=== PATIENT | male | born 1960 | race Caucasian/White ===

== ENCOUNTER 2016-02-13 12:38 | Inpatient (IN) | payer MEDICARE ==
[~2016-02-13] VITALS: Ht 170.2 cm; Wt 66.0 kg
[2016-02-13 12:41] VITALS: BP 121/62; PULSE 86; RESP 15; TEMP 98.4; O2SAT 95
[2016-02-13 12:53] VITALS: BP 133/85; PULSE 97; RESP 15; TEMP 97.9; O2SAT 97
[2016-02-13] MEDS ORDERED: SODIUM CHLOR 0.9% 1000 ML INJ 1,000 ML IV SCH (13:00)
[2016-02-13] MEDS ORDERED: HYDR-3366 PO (13:05)
[2016-02-13] MEDS ORDERED: DICL75TA PO (13:05)
[2016-02-13] MEDS ORDERED: OMEP20TA PO (13:05)
[2016-02-13] MEDS ORDERED: GABA600T PO (13:05)
[2016-02-13] MEDS ORDERED: CLON1 PO (13:05)
[2016-02-13] MEDS ORDERED: MORP1TAB26 PO (13:05)
[2016-02-13] MEDS ORDERED: LISI10TA3 PO (13:05)
--- NOTE | 2016-02-13 13:07 | PD ---
HPI Chief Complaint: Back/ Neck Pain or Injury Time Seen by Provider: 13:07 Travel History International Travel<30 days: No Contact w/Intl Traveler<30days: No Traveled to known affect area: No History of Present Illness HPI 56-year-old male with history of hypertension, COPD, chronic back pain, IV drug use presents to the emergency department for evaluation of lower back pain. The patient states that he has had worsening lower back pain over the past 3 months. States that he sees pain management for his chronic back pain, he is taking morphine and Lortab. States that he had an outpatient MRI performed that showed he has some sort of fluid around his spine and he was told by his pain management doctor yesterday to come to the emergency room. He has the MRI disc and report with him which shows the MRI he is referring to was performed . The patient states he was recently admitted at [facility] for a hand infection and had PICC line with antibiotics, states his PICC line was removed yesterday. Patient is unsure if he received any treatment for his lumbar spine infection. The patient is overall a poor historian. He is complaining of lower back pain. He denies any fever, chills, nausea, vomiting, numbness or tingling, saddle anesthesia, bowel or bladder incontinence. He admits he did fall asleep onto his heating pad last night and had it on his lower back for over 6 hours. No other complaints. [facility] Past Medical History Anxiety: Yes Depression: Yes COPD: Yes Hepatitis: Yes (C) Hypertension: Yes Influenza Vaccination: Yes Past Surgical History Appendectomy: Yes Thoracic Surgery: Yes Social History Alcohol Use: No Tobacco Use: Yes Substance Use: No (hx iv drug dilaudid use, last in april) Allergies-Medications (Allergen,Severity, Reaction): Coded Allergies: No Known Allergies (Unverified , 02/13/16) Reported Meds & Prescriptions Reported Meds & Active Scripts Active Reported Omeprazole 20 Mg Tab 20 Mg PO BID Lisinopril 10 Mg Tab 10 Mg PO DAILY Diclofenac Sodium DR (Diclofenac Sodium) 75 Mg Tabdr 75 Mg PO BID Gabapentin 600 Mg Tab 600 Mg PO BID [place] (Hydrocodone-Acetaminophen) 10-325 Mg Tab 1 Tab PO BID PRN Morphine ER (Morphine Sulfate) 60 Mg Tab 60 Mg PO BID PRN Klonopin (Clonazepam) 1 Mg Tab 1 Mg PO TID Review of Systems Except as stated in HPI: all other systems reviewed are Neg Physical Exam Narrative GENERAL: Well-nourished and well-developed male patient in no acute distress. SKIN: Warm and dry. HEAD: Normocephalic and atraumatic. EYES: No injection, drainage, or hyphema noted. PERRLA. EOMI. ENT: No nasal drainage noted. Oropharynx is clear. NECK: Supple and the trachea is midline. CARDIOVASCULAR: Regular rate and rhythm. RESPIRATORY: Breath sounds are equal bilaterally with no accessory muscle use, wheezing, rhonchi, or crackles. GASTROINTESTINAL: Abdomen is soft, non-tender, and nondistended. MUSCULOSKELETAL: No obvious deformities, swelling, cyanosis, or ecchymosis is present throughout the upper and lower extremities. Patient has full range of motion without any signs of neurovascular compromise. Strength 5/5 upper and lower extremities and equal bilaterally. BACK: There is a rash across the lower back in the shape of a heating pad, likely secondary to the patient leaving his heating pad on all night. The patient has midline lumbar spine tenderness to palpation. No tenderness to palpation of thoracic spine. NEUROLOGICAL: Awake, alert, and oriented. Normal speech and gait. Cranial nerves are grossly intact. Data Data Last Documented VS Vital Signs Date Time Temp Pulse Resp B/P Pulse Ox O2 Delivery O2 Flow Rate FiO2 02/13/16 16:00 75 15 106/69 95 Room Air 02/13/16 12:53 97.9 Orders Complete Blood Count With Diff (02/13/16 13:00) Comprehensive Metabolic Panel (02/13/16 13:00) Prothrombin Time / Inr (Pt) (02/13/16 13:00) Act Partial Throm Time (Ptt) (02/13/16 13:00) Lactic Acid Sepsis Protocol (02/13/16 13:00) Blood Culture (02/13/16 13:00) Blood Glucose (02/13/16 13:00) Ecg Monitoring (02/13/16 13:00) Iv Access Insert/Monitor (02/13/16 13:00) Oximetry (02/13/16 13:00) Westergren Sedimentation Rate (02/13/16 13:00) C-Reactive Protein (Crp) (02/13/16 13:00) Mri L Spine W&W/O Contrast (02/13/16 ) Sodium Chlor 0.9% 1000 Ml Inj (Ns 1000 M (02/13/16 13:00) Gadodiamide Pf Inj (Omniscan Pf Inj) (02/13/16 14:50) Vancomycin Inj (Vancomycin Inj) (02/13/16 15:45) Piperacil-Tazo 4.5 Gm Premix (Zosyn 4.5 (02/13/16 15:45) Consult Neurosurgery (02/13/16 ) Drug Screen,Ur W/Confirmation (02/13/16 16:16) Comprehensive Metabolic Panel (02/14/16 06:00) Hepatitis Profile (02/13/16 16:16) Invasive Rad Dept Consult (02/13/16 ) Consult Infectious Disease (02/13/16 ) Dexamethasone Inj (Decadron Inj) (02/13/16 17:00) Clonazepam (Klonopin) (02/13/16 18:00) Gabapentin (Neurontin) (02/13/16 21:00) Lisinopril (Prinivil) (02/14/16 09:00) Pantoprazole (Protonix) (02/13/16 21:00) Admit Order (Ed Use Only) (02/13/16 16:21) Oxycodone Sr (Oxycontin Cr) (02/13/16 21:00) Labs Laboratory Tests Test 02/13/16 13:14 White Blood Count 10.4 TH/MM3 Red Blood Count 4.47 MIL/MM3 Hemoglobin 11.0 GM/DL Hematocrit 32.0 % Mean Corpuscular Volume 71.6 FL Mean Corpuscular Hemoglobin 24.6 PG Mean Corpuscular Hemoglobin 34.4 % Concent Red Cell Distribution Width 20.9 % Platelet Count 410 TH/MM3 Mean Platelet Volume 7.0 FL Neutrophils (%) (Auto) 78.2 % Lymphocytes (%) (Auto) 14.5 % Monocytes (%) (Auto) 5.9 % Eosinophils (%) (Auto) 0.9 % Basophils (%) (Auto) 0.5 % Neutrophils # (Auto) 8.1 TH/MM3 Lymphocytes # (Auto) 1.5 TH/MM3 Monocytes # (Auto) 0.6 TH/MM3 Eosinophils # (Auto) 0.1 TH/MM3 Basophils # (Auto) 0.1 TH/MM3 CBC Comment AUTO DIFF Differential Comment AUTO DIFF CONFIRMED Acanthocytes OCC Erythrocyte Sedimentation Rate 62 mm/hr Prothrombin Time 10.7 SEC Prothromb Time International 1.0 RATIO Ratio Activated Partial 32.9 SEC Thromboplast Time Sodium Level 130 MEQ/L Potassium Level 4.2 MEQ/L Chloride Level 95 MEQ/L Carbon Dioxide Level 25.1 MEQ/L Anion Gap 10 MEQ/L Blood Urea Nitrogen 36 MG/DL Creatinine 0.96 MG/DL Estimat Glomerular Filtration 81 ML/MIN Rate Random Glucose 105 MG/DL Lactic Acid Level 1.4 mmol/L Calcium Level 9.0 MG/DL Total Bilirubin 0.4 MG/DL Aspartate Amino Transf 40 U/L (AST/SGOT) Alanine Aminotransferase 44 U/L (ALT/SGPT) Alkaline Phosphatase 158 U/L C-Reactive Protein 5.17 MG/DL Total Protein 8.3 GM/DL Albumin 3.2 GM/DL [facility] Medical Decision Making Medical Screen Exam Complete: Yes Emergency Medical Condition: Yes Differential Diagnosis Acute on chronic low back pain versus lumbar spine abscess versus discitis versus radiculopathy Narrative Course 56-year-old male presents to the emergency department for evaluation of lower back pain for several months. Patient is afebrile, vital signs are stable. He was sent here by his pain management physician for an abnormal lumbar spine MRI that was performed 12/21/15. The report reads the patient has osteomyelitis discitis with thin layer of epidural abscess along posterior aspect of L3 and L4 , Multiloculated intramuscular fluid collections likely represent seromas versus abscesses. Associated severe thecal sac compression and bilateral neural foraminal narrowing. IV access is obtained, labs have been drawn and sent. CBC shows mild anemia with hemoglobin 11.0, hematocrit 30.0. ESR is elevated at 62. CMP shows slightly low sodium of 1:30 and not elevation in LFTs. CRP is elevated at 0.17. Lactic acid is within normal limits at 1.4. Coags are unremarkable. MRI of the lumbar spine with and without IV contrast shows L3-L4 discitis with osteomyelitis and endplate distraction of L3 and L4. There are epidural abscess extending from L2 to L4 measuring 7 mm in maximal thickness, there is also a left posterior paraspinous abscess that measures 1.8 x 3 cm in greatest transaxial dimension and 5.5 cm in length. There are abscesses in the left posterior lateral paraspinous rim at level of L1 and L2 as well as in both so as muscles left larger than right. Patient has multiple lumbar spine abscesses with discitis and osteomyelitis. He is given 1 g of vancomycin and 4.5 mg of Zosyn. Patient will be admitted to the resident service with neurosurgeon consultation. I discussed the case with my attending physician Dr. Tay who is aware of the patients history, physical examination findings, and treatment plan. Physician Communication Physician Communication I spoke with Dr. Walters, neurosurgeon on-call, who is made aware of the patient and his MRI findings and agrees to consult on the patient. I spoke with Dr. Ricardo medical technician who agrees to admit the patient to their service. Diagnosis Primary Impression: Lumbar discitis Additional Impressions: Osteomyelitis of lumbar spine Spinal epidural abscess Admitting Information Admitting Physician Requests: Admit Myrna King Feb 13, 2016 13:07
[2016-02-13 13:32] LABS: AUTOMATED NEUTROPHIL # 8.1 TH/MM3 (1.8-7.7); BASOPHIL # 0.1 TH/MM3 (0-0.2); BASOPHIL % 0.5 % (0.0-2.0); EOSINOPHIL # 0.1 TH/MM3 (0-0.4); EOSINOPHIL % 0.9 % (0.0-4.0); LYMPH % 14.5 % (9.0-44.0); LYMPHOCYTE # 1.5 TH/MM3 (1.0-4.8); MEAN CELL VOLUME 71.6 FL (80.0-100.0); MEAN CORPUSCULAR HEMOGLOBIN 24.6 PG (27.0-34.0); MEAN CORPUSCULAR HGB CONC 34.4 % (32.0-36.0); MONO % 5.9 % (0.0-8.0); NEUT % 78.2 % (16.0-70.0); PLATELET COUNT 410 TH/MM3 (150-450); RED BLOOD COUNT 4.47 MIL/MM3 (4.50-5.90); RED CELL DISTRIBUTION WIDTH 20.9 % (11.6-17.2); WHITE BLOOD COUNT 10.4 TH/MM3 (4.0-11.0)
[2016-02-13 13:33] LABS: HEMO FLAGS AUTO DIFF
[2016-02-13 13:35] LABS: APTT (PATIENT) 32.9 SEC (24.3-30.1); PROTHROMBIN TIME - PATIENT 10.7 SEC (9.8-11.6)
[2016-02-13 13:42] LABS: ALT (GPT) 44 U/L (12-78); ANION GAP 10 MEQ/L (5-15); AST (GOT) 40 U/L (15-37); BICARBONATE 25.1 MEQ/L (21.0-32.0); BLOOD UREA NITROGEN 36 MG/DL (7-18); CHLORIDE 95 MEQ/L (98-107); GLOMERULAR FILTRATION RATE 81 ML/MIN (>89); POTASSIUM 4.2 MEQ/L (3.5-5.1); SODIUM (NA) 130 MEQ/L (136-145)
[2016-02-13 13:44] LABS: ALKALINE PHOSPHATASE 158 U/L (45-117); TOTAL BILIRUBIN ADULT 0.4 MG/DL (0.2-1.0)
--- NOTE | 2016-02-13 13:45 | PD ---
Physical Exam Date Seen by Provider: Feb 13, 2016 Narrative I, Dr. Tay, have reviewed the advance practice practitioner's documentation and am in agreement, met with the patient face to face, made the diagnosis, and the medical decision making was done by me. *My assessment and Findings: This is a chronically ill-appearing man who does not appear to be in any acute distress. Data Data Last Documented VS Vital Signs Date Time Temp Pulse Resp B/P Pulse Ox O2 Delivery O2 Flow Rate FiO2 02/13/16 16:00 75 15 106/69 95 Room Air 02/13/16 12:53 97.9 Orders Complete Blood Count With Diff (02/13/16 13:00) Comprehensive Metabolic Panel (02/13/16 13:00) Prothrombin Time / Inr (Pt) (02/13/16 13:00) Act Partial Throm Time (Ptt) (02/13/16 13:00) Lactic Acid Sepsis Protocol (02/13/16 13:00) Blood Culture (02/13/16 13:00) Blood Glucose (02/13/16 13:00) Ecg Monitoring (02/13/16 13:00) Iv Access Insert/Monitor (02/13/16 13:00) Oximetry (02/13/16 13:00) Westergren Sedimentation Rate (02/13/16 13:00) C-Reactive Protein (Crp) (02/13/16 13:00) Mri L Spine W&W/O Contrast (02/13/16 ) Sodium Chlor 0.9% 1000 Ml Inj (Ns 1000 M (02/13/16 13:00) Gadodiamide Pf Inj (Omniscan Pf Inj) (02/13/16 14:50) Vancomycin Inj (Vancomycin Inj) (02/13/16 15:45) Piperacil-Tazo 4.5 Gm Premix (Zosyn 4.5 (02/13/16 15:45) Consult Neurosurgery (02/13/16 ) Drug Screen,Ur W/Confirmation (02/13/16 16:16) Comprehensive Metabolic Panel (02/14/16 06:00) Hepatitis Profile (02/13/16 16:16) Invasive Rad Dept Consult (02/13/16 ) Consult Infectious Disease (02/13/16 ) Dexamethasone Inj (Decadron Inj) (02/13/16 17:00) Clonazepam (Klonopin) (02/13/16 18:00) Gabapentin (Neurontin) (02/13/16 21:00) Lisinopril (Prinivil) (02/14/16 09:00) Pantoprazole (Protonix) (02/13/16 21:00) Admit Order (Ed Use Only) (02/13/16 16:21) Oxycodone Sr (Oxycontin Cr) (02/13/16 21:00) Labs Laboratory Tests Test 02/13/16 13:14 White Blood Count 10.4 TH/MM3 Red Blood Count 4.47 MIL/MM3 Hemoglobin 11.0 GM/DL Hematocrit 32.0 % Mean Corpuscular Volume 71.6 FL Mean Corpuscular Hemoglobin 24.6 PG Mean Corpuscular Hemoglobin 34.4 % Concent Red Cell Distribution Width 20.9 % Platelet Count 410 TH/MM3 Mean Platelet Volume 7.0 FL Neutrophils (%) (Auto) 78.2 % Lymphocytes (%) (Auto) 14.5 % Monocytes (%) (Auto) 5.9 % Eosinophils (%) (Auto) 0.9 % Basophils (%) (Auto) 0.5 % Neutrophils # (Auto) 8.1 TH/MM3 Lymphocytes # (Auto) 1.5 TH/MM3 Monocytes # (Auto) 0.6 TH/MM3 Eosinophils # (Auto) 0.1 TH/MM3 Basophils # (Auto) 0.1 TH/MM3 CBC Comment AUTO DIFF Differential Comment AUTO DIFF CONFIRMED Acanthocytes OCC Erythrocyte Sedimentation Rate 62 mm/hr Prothrombin Time 10.7 SEC Prothromb Time International 1.0 RATIO Ratio Activated Partial 32.9 SEC Thromboplast Time Sodium Level 130 MEQ/L Potassium Level 4.2 MEQ/L Chloride Level 95 MEQ/L Carbon Dioxide Level 25.1 MEQ/L Anion Gap 10 MEQ/L Blood Urea Nitrogen 36 MG/DL Creatinine 0.96 MG/DL Estimat Glomerular Filtration 81 ML/MIN Rate Random Glucose 105 MG/DL Lactic Acid Level 1.4 mmol/L Calcium Level 9.0 MG/DL Total Bilirubin 0.4 MG/DL Aspartate Amino Transf 40 U/L (AST/SGOT) Alanine Aminotransferase 44 U/L (ALT/SGPT) Alkaline Phosphatase 158 U/L C-Reactive Protein 5.17 MG/DL Total Protein 8.3 GM/DL Albumin 3.2 GM/DL MDM Supervised Visit with HEATHER: Yes Oeters,Mary Fidel MD Feb 13, 2016 13:45
[2016-02-13 14:03] LABS: ACANTHOCYTES OCC (NORMAL); SCAN/DIFF AUTO DIFF CONFIRMED
[2016-02-13] MEDS ORDERED: GADODIAMIDE PF 287 MG/ML 10 ML VIAL (for RAD MRI) IV ONE (14:50)
--- NOTE | 2016-02-13 15:22 | RADRPT ---
EXAM DATE/TIME: 02/13/2016 14:25 [place] COMPARISON: No previous studies available for comparison. INDICATIONS : Osteomyelitis. CONTRAST: 10 cc Omniscan (gadodiamide) IV MEDICAL HISTORY : Hypertension. SURGICAL HISTORY : Epidural steroid injections ENCOUNTER: Initial ACUITY: 1 day PAIN SCORE: 5/10 LOCATION: Low back TECHNIQUE: Multiplanar multisequence MRI of the lumbar spine was performed with and without contrast. FINDINGS: There is discitis at L3/L4. In the intervertebral disc spaces is a 12 mm thick, 2.7 cm diameter disc- shaped fluid collection. There is abnormal T2 and T1 signal throughout the L3 and L4 vertebral bodies compatible with osteomyelitis. There is destruction of the anterior endplate of L3 and superior endp late of L4. There is epidural abscess that extends from L2-L4, measures about 7 mm in maximal thickne ss and is most conspicuous anteriorly and posteriorly towards the left. There is associated moderate severity spinal stenosis. The epidural abscess appears to communicate with a left posterior paraspino us abscess that measures 1.8 x 3.0 cm in greatest transaxial dimension and 5.5 cm in length. Above it is an additional left posterolateral paraspinous rim enhancing fluid collection at the level of L1 a nd L2, measures 1.2 by 1.1 x 4.2 cm. There are abscesses in both psoas muscles, left larger than righ t. Moderate to severe disc space narrowing with a small, broad posterior disc osteophyte complex seen at L4/L5. There is marrow edema in the posterior third of the L5 vertebral body and more focal correspo nding T1 signal abnormality, most likely reactive but focal osteomyelitis of L5 not excludable. CONCLUSION: L3/L4 discitis with osteomyelitis and endplate destruction of L3 and L4. There are epidural, L3/L4 in tervertebral, psoas and left posterolateral paraspinous abscesses. Please see above. Bharat Cabrera MD on February 13, 2016 at 15:11 Board Certified Radiologist. This report was verified electronically.
[2016-02-13] MEDS ORDERED: VANCOMYCIN INJ 1,000 MG in SODIUM CHLOR 0.9% 250 ML INJ 250 ML IV ONE (15:45)
[2016-02-13] MEDS ORDERED: PIPERACIL-TAZO 4.5 GM PREMIX 100 ML IV ONE (15:45)
[2016-02-13 16:00] VITALS: BP 106/69; PULSE 75; RESP 15; O2SAT 95
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
[2016-02-13] MEDS ORDERED: Vancomycin Consult Pharmacy 1 EA OTHER SCH (17:00)
[2016-02-13] MEDS ORDERED: VANCOMYCIN INJ 1,200 MG in SODIUM CHLOR 0.9% 250 ML INJ 250 ML IV SCH (17:00)
[2016-02-13] MEDS: DEXAMETHASONE SOD PHOS 4 MG/ML VIAL IV PUSH SCH ×2 (17:01→22:00)
[2016-02-13 17:03] VITALS: BP 90/56; PULSE 66; RESP 15; O2SAT 96
[2016-02-13] MEDS ORDERED: ONDANSETRON HCL 4 MG/2 ML VIAL IVP PRN (17:15)
[2016-02-13] MEDS ORDERED: ACETAMINOPHEN 325 MG TAB PO PRN (17:15)
[2016-02-13] MEDS ORDERED: LORazepam 1 MG TAB PO PRN (17:15)
[2016-02-13] MEDS ORDERED: LORazepam 2 MG/ML VIAL IV PUSH PRN ×4 (17:15)
[2016-02-13] MEDS ORDERED: SODIUM CHLORIDE 0.9% FLUSH 5 ML FLUSH FLUSH PRN (17:15)
[2016-02-13] MEDS ORDERED: FLUMAZENIL 1 MG/10 ML VIAL IV PUSH PRN (17:15)
[2016-02-13] MEDS ORDERED: LORazepam 2 MG TAB PO PRN (17:15)
[2016-02-13] MEDS ORDERED: NALOXONE HCL 0.4 MG/ML AMP IV PRN (17:15)
--- NOTE | 2016-02-13 17:25 | RADRPT ---
EXAM DATE/TIME: 02/13/2016 17:05 [facility] COMPARISON: No previous studies available for comparison. INDICATIONS : Shortness of breath. MEDICAL HISTORY : Hypertension. SURGICAL HISTORY : None. ENCOUNTER: Initial ACUITY: 1 day PAIN SCORE: Non-responsive. LOCATION: Bilateral chest FINDINGS: A single view of the chest demonstrates the lungs to be symmetrically aerated without evidence of mas s, infiltrate or effusion. The cardiomediastinal contours are unremarkable. Osseous structures are intact. CONCLUSION: No evidence of acute cardiopulmonary disease. Bharat Cabrera MD on February 13, 2016 at 17:23 Board Certified Radiologist. This report was verified electronically.
[2016-02-13] MEDS ORDERED: hydrALAZINE HCL 10 MG TAB PO PRN (17:30)
[2016-02-13 17:48] VITALS: BP 107/64; PULSE 71; RESP 16; O2SAT 95
[2016-02-13] MEDS: SODIUM CHLOR 0.9% 1000 ML INJ 1,000 ML IV SCH (18:00)
[2016-02-13] MEDS: cefTRIAXone INJ 2,000 MG in SODIUM CHLORIDE 0.9% INJ 100 ML IV SCH (18:00)
[2016-02-13] MEDS ORDERED: clonazePAM 1 MG TAB PO SCH (18:00)
[2016-02-13] MEDS ORDERED: LIDOCAINE 1%/EPINEPHrine 1:100,000 SOLN 20 ML VIAL ONE (18:22)
[2016-02-13 18:25] LABS: BACTERIA, URINE RARE /hpf; BLOOD, URINE NEG (NEG); COMMENT (UR) CULT NOT INDICATED; CULTURE IF INDICATED CULT NOT INDICATED; GLUCOSE,URINE NEG (NEG); KETONE, URINE NEG (NEG); MUCUS URINE FEW /lpf (OCC); NITRITE,URINE NEG (NEG); URINE COLOR YELLOW (YELLW/STRAW)
[2016-02-13] MEDS ORDERED: MIDAZOLAM HCL 2 MG/2 ML VIAL ONE (18:35)
--- NOTE | 2016-02-13 19:26 | PD.RAD ---
Post CT Procedure Prog Note Pre Procedure Diagnosis: (1) Spinal epidural abscess (2) Osteomyelitis of lumbar spine Post Procedure Diagnosis: (1) Spinal epidural abscess (2) Osteomyelitis of lumbar spine Procedure Date: Feb 13, 2016 Supervising Radiologist: Tomas High JR Proceduralist/Assist: Dianna Chavez RT(R)(CT) Anesthesia: Conscious Sedation Plan of Activity Patient to Unit: PACU Patient Condition: Good See PACS Report for procedural detail/treatment Drainage Procedure Procedure 1 Imaging Guidance: CT Side: Bilateral Procedure Type: Abscess Drainage, Aspiration Procedure: Placement Danish: 8 Drainage: Suction Fluid Description: Purulent Findings: Three paraspinal abscesses seen. The largest on the right large enough to accept a drain. An 8F drain was placed and 35 ml of pus obtained with sample to micro sent. The other two were too small for a drain. Each was aspirated to decompress the fluid. The left yielded 5 ml and the right 8ml of pus. Jr. Lennox,Tomas Machado MD Feb 13, 2016 19:26
--- NOTE | 2016-02-13 20:08 | RADRPT ---
EXAM DATE/TIME: 02/13/2016 18:48 [facility] COMPARISON: No previous studies available for comparison. INDICATIONS : Lumbar paraspinal abscess. SEDATION TIME: 30 minutes MEDICATION(S): 1.) 1.5 mg midazolam (Versed) IV 2.) 75 mcg fentanyl (Sublimaze) IV DEVICE(S): 1.) 8 Fr Skater 2.) 18 gauge Rodríguez blunt needle 3.) Carter FLUID: Total volume of 48 cc of pus fluid was removed. Fluid was sent for laboratory ordered studies. MEDICAL HISTORY : Chronic obstructive pulmonary disease. Hypertension. Hepatitis C. SURGICAL HISTORY : Appendectomy. ENCOUNTER: Initial ACUITY: 1 day PAIN SCORE: 0/10 LOCATION: Low back PROCEDURE: 1.) Conscious sedation with continuous EKG and oximetry monitoring. 2.) EKG and oximetry remained stable throughout the procedure. PROCEDURE : 1. CT guided drainage of the 3 paraspinal abscesses 2. Conscious sedation with continuous EKG and oximetry monitoring. The risks, benefits and alternatives to the procedure were explained and verbal and written consent w as obtained. The site was prepped in sterile fashion. Full sterile technique was used, including ca p, mask, sterile gloves and gown and a large sterile sheet. Hand hygiene and 2% chlorhexidine and/or betadine/alcohol prep was utilized per protocol for cutaneous antisepsis. The skin and subcutaneous tissues were infiltrated with local anesthetic solution. Using CT guidance the largest left paraspinal abscess was localized. Drainage was performed using th e prescribed catheter. 35 mL of purulent material was aspirated. A sample was sent for microbiologica l evaluation. The smaller left paraspinal abscess and subsequently the right paraspinal abscess were aspirated as they were too small to accept a drainage catheter. These yielded 5 mL and 8 mL of purule nt material respectively. The patient tolerated the procedure well and there were no complications. Conscious sedation was per formed with the prescribed dosages and duration as above. The patient tolerated the procedure well an d there were no complications. EKG and oximetry remained stable throughout the procedure. The patient was sent to post anesthesia recovery in stable condition. CONCLUSION: Uncomplicated CT guided abscess drainage of the largest left paraspinal abscess. The smaller left par aspinal abscess and right paraspinal abscess were too small to accept a drainage catheter and were th erefore aspirated to decompress the material. Tomas High Jr., MD on February 13, 2016 at 20:04 Board Certified Radiologist. This report was verified electronically.
[2016-02-13] MEDS: SODIUM CHLORIDE 0.9% FLUSH 5 ML FLUSH FLUSH SCH (21:00)
[2016-02-13] MEDS: GABAPENTIN 300 MG CAP PO SCH (21:00)
[2016-02-13] MEDS ORDERED: oxyCODONE HCL 20 MG CONTROLLED RELEASE TAB PO SCH (21:00)
[2016-02-13] MEDS: PANTOPRAZOLE SOD 20 MG DELAYED RELEASE TAB PO SCH (21:00)
[2016-02-14] VITALS (10 sets, daily range): BP systolic 119–177; BP diastolic 64–93; PULSE 69–102; RESP 8–22; TEMP 95.4–96.8; O2SAT 95–100
[2016-02-14] MEDS ORDERED: RESP: ALBUTEROL 2.5 MG/IPRATROPIUM 0.5 MG NEB (PRN) NEB (03:15)
[2016-02-14 03:36] LABS: AMPHETAMINE, URINE NEG (NEG); BARBITURATES, URINE NEG (NEG); COCAINE, URINE NEG (NEG)
[2016-02-14] MEDS: SODIUM CHLOR 0.9% 1000 ML INJ 1,000 ML IV SCH ×2 (04:46→16:25)
[2016-02-14] MEDS: VANCOMYCIN INJ 750 MG in SODIUM CHLOR 0.9% 250 ML INJ 250 ML IV SCH ×2 (04:46→16:26)
[2016-02-14] MEDS: DEXAMETHASONE SOD PHOS 4 MG/ML VIAL IV PUSH SCH ×3 (06:24→20:46)
[2016-02-14] MEDS: cefTRIAXone INJ 2,000 MG in SODIUM CHLORIDE 0.9% INJ 100 ML IV SCH ×2 (06:24→17:37)
[2016-02-14 08:00] LABS: AUTOMATED NEUTROPHIL # 6.5 TH/MM3 (1.8-7.7); BASOPHIL % 0.3 % (0.0-2.0); EOSINOPHIL % 0.1 % (0.0-4.0); HEMATOCRIT 28.7 % (39.0-51.0); LYMPH % 9.5 % (9.0-44.0); LYMPHOCYTE # 0.7 TH/MM3 (1.0-4.8); MEAN CELL VOLUME 71.4 FL (80.0-100.0); MEAN CORPUSCULAR HGB CONC 33.7 % (32.0-36.0); MONO % 6.3 % (0.0-8.0); NEUT % 83.8 % (16.0-70.0); PLATELET COUNT 374 TH/MM3 (150-450); RED BLOOD COUNT 4.02 MIL/MM3 (4.50-5.90); RED CELL DISTRIBUTION WIDTH 20.8 % (11.6-17.2); WHITE BLOOD COUNT 7.7 TH/MM3 (4.0-11.0)
[2016-02-14 08:06] LABS: HEMO FLAGS AUTO DIFF
[2016-02-14 08:50] LABS: ALT (GPT) 27 U/L (12-78); ANION GAP 7 MEQ/L (5-15); AST (GOT) 24 U/L (15-37); BICARBONATE 25.9 MEQ/L (21.0-32.0); BLOOD UREA NITROGEN 27 MG/DL (7-18); CHLORIDE 105 MEQ/L (98-107); GLOMERULAR FILTRATION RATE 127 ML/MIN (>89); POTASSIUM 4.5 MEQ/L (3.5-5.1); SODIUM (NA) 138 MEQ/L (136-145)
[2016-02-14 08:52] LABS: ALKALINE PHOSPHATASE 117 U/L (45-117); TOTAL BILIRUBIN ADULT 0.1 MG/DL (0.2-1.0)
[2016-02-14] MEDS: SODIUM CHLORIDE 0.9% FLUSH 5 ML FLUSH FLUSH SCH ×2 (09:00→20:45)
[2016-02-14] MEDS: PANTOPRAZOLE SOD 20 MG DELAYED RELEASE TAB PO SCH ×2 (09:29→20:45)
[2016-02-14] MEDS: GABAPENTIN 300 MG CAP PO SCH ×2 (09:29→20:45)
[2016-02-14] MEDS: LISINOPRIL 10 MG TAB PO SCH (09:29)
[2016-02-14] MEDS: oxyCODONE HCL 20 MG CONTROLLED RELEASE TAB PO PRN ×2 (09:30→20:45)
--- NOTE | 2016-02-14 12:28 | PD.CONS ---
HPI Service Neurosurgery Consult Requested By ED Reason for Consult discitis Primary Care Physician Non-Staff History of Present Illness 56 yr old presented in October to his PCP in [place] with infection and was treated with 3 weeks of oral antibiotics.He had previous left laminectomy at L3/4 in 2006. He worsened clinically and required 2 weeks of IV antibiotics in a fci. He worsened after cessation of treatment and presented to our ED. He complains of thigh pain and back spasms. He has a hx of hepatitis C since the age of 18, tobacco abuse and quit ETOH in the past few years. He admits to cannabis use and is getting opioids from pain management in [place]. Review of Systems ROS Limitations: Clinical Condition, Intoxication Constitutional: COMPLAINS OF: Fatigue Musculoskeletal: COMPLAINS OF: Back pain Neurologic: COMPLAINS OF: Localized weakness, Paresthesias Psychiatric: COMPLAINS OF: Depression Past Family Social History Allergies: Coded Allergies: *MDRO Multi-Drug Resistant Organism (Unverified Allergy, Unknown, 02/14/16) MRSA wound in buttocks (2002) Past Medical History PTSD, on disability Past Surgical History Right knee surgery in the [place] Reported Medications Reported Meds & Active Scripts Active Reported Omeprazole 20 Mg Tab 20 Mg PO BID Lisinopril 10 Mg Tab 10 Mg PO DAILY Diclofenac Sodium DR (Diclofenac Sodium) 75 Mg Tabdr 75 Mg PO BID Gabapentin 600 Mg Tab 600 Mg PO BID [place] (Hydrocodone-Acetaminophen) 10-325 Mg Tab 1 Tab PO BID PRN Morphine ER (Morphine Sulfate) 60 Mg Tab 60 Mg PO BID PRN Klonopin (Clonazepam) 1 Mg Tab 1 Mg PO TID Family History Parents are alive, brother with prostate CA Social History Lives with his son and is on disability. Physical Exam Vital Signs Vital Signs Date Time Temp Pulse Resp B/P Pulse Ox O2 Delivery O2 Flow Rate FiO2 02/14/16 09:00 98 21 02/14/16 08:00 96.4 72 18 98 02/14/16 05:13 95.8 79 19 119/76 99 02/14/16 04:28 95 Nasal Cannula 3.00 02/13/16 21:00 98.5 78 14 107/68 95 Nasal Cannula 3 97 02/13/16 20:15 76 13 107/60 95 Nasal Cannula 3 98 02/13/16 20:00 77 14 121/66 97 Nasal Cannula 3 98 02/13/16 17:48 71 16 107/64 95 Room Air 02/13/16 17:03 66 15 90/56 96 Room Air 02/13/16 16:00 75 15 106/69 95 Room Air 02/13/16 12:53 97.9 97 15 133/85 97 02/13/16 12:41 98.4 86 15 121/62 95 Physical Exam Awake and drowsy, follows commands and has fluent speech as well as orientation in place and time. Motor limited by pain but has at least 4/5 strength in the hip flexors, No sensory loss, reflexes are present in the patella and ankles, no Babinski or clonus Laboratory Laboratory Tests Test 02/13/16 02/13/16 02/13/16 02/14/16 13:14 16:16 17:50 07:18 White Blood Count 10.4 7.7 Red Blood Count 4.47 4.02 Hemoglobin 11.0 9.7 Hematocrit 32.0 28.7 Mean Corpuscular Volume 71.6 71.4 Mean Corpuscular Hemoglobin 24.6 24.0 Mean Corpuscular Hemoglobin 34.4 33.7 Concent Red Cell Distribution Width 20.9 20.8 Platelet Count 410 374 Mean Platelet Volume 7.0 7.2 Neutrophils (%) (Auto) 78.2 83.8 Lymphocytes (%) (Auto) 14.5 9.5 Monocytes (%) (Auto) 5.9 6.3 Eosinophils (%) (Auto) 0.9 0.1 Basophils (%) (Auto) 0.5 0.3 Neutrophils # (Auto) 8.1 6.5 Lymphocytes # (Auto) 1.5 0.7 Monocytes # (Auto) 0.6 0.5 Eosinophils # (Auto) 0.1 0.0 Basophils # (Auto) 0.1 0.0 CBC Comment AUTO DIFF AUTO DIFF Differential Comment AUTO DIFF CONFIRMED Acanthocytes OCC Erythrocyte Sedimentation Rate 62 Prothrombin Time 10.7 Prothromb Time International 1.0 Ratio Activated Partial 32.9 Thromboplast Time Sodium Level 130 138 Potassium Level 4.2 4.5 Chloride Level 95 105 Carbon Dioxide Level 25.1 25.9 Anion Gap 10 7 Blood Urea Nitrogen 36 27 Creatinine 0.96 0.65 Estimat Glomerular Filtration 81 127 Rate Random Glucose 105 125 Lactic Acid Level 1.4 Calcium Level 9.0 8.5 Total Bilirubin 0.4 0.1 Aspartate Amino Transf 40 24 (AST/SGOT) Alanine Aminotransferase 44 27 (ALT/SGPT) Alkaline Phosphatase 158 117 C-Reactive Protein 5.17 Total Protein 8.3 6.8 Albumin 3.2 2.3 Urine Opiates Screen POS Urine Barbiturates Screen NEG Urine Amphetamines Screen NEG Urine Benzodiazepines Screen NEG Urine Cocaine Screen NEG Urine Cannabinoids Screen POS Urine Color YELLOW Urine Turbidity CLEAR Urine pH 5.0 Urine Specific [place] 1.010 Urine Protein NEG Urine Glucose (UA) NEG Urine Ketones NEG Urine Occult Blood NEG Urine Nitrite NEG Urine Bilirubin NEG Urine Urobilinogen LESS THAN 2.0 Urine Leukocyte Esterase NEG Urine RBC 1 Urine WBC 1 Urine Bacteria RARE Urine Mucus FEW Microscopic Urinalysis Comment CULT NOT INDICATED Date/Time Procedure Status Source Growth 02/13/16 19:20 Gram Stain - Final Resulted Abscess Back 02/13/16 19:20 Wound Culture Resulted Abscess Back Pending 02/13/16 19:20 Fungal Smear Received Abscess Back Pending 02/13/16 19:20 Fungal Culture Received Abscess Back Pending 02/13/16 19:20 Acid Fast Stain Received Abscess Back Pending 02/13/16 19:20 Mycobacterial Culture Received Abscess Back Pending 02/13/16 13:14 Aerobic Blood Culture - Preliminary Resulted Blood Peripheral NO GROWTH IN 1 DAY 02/13/16 13:14 Anaerobic Blood Culture - Preliminary Resulted Blood Peripheral NO GROWTH IN 1 DAY Result Diagram: 02/14/16 0718 02/14/16 0718 Imaging Last Impressions Chest X-Ray 02/13/16 1705 Signed Impressions: Service Date/Time: Saturday, February 13, 2016 17:05 - CONCLUSION: No evidence of acute cardiopulmonary disease. Bharat Cabrera MD Lumbar Spine MRI 02/13/16 0000 Signed Impressions: Service Date/Time: Saturday, February 13, 2016 14:25 - CONCLUSION: L3/L4 discitis with osteomyelitis and endplate destruction of L3 and L4. There are epidural, L3/L4 intervertebral, psoas and left posterolateral paraspinous abscesses. Please see above. Bharat Cabrera MD Abscess Drainage CT 02/13/16 0000 Signed Impressions: Service Date/Time: Saturday, February 13, 2016 18:48 - CONCLUSION: Uncomplicated CT guided abscess drainage of the largest left paraspinal abscess. The smaller left paraspinal abscess and right paraspinal abscess were too small to accept a drainage catheter and were therefore aspirated to decompress the material. Tomas High Jr., MD Course Microbiology Date/Time Procedure Status Source Growth 02/13/16 13:05 Aerobic Blood Culture - Preliminary Resulted Blood Peripheral NO GROWTH IN 1 DAY 02/13/16 13:05 Anaerobic Blood Culture - Preliminary Resulted Blood Peripheral NO GROWTH IN 1 DAY 02/13/16 13:14 Aerobic Blood Culture - Preliminary Resulted Blood Peripheral NO GROWTH IN 1 DAY 02/13/16 13:14 Anaerobic Blood Culture - Preliminary Resulted Blood Peripheral NO GROWTH IN 1 DAY 02/13/16 19:20 Gram Stain - Final Resulted Abscess Back 02/13/16 19:20 Wound Culture Resulted Abscess Back Pending 02/13/16 19:20 Acid Fast Stain Received Abscess Back Pending 02/13/16 19:20 Mycobacterial Culture Received Abscess Back Pending 02/13/16 19:20 Fungal Smear Received Abscess Back Pending 02/13/16 19:20 Fungal Culture Received Abscess Back Pending Assessment and Plan Diagnosis: (1) Lumbar discitis Plan: L3/4 discitis and osteomyelitis, stable neurologically and voiding well but has axial pain. Cultures are pending from the paraspinal aspiration of abcess. Multi-organism abcess is possible as he has received 2 previous antibiotic treatment in the recent past. (2) Spinal epidural abscess Plan: ID consulted, will follow clinically. Barney Walters Feb 14, 2016 12:28
--- NOTE | 2016-02-14 13:40 | HHI.FPPN ---
Subjective Subjective Patient seen and examined with the resident team this morning. Case reviewed and discussed. Please refer to resident H&P for further details regarding history of present illness, ROS, past medical and surgical history, family and social history. In summary, patient is a 56-year-old male with a history of IV drug use and recent admission for osteomyelitis of the right arm. He presents with progressive worsening of back pain and difficulty with ambulation over a three-month period. Patient reports that he was informed by his pain management physician upon reviewing imaging of his spine that he should go to the emergency room for care. MRI in the emergency room demonstrated multiple paraspinal and intravertebral abscesses at L3-L4. He is seen in his hospital bed status post CT-guided drainage of lumbar abscesses. [facility] Objective Objective Last Impressions Chest X-Ray 02/13/16 1705 Signed Impressions: Service Date/Time: Saturday, February 13, 2016 17:05 - CONCLUSION: No evidence of acute cardiopulmonary disease. Bharat Cabrera MD Lumbar Spine MRI 02/13/16 0000 Signed Impressions: Service Date/Time: Saturday, February 13, 2016 14:25 - CONCLUSION: L3/L4 discitis with osteomyelitis and endplate destruction of L3 and L4. There are epidural, L3/L4 intervertebral, psoas and left posterolateral paraspinous abscesses. Please see above. Bharat Cabrera MD Abscess Drainage CT 02/13/16 0000 Signed Impressions: Service Date/Time: Saturday, February 13, 2016 18:48 - CONCLUSION: Uncomplicated CT guided abscess drainage of the largest left paraspinal abscess. The smaller left paraspinal abscess and right paraspinal abscess were too small to accept a drainage catheter and were therefore aspirated to decompress the material. Tomas High Jr., MD Laboratory Tests - Abnormals Test 02/13/16 02/13/16 02/14/16 16:16 17:50 07:18 Urine Opiates Screen POS Urine Cannabinoids Screen POS Urine Bacteria RARE /hpf Urine Mucus FEW /lpf Red Blood Count 4.02 MIL/MM3 Hemoglobin 9.7 GM/DL Hematocrit 28.7 % Mean Corpuscular Volume 71.4 FL Mean Corpuscular Hemoglobin 24.0 PG Red Cell Distribution Width 20.8 % Neutrophils (%) (Auto) 83.8 % Lymphocytes # (Auto) 0.7 TH/MM3 Blood Urea Nitrogen 27 MG/DL Random Glucose 125 MG/DL Total Bilirubin 0.1 MG/DL Albumin 2.3 GM/DL Vital Signs 02/13/16 02/13/16 02/13/16 02/13/16 16:00 17:03 17:48 20:00 Pulse 75 66 71 77 Resp 15 15 16 14 B/P 106/69 90/56 107/64 121/66 Pulse Ox 95 96 95 97 O2 Delivery Room Air Room Air Room Air Nasal Cannula O2 Flow Rate 3 FiO2 98 02/13/16 02/13/16 02/14/16 02/14/16 20:15 21:00 04:28 05:13 Temp 98.5 95.8 Pulse 76 78 79 Resp 13 14 19 B/P 107/60 107/68 119/76 Pulse Ox 95 95 95 99 O2 Delivery Nasal Cannula Nasal Cannula Nasal Cannula O2 Flow Rate 3 3 3.00 FiO2 98 97 02/14/16 02/14/16 08:00 09:00 Temp 96.4 Pulse 72 Resp 18 B/P Pulse Ox 98 98 FiO2 21 INTAKE & OUTPUT 02/14/16 07:00 Intake Total 2600 ml Output Total 400 ml Balance 2200 ml Physical exam GENERAL: WDWN male, sitting up in bed. NAD. SKIN: Warm and dry. No rashes or lesions HEAD: Normocephalic. Atraumatic EYES: No scleral icterus. No injection or drainage. ENT: OP clear. MMM NECK: Supple, trachea midline. No JVD or lymphadenopathy. CARDIOVASCULAR: Regular rate and rhythm without audible murmurs, gallops, or rubs. RESPIRATORY: Breath sounds equal and clear to auscultation bilaterally. No accessory muscle use. GASTROINTESTINAL: Abdomen soft, non-tender, nondistended. Normal active bowel sounds. MUSCULOSKELETAL: No cyanosis, or edema. No calf tenderness. Right wrist with bony prominence. BACK: Percutaneous drain with minimal drainage. There is tenderness to palpation at the L3-L4 region. No CVA tenderness. Neuro: Awake and alert. Normal speech. Cranial nerves grossly intact. Motor and sensation intact and equal bilaterally. Strength 4-5 out of 5 bilateral lower extremities. Assessment Assessment 56-year-old male admitted with: Multiple paraspinal and intravertebral abscesses L3-L4 History of IV drug use History of osteomyelitis PTSD Polysubstance abuse Anemia PLAN PLAN Abscess culture pending Infectious disease consultation for antibiotic recommendations, appreciate expertise Blood cultures pending Neurosurgery consultation Will obtain records from prior hospitalizations for culture results PT consult OT consult MRI right wrist to evaluate for osteomyelitis DVT prophylaxis Patient seen and examined. Case reviewed and discussed. Agree with plan of care is discussed with me and documented in the resident note. Mary Sanchez MD Feb 14, 2016 13:40
[2016-02-14] MEDS: hydrALAZINE HCL 10 MG TAB PO PRN (13:51)
[2016-02-14 14:23] LABS: SCAN/DIFF AUTO DIFF CONFIRMED
--- NOTE | 2016-02-14 16:47 | PD.ID.CON ---
History of Present Illness Service ID Consult Requested By Dr Bansal Reason for Consult multiple abscesses; IVDA Primary Care Physician Non-Staff Diagnoses: History of Present Illness Mr. Sher is a 56-year-old male with past medical history of COPD, hypertension, and IV drug use who presents to [place] ED with complaint of lower back pain. Pt has a h/o chronic low back pain resulted from trauma He reports a h/o rmote L spine surgery related to that trauma. Denies any h/o hardware Pt had a recent hospitalization at [facility] : He was admitted to [facility] for right wrist swelling. During this hospitalization, patient was diagnosed with osteomyelitis and bacteremia due to MSSAand he was prescribed IV Ancef to be continued until 02/12/2016 Pt stated that he was receiving "some sort of abx for blood ifection" via PICC line in a snf Pt also reports weaness in BL and difficulty walking MRI of L spine showed L3/L4 discitis with osteomyelitis and endplate destruction of L3 and L4. and epidural, L3/L4 intervertebral, psoas and left posterolateral paraspinous abscesses. Pt underwent yday CT guided abscess drainage of the largest left paraspinal abscess, the smaller left paraspinal abscess and right paraspinal abscess were too small for aspiration Review of Systems ROS Limitations: Poor Historian Other as per history of present illness the rest of 12 point review is negative Past Family Social History Allergies: Coded Allergies: *MDRO Multi-Drug Resistant Organism (Unverified Allergy, Unknown, 02/14/16) MRSA wound in buttocks (2002) Past Medical History chronic back pain Anxiety Depression Hepatitis C HTN Tobacco abuse Illicit drug abuse COPD CAD Recent bacteremia/osteomyelitis Past Surgical History Appendectomy L knee sx L spine diskectopmy related to trauma Active Ordered Medications Medications where reviewed in EMR Antibiotics Include: vancomycin CFTX Family History Non-Contributory. Social History Active tobacco smoking 1 ppd Active marijuana smoking Patient denies IV drugs since 04/2015 no ETOH Physical Exam Vital Signs Vital Signs Date Time Temp Pulse Resp B/P Pulse Ox O2 Delivery O2 Flow Rate FiO2 02/14/16 15:53 16 02/14/16 15:38 70 8 142/79 100 02/14/16 12:00 96.0 102 22 177/93 99 02/14/16 09:00 98 21 02/14/16 08:00 96.4 72 18 98 02/14/16 05:13 95.8 79 19 119/76 99 02/14/16 04:28 95 Nasal Cannula 3.00 02/13/16 21:00 98.5 78 14 107/68 95 Nasal Cannula 3 97 02/13/16 20:15 76 13 107/60 95 Nasal Cannula 3 98 02/13/16 20:00 77 14 121/66 97 Nasal Cannula 3 98 02/13/16 17:48 71 16 107/64 95 Room Air 02/13/16 17:03 66 15 90/56 96 Room Air Physical Exam CONSTITUTIONAL/GENERAL: This is an adequately nourished patient, in no apparent distress. TUBES/LINES/DRAINS: SKIN: No jaundice, rashes, or lesions. Skin temperature appropriate. Not diaphoretic. HEAD: Atraumatic. Normocephalic. EYES: Pupils equal and round and reactive. Extraocular motions intact. No scleral icterus. No injection or drainage. Fundi not examined. ENT: Hearing grossly normal. Nose without bleeding or purulent drainage. Oral mucosae without visible erythema, exudates, masses, or lesions. NECK: Trachea midline. Supple, nontender. CARDIOVASCULAR: Regular rate and rhythm without murmurs, gallops, or rubs. No JVD. Peripheral pulses symmetric. RESPIRATORY/CHEST: Symmetric, unlabored respirations. Clear to auscultation. Breath sounds equal bilaterally. No wheezes, rales, or rhonchi. GASTROINTESTINAL: Abdomen soft, non-tender, nondistended. No hepato-splenomegaly , or palpable masses. No guarding. Bowel sounds present. GENITOURINARY: Without palpable bladder distension. MUSCULOSKELETAL: Extremities without clubbing, cyanosis, or edema. No joint tenderness or effusion noted. No calf tenderness. No mottling or clubbing. BACK: accordeon drain in place with minimal amount of serosangious dc LYMPHATICS: No palpable cervical or supraclavicular adenopathy. NEUROLOGICAL: Lethargic but arousable Motor in BLE decreased to 3/5. Follows commands. Speech normal . Moves all extremities. PSYCHIATRIC: No obvious anxiety/depression. no apparent hallucinations or other psychotic thought process. Laboratory Laboratory Tests Test 02/13/16 02/14/16 17:50 07:18 Urine Color YELLOW Urine Turbidity CLEAR Urine pH 5.0 Urine Specific [place] 1.010 Urine Protein NEG Urine Glucose (UA) NEG Urine Ketones NEG Urine Occult Blood NEG Urine Nitrite NEG Urine Bilirubin NEG Urine Urobilinogen LESS THAN 2.0 Urine Leukocyte Esterase NEG Urine RBC 1 Urine WBC 1 Urine Bacteria RARE Urine Mucus FEW Microscopic Urinalysis Comment CULT NOT INDICATED White Blood Count 7.7 Red Blood Count 4.02 Hemoglobin 9.7 Hematocrit 28.7 Mean Corpuscular Volume 71.4 Mean Corpuscular Hemoglobin 24.0 Mean Corpuscular Hemoglobin 33.7 Concent Red Cell Distribution Width 20.8 Platelet Count 374 Mean Platelet Volume 7.2 Neutrophils (%) (Auto) 83.8 Lymphocytes (%) (Auto) 9.5 Monocytes (%) (Auto) 6.3 Eosinophils (%) (Auto) 0.1 Basophils (%) (Auto) 0.3 Neutrophils # (Auto) 6.5 Lymphocytes # (Auto) 0.7 Monocytes # (Auto) 0.5 Eosinophils # (Auto) 0.0 Basophils # (Auto) 0.0 CBC Comment AUTO DIFF Differential Comment AUTO DIFF CONFIRMED Sodium Level 138 Potassium Level 4.5 Chloride Level 105 Carbon Dioxide Level 25.9 Anion Gap 7 Blood Urea Nitrogen 27 Creatinine 0.65 Estimat Glomerular Filtration 127 Rate Random Glucose 125 Calcium Level 8.5 Total Bilirubin 0.1 Aspartate Amino Transf 24 (AST/SGOT) Alanine Aminotransferase 27 (ALT/SGPT) Alkaline Phosphatase 117 Total Protein 6.8 Albumin 2.3 Date/Time Procedure Status Source Growth 02/13/16 19:20 Gram Stain - Final Resulted Abscess Back 02/13/16 19:20 Wound Culture - Preliminary Resulted Abscess Back NO GROWTH IN 24 HOURS. 02/13/16 19:20 Fungal Smear Received Abscess Back Pending 02/13/16 19:20 Fungal Culture Received Abscess Back Pending 02/13/16 19:20 Acid Fast Stain Received Abscess Back Pending 02/13/16 19:20 Mycobacterial Culture Received Abscess Back Pending 02/13/16 13:14 Aerobic Blood Culture - Preliminary Resulted Blood Peripheral NO GROWTH IN 1 DAY 02/13/16 13:14 Anaerobic Blood Culture - Preliminary Resulted Blood Peripheral NO GROWTH IN 1 DAY Result Diagram: 02/14/16 0718 02/14/16 0718 Imaging Last Impressions Chest X-Ray 02/13/16 1705 Signed Impressions: Service Date/Time: Saturday, February 13, 2016 17:05 - CONCLUSION: No evidence of acute cardiopulmonary disease. Bharat Cabrera MD Lumbar Spine MRI 02/13/16 0000 Signed Impressions: Service Date/Time: Saturday, February 13, 2016 14:25 - CONCLUSION: L3/L4 discitis with osteomyelitis and endplate destruction of L3 and L4. There are epidural, L3/L4 intervertebral, psoas and left posterolateral paraspinous abscesses. Please see above. Bharat Cabrera MD Abscess Drainage CT 02/13/16 0000 Signed Impressions: Service Date/Time: Saturday, February 13, 2016 18:48 - CONCLUSION: Uncomplicated CT guided abscess drainage of the largest left paraspinal abscess. The smaller left paraspinal abscess and right paraspinal abscess were too small to accept a drainage catheter and were therefore aspirated to decompress the material. Tomas High Jr., MD Assessment and Plan Assessment and Plan L3-4 diskitis , osteo, recurrent/unresolving previously MSSA bacteremia and h/ o recent tx with cefazoline sp CT guided drainage, clx P, negative @ 24 hrs - cont vanco for now - change CFTX to cefazoline if clx negative or MSSA - ow will adjust abx per clx Mary Michele MD Feb 14, 2016 16:47
[2016-02-14] MEDS: clonazePAM 1 MG TAB PO PRN (23:32)
[2016-02-15] MEDS ORDERED: IBUPROFEN 600 MG TAB PO PRN
[2016-02-15 00:25] VITALS: BP 122/76; PULSE 105; RESP 18; TEMP 96.4; O2SAT 100
[2016-02-15] MEDS ORDERED: PHARMACY ORDERED LAB XX ONE (04:45)
[2016-02-15] MEDS: VANCOMYCIN INJ 750 MG in SODIUM CHLOR 0.9% 250 ML INJ 250 ML IV SCH (05:21)
[2016-02-15 05:23] VITALS: BP 146/92; PULSE 75; RESP 19; TEMP 95.7; O2SAT 100
[2016-02-15 05:26] LABS: VANCOMYCIN TROUGH 5.9 MCG/ML (5.0-10.0)
[2016-02-15] MEDS: cefTRIAXone INJ 2,000 MG in SODIUM CHLORIDE 0.9% INJ 100 ML IV SCH ×2 (06:42→17:09)
[2016-02-15] MEDS: DEXAMETHASONE SOD PHOS 4 MG/ML VIAL IV PUSH SCH ×2 (06:42→17:09)
[2016-02-15 08:29] LABS: AUTOMATED NEUTROPHIL # 8.9 TH/MM3 (1.8-7.7); BASOPHIL % 0.1 % (0.0-2.0); HEMATOCRIT 30.5 % (39.0-51.0); LYMPH % 7.9 % (9.0-44.0); LYMPHOCYTE # 0.8 TH/MM3 (1.0-4.8); MEAN CELL VOLUME 72.6 FL (80.0-100.0); MEAN CORPUSCULAR HEMOGLOBIN 23.8 PG (27.0-34.0); MEAN CORPUSCULAR HGB CONC 32.8 % (32.0-36.0); MONO % 3.4 % (0.0-8.0); NEUT % 88.6 % (16.0-70.0); PLATELET COUNT 373 TH/MM3 (150-450); RED CELL DISTRIBUTION WIDTH 20.5 % (11.6-17.2)
[2016-02-15 08:34] LABS: HEMO FLAGS AUTO DIFF
[2016-02-15 08:53] LABS: ALKALINE PHOSPHATASE 109 U/L (45-117); ALT (GPT) 18 U/L (12-78); ANION GAP 8 MEQ/L (5-15); AST (GOT) 11 U/L (15-37); BICARBONATE 25.4 MEQ/L (21.0-32.0); BLOOD UREA NITROGEN 19 MG/DL (7-18); CHLORIDE 102 MEQ/L (98-107); GLOMERULAR FILTRATION RATE 164 ML/MIN (>89); POTASSIUM 3.9 MEQ/L (3.5-5.1); SODIUM (NA) 135 MEQ/L (136-145); TOTAL BILIRUBIN ADULT 0.1 MG/DL (0.2-1.0)
[2016-02-15] MEDS: PANTOPRAZOLE SOD 20 MG DELAYED RELEASE TAB PO SCH ×2 (08:57→21:48)
[2016-02-15] MEDS: SODIUM CHLORIDE 0.9% FLUSH 5 ML FLUSH FLUSH SCH ×2 (08:57→21:49)
[2016-02-15] MEDS: LISINOPRIL 10 MG TAB PO SCH (08:57)
[2016-02-15] MEDS: oxyCODONE HCL 20 MG CONTROLLED RELEASE TAB PO PRN (08:57)
[2016-02-15] MEDS: GABAPENTIN 300 MG CAP PO SCH ×2 (08:57→21:48)
[2016-02-15 09:15] LABS: KERATOCYTES OCC (NORMAL); PLATELET ESTIMATE SMEAR NORMAL (NORMAL); PLATELET MORPHOLOGY NORMAL (NORMAL); SCAN/DIFF AUTO DIFF CONFIRMED
[2016-02-15 09:24] VITALS: BP 151/88; PULSE 75; RESP 20; TEMP 98.2; O2SAT 100
[2016-02-15] MEDS: clonazePAM 1 MG TAB PO PRN ×2 (09:42→21:48)
[2016-02-15] MEDS: SODIUM CHLOR 0.9% 1000 ML INJ 1,000 ML IV SCH ×2 (10:00)
[2016-02-15] MEDS ORDERED: oxyCODONE/ACETAMINOPHEN 5 MG/325 MG TAB PO PRN (12:00)
[2016-02-15] MEDS ORDERED: CYCLOBENZAPRINE HCL 10 MG TAB PO PRN ×2 (12:00→20:00)
--- NOTE | 2016-02-15 12:19 | HHI.NSPN ---
History Chief Complaint: none Interval History 56 yr old admitted with discitis and paraspinal abcess at L3/4. He is very grateful for the pain relief. He is starting to stand with assistance. ID is following. Review of Systems General: Negative for: fever, chills, insomnia Respiratory: Negative for: shortness of breath, cough, sputum Cardiovascular: Negative for: chest pain, palpitations, orthopnea Gastrointestinal: Negative for: nausea, vomitting, diarrhea, constipation Exam Results Vital Signs Date Time Temp Pulse Resp B/P Pulse Ox O2 Delivery O2 Flow Rate FiO2 02/15/16 09:24 98.2 75 20 151/88 100 02/14/16 09:00 21 02/14/16 04:28 Nasal Cannula 3.00 Intake and Output 02/14/16 02/14/16 02/14/16 07:59 15:59 23:59 Intake Total 1610 ml Output Total 400 ml 950 ml Balance -400 ml 660 ml Physical Examination Alert and oriented x 3 Motor 5/5 in the hip flexors and quads bilaterally No sensory level Lab, Micro, Other Results Microbiology Date/Time Procedure Status Source Growth 02/13/16 13:05 Aerobic Blood Culture - Preliminary Resulted Blood Peripheral NO GROWTH IN 2 DAYS 02/13/16 13:05 Anaerobic Blood Culture - Preliminary Resulted Blood Peripheral NO GROWTH IN 2 DAYS 02/13/16 13:14 Aerobic Blood Culture - Preliminary Resulted Blood Peripheral NO GROWTH IN 2 DAYS 02/13/16 13:14 Anaerobic Blood Culture - Preliminary Resulted Blood Peripheral NO GROWTH IN 2 DAYS 02/13/16 19:20 Gram Stain - Final Resulted Abscess Back 02/13/16 19:20 Wound Culture - Preliminary Resulted Gram Positive Cocci 02/13/16 19:20 Acid Fast Stain Received Abscess Back Pending 02/13/16 19:20 Mycobacterial Culture Received Abscess Back Pending 02/13/16 19:20 Fungal Smear Received Abscess Back Pending 02/13/16 19:20 Fungal Culture Received Abscess Back Pending Medical Decision Making Impression and Plan 56 yr old with spinal abcess, lumbar pain and leg spasms. His pain is better controlled and he is starting to stand. Decadron was decreased to 4 IV BID and flexeril was added. Total Minutes: 10 Barney Walters Feb 15, 2016 12:19
[2016-02-15 12:59] VITALS: BP 149/86; PULSE 88; RESP 20; TEMP 97.6; O2SAT 99
[2016-02-15] MEDS ORDERED: GADODIAMIDE PF 287 MG/ML 5 ML VIAL (for RAD MRI) IV ONE (13:15)
--- NOTE | 2016-02-15 13:58 | RADRPT ---
EXAM DATE/TIME: 02/15/2016 12:18 [facility] COMPARISON: No previous studies available for comparison. INDICATIONS : Osteomyelitis. Neck pain. Abscess. CONTRAST: 12 cc Omniscan (gadodiamide) IV MEDICAL HISTORY : Chronic obstructive pulmonary disease. Hepatitis C. Hypertension. Lumbar paraspinal abscess. SURGICAL HISTORY : Appendectomy. Knee. ENCOUNTER: Subsequent ACUITY: 3 day PAIN SCORE: 8/10 LOCATION: neck TECHNIQUE: Multiplanar, multisequence MRI examination of the cervical spine was performed. FINDINGS: There is no evidence for abscess or abnormal enhancement to suggest osteomyelitis. No masses are seen . Multilevel osteophyte formation and mild to moderate disc space narrowing greatest at C5-6. There i s mild discogenic edema at C4-5 and C5-6 endplates. Otherwise the bone marrow signal intensity is nor mal. . C2-C3: The thecal sac has a normal configuration. There is no evidence of disc herniation or spinal canal stenosis. The neural foramina are patent bilaterally. C3-C4: Mild right foraminal narrowing secondary to facet and uncovertebral hypertrophy. C4-C5: Diffuse disc osteophyte complex is noted with mild canal narrowing. Uncovertebral hypertrophy and mod erate bilateral foraminal stenosis. C5-C6: Mild effacement of the ventral thecal sac secondary to posterior disc osteophyte complex and uncovert ebral hypertrophy with moderate right, mild left foraminal narrowing. C6-C7: The thecal sac has a normal configuration. There is no evidence of disc herniation or spinal canal s tenosis. The neural foramina are patent bilaterally. C7-T1: The thecal sac has a normal configuration. There is no evidence of disc herniation or spinal canal s tenosis. The neural foramina are patent bilaterally. CONCLUSION: Degenerative changes are noted as above. Hugo Cohn MD on February 15, 2016 at 13:54 Board Certified Radiologist. This report was verified electronically.
--- NOTE | 2016-02-15 14:06 | RADRPT ---
EXAM DATE/TIME: 02/15/2016 12:18 [facility] COMPARISON: MRI LUMBAR SPINE W & W/O CONTRAST, February 13, 2016, 14:25. INDICATIONS : Osteomyelitis. Back pain. Abscess. CONTRAST: 12 cc Omniscan (gadodiamide) IV MEDICAL HISTORY : Chronic obstructive pulmonary disease. Hepatitis C. Hypertension. Lumbar paraspinal abscess. SURGICAL HISTORY : Appendectomy. Knee. ENCOUNTER: Subsequent ACUITY: 3 day PAIN SCORE: 8/10 LOCATION: Thoracic spine. TECHNIQUE: Multiplanar multisequence MRI of the thoracic spine was performed. FINDINGS: There is normal alignment of the thoracic spine. Scattered Schmorl nodes are present. There is a any ngioma at the T11 level. There is mild expansion of the cord and increased intramedullary T2 signal w ithin the posterior to the T9 vertebral body level. The abnormal signal extends over 3.6 cm. There is no abnormal enhancement associated with this finding. There is a tiny left central disc protrusion a t T10-11 with no canal or foraminal narrowing. Tiny central disc protrusion at T9-10 with no canal or foraminal narrowing. CONCLUSION: Degenerative changes are seen without canal or foraminal stenosis. There is a nonenhancing area of mi ld cord expansion and increased signal within the cord posterior to the T9 level extending 3.6 cm. Th e differential diagnosis could include inflammatory/demyelinating process or neoplasm, felt less like ly though not entirely excluded. Hugo Cohn MD on February 15, 2016 at 14:01 Board Certified Radiologist. This report was verified electronically.
[2016-02-15] MEDS: oxyCODONE/ACETAMINOPHEN 10 MG/325 MG TAB PO PRN ×3 (14:27→21:49)
[2016-02-15] MEDS: CYCLOBENZAPRINE HCL 10 MG TAB PO PRN ×2 (14:27→23:18)
--- NOTE | 2016-02-15 15:40 | RADRPT ---
EXAM DATE/TIME: 02/15/2016 12:18 [facility] COMPARISON: No previous studies available for comparison. INDICATIONS : Osteomyelitis. Pain. CONTRAST: 12 cc Omniscan (gadodiamide) IV MEDICAL HISTORY : Chronic obstructive pulmonary disease. Hepatitis C. Hypertension. Lumbar paraspinal abscess. SURGICAL HISTORY : Appendectomy. Knee. ENCOUNTER: Subsequent ACUITY: 3 day PAIN SCORE: 8/10 LOCATION: Right forearm. TECHNIQUE: Multiplanar multisequence MRI examination of the forearm was performed with and without contrast. FINDINGS: Proximal and mid portions of the forearm appear normal. At the wrist, there is carpal and distal radi oulnar joint effusion and synovitis and marrow edema with patchy T1 signal suspected through most if not all of the carpal bones. There is edema and T1 signal in the metaphyses and epiphyses of the dist al radius and forearm as well. All these findings are at the edge of the [id number]. I don't see a drainable abscess. CONCLUSION: Inflammatory changes at the edge of field of view involving the carpus and distal radius and ulna. Os teomyelitis of the carpus and distal radius and ulna is suspected. A dedicated MRI of the wrist is re commended. Carpal and distal radial ulnar joint effusions are seen, potentially infected, but no absc ess demonstrated. Bharat Cabrera MD on February 15, 2016 at 15:33 Board Certified Radiologist. This report was verified electronically.
--- NOTE | 2016-02-15 16:06 | HHI.FPPN ---
Subjective Remarks Mr. Sher was afebrile with stable vital signs overnight; patient reports increased pain today. Patient reports normal urination; no change in lower extremity sensation or strength. Patient does not report rest or complaints. Patient reports having normal bowel movement. Objective Vitals Vital Signs Date Time Temp Pulse Resp B/P Pulse Ox O2 Delivery O2 Flow Rate FiO2 02/15/16 12:59 97.6 88 20 149/86 99 02/15/16 09:24 98.2 75 20 151/88 100 02/15/16 05:23 95.7 75 19 146/92 100 02/15/16 00:25 96.4 105 18 122/76 100 02/14/16 20:44 96.8 78 19 138/85 100 02/14/16 15:53 16 I/O 02/14/16 02/14/16 02/14/16 02/15/16 02/15/16 02/15/16 07:00 15:00 23:00 07:00 15:00 23:00 Intake Total 1610 ml 1475 ml 600 ml Output Total 400 ml 950 ml 1400 ml 350 ml Balance -400 ml 660 ml 75 ml 250 ml Intake Oral 1050 ml 660 ml 600 ml IV Total 560 ml 815 ml Output Urine Total 400 ml 950 ml 1400 ml 350 ml Drainage Total 0 ml # Voids 1 # Bowel Movements 1 1 1 Result Diagram: 02/15/16 0734 02/15/16 0734 Imaging Last Impressions Chest X-Ray 02/13/16 1705 Signed Impressions: Service Date/Time: Saturday, February 13, 2016 17:05 - CONCLUSION: No evidence of acute cardiopulmonary disease. Bharat Cabrera MD Lumbar Spine MRI 02/13/16 0000 Signed Impressions: Service Date/Time: Saturday, February 13, 2016 14:25 - CONCLUSION: L3/L4 discitis with osteomyelitis and endplate destruction of L3 and L4. There are epidural, L3/L4 intervertebral, psoas and left posterolateral paraspinous abscesses. Please see above. Bharat Cabrera MD Abscess Drainage CT 02/13/16 0000 Signed Impressions: Service Date/Time: Saturday, February 13, 2016 18:48 - CONCLUSION: Uncomplicated CT guided abscess drainage of the largest left paraspinal abscess. The smaller left paraspinal abscess and right paraspinal abscess were too small to accept a drainage catheter and were therefore aspirated to decompress the material. Tomas High Jr., MD Objective Remarks GENERAL: Patient sleeping, in no acute distress NEURO: Alert, oriented. Cranial nerves grossly normal. Normal peripheral sensation. Patient could flex lower extremities at hips consistently as with prior exams; no change in motor function. Ambulation not assessed. SKIN: Warm and dry, no rashes appreciated EYES: No scleral icterus, injection, or drainage. EOM grossly intact CARDIOVASCULAR: Regular rate and rhythm; no murmur appreciated. Normal peripheral perfusion in lower extremities. RESPIRATORY: Decreased breath sounds. Normal respiratory rate. Lungs clear to auscultation bilaterally. No wheezing or congestion GASTROINTESTINAL: Abdomen soft, nondistended, nontender. Bowel sounds normal. MUSCULOSKELETAL: No lower extremity swelling. No appreciated calf asymmetry. A/P Assessment and Plan Mr. Sher is a 56 yo male with: Problem List: (1) Epidural abscess Status: Acute Plan: Neurosurgery consulted -IR abscess drainage/biopsy -Decadron 4 mg IV changed to every 12 hours -Broad-spectrum antibiotic therapy -Empiric vancomycin twice a day dosed by pharmacy -Ceftriaxone 2 g every 12 hours Infectious disease consulted Ordered imaging of cervical and thoracic spine; discussed with radiology- this will be deferred until 02/14 due to recent patient radiation and lack of appropriate staffing Blood cultures pending Hepatitis panel pending We'll plan to obtain HIV after consent signed UDS pending Pain control: -home Oxycontin 20mg BID -Flexeril 10mg q8hrs per Neurosurgery -PRN Percocet 5/325mg / 10/325mg for pain scale 1-5/6-10 Impression: Approximately 3 months of lower back pain; associated neurologic impairment unclear due to patient sedation Lumbar MRI demonstrative of "L3/L4 discitis with osteomyelitis and endplate destruction of L3 and L4. There are epidural, L3/L4 intervertebral, psoas and left posterolateral paraspinous abscesses. Please see above." Thoracic MRI: Degenerative changes without stenosis. Nonenhancing mild cord expansion and increased signal posterior to T9 extending 3.6 cm. DDX includes inflammatory/demyelinating process or neoplasm Cervical MRI: Degenerative changes ESR 62, CRP 5.17 CBC without leukocytosis; urinalysis WNL, metabolic panel unremarkable (2) COPD (chronic obstructive pulmonary disease) Status: Chronic Plan: We'll give when necessary DuoNeb's Impression: Patient with reported history of COPD. Patient currently smokes cigarettes. No wheezing for visible SOB on exam (3) Wrist joint infection Status: Chronic Plan: We'll order wrist MRI per radiology recommendation -Will consult orthopedic surgery -Continued antibiotic management per infectious disease Impression: Per patient's prior records at [facility], patient was treated for MSSA osteomyelitis with Ancef with planned stoppage date of 02/11. It is unclear whether patient took full treatment regimen Right wrist MRI: Inflammatory changes at the edge of field of view including carpus and distal radius and ulna. Osteomyelitis of the carpus and is a radius and ulnar is suspected. Dedicated MRI of wrist recommended. Carpal and distal radial ulnar joint effusions are seen, potentially infected, but no abscess demonstrated (4) HTN (hypertension) Status: Chronic Plan: Increase lisinopril to 20 mg daily -Continue hydralazine 10 mg every 8 hours when necessary Impression: History of hypertension; on lisinopril 10 mg daily per EMR. Patient and her minimally hypertensive during hospitalization (5) Illicit drug use Status: Chronic Plan: Impression: Patient reports history of IV drug use in 04/2015 and recent marijuana use. UDS positive for opiates and cannabinoids. (6) Hepatitis C Status: Acute Plan: We'll order Quant and genotype Impression:Hepatitis C reactive (7) DVT Prophylaxis Status: Acute Plan: -Bilateral SCD's -Initiate enoxaparin 40 mg daily (8) Fluids, Electrolytes, and Nutrition Status: Acute Plan: Fluids: None at this time Electrolytes: Monitor replete as needed Nutrition: Heart healthy diet Ian Ricardo MD R2 Feb 15, 2016 16:06
[2016-02-15 17:08] VITALS: BP 137/82; PULSE 83; RESP 20; TEMP 97.4; O2SAT 98
[2016-02-15] MEDS: VANCOMYCIN 1,000 MG/NS 250 ML IV SCH ×2 (17:10)
[2016-02-15] MEDS: ENOXAPARIN SODIUM 40 MG/0.4 ML SYRINGE SQ SCH (17:11)
--- NOTE | 2016-02-15 18:41 | HHI.IDPN ---
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 Vital Signs Date Time Temp Pulse Resp B/P Pulse Ox O2 Delivery O2 Flow Rate FiO2 02/15/16 17:08 97.4 83 20 137/82 98 02/15/16 12:59 97.6 88 20 149/86 99 02/15/16 09:24 98.2 75 20 151/88 100 02/15/16 05:23 95.7 75 19 146/92 100 02/15/16 00:25 96.4 105 18 122/76 100 02/14/16 20:44 96.8 78 19 138/85 100 02/14/16 02/14/16 02/15/16 14:59 22:59 06:59 Intake Total 1610 ml 1475 ml Output Total 400 ml 950 ml 1400 ml Balance -400 ml 660 ml 75 ml Intake Oral 1050 ml 660 ml IV Total 560 ml 815 ml Output Urine Total 400 ml 950 ml 1400 ml Drainage Total 0 ml # Voids 1 # Bowel Movements 1 1 . Laboratory Tests Test 02/14/16 02/15/16 07:18 07:34 White Blood Count 7.7 TH/MM3 10.0 TH/MM3 Red Blood Count 4.02 MIL/MM3 4.20 MIL/MM3 Hemoglobin 9.7 GM/DL 10.0 GM/DL Hematocrit 28.7 % 30.5 % Mean Corpuscular Volume 71.4 FL 72.6 FL Mean Corpuscular Hemoglobin 24.0 PG 23.8 PG Mean Corpuscular Hemoglobin 33.7 % 32.8 % Concent Red Cell Distribution Width 20.8 % 20.5 % Platelet Count 374 TH/MM3 373 TH/MM3 Mean Platelet Volume 7.2 FL 7.3 FL Neutrophils (%) (Auto) 83.8 % 88.6 % Lymphocytes (%) (Auto) 9.5 % 7.9 % Monocytes (%) (Auto) 6.3 % 3.4 % Eosinophils (%) (Auto) 0.1 % 0.0 % Basophils (%) (Auto) 0.3 % 0.1 % Neutrophils # (Auto) 6.5 TH/MM3 8.9 TH/MM3 Lymphocytes # (Auto) 0.7 TH/MM3 0.8 TH/MM3 Monocytes # (Auto) 0.5 TH/MM3 0.3 TH/MM3 Eosinophils # (Auto) 0.0 TH/MM3 0.0 TH/MM3 Basophils # (Auto) 0.0 TH/MM3 0.0 TH/MM3 CBC Comment AUTO DIFF AUTO DIFF Differential Comment AUTO DIFF AUTO DIFF CONFIRMED CONFIRMED Platelet Estimate NORMAL Platelet Morphology Comment NORMAL Keratocytes OCC Laboratory Tests Test 02/14/16 02/15/16 02/15/16 07:18 04:50 07:34 Sodium Level 138 MEQ/L 135 MEQ/L Potassium Level 4.5 MEQ/L 3.9 MEQ/L Chloride Level 105 MEQ/L 102 MEQ/L Carbon Dioxide Level 25.9 MEQ/L 25.4 MEQ/L Anion Gap 7 MEQ/L 8 MEQ/L Blood Urea Nitrogen 27 MG/DL 19 MG/DL Creatinine 0.65 MG/DL 0.67 MG/DL 0.52 MG/DL Estimat Glomerular Filtration 127 ML/MIN 122 ML/MIN 164 ML/MIN Rate Random Glucose 125 MG/DL 113 MG/DL Calcium Level 8.5 MG/DL 8.4 MG/DL Total Bilirubin 0.1 MG/DL 0.1 MG/DL Aspartate Amino Transf 24 U/L 11 U/L (AST/SGOT) Alanine Aminotransferase 27 U/L 18 U/L (ALT/SGPT) Alkaline Phosphatase 117 U/L 109 U/L Total Protein 6.8 GM/DL 6.7 GM/DL Albumin 2.3 GM/DL 2.2 GM/DL Microbiology Date/Time Procedure Status Source Growth 02/13/16 13:05 Aerobic Blood Culture - Preliminary Resulted Blood Peripheral NO GROWTH IN 2 DAYS 02/13/16 13:05 Anaerobic Blood Culture - Preliminary Resulted Blood Peripheral NO GROWTH IN 2 DAYS 02/13/16 13:14 Aerobic Blood Culture - Preliminary Resulted Blood Peripheral NO GROWTH IN 2 DAYS 02/13/16 13:14 Anaerobic Blood Culture - Preliminary Resulted Blood Peripheral NO GROWTH IN 2 DAYS 02/13/16 19:20 Gram Stain - Final Resulted Abscess Back 02/13/16 19:20 Wound Culture - Preliminary Resulted Gram Positive Cocci 02/13/16 19:20 Acid Fast Stain Received Abscess Back Pending 02/13/16 19:20 Mycobacterial Culture Received Abscess Back Pending 02/13/16 19:20 Fungal Smear - Final Resulted Abscess Back NO FUNGAL ELEMENTS SEEN. 02/13/16 19:20 Fungal Culture Resulted Abscess Back Pending Imaging Last Impressions Chest X-Ray 02/13/16 1705 Signed Impressions: Service Date/Time: Saturday, February 13, 2016 17:05 - CONCLUSION: No evidence of acute cardiopulmonary disease. Bharat Cabrera MD Lumbar Spine MRI 02/13/16 0000 Signed Impressions: Service Date/Time: Saturday, February 13, 2016 14:25 - CONCLUSION: L3/L4 discitis with osteomyelitis and endplate destruction of L3 and L4. There are epidural, L3/L4 intervertebral, psoas and left posterolateral paraspinous abscesses. Please see above. Bharat Cabrera MD Abscess Drainage CT 02/13/16 0000 Signed Impressions: Service Date/Time: Saturday, February 13, 2016 18:48 - CONCLUSION: Uncomplicated CT guided abscess drainage of the largest left paraspinal abscess. The smaller left paraspinal abscess and right paraspinal abscess were too small to accept a drainage catheter and were therefore aspirated to decompress the material. Tomas High Jr., MD Physical Exam CONSTITUTIONAL/GENERAL: This is an adequately nourished patient, in no apparent distress. SKIN: No jaundice, rashes, or lesions. EYES: No scleral icterus. ENT: Oral mucosae without visible erythema, exudates, masses, or lesions. CARDIOVASCULAR: Regular rate and rhythm without murmurs, gallops, or rubs. No JVD. Peripheral pulses symmetric. RESPIRATORY/CHEST: Symmetric, unlabored respirations. Clear to auscultation. GASTROINTESTINAL: Abdomen soft, non-tender, nondistended. No hepato-splenomegaly , or palpable masses. GENITOURINARY: Without palpable bladder distension. MUSCULOSKELETAL: Extremities without clubbing, cyanosis, or edema. No joint tenderness or effusion noted. No calf tenderness. No mottling or clubbing. BACK: accordeon drain in place with minimal amount of serosangious dc; tender to palpation lower back Not tender over T spine R forearm w/o visible edema or erythma, but has tenderness to palpation over ulnar head unable to move r ring ans small fingers LYMPHATICS: No palpable cervical or supraclavicular adenopathy. NEUROLOGICAL: fully awake and alert; normal speech Assessment & Plan Remarks L3-4 diskitis , osteo, recurrent/unresolving previously MSSA bacteremia and h/ o recent tx with cefazoline - growing GPC sp CT guided drainage, clx P, negative @ 24 hrs R distal radius/ulnar osteomyelitis suspected T spine inflammatory or demyelinating process - neurosurgery ff - cont vanco for now - keep levels up to 15-20 - change CFTX to cefazoline - consult hand surgeon Mary Michele MD Feb 15, 2016 18:41
[2016-02-15 20:03] VITALS: BP 146/90; PULSE 92; RESP 20; TEMP 97.6; O2SAT 99
[2016-02-15] MEDS: ceFAZolin 2 GM PREMIX 50 ML IV SCH (21:49)
--- NOTE | 2016-02-15 22:54 | RADRPT ---
EXAM DATE/TIME: 02/15/2016 22:35 [facility] COMPARISON: No previous studies available for comparison. INDICATIONS : Right wrist pain, denies injury MEDICAL HISTORY : None. SURGICAL HISTORY : None. ENCOUNTER: Initial ACUITY: 3 months PAIN SCORE: 3/10 LOCATION: Right Wrist FINDINGS: There is severe osteopenia of the carpal bones and distal radius and ulna. Focal area of ary cortic al destruction seen of the ulnar styloid with adjacent soft tissue swelling. CONCLUSION: Focal cortical destruction of the distal ulna. Severe osteopenia elsewhere of the wrist without other definite bone destruction seen. Bharat Cabrera MD on February 15, 2016 at 22:51 Board Certified Radiologist. This report was verified electronically.
[2016-02-15] MEDS: oxyCODONE HCL 20 MG CONTROLLED RELEASE TAB PO SCH (23:18)
[2016-02-16 00:04] VITALS: BP 137/86; PULSE 86; RESP 20; TEMP 98.2; O2SAT 98
[2016-02-16 04:08] VITALS: BP 171/90; PULSE 60; RESP 18; TEMP 97.8; O2SAT 100
[2016-02-16] MEDS: ceFAZolin 2 GM PREMIX 50 ML IV SCH ×3 (04:56→21:48)
[2016-02-16] MEDS: oxyCODONE/ACETAMINOPHEN 10 MG/325 MG TAB PO PRN ×3 (05:02→16:49)
[2016-02-16] MEDS: DEXAMETHASONE SOD PHOS 4 MG/ML VIAL IV PUSH SCH ×2 (05:39→16:48)
[2016-02-16] MEDS: VANCOMYCIN 1,000 MG/NS 250 ML IV SCH ×4 (05:39→16:48)
[2016-02-16] MEDS: hydrALAZINE HCL 10 MG TAB PO PRN (05:39)
[2016-02-16 07:00] LABS: AUTOMATED NEUTROPHIL # 7.2 TH/MM3 (1.8-7.7); BASOPHIL % 0.2 % (0.0-2.0); HEMATOCRIT 31.4 % (39.0-51.0); LYMPH % 12.9 % (9.0-44.0); LYMPHOCYTE # 1.1 TH/MM3 (1.0-4.8); MEAN CELL VOLUME 72.3 FL (80.0-100.0); MEAN CORPUSCULAR HEMOGLOBIN 23.5 PG (27.0-34.0); MEAN CORPUSCULAR HGB CONC 32.6 % (32.0-36.0); MONO % 3.5 % (0.0-8.0); NEUT % 83.4 % (16.0-70.0); PLATELET COUNT 375 TH/MM3 (150-450); RED BLOOD COUNT 4.35 MIL/MM3 (4.50-5.90); RED CELL DISTRIBUTION WIDTH 20.2 % (11.6-17.2); WHITE BLOOD COUNT 8.7 TH/MM3 (4.0-11.0)
[2016-02-16 07:16] LABS: HEMO FLAGS AUTO DIFF
[2016-02-16 07:27] LABS: ALT (GPT) 24 U/L (12-78); ANION GAP 8 MEQ/L (5-15); AST (GOT) 12 U/L (15-37); BLOOD UREA NITROGEN 19 MG/DL (7-18); CHLORIDE 102 MEQ/L (98-107); GLOMERULAR FILTRATION RATE 106 ML/MIN (>89); POTASSIUM 3.9 MEQ/L (3.5-5.1); SODIUM (NA) 137 MEQ/L (136-145)
[2016-02-16 07:30] LABS: ALKALINE PHOSPHATASE 98 U/L (45-117); TOTAL BILIRUBIN ADULT 0.1 MG/DL (0.2-1.0)
[2016-02-16] MEDS: PANTOPRAZOLE SOD 20 MG DELAYED RELEASE TAB PO SCH ×2 (08:21→21:48)
[2016-02-16] MEDS: clonazePAM 1 MG TAB PO PRN ×2 (08:21→21:55)
[2016-02-16] MEDS: LISINOPRIL 10 MG TAB PO SCH (08:21)
[2016-02-16] MEDS: CYCLOBENZAPRINE HCL 10 MG TAB PO PRN ×2 (08:21→16:49)
[2016-02-16] MEDS: GABAPENTIN 300 MG CAP PO SCH ×2 (08:22→21:48)
[2016-02-16] MEDS: SODIUM CHLORIDE 0.9% FLUSH 5 ML FLUSH FLUSH SCH ×2 (08:22→21:48)
[2016-02-16 08:33] VITALS: BP 179/93; PULSE 66; RESP 20; TEMP 97.7; O2SAT 100
--- NOTE | 2016-02-16 09:05 | EC ---
Study Study Date:02/15/2016 STUDY CONCLUSIONS SUMMARY - Left ventricle: The cavity size was normal. Wall thickness was increased in a pattern of mild LVH. Systolic function was normal. The estimated ejection fraction was in the range of 55% to 60%. Wall motion was normal; there were no regional wall motion abnormalities. - Aortic valve: Valve area: 2.39cm^2(VTI). Valve area: 2.27cm^2 (Vmax). - Mitral valve: Mild regurgitation. - Left atrium: The atrium was mildly dilated. If LV function is below 40, please consider prescribing an ACEI or ARB or document rationale for non-use. PROCEDURE DATA STUDY STATUS: Elective. Procedure: Transthoracic echocardiography. Image quality was fair. Scanning was performed from the parasternal, apical, and subcostal acoustic windows. Study completion: The patient tolerated the procedure well. Transthoracic echocardiography. M-mode, complete 2D, complete spectral Doppler, and color Doppler. Height: Height: 67in. Weight: Weight: 131.7lb. Body mass index: BMI: 20.7kg/m^2. Body surface area: BSA: 1.69m^2. Patient status: Inpatient. CARDIAC ANATOMY LEFT VENTRICLE: The cavity size was normal. Wall thickness was increased in a pattern of mild LVH. Systolic function was normal. The estimated ejection fraction was in the range of 55% to 60%. Wall motion was normal; there were no regional wall motion abnormalities. AORTIC VALVE: Trileaflet; normal thickness leaflets. Doppler: Transvalvular velocity was within the normal range. There was no stenosis. No regurgitation. Valve area: 2.39cm^2(VTI). Indexed valve area: 1.41cm^2/m^2 (VTI). Valve area: 2.27cm^2 (Vmax). Indexed valve area: 1.34cm^2/m^2 (Vmax). Mean gradient: 3mm Hg (S). AORTA: Aortic root: The aortic root was normal in size. MITRAL VALVE: Moderately thickened leaflets, . Doppler: Transvalvular velocity was within the normal range. There was no evidence for stenosis. Mild regurgitation. LEFT ATRIUM: The atrium was mildly dilated. RIGHT VENTRICLE: The cavity size was normal. Wall thickness was normal. PULMONIC VALVE: Doppler: Transvalvular velocity was within the normal range. There was no evidence for stenosis. No regurgitation. TRICUSPID VALVE: Structurally normal valve. Doppler: Transvalvular velocity was within the normal range. No regurgitation. PULMONARY ARTERY: The main pulmonary artery was normal-sized. Systolic pressure was within the normal range. RIGHT ATRIUM: The atrium was normal in size. PERICARDIUM: There was no pericardial effusion. SYSTEMIC VEINS: Inferior vena cava: The vessel was normal in size. Patient weight: 131.7lb _Ejection fraction:_ 65-75% _Fractional shortening:_ 32% up to 5Kg 5-11.5Kg 11.6-22.9Kg 23-45Kg 45-57Kg Aortic Root 7-13 <17 13-22 17-27 17-27 LA diam 6-13 <23 24-38 33-47 37-40 RVID 10-17 7-15 7-15 7-18 8-17 LVIDd 12-22 <32 24-38 33-47 37-40 LVPW 2-4 3-6 5-7 6-8 7-8 IVS 2-4 3-6 5-7 6-8 7-8 BASIC MEASUREMENTS ADULT NORMAL Left ventricle LV internal dimension, ED, chordal *37.9 mm 43-52 level, PLAX LV internal dimension, ES, chordal 24 mm 23-38 level, PLAX Fractional shortening, chordal level, 37 % >29 PLAX LV posterior wall thickness, ED 12.1 mm IVS/LVPW ratio, ED 1 <1.3 Ventricular septum Septal thickness, ED 12.1 mm Aortic valve Leaflet separation 22 mm 15-26 Aorta Root diameter, ED 37 mm Left atrium Anterior-posterior dimension 37 mm Anterior-posterior dimension index 2.19 cm/m^2 <2.2 Right ventricle RV internal dimension, ED, PLAX 28.6 mm 19-38 BASIC MEASUREMENTS ADULT NORMAL Aortic valve Leaflet separation 22 mm 15-26 DOPPLER MEASUREMENTS ADULT NORMAL Aortic valve Peak velocity, S 119 cm/s Mean velocity, S 80.4 cm/s VTI, S 25.6 cm Mean gradient, S 3 mm Hg Valve area, VTI 2.39 cm^2 Valve area index, VTI 1.41 cm^2/m^2 Valve area, Vmax 2.27 cm^2 Valve area index, Vmax 1.34 cm^2/m^2 Mitral valve Peak E-wave velocity 69.6 cm/s Peak A-wave velocity 86.4 cm/s Peak E/A ratio 0.8 Pulmonic valve Peak velocity, S 65.2 cm/s LEGEND: Mean values are shown as u=mean value. Asterisk (*) vela values outside specified normal range. Prepared and signed by Ernesto Thomas [id number]
[2016-02-16 09:09] LABS: SCAN/DIFF AUTO DIFF CONFIRMED
[2016-02-16] MEDS: oxyCODONE HCL 20 MG CONTROLLED RELEASE TAB PO SCH ×2 (10:30→21:49)
[2016-02-16 13:26] VITALS: BP 157/92; PULSE 64; RESP 20; TEMP 97.7; O2SAT 99
[2016-02-16] MEDS: ENOXAPARIN SODIUM 40 MG/0.4 ML SYRINGE SQ SCH (16:49)
[2016-02-16] MEDS ORDERED: GADODIAMIDE PF 287 MG/ML 5 ML VIAL (for RAD MRI) IV ONE (16:50)
--- NOTE | 2016-02-16 17:14 | RADRPT ---
EXAM DATE/TIME: 02/16/2016 15:28 [facility] COMPARISON: No previous studies available for comparison. INDICATIONS : Pain and swelling on posterior surface of wrist and proximal hand. CONTRAST: 12 cc Omniscan (gadodiamide) IV MEDICAL HISTORY : Chronic obstructive pulmonary disease. Hepatitis C. Hypertension. SURGICAL HISTORY : Appendectomy. knee ENCOUNTER: Subsequent ACUITY: 4-6 days PAIN SCORE: 3/10 LOCATION: Right wrist TECHNIQUE: Multiplanar multisequence MRI examination of the wrist was performed with and without contrast. FINDINGS: The distal ulna is subluxed posteriorly. There is a rim-enhancing fluid collection along the dorsal a spect of the distal ulna and which appears to emanate from the severity of joint and may represent an infected or inflamed bursitis. There is extensive marrow edema involving the distal ulna but also in volving the distal radius and the carpal bones and extending into some of the proximal metacarpals. T here is severe narrowing at the radiocarpal joint and carpal crowding characteristic of a chronic art hropathy. There is some excess fluid around the extensor tendons. Flexor tendons appear intact. Postcontrast images reveal some mild diffuse marrow enhancement in the distal radius and the carpal b ones and extending slightly into the second and third metacarpals. There is fairly intense enhancemen t of the distal ulna with some erosion of the ulna styloid. CONCLUSION: 1. Posterior subluxation of the distal ulna at the distal radioulnar joint associated with an inflamm atory arthropathy and an inflamed or infected bursa. There is also marrow enhancement and some erosio n of the distal ulna. It is unclear if this is related to an inflammatory arthropathy and adjacent bu rsitis or a focal area of osteomyelitis. There is a less severe inflammatory arthropathy at the inter carpal joints and radiocarpal joints with edema and mild marrow enhancement throughout the wrist. No drainable fluid collections identified in the remainder of the wrist. There is carpal crowding and ma rked joint space narrowing at the radio carpal joint. Titus Rees MD on February 16, 2016 at 16:54 Board Certified Radiologist. This report was verified electronically.
--- NOTE | 2016-02-16 17:30 | HHI.FPPN ---
Subjective Remarks No acute events overnight. AFVSS. Having some persistent arm pain of right wrist where his nodule is. Improved somewhat since coming back from MRI. No CP/ SOB. (Zeke Fong MD R1) Objective Vitals Vital Signs Date Time Temp Pulse Resp B/P Pulse Ox O2 Delivery O2 Flow Rate FiO2 02/16/16 13:26 97.7 64 20 157/92 99 02/16/16 08:33 97.7 66 20 179/93 100 02/16/16 04:08 97.8 60 18 171/90 100 02/16/16 00:04 98.2 86 20 137/86 98 02/15/16 20:03 97.6 92 20 146/90 99 I/O 02/15/16 02/15/16 02/15/16 02/16/16 02/16/16 02/16/16 07:00 15:00 23:00 07:00 15:00 23:00 Intake Total 1475 ml 1080 ml 500 ml Output Total 1400 ml 350 ml 0 ml Balance 75 ml 730 ml 0 ml 500 ml Intake Oral 660 ml 1080 ml 500 ml IV Total 815 ml Output Urine Total 1400 ml 350 ml Drainage Total 0 ml 0 ml 0 ml # Bowel Movements 1 (Zeke Fong MD R1) Result Diagram: 02/16/16 0630 02/16/16 0630 Imaging Last Impressions Wrist X-Ray 02/15/16 0000 Signed Impressions: Service Date/Time: Monday, February 15, 2016 22:35 - CONCLUSION: Focal cortical destruction of the distal ulna. Severe osteopenia elsewhere of the wrist without other definite bone destruction seen. Bharat Cabrera MD Upper Extremity MRI 02/15/16 0000 Signed Impressions: Service Date/Time: Monday, February 15, 2016 12:18 - CONCLUSION: Inflammatory changes at the edge of field of view involving the carpus and distal radius and ulna. Osteomyelitis of the carpus and distal radius and ulna is suspected. A dedicated MRI of the wrist is recommended. Carpal and distal radial ulnar joint effusions are seen, potentially infected, but no abscess demonstrated. Bharat Cabrera MD Thoracic Spine MRI 02/15/16 0000 Signed Impressions: Service Date/Time: Monday, February 15, 2016 12:18 - CONCLUSION: Degenerative changes are seen without canal or foraminal stenosis. There is a nonenhancing area of mild cord expansion and increased signal within the cord posterior to the T9 level extending 3.6 cm. The differential diagnosis could include inflammatory/demyelinating process or neoplasm, felt less likely though not entirely excluded. Hugo Cohn MD Cervical Spine MRI 02/15/16 0000 Signed Impressions: Service Date/Time: Monday, February 15, 2016 12:18 - CONCLUSION: Degenerative changes are noted as above. Hugo Cohn MD Chest X-Ray 02/13/16 1705 Signed Impressions: Service Date/Time: Saturday, February 13, 2016 17:05 - CONCLUSION: No evidence of acute cardiopulmonary disease. Bharat Cabrera MD Lumbar Spine MRI 02/13/16 0000 Signed Impressions: Service Date/Time: Saturday, February 13, 2016 14:25 - CONCLUSION: L3/L4 discitis with osteomyelitis and endplate destruction of L3 and L4. There are epidural, L3/L4 intervertebral, psoas and left posterolateral paraspinous abscesses. Please see above. Bharat Cabrera MD Abscess Drainage CT 02/13/16 0000 Signed Impressions: Service Date/Time: Saturday, February 13, 2016 18:48 - CONCLUSION: Uncomplicated CT guided abscess drainage of the largest left paraspinal abscess. The smaller left paraspinal abscess and right paraspinal abscess were too small to accept a drainage catheter and were therefore aspirated to decompress the material. Tomas High Jr., MD Objective Remarks GENERAL: Patient sitting up in bed comfortably eating dinner. NEURO: Alert, oriented. Cranial nerves grossly normal. Normal peripheral sensation. SKIN: Warm and dry, no rashes appreciatedI. CARDIOVASCULAR: NRRR, normal S1/S2, no MRG. Normal peripheral perfusion in lower extremities. RESPIRATORY: CTAB, no crackles or wheezes. GASTROINTESTINAL: Abdomen soft, nondistended, nontender. MUSCULOSKELETAL: No lower extremity swelling. No appreciated calf asymmetry. JUAN F drain in place on back, draining serosanguinous fluid, clear. Dressing around drain clean & dry. Medications and IVs Current Medications Medications (Trade) Dose Ordered Sig/Maurisio Route Start Time Stop Time Status Last Admin (Neurontin) 600 mg BID PO 02/13/16 21:00 02/16/16 08:22 (Prinivil) 10 mg DAILY PO 02/14/16 09:00 02/16/16 08:21 Pantoprazole Sodium 20 mg 20 mg BID PO 02/13/16 21:00 02/16/16 08:21 (Vancomycin Consult Pharmacy) 0 ml @ 0 mls/hr UNSCH OTHER 02/13/16 17:00 (NS Flush) 2 ml UNSCH PRN FLUSH 02/13/16 17:15 (NS Flush) 2 ml BID FLUSH 02/13/16 21:00 02/16/16 08:22 (Tylenol) 650 mg Q4H PRN PO 02/13/16 17:15 02/15/16 11:41 (Zofran Inj) 4 mg Q6H PRN IVP 02/13/16 17:15 (Narcan Inj) 0.4 mg UNSCH PRN IV 02/13/16 17:15 02/14/16 15:45 (Ativan) 1 mg Q4H PRN PO 02/13/16 17:15 (Ativan Inj) 1 mg Q4H PRN IV PUSH 02/13/16 17:15 (Ativan) 2 mg Q2H PRN PO 02/13/16 17:15 (Ativan Inj) 2 mg Q2H PRN IV PUSH 02/13/16 17:15 (Ativan Inj) 2 mg Q1H PRN IV PUSH 02/13/16 17:15 (Ativan Inj) 2 mg Q15M PRN IV PUSH 02/13/16 17:15 (Apresoline) 10 mg Q8H PRN PO 02/13/16 17:37 02/16/16 05:39 (KlonoPIN) 1 mg TID PRN PO 02/14/16 00:30 02/16/16 08:21 Ibuprofen 600 mg 600 mg Q6H PRN PO 02/15/16 00:00 02/15/16 01:00 (Vancomycin Inj/ NS 250 ml Inj) 250 ml @ 250 mls/hr Q12H IV 02/15/16 17:00 02/16/16 16:48 Miscellaneous Information SPECIFIC LAB TO BE MASSIMO... ONCE ONCE XX 02/17/16 04:45 02/17/16 04:46 (Decadron Inj) 4 mg Q12H IV PUSH 02/15/16 18:00 02/16/16 16:48 (Percocet 5-325 Mg) 1 tab Q4H PRN PO 02/15/16 12:00 (Percocet 10-325 Mg) 1 tab Q4H PRN PO 02/15/16 12:00 02/16/16 16:49 (Flexeril) 10 mg Q8H PRN PO 02/15/16 14:30 02/16/16 16:49 Enoxaparin Sodium 40 mg 40 mg Q24H SQ 02/15/16 18:00 02/16/16 16:49 (Ancef 2 Gm Premix) 50 ml @ 150 mls/hr Q8H IV 02/15/16 20:00 02/16/16 11:50 (OxyCONTIN CR) 20 mg Q12H PO 02/15/16 22:00 02/16/16 10:30 (Zeke Fong MD R1) A/P Assessment and Plan Mr. Sher is a 56 yo male with: (Zeke Fong MD R1) Attending Attestation Patient seen and examined. Case reviewed and discussed Agree with plan of care as discussed with me and documented in the resident note. (Mary Sanchez MD) Problem List: (1) Epidural abscess Status: Acute Plan: Approximately 3 months of lower back pain; associated neurologic impairment unclear due to patient sedation Lumbar MRI demonstrative of "L3/L4 discitis with osteomyelitis and endplate destruction of L3 and L4. There are epidural, L3/L4 intervertebral, psoas and left posterolateral paraspinous abscesses. Please see above." Thoracic MRI: Degenerative changes without stenosis. Nonenhancing mild cord expansion and increased signal posterior to T9 extending 3.6 cm. DDX includes inflammatory/demyelinating process or neoplasm Cervical MRI: Degenerative changes ESR 62, CRP 5.17 CBC without leukocytosis; urinalysis WNL, metabolic panel unremarkable Abscess Cx growing S aureus Neurosurgery consulted, appreciate recommendations -IR abscess drainage/biopsy -Decadron 4 mg IV changed to every 12 hours -Broad-spectrum antibiotic therapy -Empiric vancomycin twice a day dosed by pharmacy -Ceftriaxone 2 g every 12 hours Infectious disease consulted, appreciate recommendations Blood cultures pending Hepatitis panel pending We'll plan to obtain HIV after consent signed UDS pending Pain control: -home Oxycontin 20mg BID -Flexeril 10mg q8hrs per Neurosurgery -PRN Percocet 5/325mg / 10/325mg for pain scale 1-5/6-10 (2) COPD (chronic obstructive pulmonary disease) Status: Chronic Plan: We'll give when necessary DuoNeb's Impression: Patient with reported history of COPD. Patient currently smokes cigarettes. No wheezing for visible SOB on exam (3) Wrist joint infection Status: Chronic Plan: Per patient's prior records at [facility], patient was treated for MSSA osteomyelitis with Ancef with planned stoppage date of 02/11. It is unclear whether patient took full treatment regimen Right wrist MRI: Inflammatory changes at the edge of field of view including carpus and distal radius and ulna. Osteomyelitis of the carpus and is a radius and ulnar is suspected. Dedicated MRI of wrist recommended. Carpal and distal radial ulnar joint effusions are seen, potentially infected, but no abscess demonstrated --Hand surgery consulted, appreciate their recommendations --Wrist MRI ordered and pending --Surgery deferred until after epidural abscess resolved -Continued antibiotic management per infectious disease (4) HTN (hypertension) Status: Chronic Plan: History of hypertension; on lisinopril 10 mg daily per EMR. Minimally hypertensive during hospitalization Increase lisinopril to 20 mg daily --Continue hydralazine 10 mg every 8 hours when necessary (5) Illicit drug use Status: Chronic Plan: Patient reports history of IV drug use in 04/2015 and recent marijuana use UDS positive for opiates and cannabinoids (6) Hepatitis C Status: Acute Plan: F/u HCV quant and genotype (7) DVT Prophylaxis Status: Acute Plan: -Bilateral SCD's -Initiate enoxaparin 40 mg daily (8) Fluids, Electrolytes, and Nutrition Status: Acute Plan: Fluids: None at this time Electrolytes: Monitor replete as needed Nutrition: Heart healthy diet (Zeke Fong MD R1) Zeke Fong MD R1 Feb 16, 2016 17:30 Mary Sanchez MD Feb 17, 2016 08:59
--- NOTE | 2016-02-16 19:29 | PD.ORT.PN ---
Subjective Subjective Remarks Pain reports chronic pain right wrist since possible injury in October. Please see dictated consult note for full details. Objective Vitals Vital Signs Date Time Temp Pulse Resp B/P Pulse Ox O2 Delivery O2 Flow Rate FiO2 02/16/16 13:26 97.7 64 20 157/92 99 02/16/16 08:33 97.7 66 20 179/93 100 02/16/16 04:08 97.8 60 18 171/90 100 02/16/16 00:04 98.2 86 20 137/86 98 02/15/16 20:03 97.6 92 20 146/90 99 I/O 02/15/16 02/15/16 02/15/16 02/16/16 02/16/16 02/16/16 07:00 15:00 23:00 07:00 15:00 23:00 Intake Total 1475 ml 1080 ml 500 ml Output Total 1400 ml 350 ml 0 ml Balance 75 ml 730 ml 0 ml 500 ml Intake Oral 660 ml 1080 ml 500 ml IV Total 815 ml Output Urine Total 1400 ml 350 ml Drainage Total 0 ml 0 ml 0 ml # Bowel Movements 1 Result Diagram: 02/16/16 0630 02/16/16 0630 Imaging Last 24 hours Impressions Wrist MRI 02/16/16 0000 Signed Impressions: Service Date/Time: Tuesday, February 16, 2016 15:28 - CONCLUSION: 1. Posterior subluxation of the distal ulna at the distal radioulnar joint associated with an inflammatory arthropathy and an inflamed or infected bursa. There is also marrow enhancement and some erosion of the distal ulna. It is unclear if this is related to an inflammatory arthropathy and adjacent bursitis or a focal area of osteomyelitis. There is a less severe inflammatory arthropathy at the intercarpal joints and radiocarpal joints with edema and mild marrow enhancement throughout the wrist. No drainable fluid collections identified in the remainder of the wrist. There is carpal crowding and marked joint space narrowing at the radio carpal joint. Titus Rees MD Objective Remarks No erythema or abscess. 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
[2016-02-16 20:00] VITALS: BP 128/83; PULSE 78; RESP 18; TEMP 96.1; O2SAT 99
--- NOTE | 2016-02-16 20:08 | MB ---
cc: ROSA STEEL MD DATE OF CONSULTATION 02/15/15 REASON FOR CONSULTATION Right wrist pain. HISTORY OF PRESENT ILLNESS Brayden Sher is a 56-year-old right-hand dominant male who states he does have a history of IV drug use approximately one month ago but states that he has had right wrist pain since October. 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 Subsequently, he had back pain and was referred to the emergency room for this, was evaluated and found to have osteomyelitis and an epidural abscess of the back. He is currently on IV antibiotics with a drain in place. I was asked to consult his wrist. At this time, he has no erythema over the wrist. He states there have been no significant changes in the wrist since October. He denies any paresthesias. He is right hand dominant. He is currently on disability. PAST MEDICAL HISTORY 1. Anxiety, depression, 2. Hepatitis C, 3. Hypertension, 4. Tobacco use 5. Drug use 6. COPD, 7. Coronary artery disease. PAST SURGICAL HISTORY 1. Appendectomy 2. Thoracic spine surgery MEDICATIONS 1. Omeprazole 2. Lisinopril 3. Diclofenac 4. Gabapentin 5. [place] 6. Morphine, 7. Klonopin ALLERGIES NO KNOWN DRUG ALLERGIES. SOCIAL HISTORY Reports tobacco, marijuana and IV drug use. PHYSICAL EXAMINATION The patient is alert and oriented in no acute distress. Exam of the right wrist shows no erythema or fluctuance. The patient does have inability to extend the ring and small fingers. There is an area over the hand and wrist consistent with rupture of the extensor tendons. There is dorsal subluxation of the distal ulna. Sensation is intact in the median, ulnar and radial distribution, 2+ radial pulse. No pain with passive range of motion of the wrist. He does have tenderness over the [facility] DATA White count 8.3, ESR 62, CRP 5.17. Back cultures growing out gram-positive cocci. IMAGING STUDIES X-rays taken of the wrist shows significant arthritis of the right wrist with dorsal subluxation and erosion of the distal ulna. MRI of the wrist pending. ASSESSMENT/PLAN A 56-year-old right-hand dominant male with likely inflammatory arthritis of the right wrist with subsequent rupture of the extensor tendon. At this time, I recommend continued treatment for the epidural abscess and follow up in the office once the infection is cleared for possible tendon transfer reconstruction. MD COLBY Craft/ /7:36 PM /7:59 PM PILAR
[2016-02-16 22:31] LABS: RHEUMATOID FACTOR TRIGGER LESS THAN 10.0 IU/ML (0.0-14.9)
[2016-02-17] VITALS: BP 133/86; PULSE 69; RESP 20; TEMP 96.4; O2SAT 97
[2016-02-17] MEDS: CYCLOBENZAPRINE HCL 10 MG TAB PO PRN ×3 (01:37→22:21)
[2016-02-17] MEDS: oxyCODONE/ACETAMINOPHEN 10 MG/325 MG TAB PO PRN ×4 (01:37→17:34)
[2016-02-17 04:00] VITALS: BP 134/62; PULSE 65; RESP 18; TEMP 97.1; O2SAT 96
[2016-02-17] MEDS ORDERED: PHARMACY ORDERED LAB XX ONE (04:45)
[2016-02-17] MEDS: ceFAZolin 2 GM PREMIX 50 ML IV SCH ×3 (05:08→22:19)
[2016-02-17] MEDS: DEXAMETHASONE SOD PHOS 4 MG/ML VIAL IV PUSH SCH ×2 (05:09→17:34)
[2016-02-17] MEDS: VANCOMYCIN 1,000 MG/NS 250 ML IV SCH ×2 (05:12)
[2016-02-17 08:18] VITALS: BP 184/84; PULSE 50; RESP 18; TEMP 96.6; O2SAT 99
[2016-02-17] MEDS: LISINOPRIL 10 MG TAB PO SCH (08:23)
[2016-02-17] MEDS: clonazePAM 1 MG TAB PO PRN ×2 (08:23→17:34)
[2016-02-17] MEDS: SODIUM CHLORIDE 0.9% FLUSH 5 ML FLUSH FLUSH SCH ×2 (08:23→22:19)
[2016-02-17] MEDS: GABAPENTIN 300 MG CAP PO SCH ×2 (08:23→22:21)
[2016-02-17] MEDS: PANTOPRAZOLE SOD 20 MG DELAYED RELEASE TAB PO SCH ×2 (08:23→22:21)
[2016-02-17 09:22] LABS: HEMATOCRIT 32.1 % (39.0-51.0)
[2016-02-17 09:28] LABS: REVIEW FLAG FINAL
[2016-02-17] MEDS: oxyCODONE HCL 20 MG CONTROLLED RELEASE TAB PO SCH ×2 (10:00→22:21)
[2016-02-17 12:00] VITALS: BP 138/70; PULSE 57; RESP 18; TEMP 97; O2SAT 98
--- NOTE | 2016-02-17 13:09 | HHI.NSPN ---
History Chief Complaint: none Interval History 56 yr old admitted with discitis and paraspinal abcess at L3/4. He is very grateful for the pain relief. He is starting to stand with assistance. ID is following. 02/17/16 He is alert and participating in therapy. He is walking with the walker. He has no spasticity from the T9 lesion and no sensory level. The left hip flexion is the most difficult task for him. His drain output has been minimal. Review of Systems General: Negative for: fever, chills, insomnia Respiratory: Negative for: shortness of breath, cough, sputum Cardiovascular: Negative for: chest pain, palpitations, orthopnea Gastrointestinal: Negative for: nausea, vomitting, diarrhea, constipation Genitourinary: Negative for: urinary burning, urinary frequency, urinary urgency Exam Results Vital Signs Date Time Temp Pulse Resp B/P Pulse Ox O2 Delivery O2 Flow Rate FiO2 02/17/16 12:00 97.0 57 18 138/70 98 02/14/16 09:00 21 02/14/16 04:28 Nasal Cannula 3.00 Intake and Output 02/16/16 02/16/16 02/16/16 07:59 15:59 23:59 Intake Total 500 ml 360 ml Output Total 0 ml 600 ml Balance 0 ml 500 ml -240 ml Physical Examination Alert and oriented x 3 Motor 5/5 in the hip flexors and quads bilaterally, severe pain in the right wrist, left thigh with hip flexion No sensory level in the thoracic or lumbar dermatomes Reflexes are present, no clonus or babinski Lab, Micro, Other Results Last Impressions Wrist MRI 02/16/16 0000 Signed Impressions: Service Date/Time: Tuesday, February 16, 2016 15:28 - CONCLUSION: 1. Posterior subluxation of the distal ulna at the distal radioulnar joint associated with an inflammatory arthropathy and an inflamed or infected bursa. There is also marrow enhancement and some erosion of the distal ulna. It is unclear if this is related to an inflammatory arthropathy and adjacent bursitis or a focal area of osteomyelitis. There is a less severe inflammatory arthropathy at the intercarpal joints and radiocarpal joints with edema and mild marrow enhancement throughout the wrist. No drainable fluid collections identified in the remainder of the wrist. There is carpal crowding and marked joint space narrowing at the radio carpal joint. Titus Rees MD Wrist X-Ray 02/15/16 0000 Signed Impressions: Service Date/Time: Monday, February 15, 2016 22:35 - CONCLUSION: Focal cortical destruction of the distal ulna. Severe osteopenia elsewhere of the wrist without other definite bone destruction seen. Bharat Cabrera MD Upper Extremity MRI 02/15/16 0000 Signed Impressions: Service Date/Time: Monday, February 15, 2016 12:18 - CONCLUSION: Inflammatory changes at the edge of field of view involving the carpus and distal radius and ulna. Osteomyelitis of the carpus and distal radius and ulna is suspected. A dedicated MRI of the wrist is recommended. Carpal and distal radial ulnar joint effusions are seen, potentially infected, but no abscess demonstrated. Bharat Cabrera MD Thoracic Spine MRI 02/15/16 0000 Signed Impressions: Service Date/Time: Monday, February 15, 2016 12:18 - CONCLUSION: Degenerative changes are seen without canal or foraminal stenosis. There is a nonenhancing area of mild cord expansion and increased signal within the cord posterior to the T9 level extending 3.6 cm. The differential diagnosis could include inflammatory/demyelinating process or neoplasm, felt less likely though not entirely excluded. Hugo Cohn MD Cervical Spine MRI 02/15/16 0000 Signed Impressions: Service Date/Time: Monday, February 15, 2016 12:18 - CONCLUSION: Degenerative changes are noted as above. Hugo Cohn MD Chest X-Ray 02/13/16 8485 Signed Impressions: Service Date/Time: Saturday, February 13, 2016 17:05 - CONCLUSION: No evidence of acute cardiopulmonary disease. Bharat Cabrera MD Lumbar Spine MRI 02/13/16 0000 Signed Impressions: Service Date/Time: Saturday, February 13, 2016 14:25 - CONCLUSION: L3/L4 discitis with osteomyelitis and endplate destruction of L3 and L4. There are epidural, L3/L4 intervertebral, psoas and left posterolateral paraspinous abscesses. Please see above. Bharat Cabrera MD Abscess Drainage CT 02/13/16 0000 Signed Impressions: Service Date/Time: Saturday, February 13, 2016 18:48 - CONCLUSION: Uncomplicated CT guided abscess drainage of the largest left paraspinal abscess. The smaller left paraspinal abscess and right paraspinal abscess were too small to accept a drainage catheter and were therefore aspirated to decompress the material. Tomas High Jr., MD Laboratory Tests Test 02/17/16 02/17/16 05:00 08:28 Vancomycin Level Trough 8.6 MCG/ML Hemoglobin 11.1 GM/DL Hematocrit 32.1 % Blood Urea Nitrogen 23 MG/DL Creatinine 0.61 MG/DL Estimat Glomerular Filtration 136 ML/MIN Rate Medical Decision Making Impression and Plan 56 yr old with spinal abcess, lumbar pain and leg spasms. His pain is better controlled and he is starting to stand. Decadron was decreased to 4 IV BID and flexeril was added. 02/17/16 T9 inflammatory lesion and L3/4 discitis will be followed radiologically with an MRI in early March. He is participating in rehab. His pain and anxiety seem to be managed. Ducolax suppository was added today to his bowel program Total Minutes: 10 Barney Walters Feb 17, 2016 13:09
[2016-02-17] MEDS: VANCOMYCIN INJ 1,500 MG in SODIUM CHLORID 0.9% 500 ML INJ 500 ML IV SCH (14:00)
[2016-02-17 16:00] VITALS: BP 132/73; PULSE 62; RESP 18; TEMP 96.7; O2SAT 98
[2016-02-17] MEDS: ENOXAPARIN SODIUM 40 MG/0.4 ML SYRINGE SQ SCH (17:34)
--- NOTE | 2016-02-17 18:29 | HHI.FPPN ---
Subjective Remarks Mr. Sher was afebrile with stable vital signs overnight. Patient reports continued pain in lower extremities; patient states that he plans to ambulate with walker later today. Patient denies any also sensation in lower extremities. Patient reports normal urination. Patient has not had bowel movement in 2 days, but states that he has the desire to stool. No reported shortness of breath. Patient expresses regret regarding prior drug use and states that he feels safe to administer IV medications to himself at home. ( Ian Ricardo MD R2) Objective Vitals Vital Signs Date Time Temp Pulse Resp B/P Pulse Ox O2 Delivery O2 Flow Rate FiO2 02/17/16 16:00 96.7 62 18 132/73 98 02/17/16 12:00 97.0 57 18 138/70 98 02/17/16 08:18 96.6 50 18 184/84 99 02/17/16 04:00 97.1 65 18 134/62 96 02/17/16 02:37 18 02/17/16 00:00 96.4 69 20 133/86 97 02/16/16 22:49 18 02/16/16 20:00 96.1 78 18 128/83 99 I/O 02/16/16 02/16/16 02/16/16 02/17/16 02/17/16 02/17/16 07:00 15:00 23:00 07:00 15:00 23:00 Intake Total 860 ml 810 ml Output Total 0 ml 600 ml 300 ml 800 ml Balance 0 ml 260 ml -300 ml 10 ml Intake Oral 860 ml 810 ml Output Urine Total 600 ml 300 ml 800 ml Drainage Total 0 ml 0 ml # Bowel Movements 1 (Ian Ricardo MD R2) Result Diagram: 02/17/1682702/17/16827 Imaging Last Impressions Wrist MRI 02/16/16 0000 Signed Impressions: Service Date/Time: Tuesday, February 16, 2016 15:28 - CONCLUSION: 1. Posterior subluxation of the distal ulna at the distal radioulnar joint associated with an inflammatory arthropathy and an inflamed or infected bursa. There is also marrow enhancement and some erosion of the distal ulna. It is unclear if this is related to an inflammatory arthropathy and adjacent bursitis or a focal area of osteomyelitis. There is a less severe inflammatory arthropathy at the intercarpal joints and radiocarpal joints with edema and mild marrow enhancement throughout the wrist. No drainable fluid collections identified in the remainder of the wrist. There is carpal crowding and marked joint space narrowing at the radio carpal joint. Titus Rees MD Wrist X-Ray 02/15/16 0000 Signed Impressions: Service Date/Time: Monday, February 15, 2016 22:35 - CONCLUSION: Focal cortical destruction of the distal ulna. Severe osteopenia elsewhere of the wrist without other definite bone destruction seen. Bharat Cabrera MD Upper Extremity MRI 02/15/16 0000 Signed Impressions: Service Date/Time: Monday, February 15, 2016 12:18 - CONCLUSION: Inflammatory changes at the edge of field of view involving the carpus and distal radius and ulna. Osteomyelitis of the carpus and distal radius and ulna is suspected. A dedicated MRI of the wrist is recommended. Carpal and distal radial ulnar joint effusions are seen, potentially infected, but no abscess demonstrated. Bharat Cabrera MD Thoracic Spine MRI 02/15/16 0000 Signed Impressions: Service Date/Time: Monday, February 15, 2016 12:18 - CONCLUSION: Degenerative changes are seen without canal or foraminal stenosis. There is a nonenhancing area of mild cord expansion and increased signal within the cord posterior to the T9 level extending 3.6 cm. The differential diagnosis could include inflammatory/demyelinating process or neoplasm, felt less likely though not entirely excluded. Hugo Cohn MD Cervical Spine MRI 02/15/16 0000 Signed Impressions: Service Date/Time: Monday, February 15, 2016 12:18 - CONCLUSION: Degenerative changes are noted as above. Hugo Cohn MD Chest X-Ray 02/13/16 [id number] Signed Impressions: Service Date/Time: Saturday, February 13, 2016 17:05 - CONCLUSION: No evidence of acute cardiopulmonary disease. Bharat Cabrera MD Lumbar Spine MRI 02/13/16 0000 Signed Impressions: Service Date/Time: Saturday, February 13, 2016 14:25 - CONCLUSION: L3/L4 discitis with osteomyelitis and endplate destruction of L3 and L4. There are epidural, L3/L4 intervertebral, psoas and left posterolateral paraspinous abscesses. Please see above. Bharat Cabrera MD Abscess Drainage CT 02/13/16 0000 Signed Impressions: Service Date/Time: Saturday, February 13, 2016 18:48 - CONCLUSION: Uncomplicated CT guided abscess drainage of the largest left paraspinal abscess. The smaller left paraspinal abscess and right paraspinal abscess were too small to accept a drainage catheter and were therefore aspirated to decompress the material. Tomas High Jr., MD Objective Remarks GENERAL: Patient sitting in bed NEURO: Alert, oriented. Cranial nerves grossly normal. Normal peripheral sensation. SKIN: Warm and dry, no rashes appreciated. CARDIOVASCULAR: NRRR, normal S1/S2, no MRG. Normal peripheral perfusion in lower extremities. RESPIRATORY: CTAB, no crackles or wheezes. GASTROINTESTINAL: Abdomen soft, nondistended, nontender. MUSCULOSKELETAL: No lower extremity swelling. No appreciated calf asymmetry. JUAN F drain in place on back not inspected on this exam. (Ian Ricardo MD R2) A/P Assessment and Plan Mr. Sher is a 56 yo male with: (Ian Ricardo MD R2) Attending Attestation Patient seen and examined. Case reviewed and discussed Agree with plan of care as discussed with me and documented in the resident note. (Mary Sanchez MD) Problem List: (1) Epidural abscess Status: Acute Plan: Approximately 3 months of lower back pain; associated neurologic impairment unclear due to patient sedation Lumbar MRI demonstrative of "L3/L4 discitis with osteomyelitis and endplate destruction of L3 and L4. There are epidural, L3/L4 intervertebral, psoas and left posterolateral paraspinous abscesses. Please see above." Thoracic MRI: Degenerative changes without stenosis. Nonenhancing mild cord expansion and increased signal posterior to T9 extending 3.6 cm. DDX includes inflammatory/demyelinating process or neoplasm Cervical MRI: Degenerative changes ESR 62, CRP 5.17 CBC without leukocytosis; urinalysis WNL, metabolic panel unremarkable UDS+ for cannabinoids, opiates Cultures: -Abscess Cx: S aureus Blood cultures negative x4 days Neurosurgery and ID consulted, appreciate recommendations -IR abscess drainage/biopsy -Decadron decreased to 2 mg IV q12 hours -Broad-spectrum antibiotic therapy -Empiric vancomycin twice a day dosed by pharmacy -Cefazolin 2 gm every 8 hours -Plan to repeat MRI in early March Pain control: -home Oxycontin 20mg BID -Flexeril 10mg q8hrs per Neurosurgery -PRN Percocet 5/325mg / 10/325mg for pain scale 1-5/6-10 -Ducolax suppository added to bowel regimen (2) Wrist joint infection Status: Chronic Plan: Per patient's prior records at [facility], patient was treated for MSSA osteomyelitis with Ancef with planned stoppage date of 02/11. It is unclear whether patient took full treatment regimen Right wrist MRI: Inflammatory changes at the edge of field of view including carpus and distal radius and ulna. Osteomyelitis of the carpus and is a radius and ulnar is suspected. Dedicated MRI of wrist: "1. Posterior subluxation of the distal ulna at the distal radioulnar joint associated with an inflammatory arthropathy and an inflamed or infected bursa. There is also marrow enhancement and some erosion of the distal ulna. It is unclear if this is related to an inflammatory arthropathy and adjacent bursitis or a focal area of osteomyelitis. There is a less severe inflammatory arthropathy at the intercarpal joints and radiocarpal joints with edema and mild marrow enhancement throughout the wrist. No drainable fluid collections identified in the remainder of the wrist. There is carpal crowding and marked joint space narrowing at the radio carpal joint Carpal and distal radial ulnar joint effusions are seen, potentially infected, but no abscess demonstrated --Hand surgery consulted, appreciate their recommendations -Suspect inflammatory arthritis with subsequent extensor tendon rupture --Surgery deferred until after epidural abscess resolved -Continued antibiotic management per infectious disease (3) COPD (chronic obstructive pulmonary disease) Status: Chronic Plan: We'll give when necessary DuoNeb's Impression: Patient with reported history of COPD. Patient currently smokes cigarettes. No wheezing for visible SOB on exam (4) HTN (hypertension) Status: Chronic Plan: History of hypertension; on lisinopril 10 mg daily per EMR. 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 and recent marijuana use UDS positive for opiates and cannabinoids (6) Hepatitis C Status: Acute Plan: F/u HCV quant and genotype -Will ask regarding consent for HIV (7) DVT Prophylaxis Status: Acute Plan: -Bilateral SCD's -Continue enoxaparin 40 mg daily (8) Fluids, Electrolytes, and Nutrition Status: Acute Plan: Fluids: None at this time Electrolytes: Monitor replete as needed Nutrition: Heart healthy diet (Ian Ricardo MD R2) Problem Qualifiers (1) Hepatitis C: Qualified Code: B19.20 - Hepatitis C virus infection without hepatic coma, unspecified chronicity Ian Ricardo MD R2 Feb 17, 2016 18:29 Mary Sanchez MD Feb 18, 2016 16:25
[2016-02-17] MEDS: BISACODYL 10 MG SUPP RECTAL SCH (21:00)
[2016-02-17 21:02] VITALS: BP 119/74; PULSE 84; RESP 16; TEMP 97.6; O2SAT 98
[2016-02-17] MEDS: DOCUSATE SODIUM 50 MG/SENNA 8.6 MG TAB PO SCH (22:20)
[2016-02-18 00:39] VITALS: BP 138/85; PULSE 74; RESP 16; TEMP 97.3; O2SAT 99
[2016-02-18] MEDS: VANCOMYCIN INJ 1,500 MG in SODIUM CHLORID 0.9% 500 ML INJ 500 ML IV SCH ×2 (02:41→15:10)
[2016-02-18 04:30] VITALS: BP 149/93; PULSE 57; RESP 16; TEMP 96.4; O2SAT 100
[2016-02-18] MEDS: oxyCODONE/ACETAMINOPHEN 10 MG/325 MG TAB PO PRN ×2 (04:43→15:10)
[2016-02-18] MEDS: ceFAZolin 2 GM PREMIX 50 ML IV SCH ×3 (04:45→21:24)
[2016-02-18] MEDS: DEXAMETHASONE SOD PHOS 4 MG/ML VIAL IV PUSH SCH ×2 (04:45→18:25)
[2016-02-18] MEDS: clonazePAM 1 MG TAB PO PRN ×2 (04:52→15:10)
[2016-02-18 08:00] VITALS: BP 134/76; PULSE 80; RESP 18; TEMP 96.7; O2SAT 98
[2016-02-18 08:04] LABS: HEMATOCRIT 33.8 % (39.0-51.0)
[2016-02-18 08:16] LABS: REVIEW FLAG FINAL
[2016-02-18] MEDS: LISINOPRIL 10 MG TAB PO SCH (09:47)
[2016-02-18] MEDS: GABAPENTIN 300 MG CAP PO SCH ×2 (09:47→21:24)
[2016-02-18] MEDS: oxyCODONE HCL 20 MG CONTROLLED RELEASE TAB PO SCH ×2 (09:48→21:23)
[2016-02-18] MEDS: PANTOPRAZOLE SOD 20 MG DELAYED RELEASE TAB PO SCH ×2 (09:48→21:23)
[2016-02-18] MEDS: SODIUM CHLORIDE 0.9% FLUSH 5 ML FLUSH FLUSH SCH ×2 (09:48→21:00)
[2016-02-18] MEDS: BISACODYL 10 MG SUPP RECTAL SCH (09:48)
[2016-02-18 09:55] LABS: HCV RNA PCR IU/ML 1210000 IU/mL (()); HCV RNA PCR LOGIU/ML 6.08 (())
[2016-02-18] MEDS: CYCLOBENZAPRINE HCL 10 MG TAB PO PRN ×2 (11:41→21:28)
[2016-02-18 12:00] VITALS: BP 134/82; PULSE 97; RESP 18; TEMP 95.8; O2SAT 97
[2016-02-18 16:00] VITALS: BP 131/80; PULSE 81; RESP 18; TEMP 98; O2SAT 97
--- NOTE | 2016-02-18 16:03 | HHI.FPPN ---
Subjective Remarks No acute events overnight. Vitals wnl and stable. Pain relatively well controlled, positive outlook on treatment, doing well with therapy. (Zeke Fong MD R1) Objective Vitals Vital Signs Date Time Temp Pulse Resp B/P Pulse Ox O2 Delivery O2 Flow Rate FiO2 02/18/16 12:00 95.8 97 18 134/82 97 02/18/16 08:00 96.7 80 18 134/76 98 02/18/16 05:43 18 02/18/16 04:30 96.4 57 16 149/93 100 02/18/16 00:39 97.3 74 16 138/85 99 02/17/16 23:21 18 02/17/16 21:02 97.6 84 16 119/74 98 02/17/16 16:00 96.7 62 18 132/73 98 I/O 02/17/16 02/17/16 02/17/16 02/18/16 02/18/16 02/18/16 06:59 14:59 22:59 06:59 14:59 22:59 Intake Total 810 ml Output Total 300 ml 800 ml 600 ml 900 ml Balance -300 ml 10 ml -600 ml -900 ml Intake Oral 810 ml Output Urine Total 300 ml 800 ml 600 ml 900 ml Drainage Total 0 ml # Bowel Movements 1 0 0 1 (Zeke Fong MD R1) Result Diagram: 02/18/16 0733 02/18/16 0733 Imaging Last Impressions Wrist MRI 02/16/16 0000 Signed Impressions: Service Date/Time: Tuesday, February 16, 2016 15:28 - CONCLUSION: 1. Posterior subluxation of the distal ulna at the distal radioulnar joint associated with an inflammatory arthropathy and an inflamed or infected bursa. There is also marrow enhancement and some erosion of the distal ulna. It is unclear if this is related to an inflammatory arthropathy and adjacent bursitis or a focal area of osteomyelitis. There is a less severe inflammatory arthropathy at the intercarpal joints and radiocarpal joints with edema and mild marrow enhancement throughout the wrist. No drainable fluid collections identified in the remainder of the wrist. There is carpal crowding and marked joint space narrowing at the radio carpal joint. Titus Rees MD Wrist X-Ray 02/15/16 0000 Signed Impressions: Service Date/Time: Monday, February 15, 2016 22:35 - CONCLUSION: Focal cortical destruction of the distal ulna. Severe osteopenia elsewhere of the wrist without other definite bone destruction seen. Bharat Cabrera MD Upper Extremity MRI 02/15/16 0000 Signed Impressions: Service Date/Time: Monday, February 15, 2016 12:18 - CONCLUSION: Inflammatory changes at the edge of field of view involving the carpus and distal radius and ulna. Osteomyelitis of the carpus and distal radius and ulna is suspected. A dedicated MRI of the wrist is recommended. Carpal and distal radial ulnar joint effusions are seen, potentially infected, but no abscess demonstrated. Bharat Cabrera MD Thoracic Spine MRI 02/15/16 Signed Impressions: Service Date/Time: Monday, February 15, 2016 12:18 - CONCLUSION: Degenerative changes are seen without canal or foraminal stenosis. There is a nonenhancing area of mild cord expansion and increased signal within the cord posterior to the T9 level extending 3.6 cm. The differential diagnosis could include inflammatory/demyelinating process or neoplasm, felt less likely though not entirely excluded. Hugo Cohn MD Cervical Spine MRI 02/15/16 Signed Impressions: Service Date/Time: Monday, February 15, 2016 12:18 - CONCLUSION: Degenerative changes are noted as above. Hugo Cohn MD Chest X-Ray 02/13/16 [id number] Signed Impressions: Service Date/Time: Saturday, February 13, 2016 17:05 - CONCLUSION: No evidence of acute cardiopulmonary disease. Bharat Cabrera MD Lumbar Spine MRI 02/13/16 0000 Signed Impressions: Service Date/Time: Saturday, February 13, 2016 14:25 - CONCLUSION: L3/L4 discitis with osteomyelitis and endplate destruction of L3 and L4. There are epidural, L3/L4 intervertebral, psoas and left posterolateral paraspinous abscesses. Please see above. Bharat Cabrera MD Abscess Drainage CT 02/13/16 0000 Signed Impressions: Service Date/Time: Saturday, February 13, 2016 18:48 - CONCLUSION: Uncomplicated CT guided abscess drainage of the largest left paraspinal abscess. The smaller left paraspinal abscess and right paraspinal abscess were too small to accept a drainage catheter and were therefore aspirated to decompress the material. Tomas High Jr., MD Objective Remarks GENERAL: Patient sitting in bed NEURO: Alert, oriented. Cranial nerves grossly normal. Normal peripheral sensation. SKIN: Warm and dry, no rashes appreciated. CARDIOVASCULAR: NRRR, normal S1/S2, no MRG. Normal peripheral perfusion in lower extremities. RESPIRATORY: CTAB, no crackles or wheezes. GASTROINTESTINAL: Abdomen soft, nondistended, nontender. MUSCULOSKELETAL: No lower extremity swelling. No appreciated calf asymmetry. JUAN F drain in place on back not inspected on this exam. Procedures 02/13/16 - IR drainage of epidural abscess Medications and IVs Current Medications Medications (Trade) Dose Ordered Sig/Maurisio Route Start Time Stop Time Status Last Admin (Neurontin) 600 mg BID PO 02/13/16 21:00 02/18/16 09:47 (Prinivil) 10 mg DAILY PO 02/14/16 09:00 02/18/16 09:47 Pantoprazole Sodium 20 mg 20 mg BID PO 02/13/16 21:00 02/18/16 09:48 (Vancomycin Consult Pharmacy) 0 ml @ 0 mls/hr UNSCH OTHER 02/13/16 17:00 (NS Flush) 2 ml UNSCH PRN FLUSH 02/13/16 17:15 (NS Flush) 2 ml BID FLUSH 02/13/16 21:00 02/18/16 09:48 (Tylenol) 650 mg Q4H PRN PO 02/13/16 17:15 02/15/16 11:41 (Zofran Inj) 4 mg Q6H PRN IVP 02/13/16 17:15 (Narcan Inj) 0.4 mg UNSCH PRN IV 02/13/16 17:15 02/14/16 15:45 (Ativan) 1 mg Q4H PRN PO 02/13/16 17:15 (Ativan Inj) 1 mg Q4H PRN IV PUSH 02/13/16 17:15 (Ativan) 2 mg Q2H PRN PO 02/13/16 17:15 (Ativan Inj) 2 mg Q2H PRN IV PUSH 02/13/16 17:15 (Ativan Inj) 2 mg Q1H PRN IV PUSH 02/13/16 17:15 (Ativan Inj) 2 mg Q15M PRN IV PUSH 02/13/16 17:15 (Apresoline) 10 mg Q8H PRN PO 02/13/16 17:37 02/16/16 05:39 (KlonoPIN) 1 mg TID PRN PO 02/14/16 00:30 02/18/16 15:10 (Motrin) 600 mg Q6H PRN PO 02/15/16 00:00 02/15/16 01:00 (Percocet 5-325 Mg) 1 tab Q4H PRN PO 02/15/16 12:00 (Percocet 10-325 Mg) 1 tab Q4H PRN PO 02/15/16 12:00 02/18/16 15:10 (Flexeril) 10 mg Q8H PRN PO 02/15/16 14:30 02/18/16 11:41 Enoxaparin Sodium 40 mg 40 mg Q24H SQ 02/15/16 18:00 02/17/16 17:34 (Ancef 2 Gm Premix) 50 ml @ 150 mls/hr Q8H IV 02/15/16 20:00 02/18/16 11:41 Oxycodone HCl 20 mg 20 mg Q12H PO 02/15/16 22:00 02/18/16 09:48 (Vancomycin Inj/ NS 500 ml Inj) 515 ml @ 250 mls/hr Q12H IV 02/17/16 14:00 02/18/16 15:10 Miscellaneous Information SPECIFIC LAB TO BE DRAWN:VANCOMYCIN TROUGH DATE TO... ONCE ONCE XX 02/19/16 01:45 02/19/16 01:46 (Decadron Inj) 2 mg Q12H IV PUSH 02/17/16 18:00 02/18/16 04:45 (Dee-Colace) 2 tab HS PO 02/17/16 21:00 02/17/16 22:20 (Zeke Fong MD R1) A/P Assessment and Plan Mr. Sher is a 56 yo male with: (Zeke Fong MD R1) Attending Attestation Patient seen and examined with the resident team. Case reviewed and discussed Agree with plan of care as discussed with me and documented in the resident note. (Mary Sanchez MD) Problem List: (1) Epidural abscess Status: Acute Plan: Approximately 3 months of lower back pain; associated neurologic impairment unclear due to patient sedation Lumbar MRI demonstrative of "L3/L4 discitis with osteomyelitis and endplate destruction of L3 and L4. There are epidural, L3/L4 intervertebral, psoas and left posterolateral paraspinous abscesses. Please see above." Thoracic MRI: Degenerative changes without stenosis. Nonenhancing mild cord expansion and increased signal posterior to T9 extending 3.6 cm. DDX includes inflammatory/demyelinating process or neoplasm Cervical MRI: Degenerative changes ESR 62, CRP 5.17 CBC without leukocytosis; urinalysis WNL, metabolic panel unremarkable UDS+ for cannabinoids, opiates Cultures: -Abscess Cx: Staph coag negative Blood cultures negative x5 days Neurosurgery and ID consulted, appreciate recommendations -s/p IR abscess drainage/biopsy -Decadron decreased to 2 mg IV q12 hours -Broad-spectrum antibiotic therapy -Empiric vancomycin twice a day dosed by pharmacy -Cefazolin 2 gm every 8 hours -Plan to repeat MRI in early March Pain control: -home Oxycontin 20mg BID -Flexeril 10mg q8hrs per Neurosurgery -PRN Percocet 5/325mg / 10/325mg for pain scale 1-5/6-10 -Ducolax suppository added to bowel regimen (2) Wrist joint infection Status: Chronic Plan: Per patient's prior records at [facility], patient was treated for MSSA osteomyelitis with Ancef with planned stoppage date of 02/11. It is unclear whether patient took full treatment regimen Right wrist MRI: Inflammatory changes at the edge of field of view including carpus and distal radius and ulna. Osteomyelitis of the carpus and is a radius and ulnar is suspected. Dedicated MRI of wrist: "1. Posterior subluxation of the distal ulna at the distal radioulnar joint associated with an inflammatory arthropathy and an inflamed or infected bursa. There is also marrow enhancement and some erosion of the distal ulna. It is unclear if this is related to an inflammatory arthropathy and adjacent bursitis or a focal area of osteomyelitis. There is a less severe inflammatory arthropathy at the intercarpal joints and radiocarpal joints with edema and mild marrow enhancement throughout the wrist. No drainable fluid collections identified in the remainder of the wrist. There is carpal crowding and marked joint space narrowing at the radio carpal joint Carpal and distal radial ulnar joint effusions are seen, potentially infected, but no abscess demonstrated --Hand surgery consulted, appreciate their recommendations --Suspect inflammatory arthritis with subsequent extensor tendon rupture --Surgery deferred until after epidural abscess resolved -Continued antibiotic management per infectious disease (3) COPD (chronic obstructive pulmonary disease) Status: Chronic Plan: Stable, no wheezing on exam * DuoNeb PRN (4) HTN (hypertension) Status: Chronic Plan: History of hypertension; on lisinopril 10 mg daily per EMR. 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 and recent marijuana use UDS positive for opiates and cannabinoids (6) Hepatitis C Status: Acute Plan: Viral load 1.2 million copies per mL -Will ask regarding consent for HIV -F/U hep C genotype (7) DVT Prophylaxis Status: Acute Plan: -Bilateral SCD's -Continue enoxaparin 40 mg daily (8) Fluids, Electrolytes, and Nutrition Status: Acute Plan: Fluids: None at this time Electrolytes: Monitor replete as needed Nutrition: Heart healthy diet (Zeke Fong MD R1) Problem Qualifiers (1) Hepatitis C: Qualified Code: B19.20 - Hepatitis C virus infection without hepatic coma, unspecified chronicity Zeke Fong MD R1 Feb 18, 2016 16:03 Mary Sanchez MD Feb 19, 2016 10:46
[2016-02-18] MEDS: ENOXAPARIN SODIUM 40 MG/0.4 ML SYRINGE SQ SCH (18:25)
[2016-02-18] MEDS: DOCUSATE SODIUM 50 MG/SENNA 8.6 MG TAB PO SCH (21:00)
[2016-02-18 21:21] VITALS: BP 142/86; PULSE 82; RESP 20; TEMP 97.8; O2SAT 98
[2016-02-19] MEDS ORDERED: PHARMACY ORDERED LAB XX ONE (01:45)
[2016-02-19 01:50] VITALS: BP 126/83; PULSE 88; RESP 20; TEMP 96.4; O2SAT 99
[2016-02-19] MEDS: clonazePAM 1 MG TAB PO PRN ×3 (02:10→21:17)
[2016-02-19] MEDS: oxyCODONE/ACETAMINOPHEN 10 MG/325 MG TAB PO PRN ×3 (02:10→15:20)
[2016-02-19] MEDS: VANCOMYCIN INJ 1,500 MG in SODIUM CHLORID 0.9% 500 ML INJ 500 ML IV SCH (02:30)
[2016-02-19 03:53] LABS: HEPATITIS C RNA GENOTYPE GENOTYPE 1a (())
[2016-02-19 04:00] VITALS: BP 163/94; PULSE 71; RESP 20; TEMP 96.7; O2SAT 100
[2016-02-19] MEDS: ceFAZolin 2 GM PREMIX 50 ML IV SCH ×3 (04:40→21:16)
[2016-02-19] MEDS: DEXAMETHASONE SOD PHOS 4 MG/ML VIAL IV PUSH SCH ×2 (06:01→17:22)
[2016-02-19] MEDS: CYCLOBENZAPRINE HCL 10 MG TAB PO PRN ×2 (06:03→15:20)
[2016-02-19 07:57] LABS: HEMATOCRIT 33.3 % (39.0-51.0)
[2016-02-19 08:00] VITALS: BP 162/95; PULSE 88; RESP 18; TEMP 96.5; O2SAT 99
[2016-02-19] MEDS: SODIUM CHLORIDE 0.9% FLUSH 5 ML FLUSH FLUSH SCH ×2 (09:00→21:16)
[2016-02-19] MEDS: PANTOPRAZOLE SOD 20 MG DELAYED RELEASE TAB PO SCH ×2 (10:08→21:16)
[2016-02-19] MEDS: oxyCODONE HCL 20 MG CONTROLLED RELEASE TAB PO SCH ×2 (10:09→21:17)
[2016-02-19] MEDS: GABAPENTIN 300 MG CAP PO SCH ×2 (10:09→21:17)
[2016-02-19] MEDS: LISINOPRIL 10 MG TAB PO SCH (10:09)
[2016-02-19] MEDS: VANCOMYCIN INJ 1,250 MG in SODIUM CHLOR 0.9% 250 ML INJ 250 ML IV SCH ×2 (10:10→17:21)
[2016-02-19 12:00] VITALS: BP 128/81; PULSE 87; RESP 18; TEMP 96.6; O2SAT 97
[2016-02-19 16:00] VITALS: BP 126/66; PULSE 94; RESP 18; TEMP 98.7; O2SAT 98
--- NOTE | 2016-02-19 16:27 | HHI.FPPN ---
Subjective Remarks No acute events. Had some trouble sleeping, no pain. No CP/SOB. Moving more with physical therapy. Objective Vitals Vital Signs Date Time Temp Pulse Resp B/P Pulse Ox O2 Delivery O2 Flow Rate FiO2 02/19/16 12:00 96.6 87 18 128/81 97 02/19/16 08:00 96.5 88 18 162/95 99 02/19/16 04:00 96.7 71 20 163/94 100 02/19/16 01:50 96.4 88 20 126/83 99 02/18/16 21:21 97.8 82 20 142/86 98 I/O 02/18/16 02/18/16 02/18/16 02/19/16 02/19/16 02/19/16 07:00 15:00 23:00 07:00 15:00 23:00 Intake Total 720 ml 240 ml 480 ml Output Total 900 ml 1400 ml 1100 ml 750 ml Balance -900 ml -680 ml -860 ml -270 ml Intake Oral 720 ml 240 ml 480 ml Output Urine Total 900 ml 1400 ml 1100 ml 750 ml # Bowel Movements 0 2 0 Result Diagram: 02/19/16 0704 02/18/16 0733 Imaging Last Impressions Wrist MRI 02/16/16 0000 Signed Impressions: Service Date/Time: Tuesday, February 16, 2016 15:28 - CONCLUSION: 1. Posterior subluxation of the distal ulna at the distal radioulnar joint associated with an inflammatory arthropathy and an inflamed or infected bursa. There is also marrow enhancement and some erosion of the distal ulna. It is unclear if this is related to an inflammatory arthropathy and adjacent bursitis or a focal area of osteomyelitis. There is a less severe inflammatory arthropathy at the intercarpal joints and radiocarpal joints with edema and mild marrow enhancement throughout the wrist. No drainable fluid collections identified in the remainder of the wrist. There is carpal crowding and marked joint space narrowing at the radio carpal joint. Titus Rees MD Wrist X-Ray 02/15/16 0000 Signed Impressions: Service Date/Time: Monday, February 15, 2016 22:35 - CONCLUSION: Focal cortical destruction of the distal ulna. Severe osteopenia elsewhere of the wrist without other definite bone destruction seen. Bharat Cabrera MD Upper Extremity MRI 02/15/16 0000 Signed Impressions: Service Date/Time: Monday, February 15, 2016 12:18 - CONCLUSION: Inflammatory changes at the edge of field of view involving the carpus and distal radius and ulna. Osteomyelitis of the carpus and distal radius and ulna is suspected. A dedicated MRI of the wrist is recommended. Carpal and distal radial ulnar joint effusions are seen, potentially infected, but no abscess demonstrated. Bharat Cabrera MD Thoracic Spine MRI 02/15/16 0000 Signed Impressions: Service Date/Time: Monday, February 15, 2016 12:18 - CONCLUSION: Degenerative changes are seen without canal or foraminal stenosis. There is a nonenhancing area of mild cord expansion and increased signal within the cord posterior to the T9 level extending 3.6 cm. The differential diagnosis could include inflammatory/demyelinating process or neoplasm, felt less likely though not entirely excluded. Hugo Cohn MD Cervical Spine MRI 02/15/16 0000 Signed Impressions: Service Date/Time: Monday, February 15, 2016 12:18 - CONCLUSION: Degenerative changes are noted as above. Hugo Cohn MD Chest X-Ray 02/13/16 1705 Signed Impressions: Service Date/Time: Saturday, February 13, 2016 17:05 - CONCLUSION: No evidence of acute cardiopulmonary disease. Bharat Cabrera MD Lumbar Spine MRI 02/13/16 0000 Signed Impressions: Service Date/Time: Saturday, February 13, 2016 14:25 - CONCLUSION: L3/L4 discitis with osteomyelitis and endplate destruction of L3 and L4. There are epidural, L3/L4 intervertebral, psoas and left posterolateral paraspinous abscesses. Please see above. Bharat Cabrera MD Abscess Drainage CT 02/13/16 0000 Signed Impressions: Service Date/Time: Saturday, February 13, 2016 18:48 - CONCLUSION: Uncomplicated CT guided abscess drainage of the largest left paraspinal abscess. The smaller left paraspinal abscess and right paraspinal abscess were too small to accept a drainage catheter and were therefore aspirated to decompress the material. Tomas High Jr., MD Objective Remarks GENERAL: Patient lying flat in bed in [facility]: Alert, oriented. Cranial nerves grossly normal. Normal peripheral sensation. SKIN: Warm and dry, no rashes appreciated. CARDIOVASCULAR: NRRR, normal S1/S2, no MRG. Normal peripheral perfusion in lower extremities. RESPIRATORY: CTAB, no crackles or wheezes. GASTROINTESTINAL: Abdomen soft, nondistended, nontender. MUSCULOSKELETAL: No lower extremity swelling. No appreciated calf asymmetry. JUAN F drain in place on back not inspected on this exam. Procedures 02/13/16 - IR drainage of epidural abscess Medications and IVs Current Medications Medications (Trade) Dose Ordered Sig/Maurisio Route Start Time Stop Time Status Last Admin (Neurontin) 600 mg BID PO 02/13/16 21:00 02/19/16 10:09 (Prinivil) 10 mg DAILY PO 02/14/16 09:00 02/19/16 10:09 Pantoprazole Sodium 20 mg 20 mg BID PO 02/13/16 21:00 02/19/16 10:08 (Vancomycin Consult Pharmacy) 0 ml @ 0 mls/hr UNSCH OTHER 02/13/16 17:00 (NS Flush) 2 ml UNSCH PRN FLUSH 02/13/16 17:15 (NS Flush) 2 ml BID FLUSH 02/13/16 21:00 02/18/16 21:00 (Tylenol) 650 mg Q4H PRN PO 02/13/16 17:15 02/15/16 11:41 (Zofran Inj) 4 mg Q6H PRN IVP 02/13/16 17:15 (Narcan Inj) 0.4 mg UNSCH PRN IV 02/13/16 17:15 02/14/16 15:45 (Ativan) 1 mg Q4H PRN PO 02/13/16 17:15 (Ativan Inj) 1 mg Q4H PRN IV PUSH 02/13/16 17:15 (Ativan) 2 mg Q2H PRN PO 02/13/16 17:15 (Ativan Inj) 2 mg Q2H PRN IV PUSH 02/13/16 17:15 (Ativan Inj) 2 mg Q1H PRN IV PUSH 02/13/16 17:15 (Ativan Inj) 2 mg Q15M PRN IV PUSH 02/13/16 17:15 (Apresoline) 10 mg Q8H PRN PO 02/13/16 17:37 02/16/16 05:39 (KlonoPIN) 1 mg TID PRN PO 02/14/16 00:30 02/19/16 10:20 (Motrin) 600 mg Q6H PRN PO 02/15/16 00:00 02/15/16 01:00 (Percocet 5-325 Mg) 1 tab Q4H PRN PO 02/15/16 12:00 (Percocet 10-325 Mg) 1 tab Q4H PRN PO 02/15/16 12:00 02/19/16 15:20 (Flexeril) 10 mg Q8H PRN PO 02/15/16 14:30 02/19/16 15:20 Enoxaparin Sodium 40 mg 40 mg Q24H SQ 02/15/16 18:00 02/18/16 18:25 (Ancef 2 Gm Premix) 50 ml @ 150 mls/hr Q8H IV 02/15/16 20:00 02/19/16 12:00 (OxyCONTIN CR) 20 mg Q12H PO 02/15/16 22:00 02/19/16 10:09 (Decadron Inj) 2 mg Q12H IV PUSH 02/17/16 18:00 02/19/16 06:01 Senna/Docusate Sodium 2 tab 2 tab HS PO 02/17/16 21:00 02/17/16 22:20 (Vancomycin Inj/ NS 250 ml Inj) 262.5 ml @ 250 mls/hr Q8H IV 02/19/16 10:00 02/19/16 10:10 Miscellaneous Information SPECIFIC LAB TO BE MASSIMO... ONCE ONCE XX 02/20/16 01:45 02/20/16 01:46 (Desyrel) 50 mg HS PO 02/19/16 21:00 A/P Assessment and Plan Mr. Sher is a 56 yo male with: Problem List: (1) Epidural abscess Status: Acute Plan: Approximately 3 months of lower back pain; associated neurologic impairment unclear due to patient sedation Lumbar MRI demonstrative of "L3/L4 discitis with osteomyelitis and endplate destruction of L3 and L4. There are epidural, L3/L4 intervertebral, psoas and left posterolateral paraspinous abscesses. Please see above." Thoracic MRI: Degenerative changes without stenosis. Nonenhancing mild cord expansion and increased signal posterior to T9 extending 3.6 cm. DDX includes inflammatory/demyelinating process or neoplasm Cervical MRI: Degenerative changes ESR 62, CRP 5.17 CBC without leukocytosis; urinalysis WNL, metabolic panel unremarkable UDS+ for cannabinoids, opiates Cultures: -Abscess Cx: Staph coag negative Blood cultures negative x5 days Neurosurgery and ID consulted, appreciate recommendations -s/p IR abscess drainage/biopsy -Decadron decreased to 2 mg IV q12 hours -Broad-spectrum antibiotic therapy -Empiric vancomycin twice a day dosed by pharmacy -Cefazolin 2 gm every 8 hours -Plan to repeat MRI in early March Pain control: -home Oxycontin 20mg BID -Flexeril 10mg q8hrs per Neurosurgery -PRN Percocet 5/325mg / 10/325mg for pain scale 1-5/6-10 -Ducolax suppository added to bowel regimen (2) Wrist joint infection Status: Chronic Plan: Per patient's prior records at [facility], patient was treated for MSSA osteomyelitis with Ancef with planned stoppage date of 02/11. It is unclear whether patient took full treatment regimen Right wrist MRI: Inflammatory changes at the edge of field of view including carpus and distal radius and ulna. Osteomyelitis of the carpus and is a radius and ulnar is suspected. Dedicated MRI of wrist: "1. Posterior subluxation of the distal ulna at the distal radioulnar joint associated with an inflammatory arthropathy and an inflamed or infected bursa. There is also marrow enhancement and some erosion of the distal ulna. It is unclear if this is related to an inflammatory arthropathy and adjacent bursitis or a focal area of osteomyelitis. There is a less severe inflammatory arthropathy at the intercarpal joints and radiocarpal joints with edema and mild marrow enhancement throughout the wrist. No drainable fluid collections identified in the remainder of the wrist. There is carpal crowding and marked joint space narrowing at the radio carpal joint Carpal and distal radial ulnar joint effusions are seen, potentially infected, but no abscess demonstrated --Hand surgery consulted, appreciate their recommendations --Suspect inflammatory arthritis with subsequent extensor tendon rupture --Surgery deferred until after epidural abscess resolved -Continued antibiotic management per infectious disease (3) COPD (chronic obstructive pulmonary disease) Status: Chronic Plan: Stable, no wheezing on exam * DuoNeb PRN (4) HTN (hypertension) Status: Chronic Plan: History of hypertension; on lisinopril 10 mg daily per EMR. 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 and recent marijuana use UDS positive for opiates and cannabinoids (6) Hepatitis C Status: Acute Plan: Viral load 1.2 million copies per mL HIV negative Genotype 1a (7) Insomnia Status: Acute Plan: Trial of trazodone 50 mg HS (8) DVT Prophylaxis Status: Acute Plan: -Bilateral SCD's -Continue enoxaparin 40 mg daily (9) Fluids, Electrolytes, and Nutrition Status: Acute Plan: Fluids: None at this time Electrolytes: Monitor replete as needed Nutrition: Heart healthy diet Problem Qualifiers (1) Hepatitis C: Qualified Code: B19.20 - Hepatitis C virus infection without hepatic coma, unspecified chronicity (2) Insomnia: Qualified Code: G47.00 - Insomnia, unspecified type Zeke Fong MD R1 Feb 19, 2016 16:27 Zeke Fong MD R1 Feb 19, 2016 16:27
[2016-02-19] MEDS: ENOXAPARIN SODIUM 40 MG/0.4 ML SYRINGE SQ SCH (17:22)
[2016-02-19 20:30] VITALS: BP 137/87; PULSE 85; RESP 17; TEMP 98.2; O2SAT 97
[2016-02-19] MEDS ORDERED: traZODone HCL 50 MG TAB PO SCH (21:00)
[2016-02-19] MEDS: DOCUSATE SODIUM 50 MG/SENNA 8.6 MG TAB PO SCH (21:16)
--- NOTE | 2016-02-19 21:24 | HHI.IDPN ---
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 Vital Signs Date Time Temp Pulse Resp B/P Pulse Ox O2 Delivery O2 Flow Rate FiO2 02/19/16 16:00 98.7 94 18 126/66 98 02/19/16 12:00 96.6 87 18 128/81 97 02/19/16 08:00 96.5 88 18 162/95 99 02/19/16 04:00 96.7 71 20 163/94 100 02/19/16 01:50 96.4 88 20 126/83 99 02/18/16 21:21 97.8 82 20 142/86 98 02/18/16 02/18/16 02/19/16 15:00 23:00 07:00 Intake Total 720 ml 240 ml 480 ml Output Total 1400 ml 1100 ml 750 ml Balance -680 ml -860 ml -270 ml Intake Oral 720 ml 240 ml 480 ml Output Urine Total 1400 ml 1100 ml 750 ml # Bowel Movements 2 0 . Laboratory Tests Test 02/18/16 02/19/16 07:33 07:04 Hemoglobin 10.9 GM/DL 10.6 GM/DL Hematocrit 33.8 % 33.3 % Laboratory Tests Test 02/18/16 07:33 Creatinine 0.60 MG/DL Estimat Glomerular Filtration 139 ML/MIN Rate Imaging Last Impressions Wrist MRI 02/16/16 0000 Signed Impressions: Service Date/Time: Tuesday, February 16, 2016 15:28 - CONCLUSION: 1. Posterior subluxation of the distal ulna at the distal radioulnar joint associated with an inflammatory arthropathy and an inflamed or infected bursa. There is also marrow enhancement and some erosion of the distal ulna. It is unclear if this is related to an inflammatory arthropathy and adjacent bursitis or a focal area of osteomyelitis. There is a less severe inflammatory arthropathy at the intercarpal joints and radiocarpal joints with edema and mild marrow enhancement throughout the wrist. No drainable fluid collections identified in the remainder of the wrist. There is carpal crowding and marked joint space narrowing at the radio carpal joint. Titus Rees MD Wrist X-Ray 02/15/16 Signed Impressions: Service Date/Time: Monday, February 15, 2016 22:35 - CONCLUSION: Focal cortical destruction of the distal ulna. Severe osteopenia elsewhere of the wrist without other definite bone destruction seen. Bharat Cabrera MD Upper Extremity MRI 02/15/16 Signed Impressions: Service Date/Time: Monday, February 15, 2016 12:18 - CONCLUSION: Inflammatory changes at the edge of field of view involving the carpus and distal radius and ulna. Osteomyelitis of the carpus and distal radius and ulna is suspected. A dedicated MRI of the wrist is recommended. Carpal and distal radial ulnar joint effusions are seen, potentially infected, but no abscess demonstrated. Bharat Cabrera MD Thoracic Spine MRI 02/15/16 Signed Impressions: Service Date/Time: Monday, February 15, 2016 12:18 - CONCLUSION: Degenerative changes are seen without canal or foraminal stenosis. There is a nonenhancing area of mild cord expansion and increased signal within the cord posterior to the T9 level extending 3.6 cm. The differential diagnosis could include inflammatory/demyelinating process or neoplasm, felt less likely though not entirely excluded. Hugo Cohn MD Cervical Spine MRI 02/15/16 Signed Impressions: Service Date/Time: Monday, February 15, 2016 12:18 - CONCLUSION: Degenerative changes are noted as above. Hugo Cohn MD Chest X-Ray 02/13/16 1705 Signed Impressions: Service Date/Time: Saturday, February 13, 2016 17:05 - CONCLUSION: No evidence of acute cardiopulmonary disease. Bharat Cabrera MD Lumbar Spine MRI 02/13/16 Signed Impressions: Service Date/Time: Saturday, February 13, 2016 14:25 - CONCLUSION: L3/L4 discitis with osteomyelitis and endplate destruction of L3 and L4. There are epidural, L3/L4 intervertebral, psoas and left posterolateral paraspinous abscesses. Please see above. Bharat Cabrera MD Abscess Drainage CT 02/13/16 0000 Signed Impressions: Service Date/Time: Saturday, February 13, 2016 18:48 - CONCLUSION: Uncomplicated CT guided abscess drainage of the largest left paraspinal abscess. The smaller left paraspinal abscess and right paraspinal abscess were too small to accept a drainage catheter and were therefore aspirated to decompress the material. Tomas High Jr., MD Physical Exam CONSTITUTIONAL/GENERAL: This is an adequately nourished patient, in no apparent distress. SKIN: No jaundice, rashes, or lesions. CARDIOVASCULAR: Regular rate and rhythm without murmurs, gallops, or rubs. No JVD. Peripheral pulses symmetric. RESPIRATORY/CHEST: Symmetric, unlabored respirations. Clear to auscultation. GASTROINTESTINAL: Abdomen soft, non-tender, nondistended. No hepato-splenomegaly , or palpable masses. MUSCULOSKELETAL: Extremities without clubbing, cyanosis, or edema. R forearm w/o visible edema or erythma, but has tenderness to palpation over ulnar head still unable to move r ring ans small fingers NEUROLOGICAL: fully awake and alert; normal speech Assessment & Plan Remarks L3-4 diskitis , osteo, recurrent/unresolving previously MSSA bacteremia and h/ o recent tx with cefazoline - growing coag negative staph ? significance sp CT guided drainage, clx P, R distal radius/ulnar osteomyelitis initially suspected; evaluated by Dr Iniguez: inflammatory arthritis with subsequent bursa rupture, recommend delay of tx untill after diskitis t ccompleted T spine inflammatory or demyelinating process - neurosurgery ff - cont vanco for now - keep levels up to 15-20 - cont cefazoline will dw Mary Haile MD Feb 19, 2016 21:24
[2016-02-20 00:40] VITALS: BP 128/77; PULSE 80; RESP 19; TEMP 97; O2SAT 97
[2016-02-20] MEDS ORDERED: PHARMACY ORDERED LAB XX ONE (01:45)
[2016-02-20] MEDS: CYCLOBENZAPRINE HCL 10 MG TAB PO PRN ×3 (03:05→20:59)
[2016-02-20] MEDS: oxyCODONE/ACETAMINOPHEN 10 MG/325 MG TAB PO PRN ×4 (03:06→15:50)
[2016-02-20] MEDS: VANCOMYCIN INJ 1,250 MG in SODIUM CHLOR 0.9% 250 ML INJ 250 ML IV SCH ×3 (03:28→17:16)
[2016-02-20 04:40] VITALS: BP 128/87; PULSE 84; RESP 16; TEMP 98.4; O2SAT 98
[2016-02-20 04:55] LABS: VANCOMYCIN TROUGH 13.2 MCG/ML (5.0-10.0)
[2016-02-20] MEDS: ceFAZolin 2 GM PREMIX 50 ML IV SCH ×3 (05:54→20:59)
[2016-02-20] MEDS: DEXAMETHASONE SOD PHOS 4 MG/ML VIAL IV PUSH SCH ×2 (05:54→17:17)
[2016-02-20] MEDS: clonazePAM 1 MG TAB PO PRN ×2 (05:55→15:50)
[2016-02-20 08:23] VITALS: BP 190/104; PULSE 76; RESP 15; TEMP 96.9; O2SAT 98
[2016-02-20] MEDS: GABAPENTIN 300 MG CAP PO SCH ×2 (08:50→20:58)
[2016-02-20] MEDS: LISINOPRIL 10 MG TAB PO SCH (08:50)
[2016-02-20] MEDS: PANTOPRAZOLE SOD 20 MG DELAYED RELEASE TAB PO SCH ×2 (08:51→20:58)
[2016-02-20] MEDS: oxyCODONE HCL 20 MG CONTROLLED RELEASE TAB PO SCH ×2 (08:51→21:40)
[2016-02-20] MEDS: SODIUM CHLORIDE 0.9% FLUSH 5 ML FLUSH FLUSH SCH ×2 (08:51→20:59)
[2016-02-20 12:48] VITALS: BP 127/80; PULSE 93; RESP 18; TEMP 98.2; O2SAT 98
--- NOTE | 2016-02-20 13:48 | HHI.FPPN ---
Subjective Remarks Mr. Sher was afebrile with stable vital signs overnight; one BP of 190/104 this morning but other values wnl. Patient reports bilateral lower extremity weakness. No significant change in weakness relative to previous injury during hospitalization, however patient states he is tired from ambulating further than usual with walker/PT yesterday. No change in sensation of lower extremities. Patient voiding/stooling normally per EMR. No reported shortness of breath. (Ian Ricardo MD R2) Objective Vitals Vital Signs Date Time Temp Pulse Resp B/P Pulse Ox O2 Delivery O2 Flow Rate FiO2 02/20/16 12:48 98.2 93 18 127/80 98 02/20/16 08:23 96.9 76 15 190/104 98 02/20/16 04:40 98.4 84 16 128/87 98 02/20/16 00:40 97.0 80 19 128/77 97 02/19/16 20:30 98.2 85 17 137/87 97 02/19/16 16:00 98.7 94 18 126/66 98 I/O 02/19/16 02/19/16 02/19/16 02/20/16 02/20/16 02/20/16 07:00 15:00 23:00 07:00 15:00 23:00 Intake Total 480 ml 960 ml 900 ml 800 ml Output Total 750 ml 1000 ml 900 ml Balance -270 ml 960 ml -100 ml -100 ml Intake Oral 480 ml 960 ml 900 ml 800 ml Output Urine Total 750 ml 1000 ml 900 ml # Voids 3 # Bowel Movements 1 0 0 (Ian Ricardo MD R2) Result Diagram: 02/19/16 0704 02/20/16 0328 Imaging Last Impressions Wrist MRI 02/16/16 0000 Signed Impressions: Service Date/Time: Tuesday, February 16, 2016 15:28 - CONCLUSION: 1. Posterior subluxation of the distal ulna at the distal radioulnar joint associated with an inflammatory arthropathy and an inflamed or infected bursa. There is also marrow enhancement and some erosion of the distal ulna. It is unclear if this is related to an inflammatory arthropathy and adjacent bursitis or a focal area of osteomyelitis. There is a less severe inflammatory arthropathy at the intercarpal joints and radiocarpal joints with edema and mild marrow enhancement throughout the wrist. No drainable fluid collections identified in the remainder of the wrist. There is carpal crowding and marked joint space narrowing at the radio carpal joint. Titus Rees MD Wrist X-Ray 02/15/16 0000 Signed Impressions: Service Date/Time: Monday, February 15, 2016 22:35 - CONCLUSION: Focal cortical destruction of the distal ulna. Severe osteopenia elsewhere of the wrist without other definite bone destruction seen. Bharat Cabrera MD Upper Extremity MRI 02/15/16 0000 Signed Impressions: Service Date/Time: Monday, February 15, 2016 12:18 - CONCLUSION: Inflammatory changes at the edge of field of view involving the carpus and distal radius and ulna. Osteomyelitis of the carpus and distal radius and ulna is suspected. A dedicated MRI of the wrist is recommended. Carpal and distal radial ulnar joint effusions are seen, potentially infected, but no abscess demonstrated. Bharat Cabrera MD Thoracic Spine MRI 02/15/16 0000 Signed Impressions: Service Date/Time: Monday, February 15, 2016 12:18 - CONCLUSION: Degenerative changes are seen without canal or foraminal stenosis. There is a nonenhancing area of mild cord expansion and increased signal within the cord posterior to the T9 level extending 3.6 cm. The differential diagnosis could include inflammatory/demyelinating process or neoplasm, felt less likely though not entirely excluded. Hugo Cohn MD Cervical Spine MRI 02/15/16 0000 Signed Impressions: Service Date/Time: Monday, February 15, 2016 12:18 - CONCLUSION: Degenerative changes are noted as above. Hugo Cohn MD Chest X-Ray 02/13/16 1705 Signed Impressions: Service Date/Time: Saturday, February 13, 2016 17:05 - CONCLUSION: No evidence of acute cardiopulmonary disease. Bharat Cabrera MD Lumbar Spine MRI 02/13/16 0000 Signed Impressions: Service Date/Time: Saturday, February 13, 2016 14:25 - CONCLUSION: L3/L4 discitis with osteomyelitis and endplate destruction of L3 and L4. There are epidural, L3/L4 intervertebral, psoas and left posterolateral paraspinous abscesses. Please see above. Bharat Cabrera MD Abscess Drainage CT 02/13/16 0000 Signed Impressions: Service Date/Time: Saturday, February 13, 2016 18:48 - CONCLUSION: Uncomplicated CT guided abscess drainage of the largest left paraspinal abscess. The smaller left paraspinal abscess and right paraspinal abscess were too small to accept a drainage catheter and were therefore aspirated to decompress the material. Tomas High Jr., MD Objective Remarks GENERAL: Patient lying flat in bed in NAD NEURO: Alert, oriented. Cranial nerves grossly normal. Normal peripheral sensation. SKIN: Warm and dry, no rashes appreciated. CARDIOVASCULAR: NRRR, normal S1/S2, no MRG. Normal peripheral perfusion in lower extremities. RESPIRATORY: CTAB, no crackles or wheezes. Normal rate GASTROINTESTINAL: Abdomen soft, nondistended, nontender. MUSCULOSKELETAL: No lower extremity swelling. No appreciated calf asymmetry. Procedures 02/13/16 - IR drainage of epidural abscess (Ian Ricardo MD R2) A/P Assessment and Plan Mr. Sher is a 56 yo male with: (Ian Ricardo MD R2) Attending Attestation Patient seen and examined with Dr. Ricardo. Case reviewed and discussed Agree with plan of care as discussed with me and documented in the resident note (Mary Sanchez MD) Problem List: (1) Epidural abscess Status: Acute Plan: Approximately 3 months of lower back pain; associated neurologic impairment unclear due to patient sedation Lumbar MRI demonstrative of "L3/L4 discitis with osteomyelitis and endplate destruction of L3 and L4. There are epidural, L3/L4 intervertebral, psoas and left posterolateral paraspinous abscesses. Please see above." Thoracic MRI: Degenerative changes without stenosis. Nonenhancing mild cord expansion and increased signal posterior to T9 extending 3.6 cm. DDX includes inflammatory/demyelinating process or neoplasm Cervical MRI: Degenerative changes ESR 62, CRP 5.17 CBC without leukocytosis; urinalysis WNL, metabolic panel unremarkable UDS+ for cannabinoids, opiates Cultures: -Abscess Cx: Staph coag negative Blood cultures negative x5 days Neurosurgery and ID consulted, appreciate recommendations -s/p IR abscess drainage/biopsy -Decadron 2 mg IV q12 hours -Broad-spectrum antibiotic therapy -Empiric vancomycin twice a day dosed by pharmacy -Cefazolin 2 gm every 8 hours -Plan to repeat MRI in early March Pain control: -home Oxycontin 20mg BID -Flexeril 10mg q8hrs per Neurosurgery -PRN Percocet 5/325mg / 10/325mg for pain scale 1-5/6-10 -Ducolax suppository added to bowel regimen (2) Wrist joint infection Status: Chronic Plan: Per patient's prior records at [facility], patient was treated for MSSA osteomyelitis with Ancef with planned stoppage date of 02/11. It is unclear whether patient took full treatment regimen Right wrist MRI: Inflammatory changes at the edge of field of view including carpus and distal radius and ulna. Osteomyelitis of the carpus and is a radius and ulnar is suspected. Dedicated MRI of wrist: "1. Posterior subluxation of the distal ulna at the distal radioulnar joint associated with an inflammatory arthropathy and an inflamed or infected bursa. There is also marrow enhancement and some erosion of the distal ulna. It is unclear if this is related to an inflammatory arthropathy and adjacent bursitis or a focal area of osteomyelitis. There is a less severe inflammatory arthropathy at the intercarpal joints and radiocarpal joints with edema and mild marrow enhancement throughout the wrist. No drainable fluid collections identified in the remainder of the wrist. There is carpal crowding and marked joint space narrowing at the radio carpal joint Carpal and distal radial ulnar joint effusions are seen, potentially infected, but no abscess demonstrated --Hand surgery consulted, appreciate their recommendations --Suspect inflammatory arthritis with subsequent extensor tendon rupture --Surgery deferred until after epidural abscess resolved -Continued antibiotic management per infectious disease (3) COPD (chronic obstructive pulmonary disease) Status: Chronic Plan: Stable, no wheezing on exam * DuoNeb PRN (4) HTN (hypertension) Status: Chronic Plan: History of hypertension; on lisinopril 10 mg daily per EMR. 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 and recent marijuana use UDS positive for opiates and cannabinoids (6) Hepatitis C Status: Acute Plan: Impression: Viral load 1.2 million copies per mL; Genotype 1a. HIV negative -GI consulted (7) Insomnia Status: Acute Plan: Impression: Patient reports insomnia, Trazodone 50mg reportedly did not help 1/. -Will increase trazodone to 100 mg (8) DVT Prophylaxis Status: Acute Plan: -Bilateral SCD's -Continue enoxaparin 40 mg daily (9) Fluids, Electrolytes, and Nutrition Status: Acute Plan: Fluids: None at this time Electrolytes: Monitor replete as needed Nutrition: Heart healthy diet (Ian Ricardo MD R2) Problem Qualifiers (1) Hepatitis C: Qualified Code: B19.20 - Hepatitis C virus infection without hepatic coma, unspecified chronicity (2) Insomnia: Qualified Code: G47.00 - Insomnia, unspecified type Ian Ricardo MD R2 Feb 20, 2016 13:48 Mary Sanchez MD Feb 21, 2016 14:00
[2016-02-20] MEDS ORDERED: traZODone HCL 100 MG TAB PO PRN (16:00)
[2016-02-20] MEDS: ENOXAPARIN SODIUM 40 MG/0.4 ML SYRINGE SQ SCH (17:17)
[2016-02-20 17:28] VITALS: BP 145/71; PULSE 97; RESP 15; TEMP 98; O2SAT 99
[2016-02-20 20:00] VITALS: BP 159/89; PULSE 81; RESP 20; TEMP 97.6; O2SAT 98
[2016-02-20] MEDS: DOCUSATE SODIUM 50 MG/SENNA 8.6 MG TAB PO SCH (20:58)
[2016-02-21] VITALS (7 sets, daily range): BP systolic 121–153; BP diastolic 77–91; PULSE 70–95; RESP 16–20; TEMP 96.7–99; O2SAT 96–99
[2016-02-21] MEDS: clonazePAM 1 MG TAB PO PRN ×3 (01:40→20:22)
[2016-02-21] MEDS: oxyCODONE/ACETAMINOPHEN 10 MG/325 MG TAB PO PRN ×4 (01:40→16:16)
[2016-02-21] MEDS: VANCOMYCIN INJ 1,250 MG in SODIUM CHLOR 0.9% 250 ML INJ 250 ML IV SCH ×2 (02:00→08:48)
[2016-02-21] MEDS: ceFAZolin 2 GM PREMIX 50 ML IV SCH ×3 (05:39→20:19)
[2016-02-21] MEDS: DEXAMETHASONE SOD PHOS 4 MG/ML VIAL IV PUSH SCH ×2 (05:40→16:16)
[2016-02-21] MEDS: CYCLOBENZAPRINE HCL 10 MG TAB PO PRN ×2 (05:46→16:15)
[2016-02-21] MEDS: LISINOPRIL 10 MG TAB PO SCH (08:47)
[2016-02-21] MEDS: GABAPENTIN 300 MG CAP PO SCH ×2 (08:47→20:18)
[2016-02-21] MEDS: oxyCODONE HCL 20 MG CONTROLLED RELEASE TAB PO SCH (08:47)
[2016-02-21] MEDS: PANTOPRAZOLE SOD 20 MG DELAYED RELEASE TAB PO SCH ×2 (08:47→20:18)
[2016-02-21] MEDS: BISACODYL 10 MG SUPP RECTAL SCH ×2 (08:48→11:56)
[2016-02-21] MEDS: SODIUM CHLORIDE 0.9% FLUSH 5 ML FLUSH FLUSH SCH ×2 (08:48→20:19)
--- NOTE | 2016-02-21 09:15 | HHI.FPPN ---
Subjective Remarks No acute events overnight. Afebrile, BPs running 130s-160s/70s-90s. Today he says his back is hurting a little more after pushing himself a bit too hard with walking yesterday. Otherwise he feels ok with no chest pain, no SOB, no N/ V. Objective Vitals Vital Signs Date Time Temp Pulse Resp B/P Pulse Ox O2 Delivery O2 Flow Rate FiO2 02/21/16 08:32 97.1 82 16 134/89 98 02/21/16 04:18 96.7 88 20 142/82 99 02/21/16 02:40 20 02/21/16 00:13 96.8 81 20 133/78 99 02/20/16 22:40 20 02/20/16 20:00 97.6 81 20 159/89 98 02/20/16 17:28 98.0 97 15 145/71 99 02/20/16 12:48 98.2 93 18 127/80 98 I/O 02/20/16 02/20/16 02/20/16 02/21/16 02/21/16 02/21/16 07:00 15:00 23:00 07:00 15:00 23:00 Intake Total 800 ml 1480 ml Output Total 900 ml 2000 ml 950 ml Balance -100 ml -520 ml -950 ml Intake Oral 800 ml 1480 ml Output Urine Total 900 ml 2000 ml 950 ml # Bowel Movements 0 1 0 Result Diagram: 02/19/16 0704 02/20/16 0328 Imaging Last Impressions Wrist MRI 02/16/16 0000 Signed Impressions: Service Date/Time: Tuesday, February 16, 2016 15:28 - CONCLUSION: 1. Posterior subluxation of the distal ulna at the distal radioulnar joint associated with an inflammatory arthropathy and an inflamed or infected bursa. There is also marrow enhancement and some erosion of the distal ulna. It is unclear if this is related to an inflammatory arthropathy and adjacent bursitis or a focal area of osteomyelitis. There is a less severe inflammatory arthropathy at the intercarpal joints and radiocarpal joints with edema and mild marrow enhancement throughout the wrist. No drainable fluid collections identified in the remainder of the wrist. There is carpal crowding and marked joint space narrowing at the radio carpal joint. Titus Rees MD Wrist X-Ray 02/15/16 Signed Impressions: Service Date/Time: Monday, February 15, 2016 22:35 - CONCLUSION: Focal cortical destruction of the distal ulna. Severe osteopenia elsewhere of the wrist without other definite bone destruction seen. Bharat Cabrera MD Upper Extremity MRI 02/15/16 Signed Impressions: Service Date/Time: Monday, February 15, 2016 12:18 - CONCLUSION: Inflammatory changes at the edge of field of view involving the carpus and distal radius and ulna. Osteomyelitis of the carpus and distal radius and ulna is suspected. A dedicated MRI of the wrist is recommended. Carpal and distal radial ulnar joint effusions are seen, potentially infected, but no abscess demonstrated. Bharat Cabrera MD Thoracic Spine MRI 02/15/16 Signed Impressions: Service Date/Time: Monday, February 15, 2016 12:18 - CONCLUSION: Degenerative changes are seen without canal or foraminal stenosis. There is a nonenhancing area of mild cord expansion and increased signal within the cord posterior to the T9 level extending 3.6 cm. The differential diagnosis could include inflammatory/demyelinating process or neoplasm, felt less likely though not entirely excluded. Hugo Cohn MD Cervical Spine MRI 02/15/16 Signed Impressions: Service Date/Time: Monday, February 15, 2016 12:18 - CONCLUSION: Degenerative changes are noted as above. Hugo Cohn MD Chest X-Ray 02/13/16 1705 Signed Impressions: Service Date/Time: Saturday, February 13, 2016 17:05 - CONCLUSION: No evidence of acute cardiopulmonary disease. Bharat Cabrera MD Lumbar Spine MRI 02/13/16 Signed Impressions: Service Date/Time: Saturday, February 13, 2016 14:25 - CONCLUSION: L3/L4 discitis with osteomyelitis and endplate destruction of L3 and L4. There are epidural, L3/L4 intervertebral, psoas and left posterolateral paraspinous abscesses. Please see above. Bharat Cabrera MD Abscess Drainage CT 02/13/16 0000 Signed Impressions: Service Date/Time: Saturday, February 13, 2016 18:48 - CONCLUSION: Uncomplicated CT guided abscess drainage of the largest left paraspinal abscess. The smaller left paraspinal abscess and right paraspinal abscess were too small to accept a drainage catheter and were therefore aspirated to decompress the material. Tomas High Jr., MD Objective Remarks GENERAL: Patient lying flat in bed with legs elevated, NAD CARDIOVASCULAR: NRRR, normal S1/S2, no MRG. Normal peripheral perfusion in lower extremities. RESPIRATORY: CTAB, no crackles or wheezes. Normal rate GASTROINTESTINAL: Abdomen soft, nondistended, nontender. MUSCULOSKELETAL: No lower extremity swelling. No appreciated calf asymmetry. Bandage on back by old drain, c/d/i. NEURO: Alert, oriented. Cranial nerves grossly normal. Normal peripheral sensation. Procedures 02/13/16 - IR drainage of epidural abscess Medications and IVs Current Medications Medications (Trade) Dose Ordered Sig/Maurisio Route Start Time Stop Time Status Last Admin (Neurontin) 600 mg BID PO 02/13/16 21:00 02/21/16 08:47 (Prinivil) 10 mg DAILY PO 02/14/16 09:00 02/21/16 08:47 Pantoprazole Sodium 20 mg 20 mg BID PO 02/13/16 21:00 02/21/16 08:47 (Vancomycin Consult Pharmacy) 0 ml @ 0 mls/hr UNSCH OTHER 02/13/16 17:00 (NS Flush) 2 ml UNSCH PRN FLUSH 02/13/16 17:15 (NS Flush) 2 ml BID FLUSH 02/13/16 21:00 02/21/16 08:48 (Tylenol) 650 mg Q4H PRN PO 02/13/16 17:15 02/15/16 11:41 (Zofran Inj) 4 mg Q6H PRN IVP 02/13/16 17:15 (Narcan Inj) 0.4 mg UNSCH PRN IV 02/13/16 17:15 02/14/16 15:45 (Ativan) 1 mg Q4H PRN PO 02/13/16 17:15 (Ativan Inj) 1 mg Q4H PRN IV PUSH 02/13/16 17:15 (Ativan) 2 mg Q2H PRN PO 02/13/16 17:15 (Ativan Inj) 2 mg Q2H PRN IV PUSH 02/13/16 17:15 (Ativan Inj) 2 mg Q1H PRN IV PUSH 02/13/16 17:15 (Ativan Inj) 2 mg Q15M PRN IV PUSH 02/13/16 17:15 (Apresoline) 10 mg Q8H PRN PO 02/13/16 17:37 02/16/16 05:39 (KlonoPIN) 1 mg TID PRN PO 02/14/16 00:30 02/21/16 01:40 (Motrin) 600 mg Q6H PRN PO 02/15/16 00:00 02/15/16 01:00 (Percocet 5-325 Mg) 1 tab Q4H PRN PO 02/15/16 12:00 (Percocet 10-325 Mg) 1 tab Q4H PRN PO 02/15/16 12:00 02/21/16 05:46 (Flexeril) 10 mg Q8H PRN PO 02/15/16 14:30 02/21/16 05:46 Enoxaparin Sodium 40 mg 40 mg Q24H SQ 02/15/16 18:00 02/20/16 17:17 (Ancef 2 Gm Premix) 50 ml @ 150 mls/hr Q8H IV 02/15/16 20:00 02/21/16 05:39 (OxyCONTIN CR) 20 mg Q12H PO 02/15/16 22:00 02/21/16 08:47 (Decadron Inj) 2 mg Q12H IV PUSH 02/17/16 18:00 02/21/16 05:40 Senna/Docusate Sodium 2 tab 2 tab HS PO 02/17/16 21:00 02/20/16 20:58 (Vancomycin Inj/ NS 250 ml Inj) 262.5 ml @ 250 mls/hr Q8H IV 02/19/16 10:00 02/21/16 08:48 Miscellaneous Information SPECIFIC LAB TO BE DRAWN:[facility]... ONCE ONCE XX 02/21/16 09:45 02/21/16 09:46 02/21/16 08:48 (Desyrel) 100 mg HS PRN PO 02/20/16 16:00 02/20/16 21:39 A/P Assessment and Plan Mr. Sher is a 56 yo male with: Problem List: (1) Epidural abscess Status: Acute Plan: Approximately 3 months of lower back pain; associated neurologic impairment unclear due to patient sedation Lumbar MRI demonstrative of "L3/L4 discitis with osteomyelitis and endplate destruction of L3 and L4. There are epidural, L3/L4 intervertebral, psoas and left posterolateral paraspinous abscesses. Please see above." Thoracic MRI: Degenerative changes without stenosis. Nonenhancing mild cord expansion and increased signal posterior to T9 extending 3.6 cm. DDX includes inflammatory/demyelinating process or neoplasm Cervical MRI: Degenerative changes ESR 62, CRP 5.17 CBC without leukocytosis; urinalysis WNL, metabolic panel unremarkable UDS+ for cannabinoids, opiates Cultures: -Abscess Cx: Staph coag negative Blood cultures negative x5 days Neurosurgery and ID consulted, appreciate recommendations -s/p IR abscess drainage/biopsy -Decadron 2 mg IV q12 hours -Broad-spectrum antibiotic therapy -Empiric vancomycin twice a day dosed by pharmacy -Cefazolin 2 gm every 8 hours -Plan to repeat MRI in early March Pain control: -home Oxycontin 20mg BID; consider switching to equianalgesic morphine SR BID , wdw Dr. Sanchez -Flexeril 10mg q8hrs per Neurosurgery -PRN Percocet 5/325mg / 10/325mg for pain scale 1-5/6-10 -Ducolax suppository added to bowel regimen (2) Wrist joint infection Status: Chronic Plan: Per patient's prior records at [facility], patient was treated for MSSA osteomyelitis with Ancef with planned stoppage date of 02/11. It is unclear whether patient took full treatment regimen Right wrist MRI: Inflammatory changes at the edge of field of view including carpus and distal radius and ulna. Osteomyelitis of the carpus and is a radius and ulnar is suspected. Dedicated MRI of wrist: "1. Posterior subluxation of the distal ulna at the distal radioulnar joint associated with an inflammatory arthropathy and an inflamed or infected bursa. There is also marrow enhancement and some erosion of the distal ulna. It is unclear if this is related to an inflammatory arthropathy and adjacent bursitis or a focal area of osteomyelitis. There is a less severe inflammatory arthropathy at the intercarpal joints and radiocarpal joints with edema and mild marrow enhancement throughout the wrist. No drainable fluid collections identified in the remainder of the wrist. There is carpal crowding and marked joint space narrowing at the radio carpal joint Carpal and distal radial ulnar joint effusions are seen, potentially infected, but no abscess demonstrated --Hand surgery consulted, appreciate their recommendations --Suspect inflammatory arthritis with subsequent extensor tendon rupture --Surgery deferred until after epidural abscess resolved -Continued antibiotic management per infectious disease (3) COPD (chronic obstructive pulmonary disease) Status: Chronic Plan: Stable, no wheezing on exam * DuoNeb PRN (4) HTN (hypertension) Status: Chronic Plan: History of hypertension; on lisinopril 10 mg daily per EMR. Minimally hypertensive during hospitalization Continue lisinopril 10 mg daily --Continue hydralazine 10 mg Q8H PRN BP > 180/100 (5) Illicit drug use Status: Chronic Plan: Patient reports history of IV drug use in 04/2015 and recent marijuana use UDS positive for opiates and cannabinoids (6) Hepatitis C Status: Acute Plan: Impression: Viral load 1.2 million copies per mL; Genotype 1a. HIV negative -GI consulted (7) Insomnia Status: Acute Plan: Impression: Patient reports insomnia, Trazodone 50mg reportedly did not help 02/18. -Will increase trazodone to 100 mg HS PRN; consider switching to richard adams Dr. (8) DVT Prophylaxis Status: Acute Plan: -Bilateral SCD's -Continue enoxaparin 40 mg daily (9) Fluids, Electrolytes, and Nutrition Status: Acute Plan: Fluids: None at this time Electrolytes: Monitor replete as needed Nutrition: Heart healthy diet Problem Qualifiers (1) Hepatitis C: Qualified Code: B19.20 - Hepatitis C virus infection without hepatic coma, unspecified chronicity (2) Insomnia: Qualified Code: G47.00 - Insomnia, unspecified type Zeke Fong MD R1 Feb 21, 2016 09:15
[2016-02-21] MEDS ORDERED: PHARMACY ORDERED LAB XX ONE (09:45)
--- NOTE | 2016-02-21 10:58 | HHI.PR ---
Addendum to Inpatient Note Addendum Reason: Additional Documentation Additional Information 56 year old male with h/o IVDU admitted for fevers and back pain found to be due to osteomyelitis of the spine with epidural abscess. IR performed drainage of abscess 02/13/16. Broad spectrum antibiotics started, narrowed based on abscess culture and ID recommendations. Neurosurgery following patient, plan at this time is to continue IV steroids and follow-up MRI in March. Patient doing better clinically with improved back pain, working with physical therapy. Hand surgery consulted for osteomyelitis of right wrist with tendon rupture, plan for repair after completing treatment for epidural abscess. Zeke Fong MD R1 Feb 21, 2016 10:58 am
[2016-02-21] MEDS: ENOXAPARIN SODIUM 40 MG/0.4 ML SYRINGE SQ SCH (16:15)
[2016-02-21] MEDS: VANCOMYCIN 1,000 MG/NS 250 ML IV SCH ×2 (16:17)
[2016-02-21] MEDS: MORPHINE SULFATE 30 MG CONTROLLED RELEASE TAB PO SCH (20:18)
[2016-02-21] MEDS: DOCUSATE SODIUM 50 MG/SENNA 8.6 MG TAB PO SCH (20:18)
[2016-02-22] MEDS: VANCOMYCIN 1,000 MG/NS 250 ML IV SCH ×6 (01:34→17:08)
[2016-02-22] MEDS: oxyCODONE/ACETAMINOPHEN 10 MG/325 MG TAB PO PRN ×4 (01:36→17:08)
[2016-02-22] MEDS: CYCLOBENZAPRINE HCL 10 MG TAB PO PRN ×3 (01:36→21:19)
[2016-02-22 04:00] VITALS: BP 150/88; PULSE 75; RESP 20; TEMP 97.2; O2SAT 100
[2016-02-22] MEDS: DEXAMETHASONE SOD PHOS 4 MG/ML VIAL IV PUSH SCH (05:12)
[2016-02-22] MEDS: ceFAZolin 2 GM PREMIX 50 ML IV SCH ×3 (05:12→21:11)
[2016-02-22] MEDS: clonazePAM 1 MG TAB PO PRN ×2 (05:47→17:09)
[2016-02-22 08:00] VITALS: BP 142/83; PULSE 85; RESP 20; TEMP 97.1; O2SAT 100
[2016-02-22 08:10] LABS: BICARBONATE 25.1 MEQ/L (21.0-32.0); POTASSIUM 4.1 MEQ/L (3.5-5.1)
[2016-02-22] MEDS: GABAPENTIN 300 MG CAP PO SCH ×2 (10:03→21:10)
[2016-02-22] MEDS: SODIUM CHLORIDE 0.9% FLUSH 5 ML FLUSH FLUSH SCH ×2 (10:03→21:13)
[2016-02-22] MEDS: PANTOPRAZOLE SOD 20 MG DELAYED RELEASE TAB PO SCH ×2 (10:04→21:10)
[2016-02-22] MEDS: LISINOPRIL 10 MG TAB PO SCH (10:04)
[2016-02-22] MEDS: MORPHINE SULFATE 30 MG CONTROLLED RELEASE TAB PO SCH ×2 (10:04→21:11)
--- NOTE | 2016-02-22 10:08 | HHI.FPPN ---
Subjective Remarks Patient seen and examined this am. Slept well overnight with ambien. Pain better controlled with morphine. Was ambulatory on Monday, tried to shower on sat and was in a lot of pain. Reports some numbness of dorsal right foot. Denies numbness of groin. Urinating and stooling appropriately without difficulty. (Michelle Barnett MD R3) Objective Vitals Vital Signs Date Time Temp Pulse Resp B/P Pulse Ox O2 Delivery O2 Flow Rate FiO2 02/22/16 08:00 97.1 85 20 142/83 100 02/22/16 04:00 97.2 75 20 150/88 100 02/21/16 23:44 96.7 88 20 121/77 99 02/21/16 20:30 97.4 70 18 153/91 96 02/21/16 16:12 97.8 95 18 135/78 98 02/21/16 12:28 99.0 94 18 150/87 98 I/O 02/21/16 02/21/16 02/21/16 02/22/16 02/22/16 02/22/16 07:00 15:00 23:00 07:00 15:00 23:00 Intake Total 720 ml 480 ml Output Total 950 ml 900 ml 400 ml 900 ml Balance -950 ml -180 ml 80 ml -900 ml Intake Oral 720 ml 480 ml Output Urine Total 950 ml 900 ml 400 ml 900 ml # Bowel Movements 0 1 0 (Michelle Barnett MD R3) Result Diagram: 02/19/16 0704 02/22/16 0640 Objective Remarks GENERAL: Patient lying flat in bed with legs elevated, NAD CARDIOVASCULAR: NRRR, normal S1/S2, no MRG. Normal peripheral perfusion in lower extremities. RESPIRATORY: CTAB, no crackles or wheezes. Normal rate GASTROINTESTINAL: Abdomen soft, nondistended, nontender. MUSCULOSKELETAL: No lower extremity swelling. No appreciated calf asymmetry. Bandage on back by old drain, c/d/i. NEURO: Alert, oriented. Cranial nerves grossly normal. Numbness right dorsal foot. Diminished patellar reflexes bilaterally. Sensation is intact of groin. Able to wiggle toes, and move heel to from opposite knee to ankle. Procedures 02/13/16 - IR drainage of epidural abscess (Michelle Barnett MD R3) A/P Assessment and Plan Mr. Sher is a 56 yo male with: Discharge Planning correction IV abx, case management to assist with abx coverage. (Michelle Barnett MD R3) Attending Attestation Patient seen and examined with the resident team Case reviewed and discussed Agree with plan of care as discussed with me and documented in the resident note. (Mary Sanchez MD) Problem List: (1) Epidural abscess Status: Acute Plan: Approximately 3 months of lower back pain; associated neurologic impairment unclear due to patient sedation Lumbar MRI demonstrative of "L3/L4 discitis with osteomyelitis and endplate destruction of L3 and L4. There are epidural, L3/L4 intervertebral, psoas and left posterolateral paraspinous abscesses. Please see above." Thoracic MRI: Degenerative changes without stenosis. Nonenhancing mild cord expansion and increased signal posterior to T9 extending 3.6 cm. DDX includes inflammatory/demyelinating process or neoplasm Cervical MRI: Degenerative changes ESR 62, CRP 5.17 CBC without leukocytosis; urinalysis WNL, metabolic panel unremarkable UDS+ for cannabinoids, opiates Cultures: -Abscess Cx: Staph coag negative Blood cultures negative x 1 week Neurosurgery and ID consulted, appreciate recommendations -s/p IR abscess drainage/biopsy -Decadron 2 mg IV q12 hours -Broad-spectrum antibiotic therapy -Empiric vancomycin twice a day dosed by pharmacy -Cefazolin 2 gm every 8 hours -Plan to repeat MRI in early March Pain control: -morphine 30 mg PO BID -gabapentin 600 mg PO BID -Flexeril 10mg q8hrs per Neurosurgery -PRN Percocet 5/325mg / 10/325mg for pain scale 1-5/6-10 -Ducolax suppository added to bowel regimen (2) Wrist joint infection Status: Chronic Plan: Per patient's prior records at [facility], patient was treated for MSSA osteomyelitis with Ancef with planned stoppage date of 02/11. It is unclear whether patient took full treatment regimen Right wrist MRI: Inflammatory changes at the edge of field of view including carpus and distal radius and ulna. Osteomyelitis of the carpus and is a radius and ulnar is suspected. Dedicated MRI of wrist: "1. Posterior subluxation of the distal ulna at the distal radioulnar joint associated with an inflammatory arthropathy and an inflamed or infected bursa. There is also marrow enhancement and some erosion of the distal ulna. It is unclear if this is related to an inflammatory arthropathy and adjacent bursitis or a focal area of osteomyelitis. There is a less severe inflammatory arthropathy at the intercarpal joints and radiocarpal joints with edema and mild marrow enhancement throughout the wrist. No drainable fluid collections identified in the remainder of the wrist. There is carpal crowding and marked joint space narrowing at the radio carpal joint Carpal and distal radial ulnar joint effusions are seen, potentially infected, but no abscess demonstrated --Hand surgery consulted, appreciate their recommendations --Suspect inflammatory arthritis with subsequent extensor tendon rupture --Surgery deferred until after epidural abscess resolved -Continued antibiotic management per infectious disease (3) COPD (chronic obstructive pulmonary disease) Status: Chronic Plan: Stable, no wheezing on exam * DuoNeb PRN (4) HTN (hypertension) Status: Chronic Plan: History of hypertension; on lisinopril 10 mg daily per EMR. Minimally hypertensive during hospitalization Continue lisinopril 10 mg daily --Continue hydralazine 10 mg Q8H PRN BP > 180/100 (5) Illicit drug use Status: Chronic Plan: Patient reports history of IV drug use in 04/2015 and recent marijuana use UDS positive for opiates and cannabinoids (6) Hepatitis C Status: Acute Plan: Impression: Viral load 1.2 million copies per mL; Genotype 1a. HIV negative -GI consulted (7) Insomnia Status: Acute Plan: Impression: Patient reports insomnia, Trazodone 50mg reportedly did not help 02/18. -Will increase trazodone to 100 mg HS PRN; consider switching to richard adams Dr. (8) DVT Prophylaxis Status: Acute Plan: -Bilateral SCD's -Continue enoxaparin 40 mg daily (9) Fluids, Electrolytes, and Nutrition Status: Acute Plan: Fluids: None at this time Electrolytes: Monitor replete as needed Nutrition: Heart healthy diet (Michelle Barnett MD R3) Problem Qualifiers (1) Hepatitis C: Qualified Code: B19.20 - Hepatitis C virus infection without hepatic coma, unspecified chronicity (2) Insomnia: Qualified Code: G47.00 - Insomnia, unspecified type Michelle Barnett MD R3 Feb 22, 2016 10:08 Mary Sanchez MD Feb 24, 2016 13:19
--- NOTE | 2016-02-22 11:04 | HHI.NSPN ---
History Chief Complaint: none Interval History 56 yr old admitted with discitis and paraspinal abcess at L3/4. He is very grateful for the pain relief. He is starting to stand with assistance. ID is following. 02/17/16 He is alert and participating in therapy. He is walking with the walker. He has no spasticity from the T9 lesion and no sensory level. The left hip flexion is the most difficult task for him. His drain output has been minimal. 02/21/15 He has been doing well with therapy and pain management as well as with mood and bowel program. He will need rehab and repeat imaging in March. Review of Systems General: Negative for: fever, chills, insomnia Respiratory: Negative for: shortness of breath, cough, sputum Cardiovascular: Negative for: chest pain, palpitations, orthopnea Gastrointestinal: Negative for: nausea, vomitting, diarrhea, constipation Genitourinary: Negative for: urinary burning, urinary frequency, urinary urgency Exam Results Vital Signs Date Time Temp Pulse Resp B/P Pulse Ox O2 Delivery O2 Flow Rate FiO2 02/22/16 08:00 97.1 85 20 142/83 100 Intake and Output 02/21/16 02/21/16 02/22/16 08:00 16:00 00:00 Intake Total 720 ml 480 ml Output Total 950 ml 900 ml 400 ml Balance -950 ml -180 ml 80 ml Physical Examination Alert and oriented x 3 Motor with intact ability to use the hip flexors, ant tib and gastroc kelly Numbness right L4/5, not in the groin, knees or tate Reflexes are present decreased in the patella bilaterally 1/4, intact in the ankles 2/4 Medical Decision Making Impression and Plan 56 yr old with spinal abcess, lumbar pain and leg spasms. His pain is better controlled and he is starting to stand. Decadron was decreased to 4 IV BID and flexeril was added. 02/17/16 T9 inflammatory lesion and L3/4 discitis will be followed radiologically with an MRI in early March. He is participating in rehab. His pain and anxiety seem to be managed. Ducolax suppository was added today to his bowel program 02/22/16 The decadron is still at 2mg BID, will decrease to 2 mg daily for 4 days then d/c. Therapy is continued. Total Minutes: 10 Barney Walters Feb 22, 2016 11:04
[2016-02-22 12:00] VITALS: BP 159/85; PULSE 100; RESP 20; TEMP 98.6; O2SAT 99
[2016-02-22 16:00] VITALS: BP 137/83; PULSE 96; RESP 20; TEMP 97.6; O2SAT 99
[2016-02-22] MEDS: ENOXAPARIN SODIUM 40 MG/0.4 ML SYRINGE SQ SCH (17:09)
[2016-02-22 20:00] VITALS: BP 133/83; PULSE 91; RESP 20; TEMP 97.3; O2SAT 98
[2016-02-22] MEDS: DOCUSATE SODIUM 50 MG/SENNA 8.6 MG TAB PO SCH (21:10)
[2016-02-23] VITALS (7 sets, daily range): BP systolic 111–176; BP diastolic 70–83; PULSE 76–98; RESP 16–20; TEMP 96.6–98; O2SAT 97–100
[2016-02-23] MEDS: VANCOMYCIN 1,000 MG/NS 250 ML IV SCH ×6 (02:00→21:39)
[2016-02-23] MEDS: oxyCODONE/ACETAMINOPHEN 10 MG/325 MG TAB PO PRN ×5 (03:07→21:04)
[2016-02-23] MEDS: clonazePAM 1 MG TAB PO PRN ×3 (03:07→21:04)
[2016-02-23] MEDS: ceFAZolin 2 GM PREMIX 50 ML IV SCH ×3 (04:00→20:53)
[2016-02-23] MEDS: CYCLOBENZAPRINE HCL 10 MG TAB PO PRN ×2 (06:53→15:37)
[2016-02-23] MEDS: DEXAMETHASONE SOD PHOS 4 MG/ML VIAL IV PUSH SCH (06:54)
[2016-02-23] MEDS: BISACODYL 10 MG SUPP RECTAL SCH (09:00)
--- NOTE | 2016-02-23 09:43 | HHI.FPPN ---
Subjective Remarks No acute events overnight. Vital signs unremarkable. No new complaints this morning. States that his back pain is stable without any worsening symptoms. Continues to walk around and move as much as possible. Denies chest pain, shortness of breath, nausea/vomiting. (Susana Wilson MD R2) Objective Vitals Vital Signs Date Time Temp Pulse Resp B/P Pulse Ox O2 Delivery O2 Flow Rate FiO2 02/23/16 04:00 96.6 76 20 133/75 97 02/23/16 00:00 97.4 82 20 134/78 100 02/22/16 20:00 97.3 91 20 133/83 98 02/22/16 16:00 97.6 96 20 137/83 99 02/22/16 12:00 98.6 100 20 159/85 99 I/O 02/22/16 02/22/16 02/22/16 02/23/16 02/23/16 02/23/16 07:00 15:00 23:00 07:00 15:00 23:00 Intake Total 480 ml 720 ml 3267 ml Output Total 900 ml 1600 ml 850 ml 650 ml Balance -900 ml -1120 ml -130 ml 3267 ml -650 ml Intake Oral 480 ml 720 ml IV Total 3267 ml Output Urine Total 900 ml 1600 ml 850 ml 650 ml # Voids 1 # Bowel Movements 0 1 0 0 (Susana Wilson MD R2) Result Diagram: 02/19/16 0704 02/22/16 0640 Objective Remarks GENERAL: Patient lying flat in bed with legs elevated, NAD CARDIOVASCULAR: NRRR, normal S1/S2, no MRG. RESPIRATORY: CTAB, no crackles or wheezes. Normal rate MUSCULOSKELETAL: No lower extremity swelling. No appreciated calf asymmetry. No calf tenderness. NEURO: Alert, oriented. Procedures 02/13/16 - IR drainage of epidural abscess (Susana Wilson MD R2) A/P Assessment and Plan Mr. 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 Patient does not want to go to a nursing facility for long-term treatment. dw Dr. Beaulieu wdw Dr. Sanchez (Susana Wilson MD R2) Attending Attestation Patient seen and examined. Case reviewed and discussed Agree with plan of care as discussed with me and documented in the resident note. (Mary Sanchez MD) Problem List: (1) Epidural abscess Status: Acute Plan: Approximately 3 months of lower back pain; associated limited neurologic impairment. L3/L4 discitis and abscesses present. No leukocytosis has been present. ESR and CRP were elevated. -s/p IR abscess drainage -Abscess Cx: Staph coag negative -Blood cultures negative Neurosurgery consulted: Appreciate recommendations * Decadron to be tapered down to 2mg x4day and then discontinued. * Flexeril for spasm * Plan to repeat MRI in early March ID consulted: Appreciate recommendations * Continue vancomycin and cefazolin (02/12- / (02/14-) * Right distal radius/ulna osteomyelitis initially suspected: Hand surgery consulted and recommended delay treatment until after discitis treatment is completed Imaging: * Lumbar MRI: L3/L4 discitis with osteomyelitis and endplate destruction of L3 and L4. There are epidural, L3/L4 intervertebral, psoas and left posterolateral paraspinous abscesses. * Thoracic MRI: Degenerative changes without stenosis. Nonenhancing mild cord expansion and increased signal posterior to T9 extending 3.6 cm. DDX includes inflammatory/demyelinating process or neoplasm * Cervical MRI: Degenerative changes Medications: * Vancomycin (02/12 * Cefazolin (02/14 * Morphine SR 30mg BID * gabapentin 600 mg PO BID * Percocet 5 and Percocet 10 PRN (2) Wrist joint infection Status: Chronic Plan: Per patient's prior records at [facility], patient was treated for MSSA osteomyelitis with Ancef with planned stoppage date of 02/11. It is unclear whether patient took full treatment regimen Hand surgery consulted: Appreciate recommendations * Suspect inflammatory arthritis with subsequent extensor tendon rupture * Surgery deferred until after epidural abscess resolved * Continued antibiotic management per infectious disease Imaging: * Upper extremity MRI: Inflammatory changes at the edge of field of view including carpus and distal radius and ulna. Osteomyelitis of the carpus and is a radius and ulnar is suspected. * Wrist MRI: Posterior subluxation of the distal ulna with inflammatory arthropathy and inflamed/infected bursa. Some erosion of the distal ulna; unclear if related to bursitis or focal area of osteomyelitis. Inflamed arthropathy at the intercarpal joints and radiocarpal joints. No drainable fluid collection * Wrist x-ray: Focal destruction of the distal ulna. Severe osteopenia elsewhere without other definite bone destruction seen (3) Illicit drug use Status: Chronic Plan: Patient reports history of IV drug use in 04/2015 and recent marijuana use UDS positive for opiates and cannabinoids (4) Hepatitis C Status: Acute Plan: Impression: Viral load 1.2 million copies per mL; Genotype 1a. HIV negative -GI consulted -Recommend follow-up on outpatient (5) Fluids, Electrolytes, and Nutrition Status: Acute Plan: Fluids: None at this time Electrolytes: Monitor replete as needed Nutrition: Heart healthy diet DVT prophylaxis: SCDs and Lovenox Chronic conditions: * Hypertension: Lisinopril 10 mg daily, hydralazine when necessary * COPD: Duonebs when necessary (Susana Wlison MD R2) Problem Qualifiers (1) Hepatitis C: Qualified Code: B19.20 - Hepatitis C virus infection without hepatic coma, unspecified chronicity Susana Wilson MD R2 Feb 23, 2016 09:42 Mary Sanchez MD Feb 23, 2016 17:04 Plan: Impression: Patient reports insomnia, Trazodone 50mg reportedly did not help 02/18. -Will increase trazodone to 100 mg HS PRN; consider switching to richard adams Dr. (8) DVT Prophylaxis Status: Acute Plan: -Bilateral SCD's -Continue enoxaparin 40 mg daily (9) Fluids, Electrolytes, and Nutrition Status: Acute Plan: Fluids: None at this time Electrolytes: Monitor replete as needed Nutrition: Heart healthy diet Problem Qualifiers (1) Hepatitis C: Qualified Code: B19.20 - Hepatitis C virus infection without hepatic coma, unspecified chronicity (2) Insomnia: Qualified Code: G47.00 - Insomnia, unspecified type Susana Wilson MD R2 Feb 23, 2016 09:42
[2016-02-23] MEDS: GABAPENTIN 300 MG CAP PO SCH ×2 (09:44→20:53)
[2016-02-23] MEDS: SODIUM CHLORIDE 0.9% FLUSH 5 ML FLUSH FLUSH SCH ×2 (09:44→20:54)
[2016-02-23] MEDS ORDERED: PHARMACY ORDERED LAB XX ONE (09:45)
[2016-02-23] MEDS: LISINOPRIL 10 MG TAB PO SCH (09:45)
[2016-02-23] MEDS: PANTOPRAZOLE SOD 20 MG DELAYED RELEASE TAB PO SCH ×2 (09:45→20:54)
[2016-02-23] MEDS: MORPHINE SULFATE 30 MG CONTROLLED RELEASE TAB PO SCH ×2 (09:45→20:54)
--- NOTE | 2016-02-23 16:11 | HHI.FF ---
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 [] May leave port accessed during therapy. [] May leave peripheral site accessed for duration of therapy. [x] If patient has SOB or respiratory distress, check oxygen saturation. If less than 90% or clinical signs of respiratory distress, administer oxygen at 2 L/min. via nasal cannula and notify physician. [x] Anaphylaxis/Reaction orders: * Stop infusion. * Keep IV line open with saline flush. * Notify physician. * Monitor vital signs every 15 minutes until symptoms resolve. * Check Oxygen saturation; Oxygen at 2 L/min. via nasal cannula if less than 90% or clinical signs of respiratory distress. * Administer diphenhydramine (Benadryl) 25 mg IV STAT, (unless patient has received as pre-med). May repeat once, if necessary. * Solu-Cortef 250 mg IVP over 30-60 seconds, use 100 mg vials for each dissolution. * Epinephrine (1mg/1 ml) 0.3 mg subcutaneously or IVP now with any signs of respiratory distress. * Check with physician for new additional pre-med orders if patient is re- challenged or re-treated. [x] May remove PICC line when treatment complete, after confirming with Physician. [x] If the patient is admitted to the hospital, the ED, or transferred via [facility] , complete transfer form including medication reconciliation order sheet. Laboratory Tests Weekly Labs: CBC w/diff, Creatinine, SED Rate, Vancomycin Trough Additional Information F/U with Dr Saritha Lo (Infectious Desaeses) within 1 week of d/c : [facility] [phone] for appoitntment Mary Michele MD Feb 23, 2016 16:11
--- NOTE | 2016-02-23 17:37 | RADRPT ---
EXAM DATE/TIME: 02/23/2016 17:23 [facility] COMPARISON: CHEST SINGLE AP, February 13, 2016, 17:05. INDICATIONS : Post PICC line placement left arm MEDICAL HISTORY : Chronic obstructive pulmonary disease. Hepatitis C. Hypertension SURGICAL HISTORY : Appendectomy. Knee ENCOUNTER: Subsequent ACUITY: 2 weeks PAIN SCORE: 0/10 LOCATION: Bilateral chest FINDINGS: The heart and mediastinal structures are normal. The pulmonary vascular pattern is normal. The lungs are clear. A left-sided PICC line has its tip in the superior vena cava. CONCLUSION: 1. No acute cardiopulmonary disease. 2. Left-sided PICC line has its tip in the superior vena cava in good position. Ja Villa MD on February 23, 2016 at 17:31 Board Certified Radiologist. This report was verified electronically.
[2016-02-23] MEDS ORDERED: VANCOMYCIN INJ 1,100 MG in SODIUM CHLOR 0.9% 250 ML INJ 250 ML IV SCH (18:00)
[2016-02-23] MEDS: ENOXAPARIN SODIUM 40 MG/0.4 ML SYRINGE SQ SCH (18:23)
[2016-02-23] MEDS: DOCUSATE SODIUM 50 MG/SENNA 8.6 MG TAB PO SCH (20:54)
--- NOTE | 2016-02-23 22:03 | HHI.IDPN ---
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 Vital Signs Date Time Temp Pulse Resp B/P Pulse Ox O2 Delivery O2 Flow Rate FiO2 02/23/16 20:00 98.0 92 16 119/83 98 02/23/16 16:00 97.9 98 18 111/70 98 02/23/16 13:30 138/76 02/23/16 12:00 96.8 96 18 176/79 99 02/23/16 08:00 96.8 92 18 124/76 99 02/23/16 04:00 96.6 76 20 133/75 97 02/23/16 00:00 97.4 82 20 134/78 100 02/22/16 02/22/16 02/23/16 15:00 23:00 07:00 Intake Total 480 ml 720 ml 3267 ml Output Total 1600 ml 850 ml Balance -1120 ml -130 ml 3267 ml Intake Oral 480 ml 720 ml IV Total 3267 ml Output Urine Total 1600 ml 850 ml # Voids 1 # Bowel Movements 1 0 . Laboratory Tests Test 02/22/16 06:40 Sodium Level 135 MEQ/L Potassium Level 4.1 MEQ/L Chloride Level 100 MEQ/L Carbon Dioxide Level 25.1 MEQ/L Anion Gap 10 MEQ/L Blood Urea Nitrogen 21 MG/DL Creatinine 0.60 MG/DL Estimat Glomerular Filtration 139 ML/MIN Rate Random Glucose 83 MG/DL Calcium Level 8.3 MG/DL Imaging Last Impressions Wrist MRI 02/16/16 0000 Signed Impressions: Service Date/Time: Tuesday, February 16, 2016 15:28 - CONCLUSION: 1. Posterior subluxation of the distal ulna at the distal radioulnar joint associated with an inflammatory arthropathy and an inflamed or infected bursa. There is also marrow enhancement and some erosion of the distal ulna. It is unclear if this is related to an inflammatory arthropathy and adjacent bursitis or a focal area of osteomyelitis. There is a less severe inflammatory arthropathy at the intercarpal joints and radiocarpal joints with edema and mild marrow enhancement throughout the wrist. No drainable fluid collections identified in the remainder of the wrist. There is carpal crowding and marked joint space narrowing at the radio carpal joint. Titus Rees MD Wrist X-Ray 02/15/16 Signed Impressions: Service Date/Time: Monday, February 15, 2016 22:35 - CONCLUSION: Focal cortical destruction of the distal ulna. Severe osteopenia elsewhere of the wrist without other definite bone destruction seen. Bharat Cabrera MD Upper Extremity MRI 02/15/16 0000 Signed Impressions: Service Date/Time: Monday, February 15, 2016 12:18 - CONCLUSION: Inflammatory changes at the edge of field of view involving the carpus and distal radius and ulna. Osteomyelitis of the carpus and distal radius and ulna is suspected. A dedicated MRI of the wrist is recommended. Carpal and distal radial ulnar joint effusions are seen, potentially infected, but no abscess demonstrated. Bharat Cabrera MD Thoracic Spine MRI 02/15/16 0000 Signed Impressions: Service Date/Time: Monday, February 15, 2016 12:18 - CONCLUSION: Degenerative changes are seen without canal or foraminal stenosis. There is a nonenhancing area of mild cord expansion and increased signal within the cord posterior to the T9 level extending 3.6 cm. The differential diagnosis could include inflammatory/demyelinating process or neoplasm, felt less likely though not entirely excluded. Hugo Cohn MD Cervical Spine MRI 02/15/16 0000 Signed Impressions: Service Date/Time: Monday, February 15, 2016 12:18 - CONCLUSION: Degenerative changes are noted as above. Hugo Cohn MD Chest X-Ray 02/13/16 8225 Signed Impressions: Service Date/Time: Saturday, February 13, 2016 17:05 - CONCLUSION: No evidence of acute cardiopulmonary disease. Bharat Cabrera MD Lumbar Spine MRI 02/13/16 0000 Signed Impressions: Service Date/Time: Saturday, February 13, 2016 14:25 - CONCLUSION: L3/L4 discitis with osteomyelitis and endplate destruction of L3 and L4. There are epidural, L3/L4 intervertebral, psoas and left posterolateral paraspinous abscesses. Please see above. Bharat Cabrera MD Abscess Drainage CT 02/13/16 0000 Signed Impressions: Service Date/Time: Saturday, February 13, 2016 18:48 - CONCLUSION: Uncomplicated CT guided abscess drainage of the largest left paraspinal abscess. The smaller left paraspinal abscess and right paraspinal abscess were too small to accept a drainage catheter and were therefore aspirated to decompress the material. Tomas High Jr., MD Physical Exam CONSTITUTIONAL/GENERAL: This is an adequately nourished patient, in no apparent distress. SKIN: No jaundice, rashes, or lesions. CARDIOVASCULAR: Regular rate and rhythm without murmurs, gallops, or rubs. No JVD. Peripheral pulses symmetric. RESPIRATORY/CHEST: Symmetric, unlabored respirations. Clear to auscultation. GASTROINTESTINAL: Abdomen soft, non-tender, nondistended. No hepato-splenomegaly , or palpable masses. MUSCULOSKELETAL: Extremities without clubbing, cyanosis, or edema. R forearm w/o visible edema or erythma, but has tenderness to palpation over ulnar head still unable to move r ring ans small fingers BACK: not tender to palpation; well healed scar NEUROLOGICAL: fully awake and alert; normal speech Assessment & Plan Remarks L3-4 diskitis , osteo, recurrent/unresolving previously MSSA bacteremia and h/ o recent tx with cefazoline - growing coag negative staph x 2 morphologies ? significance - previouslky MSSA sp CT guided drainage, clx P, R distal radius/ulnar osteomyelitis initially suspected; evaluated by Dr Iniguez: inflammatory arthritis with subsequent bursa rupture, recommend delay of tx untill after diskitis t ccompleted T spine inflammatory or demyelinating process - neurosurgery ff - cont vanco for now - keep levels up to 15-20 x 8 wks - cont cefazoline x 8 wks - monitor clinically, ESR - monitor vanco trough, creatinine, CBC while on abx dw Dr Nimsiha pacheco case mngr Mary Michele MD Feb 23, 2016 22:03
[2016-02-24] VITALS: BP 132/94; PULSE 91; RESP 16; TEMP 97; O2SAT 99
[2016-02-24] MEDS: ceFAZolin 2 GM PREMIX 50 ML IV SCH ×3 (03:56→20:42)
[2016-02-24] MEDS: oxyCODONE/ACETAMINOPHEN 10 MG/325 MG TAB PO PRN ×5 (03:57→22:58)
[2016-02-24] MEDS: CYCLOBENZAPRINE HCL 10 MG TAB PO PRN ×3 (03:57→22:57)
[2016-02-24 04:00] VITALS: BP 113/80; PULSE 82; RESP 17; TEMP 97.6; O2SAT 98
[2016-02-24] MEDS: VANCOMYCIN 1,000 MG/NS 250 ML IV SCH ×6 (04:45→20:44)
[2016-02-24] MEDS: DEXAMETHASONE SOD PHOS 4 MG/ML VIAL IV PUSH SCH (05:25)
[2016-02-24 05:46] LABS: BICARBONATE 29.8 MEQ/L (21.0-32.0); POTASSIUM 4.1 MEQ/L (3.5-5.1)
[2016-02-24 08:00] VITALS: BP 143/95; PULSE 85; RESP 18; TEMP 98.6; O2SAT 98
[2016-02-24] MEDS: SODIUM CHLORIDE 0.9% FLUSH 5 ML FLUSH FLUSH SCH ×2 (09:00→20:44)
[2016-02-24] MEDS: clonazePAM 1 MG TAB PO PRN ×2 (09:16→17:46)
[2016-02-24] MEDS: LISINOPRIL 10 MG TAB PO SCH (09:16)
[2016-02-24] MEDS: PANTOPRAZOLE SOD 20 MG DELAYED RELEASE TAB PO SCH ×2 (09:16→20:41)
[2016-02-24] MEDS: GABAPENTIN 300 MG CAP PO SCH ×2 (09:16→20:41)
[2016-02-24] MEDS: BISACODYL 10 MG SUPP RECTAL SCH (09:17)
[2016-02-24] MEDS: MORPHINE SULFATE 30 MG CONTROLLED RELEASE TAB PO SCH ×2 (09:17→20:41)
--- NOTE | 2016-02-24 09:54 | HHI.FPPN ---
Subjective Remarks No events overnight. Patient was ambulating within room with use of walker, states he is making progress slowly becoming more ambulatory. He states the pain in his back is still present but tolerable. No issues moving bowels. Good UOP. He denies any recent fevers or chills, no night sweats. Denies palpitations , chest pain, shortness of breath, pain in lower extremities. (Alex Beaulieu MD R1) Objective Vitals Vital Signs Date Time Temp Pulse Resp B/P Pulse Ox O2 Delivery O2 Flow Rate FiO2 02/24/16 08:00 98.6 85 18 143/95 98 02/24/16 04:57 18 02/24/16 04:00 97.6 82 17 113/80 98 02/24/16 00:00 97.0 91 16 132/94 99 02/23/16 20:00 98.0 92 16 119/83 98 02/23/16 16:00 97.9 98 18 111/70 98 02/23/16 13:30 138/76 02/23/16 12:00 96.8 96 18 176/79 99 I/O 02/23/16 02/23/16 02/23/16 02/24/16 02/24/16 02/24/16 07:00 15:00 23:00 07:00 15:00 23:00 Intake Total 3267 ml 2460 ml 240 ml 360 ml Output Total 2150 ml 750 ml 1300 ml Balance 3267 ml 310 ml -510 ml -940 ml Intake Oral 2460 ml 240 ml 360 ml IV Total 3267 ml Output Urine Total 2150 ml 750 ml 1300 ml # Bowel Movements 1 0 (Alex Beaulieu MD R1) Result Diagram: 02/24/16 0440 Objective Remarks GENERAL: Patient ambulating in room with walker, sits down comfortably in bed CARDIOVASCULAR: NRRR, normal S1/S2, no MRG. Peripheral pulses 2+. RESPIRATORY: CTAB, no crackles or wheezes. Normal rate MUSCULOSKELETAL: No lower extremity swelling. No appreciated calf asymmetry. No calf tenderness. NEURO: Alert, oriented. 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 Procedures 02/13/16 - IR drainage of epidural abscess (Alex Beaulieu MD R1) A/P Assessment and Plan Mr. Sher is a 56 year old male with: Discharge Planning Patient requires long-term IV abx. Patient does not want to go to a nursing facility for long-term treatment. (Aelx Beaulieu MD R1) Attending Attestation Patient seen and examined Case reviewed and discussed Agree with plan of care as discussed with me and documented in the resident note. (Mary Sanchez MD) Problem List: (1) Epidural abscess Status: Acute Plan: Approximately 3 months of lower back pain; associated limited neurologic impairment. L3/L4 discitis and abscesses present. No leukocytosis has been present. ESR and CRP were elevated. -s/p IR abscess drainage -Abscess Cx: Staph coag negative -02/12 Blood cultures no growth after 5 days Neurosurgery consulted: Appreciate recommendations * Decadron to be tapered down to 2mg x4 days and then discontinued. End date is 02/26 * Flexeril prn spasms * Plan to repeat MRI in early March ID consulted: Appreciate recommendations * Continue vancomycin and cefazolin (started 02/12 and 02/14 respectively) * Right distal radius/ulna osteomyelitis initially suspected: Hand surgery consulted and recommended delay treatment until after discitis treatment is completed Imaging: * Lumbar MRI: L3/L4 discitis with osteomyelitis and endplate destruction of L3 and L4. There are epidural, L3/L4 intervertebral, psoas and left posterolateral paraspinous abscesses. * Thoracic MRI: Degenerative changes without stenosis. Nonenhancing mild cord expansion and increased signal posterior to T9 extending 3.6 cm. DDX includes inflammatory/demyelinating process or neoplasm * Cervical MRI: Degenerative changes Medications: * Vancomycin (started 02/12) * Cefazolin (started 02/14) * Morphine SR 30 mg po q12h * Gabapentin 600 mg PO BID * Percocet 5 mg and Percocet 10 mg po q4h prn (2) Wrist joint infection Status: Chronic Plan: Per patient's prior records at [facility], patient was treated for MSSA osteomyelitis with Ancef with planned stoppage date of 02/11. It is unclear whether patient took full treatment regimen Hand surgery consulted: Appreciate recommendations * Suspect inflammatory arthritis with subsequent extensor tendon rupture * Surgery deferred until after epidural abscess resolved * Continued antibiotic management per infectious disease Imaging: * Upper extremity MRI: Inflammatory changes at the edge of field of view including carpus and distal radius and ulna. Osteomyelitis of the carpus and is a radius and ulnar is suspected. * Wrist MRI: Posterior subluxation of the distal ulna with inflammatory arthropathy and inflamed/infected bursa. Some erosion of the distal ulna; unclear if related to bursitis or focal area of osteomyelitis. Inflamed arthropathy at the intercarpal joints and radiocarpal joints. No drainable fluid collection * Wrist x-ray: Focal destruction of the distal ulna. Severe osteopenia elsewhere without other definite bone destruction seen (3) Illicit drug use Status: Chronic Plan: Patient reports history of IV drug use in 04/2015 and recent marijuana use UDS positive for opiates and cannabinoids (4) Hepatitis C Status: Acute Plan: Impression: Viral load 1.2 million copies per mL; Genotype 1a. HIV negative - GI consulted - Recommend follow up as outpatient (5) Fluids, Electrolytes, and Nutrition Status: Acute Plan: Fluids: None at this time Electrolytes: Monitor and replete as needed Nutrition: Regular diet DVT prophylaxis: SCDs and Lovenox Chronic conditions: - Hypertension: Lisinopril 10 mg daily, hydralazine prn > 160/90 - COPD: Duonebs prn sdw Dr. Wilson wdw Dr. Sanchez (Alex Beaulieu MD R1) Problem Qualifiers (1) Hepatitis C: Qualified Code: B19.20 - Hepatitis C virus infection without hepatic coma, unspecified chronicity Alex Beaulieu MD R1 Feb 24, 2016 09:54 Mary Sanchez MD Feb 24, 2016 13:25
[2016-02-24] MEDS ORDERED: RESP: ALBUTEROL 2.5 MG/IPRATROPIUM 0.5 MG NEB (PRN) NEB (10:00)
--- NOTE | 2016-02-24 10:40 | HHI.NSPN ---
History Chief Complaint: none Interval History 56 yr old admitted with discitis and paraspinal abcess at L3/4. He is very grateful for the pain relief. He is starting to stand with assistance. ID is following. 02/17/16 He is alert and participating in therapy. He is walking with the walker. He has no spasticity from the T9 lesion and no sensory level. The left hip flexion is the most difficult task for him. His drain output has been minimal. 02/21/15 He has been doing well with therapy and pain management as well as with mood and bowel program. He will need rehab and repeat imaging in March. 02/24/16 He is doing well with therapy but remains very painful in the left iliopsoas. Vanco/cefazolin is continued. He is getting up and voiding on his own. Review of Systems General: Negative for: fever, chills, insomnia Respiratory: Negative for: shortness of breath, cough, sputum Cardiovascular: Negative for: chest pain, palpitations, orthopnea Gastrointestinal: Negative for: nausea, vomitting, diarrhea, constipation Genitourinary: Negative for: urinary burning, urinary frequency, urinary urgency Exam Results Vital Signs Date Time Temp Pulse Resp B/P Pulse Ox O2 Delivery O2 Flow Rate FiO2 02/24/16 08:00 98.6 85 18 143/95 98 Intake and Output 02/23/16 02/23/16 02/24/16 08:00 16:00 00:00 Intake Total 3267 ml 2460 ml 240 ml Output Total 650 ml 1500 ml 750 ml Balance 2617 ml 960 ml -510 ml Physical Examination Alert and oriented x 3 Motor with intact ability to use the hip flexors, ant tib and gastroc kelly, severe pain with left hip flexion Numbness right L4/5, not in the groin, knees or tate Reflexes are present decreased in the patella bilaterally 1/4, intact in the ankles 2/4 Medical Decision Making Impression and Plan 56 yr old with spinal abcess, lumbar pain and leg spasms. His pain is better controlled and he is starting to stand. Decadron was decreased to 4 IV BID and flexeril was added. 02/17/16 T9 inflammatory lesion and L3/4 discitis will be followed radiologically with an MRI in early March. He is participating in rehab. His pain and anxiety seem to be managed. Ducolax suppository was added today to his bowel program 02/22/16 The decadron is still at 2mg BID, will decrease to 2 mg daily for 4 days then d/c. Therapy is continued. 02/24/16 Continued present antibiotics is planned, follow up MRI of the LS spine will be needed after discharge. Referral post discharge was placed. Total Minutes: 10 Barney Walters Feb 24, 2016 10:40
[2016-02-24] MEDS ORDERED: PHARMACY ORDERED LAB XX ONE (11:45)
[2016-02-24 12:00] VITALS: BP 130/82; PULSE 105; RESP 18; TEMP 98.7; O2SAT 95
[2016-02-24 16:00] VITALS: BP 136/83; PULSE 103; RESP 18; TEMP 97.9; O2SAT 96
[2016-02-24] MEDS: ENOXAPARIN SODIUM 40 MG/0.4 ML SYRINGE SQ SCH (17:46)
[2016-02-24 20:00] VITALS: BP 123/89; PULSE 101; RESP 20; TEMP 97.5; O2SAT 99
[2016-02-24] MEDS: DOCUSATE SODIUM 50 MG/SENNA 8.6 MG TAB PO SCH (20:41)
[2016-02-24] MEDS: MORPHINE SULFATE 15 MG CONTROLLED RELEASE TAB PO SCH (20:41)
[2016-02-25] VITALS: BP 148/91; PULSE 86; RESP 20; TEMP 97.5; O2SAT 99
[2016-02-25 04:00] VITALS: BP 153/96; PULSE 94; RESP 20; TEMP 96.6; O2SAT 98
[2016-02-25] MEDS: clonazePAM 1 MG TAB PO PRN ×4 (04:06→22:26)
[2016-02-25] MEDS: oxyCODONE/ACETAMINOPHEN 10 MG/325 MG TAB PO PRN ×5 (04:07→22:26)
[2016-02-25] MEDS: VANCOMYCIN 1,000 MG/NS 250 ML IV SCH ×2 (04:12)
[2016-02-25] MEDS: ceFAZolin 2 GM PREMIX 50 ML IV SCH ×3 (04:13→21:16)
[2016-02-25] MEDS: DEXAMETHASONE SOD PHOS 4 MG/ML VIAL IV PUSH SCH (06:04)
[2016-02-25] MEDS ORDERED: CYCL1TAB29 PO (07:11)
[2016-02-25] MEDS ORDERED: MORP1TAB25 PO (07:11)
[2016-02-25] MEDS ORDERED: OXYC1TAB36 PO (07:11)
[2016-02-25] MEDS ORDERED: MORP1TAB24 PO (07:11)
[2016-02-25 08:00] VITALS: BP 149/95; PULSE 87; RESP 20; TEMP 97.8; O2SAT 99
[2016-02-25] MEDS: SODIUM CHLORIDE 0.9% FLUSH 5 ML FLUSH FLUSH SCH ×2 (09:00→21:16)
[2016-02-25] MEDS: PANTOPRAZOLE SOD 20 MG DELAYED RELEASE TAB PO SCH ×2 (09:13→21:15)
[2016-02-25] MEDS: LISINOPRIL 10 MG TAB PO SCH (09:13)
[2016-02-25] MEDS: MORPHINE SULFATE 30 MG CONTROLLED RELEASE TAB PO SCH ×2 (09:13→21:16)
[2016-02-25] MEDS: GABAPENTIN 300 MG CAP PO SCH ×2 (09:14→21:15)
[2016-02-25] MEDS: BISACODYL 10 MG SUPP RECTAL SCH (09:30)
--- NOTE | 2016-02-25 10:08 | HHI.FPPN ---
Subjective Remarks No acute events overnight. Vital signs unremarkable but BP was slightly elevated this morning. This morning he states that he is ready to be discharged and wants to go home. He otherwise has no complaints at this time. Patient is fully aware that he will not use drugs while at home and he is in a living situation away from users. Objective Vitals Vital Signs Date Time Temp Pulse Resp B/P Pulse Ox O2 Delivery O2 Flow Rate FiO2 02/25/16 08:00 97.8 87 20 149/95 99 02/25/16 04:00 96.6 94 20 153/96 98 02/25/16 00:00 97.5 86 20 148/91 99 02/24/16 20:00 97.5 101 20 123/89 99 02/24/16 16:00 97.9 103 18 136/83 96 02/24/16 12:00 98.7 105 18 130/82 95 I/O 02/24/16 02/24/16 02/24/16 02/25/16 02/25/16 02/25/16 07:00 15:00 23:00 07:00 15:00 23:00 Intake Total 360 ml 480 ml 240 ml Output Total 1300 ml 600 ml 700 ml 1000 ml Balance -940 ml -120 ml -460 ml -1000 ml Intake Oral 360 ml 480 ml 240 ml Output Urine Total 1300 ml 600 ml 700 ml 1000 ml # Bowel Movements 0 0 Result Diagram: 02/24/16 0440 Objective Remarks GENERAL: Resting in bed comfortably in no acute distress. CARDIOVASCULAR: NRRR, normal S1/S2, no MRG. RESPIRATORY: CTAB, no crackles or wheezes. Normal rate MUSCULOSKELETAL: No lower extremity swelling. No appreciated calf asymmetry. No calf tenderness. NEURO: Alert, oriented. 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 Procedures 02/13/16 - IR drainage of epidural abscess A/P Assessment and Plan Mr. Sher is a 56 year old male with: Discharge Planning Today or tomorrow pending ID approval for home health and the ability to be given Decadron * Will need home PT, OT sdw Dr. Beaulieu wdw Dr. Degroot Problem List: (1) Epidural abscess Status: Acute Plan: Approximately 3 months of lower back pain; associated limited neurologic impairment. L3/L4 discitis and abscesses present. No leukocytosis has been present. ESR and CRP were elevated. -s/p IR abscess drainage -Abscess Cx: Staph coag negative -02/12 Blood cultures no growth after 5 days Neurosurgery consulted: Appreciate recommendations * Decadron to be tapered down to 2mg x4 days and then discontinued. End date is 02/26 * Flexeril prn spasms * Plan to repeat MRI in early March * Appropriate discharge orders placed ID consulted: Appreciate recommendations * Continue vancomycin and cefazolin (started 02/12 and 02/14 respectively) * Right distal radius/ulna osteomyelitis initially suspected: Hand surgery consulted and recommended delay treatment until after discitis treatment is completed * will attempted to contact ID in regards to home health follow up Imaging: * Lumbar MRI: L3/L4 discitis with osteomyelitis and endplate destruction of L3 and L4. There are epidural, L3/L4 intervertebral, psoas and left posterolateral paraspinous abscesses. * Thoracic MRI: Degenerative changes without stenosis. Nonenhancing mild cord expansion and increased signal posterior to T9 extending 3.6 cm. DDX includes inflammatory/demyelinating process or neoplasm * Cervical MRI: Degenerative changes Medications: * Vancomycin (started 02/12) * Cefazolin (started 02/14) * Morphine SR 30 mg po AM and 45 qHS * Gabapentin 600 mg PO BID * Percocet 5 mg and Percocet 10 mg po q4h prn (2) Wrist joint infection Status: Chronic Plan: Per patient's prior records at [facility], patient was treated for MSSA osteomyelitis with Ancef with planned stoppage date of 02/11. It is unclear whether patient took full treatment regimen Hand surgery consulted: Appreciate recommendations * Suspect inflammatory arthritis with subsequent extensor tendon rupture * Surgery deferred until after epidural abscess resolved * Continued antibiotic management per infectious disease Imaging: * Upper extremity MRI: Inflammatory changes at the edge of field of view including carpus and distal radius and ulna. Osteomyelitis of the carpus and is a radius and ulnar is suspected. * Wrist MRI: Posterior subluxation of the distal ulna with inflammatory arthropathy and inflamed/infected bursa. Some erosion of the distal ulna; unclear if related to bursitis or focal area of osteomyelitis. Inflamed arthropathy at the intercarpal joints and radiocarpal joints. No drainable fluid collection * Wrist x-ray: Focal destruction of the distal ulna. Severe osteopenia elsewhere without other definite bone destruction seen (3) Illicit drug use Status: Chronic Plan: Patient reports history of IV drug use in 04/2015 and recent marijuana use UDS positive for opiates and cannabinoids but pt does take home pain medications (4) Hepatitis C Status: Acute Plan: Impression: Viral load 1.2 million copies per mL; Genotype 1a. HIV negative - GI consulted - Recommend follow up as outpatient (5) Fluids, Electrolytes, and Nutrition Status: Acute Plan: Fluids: None at this time Electrolytes: Monitor and replete as needed Nutrition: Regular diet DVT prophylaxis: SCDs and Lovenox Chronic conditions: - Hypertension: Lisinopril 10 mg daily, hydralazine prn > 160/90 - COPD: Duonebs prn Problem Qualifiers (1) Hepatitis C: Qualified Code: B19.20 - Hepatitis C virus infection without hepatic coma, unspecified chronicity Susana Wilson MD R2 Feb 25, 2016 10:08
[2016-02-25] MEDS ORDERED: ROLLER WALKER1 MI1 (10:11)
--- NOTE | 2016-02-25 10:13 | HHI.FF ---
Face to Face Verification Diagnosis: (1) Epidural abscess (2) Wrist joint infection (3) HTN (hypertension) Physical Therapy Order: Evaluate and Treat, Improve ambulation, Strength and gait training Occupational Therapy Order: Evaluate and Treat, Fine motor coordination Home Health Nursing Order: Medical education Signs/symptoms of disease process Medication education-adverse effect Nursing assessment with vital signs IV medication administration Home Health Aide Order: To Assist In: Bathing and personal care I have seen patient Brayden Sher on 02/25/16. My clinical findings support the need for the requested home health care services because: Ltd mobility - disease progression Deconditioned w/ increased weakness High risk of falls Infection w/ risk of complications I certify that my clinical findings support that this patient is homebound because: Unsteady gait/balance Unsafe to leave home unassisted Susana Wilson MD R2 Feb 25, 2016 10:13
--- NOTE | 2016-02-25 11:29 | HHI.PR ---
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
[2016-02-25 12:00] VITALS: BP 119/77; PULSE 91; RESP 20; TEMP 97.1; O2SAT 99
[2016-02-25] MEDS: VANCOMYCIN INJ 1,200 MG in SODIUM CHLOR 0.9% 250 ML INJ 250 ML IV SCH ×2 (12:28→21:16)
[2016-02-25 16:00] VITALS: BP 119/75; PULSE 90; RESP 18; TEMP 97.5; O2SAT 98
[2016-02-25] MEDS: CYCLOBENZAPRINE HCL 10 MG TAB PO PRN (18:18)
[2016-02-25] MEDS: ENOXAPARIN SODIUM 40 MG/0.4 ML SYRINGE SQ SCH (18:18)
[2016-02-25 20:00] VITALS: BP 127/80; PULSE 93; RESP 24; TEMP 97.3; O2SAT 97
[2016-02-25] MEDS: DOCUSATE SODIUM 50 MG/SENNA 8.6 MG TAB PO SCH (21:15)
[2016-02-25] MEDS: MORPHINE SULFATE 15 MG CONTROLLED RELEASE TAB PO SCH (21:16)
[2016-02-25] MEDS: ZOLPIDEM TARTRATE 5 MG TAB PO PRN (23:03)
[2016-02-26] VITALS: BP 115/75; PULSE 76; RESP 16; TEMP 96.8; O2SAT 100
[2016-02-26 03:19] VITALS: BP 133/85; PULSE 89; RESP 20; TEMP 96.9; O2SAT 99
[2016-02-26] MEDS: VANCOMYCIN INJ 1,200 MG in SODIUM CHLOR 0.9% 250 ML INJ 250 ML IV SCH ×3 (03:25→22:38)
[2016-02-26] MEDS: CYCLOBENZAPRINE HCL 10 MG TAB PO PRN ×3 (03:26→22:40)
[2016-02-26] MEDS: ceFAZolin 2 GM PREMIX 50 ML IV SCH ×3 (03:26→22:44)
[2016-02-26] MEDS: oxyCODONE/ACETAMINOPHEN 10 MG/325 MG TAB PO PRN ×5 (03:27→22:43)
[2016-02-26] MEDS: DEXAMETHASONE SOD PHOS 4 MG/ML VIAL IV PUSH SCH (06:09)
[2016-02-26 06:22] LABS: HEMATOCRIT 30.7 % (39.0-51.0); MEAN CELL VOLUME 75.7 FL (80.0-100.0); MEAN CORPUSCULAR HEMOGLOBIN 25.1 PG (27.0-34.0); MEAN CORPUSCULAR HGB CONC 33.1 % (32.0-36.0); PLATELET COUNT 295 TH/MM3 (150-450); RED BLOOD COUNT 4.05 MIL/MM3 (4.50-5.90); RED CELL DISTRIBUTION WIDTH 23.5 % (11.6-17.2); REVIEW FLAG FINAL; WHITE BLOOD COUNT 8.1 TH/MM3 (4.0-11.0)
[2016-02-26] MEDS: SODIUM CHLORIDE 0.9% FLUSH 5 ML FLUSH FLUSH SCH ×2 (07:53→21:00)
[2016-02-26] MEDS: PANTOPRAZOLE SOD 20 MG DELAYED RELEASE TAB PO SCH ×2 (07:53→22:42)
[2016-02-26] MEDS: LISINOPRIL 10 MG TAB PO SCH (07:53)
[2016-02-26] MEDS: MORPHINE SULFATE 30 MG CONTROLLED RELEASE TAB PO SCH ×2 (07:53→22:41)
[2016-02-26] MEDS: GABAPENTIN 300 MG CAP PO SCH ×2 (07:53→22:40)
[2016-02-26 08:00] VITALS: BP 138/90; PULSE 80; RESP 18; TEMP 97.9; O2SAT 98
[2016-02-26] MEDS: clonazePAM 1 MG TAB PO PRN ×2 (08:05→16:19)
[2016-02-26] MEDS: BISACODYL 10 MG SUPP RECTAL SCH (08:08)
[2016-02-26] MEDS ORDERED: PHARMACY ORDERED LAB XX ONE (11:45)
[2016-02-26 12:00] VITALS: BP 134/84; PULSE 82; RESP 18; TEMP 98.1; O2SAT 99
--- NOTE | 2016-02-26 12:30 | HHI.FF ---
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 [] May leave port accessed during therapy. [] May leave peripheral site accessed for duration of therapy. [x] If patient has SOB or respiratory distress, check oxygen saturation. If less than 90% or clinical signs of respiratory distress, administer oxygen at 2 L/min. via nasal cannula and notify physician. [x] Anaphylaxis/Reaction orders: * Stop infusion. * Keep IV line open with saline flush. * Notify physician. * Monitor vital signs every 15 minutes until symptoms resolve. * Check Oxygen saturation; Oxygen at 2 L/min. via nasal cannula if less than 90% or clinical signs of respiratory distress. * Administer diphenhydramine (Benadryl) 25 mg IV STAT, (unless patient has received as pre-med). May repeat once, if necessary. * Solu-Cortef 250 mg IVP over 30-60 seconds, use 100 mg vials for each dissolution. * Epinephrine (1mg/1 ml) 0.3 mg subcutaneously or IVP now with any signs of respiratory distress. * Check with physician for new additional pre-med orders if patient is re- challenged or re-treated. [x] May remove PICC line when treatment complete, after confirming with Physician. [x] If the patient is admitted to the hospital, the ED, or transferred via [facility] , complete transfer form including medication reconciliation order sheet. Laboratory Tests Weekly Labs: CBC w/diff, Creatinine, LFT's (Hepatic function test), SED Rate, Vancomycin Trough Additional Information F/U with Dr Saritha Lo (Infectious Desaeses) within 1 week of d/c : [facility] [phone] for appoitntment Mary Michele MD Feb 26, 2016 12:30
[2016-02-26] MEDS ORDERED: ROLLER WALKER1 MI1 ×2 (15:05→15:14)
--- NOTE | 2016-02-26 15:10 | HHI.FPPN ---
Subjective Remarks No acute events overnight. Vital signs are unremarkable. This morning patient has no complaints. Resting comfortably in bed. Objective Vitals Vital Signs Date Time Temp Pulse Resp B/P Pulse Ox O2 Delivery O2 Flow Rate FiO2 02/26/16 12:00 98.1 82 18 134/84 99 02/26/16 08:00 97.9 80 18 138/90 98 02/26/16 04:27 20 02/26/16 03:19 96.9 89 20 133/85 99 02/26/16 00:00 96.8 76 16 115/75 100 02/25/16 22:16 20 02/25/16 22:16 20 02/25/16 20:00 97.3 93 24 127/80 97 02/25/16 16:00 97.5 90 18 119/75 98 I/O 02/25/16 02/25/16 02/25/16 02/26/16 02/26/16 02/26/16 07:00 15:00 23:00 07:00 15:00 23:00 Intake Total 240 ml 600 ml 960 ml Output Total 700 ml 1475 ml 700 ml 1600 ml Balance -460 ml -1475 ml -100 ml -640 ml Intake Oral 240 ml 960 ml IV Total 600 ml Output Urine Total 700 ml 1475 ml 700 ml 1600 ml # Voids 1 # Bowel Movements 0 1 Result Diagram: 02/26/1660402/26/16604 Objective Remarks GEN: Well-developed, well-nourished patient. No acute distress. CV: Regular rate and rhythm without obvious murmurs LUNGS: Clear to auscultation bilaterally. Normal respiratory effort. No wheezes , rales, rhonchi. EXT: No edema. No calf tenderness. NEURO/PSYCH: Awake, alert. Appropriate insight and judgment. Normal speech Procedures 02/13/16 - IR drainage of epidural abscess A/P Assessment and Plan Mr. Sher is a 56 year old male with: Discharge Planning Tomorrow with the completion of Decadron * Will need home PT, OT dw Dr. Beaulieu wdw Dr. Degroot Problem List: (1) Epidural abscess Status: Acute Plan: Approximately 3 months of lower back pain; associated limited neurologic impairment. L3/L4 discitis and abscesses present. No leukocytosis has been present. ESR and CRP were elevated. -s/p IR abscess drainage -Abscess Cx: Staph coag negative -02/12 Blood cultures no growth after 5 days Neurosurgery consulted: Appreciate recommendations * Decadron to be tapered down to 2mg x4 days and then discontinued. End date is 02/26 * Flexeril prn spasms * Plan to repeat MRI in early March * Appropriate discharge orders placed ID consulted: Appreciate recommendations * Continue vancomycin and cefazolin (started 02/12 and 02/14 respectively) * Right distal radius/ulna osteomyelitis initially suspected: Hand surgery consulted and recommended delay treatment until after discitis treatment is completed * All orders for home health completed Imaging: * Lumbar MRI: L3/L4 discitis with osteomyelitis and endplate destruction of L3 and L4. There are epidural, L3/L4 intervertebral, psoas and left posterolateral paraspinous abscesses. * Thoracic MRI: Degenerative changes without stenosis. Nonenhancing mild cord expansion and increased signal posterior to T9 extending 3.6 cm. DDX includes inflammatory/demyelinating process or neoplasm * Cervical MRI: Degenerative changes Medications: * Vancomycin (started 02/12) * Cefazolin (started 02/14) * Morphine SR 30 mg po AM and 45 qHS * Gabapentin 600 mg PO BID * Percocet 5 mg and Percocet 10 mg po q4h prn (2) Wrist joint infection Status: Chronic Plan: Per patient's prior records at [facility], patient was treated for MSSA osteomyelitis with Ancef with planned stoppage date of 02/11. It is unclear whether patient took full treatment regimen Hand surgery consulted: Appreciate recommendations * Suspect inflammatory arthritis with subsequent extensor tendon rupture * Surgery deferred until after epidural abscess resolved * Continued antibiotic management per infectious disease Imaging: * Upper extremity MRI: Inflammatory changes at the edge of field of view including carpus and distal radius and ulna. Osteomyelitis of the carpus and is a radius and ulnar is suspected. * Wrist MRI: Posterior subluxation of the distal ulna with inflammatory arthropathy and inflamed/infected bursa. Some erosion of the distal ulna; unclear if related to bursitis or focal area of osteomyelitis. Inflamed arthropathy at the intercarpal joints and radiocarpal joints. No drainable fluid collection * Wrist x-ray: Focal destruction of the distal ulna. Severe osteopenia elsewhere without other definite bone destruction seen (3) Illicit drug use Status: Chronic Plan: Patient reports history of IV drug use in 04/2015 and recent marijuana use UDS positive for opiates and cannabinoids but pt does take home pain medications Patient explained that it is imperative for him to not relapse while getting home health treatment (4) Hepatitis C Status: Acute Plan: Impression: Viral load 1.2 million copies per mL; Genotype 1a. HIV negative - GI consulted - Recommend follow up as outpatient (5) Fluids, Electrolytes, and Nutrition Status: Acute Plan: Fluids: None at this time Electrolytes: Monitor and replete as needed Nutrition: Regular diet DVT prophylaxis: SCDs and Lovenox Chronic conditions: - Hypertension: Lisinopril 10 mg daily, hydralazine prn > 160/90 - COPD: Duonebs prn Problem Qualifiers (1) Hepatitis C: Qualified Code: B19.20 - Hepatitis C virus infection without hepatic coma, unspecified chronicity Susana Wilson MD R2 Feb 26, 2016 15:10
[2016-02-26] MEDS ORDERED: MORP1TAB24 PO (15:14)
[2016-02-26] MEDS ORDERED: MORP1TAB25 PO (15:14)
[2016-02-26] MEDS ORDERED: OXYC1TAB36 PO (15:14)
[2016-02-26] MEDS ORDERED: CYCL1TAB29 PO (15:14)
[2016-02-26 16:00] VITALS: BP 128/84; PULSE 84; RESP 18; TEMP 97.1; O2SAT 100
[2016-02-26] MEDS: ENOXAPARIN SODIUM 40 MG/0.4 ML SYRINGE SQ SCH (16:20)
[2016-02-26 20:00] VITALS: BP 120/77; PULSE 78; RESP 16; TEMP 96.8; O2SAT 98
[2016-02-26] MEDS: DOCUSATE SODIUM 50 MG/SENNA 8.6 MG TAB PO SCH (22:42)
[2016-02-26] MEDS: MORPHINE SULFATE 15 MG CONTROLLED RELEASE TAB PO SCH (22:42)
[2016-02-26] MEDS: ZOLPIDEM TARTRATE 5 MG TAB PO PRN (23:08)
[2016-02-27] VITALS: BP 140/93; PULSE 81; RESP 20; TEMP 96.1; O2SAT 99
[2016-02-27] MEDS: ceFAZolin 2 GM PREMIX 50 ML IV SCH (03:50)
[2016-02-27] MEDS: VANCOMYCIN INJ 1,200 MG in SODIUM CHLOR 0.9% 250 ML INJ 250 ML IV SCH (03:51)
[2016-02-27] MEDS: clonazePAM 1 MG TAB PO PRN (03:59)
[2016-02-27] MEDS: oxyCODONE/ACETAMINOPHEN 10 MG/325 MG TAB PO PRN ×2 (03:59→09:08)
[2016-02-27 06:07] VITALS: BP 135/84; PULSE 79; RESP 20; TEMP 96.8; O2SAT 97
[2016-02-27 08:16] VITALS: BP 146/101; PULSE 100; RESP 20; TEMP 98.3; O2SAT 99
[2016-02-27] MEDS: BISACODYL 10 MG SUPP RECTAL SCH (09:00)
[2016-02-27] MEDS: GABAPENTIN 300 MG CAP PO SCH (09:08)
[2016-02-27] MEDS: MORPHINE SULFATE 30 MG CONTROLLED RELEASE TAB PO SCH (09:08)
[2016-02-27] MEDS: SODIUM CHLORIDE 0.9% FLUSH 5 ML FLUSH FLUSH SCH (09:09)
[2016-02-27] MEDS: PANTOPRAZOLE SOD 20 MG DELAYED RELEASE TAB PO SCH (09:09)
[2016-02-27] MEDS: CYCLOBENZAPRINE HCL 10 MG TAB PO PRN (09:09)
[2016-02-27] MEDS: LISINOPRIL 10 MG TAB PO SCH (09:09)
--- NOTE | 2016-02-27 11:08 | HHI.FPPN ---
Subjective Remarks No acute events overnight. VS unremarkable. Patient reports feeling ready to go home today. No complaints otherwise. Objective Vitals Vital Signs Date Time Temp Pulse Resp B/P Pulse Ox O2 Delivery O2 Flow Rate FiO2 02/27/16 08:16 98.3 100 20 146/101 99 02/27/16 06:07 96.8 79 20 135/84 97 02/27/16 00:00 96.1 81 20 140/93 99 02/26/16 20:00 96.8 78 16 120/77 98 02/26/16 16:00 97.1 84 18 128/84 100 02/26/16 12:00 98.1 82 18 134/84 99 I/O 02/26/16 02/26/16 02/26/16 02/27/16 02/27/16 02/27/16 07:00 15:00 23:00 07:00 15:00 23:00 Intake Total 600 ml 960 ml Output Total 700 ml 1600 ml 300 ml 900 ml Balance -100 ml -640 ml -300 ml -900 ml Intake Oral 960 ml IV Total 600 ml Output Urine Total 700 ml 1600 ml 300 ml 900 ml Result Diagram: 02/26/1660402/26/16 06 Objective Remarks GEN: Well-developed, well-nourished patient. No acute distress. CV: Regular rate and rhythm without obvious murmurs LUNGS: Clear to auscultation bilaterally. Normal respiratory effort. No wheezes , rales, rhonchi. EXT: No edema. No calf tenderness. NEURO/PSYCH: Awake, alert. Appropriate insight and judgment. Normal speech Procedures 02/13/16 - IR drainage of epidural abscess A/P Assessment and Plan Mr. Sher is a 56 year old male with: Discharge Planning Today as home health is set up wdw Dr. Degroot Problem List: (1) Epidural abscess Status: Acute Plan: Approximately 3 months of lower back pain; associated limited neurologic impairment. L3/L4 discitis and abscesses present. No leukocytosis has been present. ESR and CRP were elevated. -s/p IR abscess drainage -Abscess Cx: Staph coag negative -02/12 Blood cultures no growth after 5 days Neurosurgery consulted: Appreciate recommendations * Decadron to be tapered down to 2mg x4 days and then discontinued. End date is 02/26 * Flexeril prn spasms * Plan to repeat MRI in early March * Appropriate discharge orders placed ID consulted: Appreciate recommendations * Continue vancomycin and cefazolin (started 02/12 and 02/14 respectively) * Right distal radius/ulna osteomyelitis initially suspected: Hand surgery consulted and recommended delay treatment until after discitis treatment is completed * All orders for home health completed Imaging: * Lumbar MRI: L3/L4 discitis with osteomyelitis and endplate destruction of L3 and L4. There are epidural, L3/L4 intervertebral, psoas and left posterolateral paraspinous abscesses. * Thoracic MRI: Degenerative changes without stenosis. Nonenhancing mild cord expansion and increased signal posterior to T9 extending 3.6 cm. DDX includes inflammatory/demyelinating process or neoplasm * Cervical MRI: Degenerative changes Medications: * Vancomycin (started 02/12) * Cefazolin (started 02/14) * Morphine SR 30 mg po AM and 45 qHS * Gabapentin 600 mg PO BID * Percocet 5 mg and Percocet 10 mg po q4h prn (2) Wrist joint infection Status: Chronic Plan: Per patient's prior records at [facility], patient was treated for MSSA osteomyelitis with Ancef with planned stoppage date of 02/11. It is unclear whether patient took full treatment regimen Hand surgery consulted: Appreciate recommendations * Suspect inflammatory arthritis with subsequent extensor tendon rupture * Surgery deferred until after epidural abscess resolved * Continued antibiotic management per infectious disease Imaging: * Upper extremity MRI: Inflammatory changes at the edge of field of view including carpus and distal radius and ulna. Osteomyelitis of the carpus and is a radius and ulnar is suspected. * Wrist MRI: Posterior subluxation of the distal ulna with inflammatory arthropathy and inflamed/infected bursa. Some erosion of the distal ulna; unclear if related to bursitis or focal area of osteomyelitis. Inflamed arthropathy at the intercarpal joints and radiocarpal joints. No drainable fluid collection * Wrist x-ray: Focal destruction of the distal ulna. Severe osteopenia elsewhere without other definite bone destruction seen (3) Illicit drug use Status: Chronic Plan: Patient reports history of IV drug use in 04/2015 and recent marijuana use UDS positive for opiates and cannabinoids but pt does take home pain medications Patient explained that it is imperative for him to not relapse while getting home health treatment (4) Hepatitis C Status: Acute Plan: Impression: Viral load 1.2 million copies per mL; Genotype 1a. HIV negative - GI consulted - Recommend follow up as outpatient (5) Fluids, Electrolytes, and Nutrition Status: Acute Plan: Fluids: None at this time Electrolytes: Monitor and replete as needed Nutrition: Regular diet DVT prophylaxis: SCDs and Lovenox Chronic conditions: - Hypertension: Lisinopril 10 mg daily, hydralazine prn > 160/90 - COPD: Duonebs prn Problem Qualifiers (1) Hepatitis C: Qualified Code: B19.20 - Hepatitis C virus infection without hepatic coma, unspecified chronicity Susana Wilson MD R2 Feb 27, 2016 11:08
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
[2016-03-24] MEDS ORDERED: GABA600T PO (12:07)
== END 2016-02-27 10:31 | disposition home health service (06) | DRG 95 ==
LOC: NEPC 12:38 → NEDA 16:23 → N05B 21:24
PROVIDERS: ADMIT Family Medicine; ATTEND Family Medicine
PROC: 009U30Z Drainage of Spinal Canal with Drainage Device, Percutaneous Approach (ICD-10-PCS; principal; 2016-02-13)
PROC: B01B1ZZ Fluoroscopy of Spinal Cord using Low Osmolar Contrast (ICD-10-PCS; 2016-02-13)
DX: G06.1 Intraspinal abscess and granuloma (principal); M46.26 Osteomyelitis of vertebra, lumbar region; I10 Essential (primary) hypertension; D64.9 Anemia, unspecified; M66.231 Spontaneous rupture of extensor tendons, right forearm; F32.9 Major depressive disorder, single episode, unspecified; J44.9 Chronic obstructive pulmonary disease, unspecified; M46.46 Discitis, unspecified, lumbar region; I25.10 Atherosclerotic heart disease of native coronary artery without angina pectoris; M06.4 Inflammatory polyarthropathy; R25.2 Cramp and spasm; G47.00 Insomnia, unspecified; M71.5 Other bursitis, not elsewhere classified; B19.20 Unspecified viral hepatitis C without hepatic coma; F12.90 Cannabis use, unspecified, uncomplicated; F17.210 Nicotine dependence, cigarettes, uncomplicated; F41.9 Anxiety disorder, unspecified; F43.10 Post-traumatic stress disorder, unspecified; Z86.14 Personal history of Methicillin resistant Staphylococcus aureus infection; Z86.19 Personal history of other infectious and parasitic diseases
CPT/HCPCS: 36569; 71010; 72156; 72157; 72158; 73110; 73220; 73223; 75989; 76937; 80048; 80053; 80074; 80202; 80301; 80361; 81001; 82565; 83605; 83789; 84520; 85014; 85018; 85025; 85027; 85610; 85652; 85730; 86140; 86430; 86703; 87015; 87040; 87070; 87102; 87116; 87205; 87206; 87522; 87641; 87902; 93306; 94150; 94667; 94668; 96361; 96365; A9579; C1729; C1769; G0479; G0480; J0690; J0696; J1100; J1642; J1650; J2250; J2310; J2543; J3010; J3370; J7030; J7040; J7050

== ENCOUNTER 2016-03-31 11:54 | Emergency (ER) | payer MEDICARE ==
[~2016-03-31] VITALS: Ht 170.2 cm; Wt 61.0 kg
[~2016-03-31 11:54] MED LIST: CLON1 PO; CYCL1TAB29 PO; GABA600T PO; LISI10TA3 PO; MORP1TAB24 PO; MORP1TAB25 PO; OMEP20TA PO; ROLLER WALKER1 MI1
[2016-03-31 11:57] VITALS: BP 169/109; PULSE 92; RESP 20; TEMP 98.5; O2SAT 99
== END 2016-03-31 18:07 | disposition left against medical advice (07) ==
LOC: NETRI 11:54
DX: L98.9 Disorder of the skin and subcutaneous tissue, unspecified (principal)
CPT/HCPCS: 99281

== ENCOUNTER 2016-04-07 07:44 | Inpatient (IN) | payer MEDICARE, OTHER ==
[2016-04-07] VITALS (9 sets, daily range): BP systolic 172–197; BP diastolic 100–122; PULSE 65–74; RESP 18; TEMP 97.8–99.1; O2SAT 97–100
[~2016-04-07] VITALS: Ht 172.7 cm; Wt 70.9 kg
[2016-04-07] MEDS ORDERED: PERC10TA27 PO (07:58)
[2016-04-07] MEDS ORDERED: VANC1000P IV (07:58)
--- NOTE | 2016-04-07 07:58 | PD ---
HPI Chief Complaint: Pain: Acute or Chronic Time Seen by Provider: 07:53 Travel History International Travel<30 days: No Contact w/Intl Traveler<30days: No Traveled to known affect area: No History of Present Illness HPI This is a 56-year-old male who presents to the emergency department having had an L3-L4 discitis with epidural abscess treated in February of this year, status post drainage by interventional radiology followed by Dr. Walters, who presents with persistent low back pain. Patient reports that he has severe sharp back pain in the lumbar area that radiates around both hips and into the legs. His pain is worse with sitting down and walking, constant. The pain is essentially unchanged from when he was discharged, but he's getting more frustrated with it. He denies any associated fevers or chills. He says he was supposed to have a follow-up MRI that was prescribed by Dr. Walters but his pain was so bad after her appointment that he had to go home. He lives with his son who works night shifts so he has very limited support during the day. He has had home health care and has been receiving IV vancomycin. He says he is having difficulty doing his activities of daily living and he wishes he had gone to rehabilitation. He also has been on chronic pain medication for years and is currently on 60 mg of morphine. He says that his pain medicine isn't touching the pain at this point is why he came to the emergency department. [facility] Past Medical History Anxiety: Yes Depression: Yes Cancer: No Cardiovascular Problems: Yes COPD: Yes Endocrine: No Genitourinary: No Hepatitis: Yes (C) Hypertension: Yes Immune Disorder: No Musculoskeletal: Yes (Knee Sx ) Neurologic: No Psychiatric: Yes Reproductive: No Respiratory: Yes Past Surgical History Abdominal Surgery: Yes (appendectomy 1965 ) Appendectomy: Yes Thoracic Surgery: Yes Social History Alcohol Use: No Tobacco Use: Yes Substance Use: Yes (Marijuana ) Allergies-Medications (Allergen,Severity, Reaction): Coded Allergies: *MDRO Multi-Drug Resistant Organism (Unverified Allergy, Unknown, 02/14/16) MRSA wound in buttocks (2002) Reported Meds & Prescriptions Reported Meds & Active Scripts Active Gabapentin 600 Mg Tab 600 Mg PO BID Roller Walker (Misc. Devices) 1 Mis Mis 1 Ea .ROUTE NOW Morphine ER (Morphine Sulfate) 15 Mg Tab 15 Mg PO HS Add to the 30mg Morphine dose at night for a total of 45mg Morphine ER (Morphine Sulfate) 30 Mg Tab 30 Mg PO BID Flexeril (Cyclobenzaprine HCl) 10 Mg Tab 10 Mg PO Q8H PRN Reported Percocet (Oxycodone-Acetaminophen) 10-325 mg Tab 1 Tab PO Q4H PRN Vancomycin Inj (Vancomycin HCl) 1,000 Mg Inj 1,500 Mg IV Q12HR Omeprazole 20 Mg Tab 20 Mg PO BID Lisinopril 10 Mg Tab 10 Mg PO DAILY Klonopin (Clonazepam) 1 Mg Tab 1 Mg PO TID Review of Systems Except as stated in HPI: all other systems reviewed are Neg Physical Exam Narrative GENERAL: Uncomfortable, intermittently moaning in pain SKIN: Warm and dry. HEAD: Atraumatic. Normocephalic. EYES: Pupils equal and round. No injection or drainage. ENT: Moist mucous membranes NECK: Trachea midline. CARDIOVASCULAR: Regular rate and rhythm. No murmur appreciated. RESPIRATORY: Clear to auscultation. Breath sounds equal bilaterally. GASTROINTESTINAL: Abdomen soft, non-tender, nondistended. MUSCULOSKELETAL: No obvious deformities. NEUROLOGICAL: Awake and alert. No obvious cranial nerve deficits. Strength exam in the lower extremities is limited by pain, sensation to light touch is intact in both lower extremities. PSYCHIATRIC: Appropriate mood and affect; insight and judgment normal. Data Data Last Documented VS Vital Signs Date Time Temp Pulse Resp B/P Pulse Ox O2 Delivery O2 Flow Rate FiO2 04/07/16 08:01 99.1 67 18 197/102 100 Room Air Orders Complete Blood Count With Diff (04/07/16 07:58) Basic Metabolic Panel (Bmp) (04/07/16 07:58) ^ Insert Iv (04/07/16 07:58) Mri L Spine W&W/O Contrast (04/07/16 ) Hydromorphone Pf Inj (Dilaudid Pf Inj) (04/07/16 08:00) Lorazepam Inj (Ativan Inj) (04/07/16 09:15) Lorazepam Inj (Ativan Inj) (04/07/16 09:17) Gadodiamide Pf Inj (Omniscan Pf Inj) (04/07/16 09:52) Hydromorphone Pf Inj (Dilaudid Pf Inj) (04/07/16 10:30) Admit Order (Ed Use Only) (04/07/16 10:41) Labs Laboratory Tests Test 04/07/16 08:26 White Blood Count 5.3 TH/MM3 Red Blood Count 4.39 MIL/MM3 Hemoglobin 11.3 GM/DL Hematocrit 32.2 % Mean Corpuscular Volume 73.5 FL Mean Corpuscular Hemoglobin 25.8 PG Mean Corpuscular Hemoglobin 35.1 % Concent Red Cell Distribution Width 21.0 % Platelet Count 305 TH/MM3 Mean Platelet Volume 7.6 FL Neutrophils (%) (Auto) 69.6 % Lymphocytes (%) (Auto) 21.7 % Monocytes (%) (Auto) 6.0 % Eosinophils (%) (Auto) 2.3 % Basophils (%) (Auto) 0.4 % Neutrophils # (Auto) 3.7 TH/MM3 Lymphocytes # (Auto) 1.1 TH/MM3 Monocytes # (Auto) 0.3 TH/MM3 Eosinophils # (Auto) 0.1 TH/MM3 Basophils # (Auto) 0.0 TH/MM3 CBC Comment DIFF FINAL Differential Comment Sodium Level 140 MEQ/L Potassium Level 3.1 MEQ/L Chloride Level 108 MEQ/L Carbon Dioxide Level 25.5 MEQ/L Anion Gap 7 MEQ/L Blood Urea Nitrogen 15 MG/DL Creatinine 0.65 MG/DL Estimat Glomerular Filtration 127 ML/MIN Rate Random Glucose 107 MG/DL Calcium Level 8.7 MG/DL [facility] Medical Decision Making Medical Screen Exam Complete: Yes Emergency Medical Condition: Yes Interpretation(s) Afebrile, no tachycardia, hypertensive Anemia Mild hypokalemia Last 24 hours Impressions Lumbar Spine MRI 04/07/16 0000 Signed Impressions: Service Date/Time: March 09:31 - CONCLUSION: Progression of the findings at L3-4 discitis with persistent enhancement about the periphery of the residual disc and decreased intensity marrow enhancement in the L3 and L4 vertebral bodies. No evidence of spondylolisthesis. Significant reduction in size of bilateral psoas and left paraspinal abscess these. There is residual enhancing tissue in the anterior and right epidural space at L3-4 and extending in the right paraspinal region up to the mid right L2 level. Tomas Hallman MD Differential Diagnosis Discitis, epidural abscess, chronic opiate dependence Narrative Course This is a 56-year-old male who has a history of an epidural abscess at L3-L4 as well as discitis who is on IV antibiotics at home and presents with worsening back pain and difficulty performing his activities of daily living. On arrival he was in significant pain. He was given IV hydromorphone and he improved. He was placed on a monitor and an IV was established. Labs are obtained which are reassuring. An MRI was obtained which demonstrates persistent worsening discitis but improvement of abscess. I spoke to Dr. Walters who had been following this patient. She is concerned that the patient's presentation is largely driven by his chronic opiate dependence. She doesn't think there is any neurosurgical intervention required at this time. Patient is already on IV antibiotics and seems to be improving. She's not surprised that the discitis is worsening on imaging and she says this often happens as the disease process resolves. The patient is very interested in inpatient rehabilitation. I think it would benefit him as most of his complaints are lack of psychosocial support and inability to complete his activities of daily living. We did discuss that we would stick to his oral pain management regimen in the hospital and Dr. Walters suggested addition of Decadron. Patient will be admitted for pain control and case management intervention. Physician Communication Physician Communication Discussed with Dr. Cervantes and Dr. Arredondo Diagnosis Primary Impression: Lumbar discitis Admitting Information Admitting Physician Requests: it Elysia Renee MD Apr 07, 2016 07:58
[2016-04-07] MEDS ORDERED: HYDROmorphone HCL PF 1 MG/ML VIAL IV PUSH ONE ×2 (08:00→10:30)
[2016-04-07] MEDS ORDERED: CEPH250C IV-CENTRAL (08:00)
[2016-04-07 08:35] LABS: AUTOMATED NEUTROPHIL # 3.7 TH/MM3 (1.8-7.7); BASOPHIL % 0.4 % (0.0-2.0); EOSINOPHIL # 0.1 TH/MM3 (0-0.4); EOSINOPHIL % 2.3 % (0.0-4.0); HEMATOCRIT 32.2 % (39.0-51.0); HEMO FLAGS DIFF FINAL; LYMPH % 21.7 % (9.0-44.0); LYMPHOCYTE # 1.1 TH/MM3 (1.0-4.8); MEAN CELL VOLUME 73.5 FL (80.0-100.0); MEAN CORPUSCULAR HEMOGLOBIN 25.8 PG (27.0-34.0); MEAN CORPUSCULAR HGB CONC 35.1 % (32.0-36.0); NEUT % 69.6 % (16.0-70.0); PLATELET COUNT 305 TH/MM3 (150-450); RED BLOOD COUNT 4.39 MIL/MM3 (4.50-5.90); WHITE BLOOD COUNT 5.3 TH/MM3 (4.0-11.0)
[2016-04-07 09:04] LABS: BICARBONATE 25.5 MEQ/L (21.0-32.0); POTASSIUM 3.1 MEQ/L (3.5-5.1)
[2016-04-07] MEDS ORDERED: LORazepam 2 MG/ML VIAL IV PUSH ONE (09:15)
[2016-04-07] MEDS ORDERED: LORazepam 2 MG/ML VIAL ONE (09:17)
[2016-04-07] MEDS ORDERED: GADODIAMIDE PF 287 MG/ML 20 ML VIAL (for RAD MRI) IV ONE (09:52)
--- NOTE | 2016-04-07 10:32 | RADRPT ---
EXAM DATE/TIME: 04/07/2016 09:31 [place] COMPARISON: MRI LUMBAR SPINE W & W/O CONTRAST, February 13, 2016, 14:25. INDICATIONS : Severe lower back pain with prior adscess drainage and discectomy. CONTRAST: 16 cc Omniscan (gadodiamide) IV MEDICAL HISTORY : Hypertension. SURGICAL HISTORY : Discectomy, lumbar. Appendectomy. Bilat ACL repair, abscess drainage ENCOUNTER: Initial ACUITY: 1 day PAIN SCORE: 7/10 LOCATION: lower back TECHNIQUE: Multiplanar multisequence MRI of the lumbar spine was performed with and without contrast. FINDINGS: Prior MRI in January 2016 demonstrated acute discitis at L3-4 with enhancement in the marrow of the L3 and L4 vertebral bodies and bilateral psoas abscesses an abscess in the left paraspinal musculatur e. On today's examination, there has been an interval loss of the height of the L3-4 interspace and there is homogeneous thickness enhancement about the periphery of the remaining disc. Disc space hei ght measures 12 mm (previously measured 16 mm). There is persistent epidural enhancement about the r ight margin of the thecal sac and extending into the right neural foramen. The right margin of the t hecal sac is not truncated and the AP dimension of the thecal sac has increased since the prior MR. No enhancing tissue into the left neural foramen. There is persistent enhancing tissue into the righ t neural foramen. Significant decrease in the size of the left paraspinal muscle abscess with residu al fluid collection measuring 1.4 cm (previously measured 2.1 cm). Almost complete resolution of the bilateral psoas abscesses with out residual fluid collections. The epidural enhancing tissue does extend superior on the right side to the level of the L2-3 neural foramen but there is no abnormal enhancement within the neural foramen. There is some enhancing tiss ue in the right paraspinal tissues, similar to prior. There is uniform enhancement within the marrow of the L3 vertebral body, less intense than on prior exam. There is decreased enhancement within th e L4 vertebral body when compared to 01/28. There is some mild enhancement in the posterior one third of the L5 vertebral body, very similar to p rior MR. No signal abnormality seen in the marrow of the other lumbar vertebral bodies. The conus i s at the level of L1. No abnormal enhancement about the conus are with in the thecal sac. CONCLUSION: Progression of the findings at L3-4 discitis with persistent enhancement about the periphery of the r esidual disc and decreased intensity marrow enhancement in the L3 and L4 vertebral bodies. No eviden ce of spondylolisthesis. Significant reduction in size of bilateral psoas and left paraspinal absces s these. There is residual enhancing tissue in the anterior and right epidural space at L3-4 and ext ending in the right paraspinal region up to the mid right L2 level. Tomas Hallman MD on April 07, 2016 at 10:22 Board Certified Radiologist. This report was verified electronically.
--- NOTE | 2016-04-07 10:50 | HHI.HP ---
[facility] Service Family Medicine Primary Care Physician Non-Staff Admission Diagnosis discitis Diagnoses: International Travel<30 Days: No Contact w/Intl Traveler<30days: No Known Affected Area: No History of Present Illness Patient is a 56-year-old male with a PMH significant for IV drug use, discitis/ osteomyelitis who was admitted due to uncontrolled pain from his discitis. Patient was admitted on 02/12 and discharged on 02/26 for epidural abscess and discitis. IR drainage of abscess on 02/12. He had received Decadron as well as vancomycin and cefazolin that was to be continued as an outpatient for prolonged antibiotic course which he has continued receiving. Per ED discussion with neurosurgery, neurosurgery does not think this readmission is due to worsening of discitis/return of abscess but may benefit from repeat blood cultures and a dose of Decadron. Patient reports that he presented today due to worsening of lower back pain that radiates down bilateral legs down to his feet. He continues to be concerned about his right hand fingers which has extensor tendon rupture suspected to be due to inflammatory arthritis/osteomyelitis but treatment was deferred until after resolution of discitis. Reports his back pain reminded him of his pain at the beginning of this treatment process. He reports taking oral morphine 60mg BID but is unable to give me a physician's name of who has been prescribing his pain medications. Endorses chills which he says have been present for quite some time but denies any fevers, nausea/vomiting, abdominal pain, diarrhea. Endorses chronic constipation from pain medication and dysuria that has also been present ever since his discharge. Patient is also concerned about being taking care of at home. Lives with his brother and son which have not been very helpful. Has difficulty ambulating distances around the house and endorses frequent falls from his legs becoming weak. Review of Systems Constitutional: COMPLAINS OF: Chills, Change in appetite, DENIES: Fever Eyes: DENIES: Eye pain Ears, nose, mouth, throat: DENIES: Throat pain, Running Nose Respiratory: COMPLAINS OF: Shortness of breath, DENIES: Cough Cardiovascular: COMPLAINS OF: Dyspnea on Exertion, DENIES: Chest pain Gastrointestinal: COMPLAINS OF: Constipation, DENIES: Abdominal pain, Diarrhea , Nausea, Vomiting Genitourinary: COMPLAINS OF: Dysuria Musculoskeletal: COMPLAINS OF: Joint pain, Back pain Integumentary: DENIES: Rash Neurologic: COMPLAINS OF: Localized weakness (bilateral leg weakness on prolonged walking) Psychiatric: COMPLAINS OF: Depression, DENIES: Suicidal Ideation, Homicidal Ideation Past Family Social History Past Medical History Anxiety Depression Hepatitis C HTN Tobacco abuse Illicit drug abuse COPD Recent bacteremia/osteomyelitis/discitis Past Surgical History Appendectomy IR drainage of abscess 02/13/16 Bilateral ACL repairs discectomy of lower back Reported Medications Reported Meds & Active Scripts Active Gabapentin 600 Mg Tab 600 Mg PO BID Roller Walker (Misc. Devices) 1 Mis Mis 1 Ea .ROUTE NOW Morphine ER (Morphine Sulfate) 15 Mg Tab 15 Mg PO HS Add to the 30mg Morphine dose at night for a total of 45mg Morphine ER (Morphine Sulfate) 30 Mg Tab 30 Mg PO BID Flexeril (Cyclobenzaprine HCl) 10 Mg Tab 10 Mg PO Q8H PRN Reported Percocet (Oxycodone-Acetaminophen) 10-325 mg Tab 1 Tab PO Q4H PRN Vancomycin Inj (Vancomycin HCl) 1,000 Mg Inj 1,500 Mg IV Q12HR Omeprazole 20 Mg Tab 20 Mg PO BID Lisinopril 10 Mg Tab 10 Mg PO DAILY Klonopin (Clonazepam) 1 Mg Tab 1 Mg PO TID Allergies: Coded Allergies: *MDRO Multi-Drug Resistant Organism (Unverified Allergy, Unknown, 02/14/16) MRSA wound in buttocks (2002) Family History Mother: HTN Father: CAD, carotid disease, alcoholism, HTN Social History Lives with brother and son. Tobacco: 2ppd since 15yo Alcohol: quit 5yrs, denies any history of withdrawal or seizures Illicit: Smokes marijuana, 1 joint daily since 13yo. Reports last use of IV drugs was April 2015 which was heroin. Does smoke crack currently. Previous use of cocaine and Xanax. Physical Exam Vital Signs Vital Signs Date Time Temp Pulse Resp B/P Pulse Ox O2 Delivery O2 Flow Rate FiO2 04/07/16 08:01 99.1 67 18 197/102 100 Room Air 04/07/16 08:01 65 18 04/07/16 07:48 99.1 74 18 192/122 99 Physical Exam GENERAL: Laying in bed in no acute distress. Poor oral hygiene as hair is disheveled in hands are very dirty. SKIN: No rashes, ecchymoses or lesions. Cool and dry. EYES: Pupils equal round and reactive. Extraocular motions intact. No scleral icterus. No injection or drainage. ENT: Nose without bleeding, purulent drainage. Throat without erythema, tonsillar hypertrophy or exudate. Uvula midline. Airway patent. NECK: No JVD or lymphadenopathy. CARDIOVASCULAR: Regular rate and rhythm without murmurs, gallops, or rubs. RESPIRATORY: Clear to auscultation. Breath sounds equal bilaterally. No wheezes , rales, or rhonchi. GASTROINTESTINAL: Abdomen soft, non-tender, nondistended. No hepato-splenomegaly , or palpable masses. No guarding. MUSCULOSKELETAL: Extremities without clubbing, cyanosis, or edema. No calf tenderness. NEUROLOGICAL: Awake and alert. Normal speech. Moves all extremities except for fourth and fifth finger on right hand which stays in a flexed position passively. Can be passively extended without issues. Laboratory Laboratory Tests Test 04/07/16 08:26 White Blood Count 5.3 Red Blood Count 4.39 Hemoglobin 11.3 Hematocrit 32.2 Mean Corpuscular Volume 73.5 Mean Corpuscular Hemoglobin 25.8 Mean Corpuscular Hemoglobin 35.1 Concent Red Cell Distribution Width 21.0 Platelet Count 305 Mean Platelet Volume 7.6 Neutrophils (%) (Auto) 69.6 Lymphocytes (%) (Auto) 21.7 Monocytes (%) (Auto) 6.0 Eosinophils (%) (Auto) 2.3 Basophils (%) (Auto) 0.4 Neutrophils # (Auto) 3.7 Lymphocytes # (Auto) 1.1 Monocytes # (Auto) 0.3 Eosinophils # (Auto) 0.1 Basophils # (Auto) 0.0 CBC Comment DIFF FINAL Differential Comment Sodium Level 140 Potassium Level 3.1 Chloride Level 108 Carbon Dioxide Level 25.5 Anion Gap 7 Blood Urea Nitrogen 15 Creatinine 0.65 Estimat Glomerular Filtration 127 Rate Random Glucose 107 Calcium Level 8.7 Result Diagram: 04/07/1682504/07/16825 Imaging Last Impressions Lumbar Spine MRI 04/07/16 0000 Signed Impressions: Service Date/Time: March 09:31 - CONCLUSION: Progression of the findings at L3-4 discitis with persistent enhancement about the periphery of the residual disc and decreased intensity marrow enhancement in the L3 and L4 vertebral bodies. No evidence of spondylolisthesis. Significant reduction in size of bilateral psoas and left paraspinal abscess these. There is residual enhancing tissue in the anterior and right epidural space at L3-4 and extending in the right paraspinal region up to the mid right L2 level. Tomas Hallman MD Assessment and Plan Assessment and Plan 56-year-old male with a PMH significant for IV drug use, discitis/osteomyelitis who was admitted due to uncontrolled pain from his discitis Code Status Full Discussed Condition With Dr. Cervantes and Dr. Carter Problem List: (1) Lumbar discitis Status: Acute Plan: Recent admission on 02/12 for epidural abscess, discitis which was treated with Decadron, vancomycin, cefazolin. Was discharged with home health for continued treatment which he has received. Continues to have lower back pain. Worsening pain is likely not due to discitis but rather history of poorly controlled chronic pain which will need pain management as an outpatient. -Per ER discussion with neurosurgery, Dr. Walters suspects presentation is largely driven by chronic opiate dependence and does not believe that there is any neurosurgical intervention at this time. Additionally the findings of worsening discitis on imaging is not surprising as this often happens as of the disease process resolves. Suggested repeating blood cultures and giving Decadron -Lumbar MRI: Progression of the findings at L3/4 discitis with persistent enhancement about the periphery of the residual disc and decreased intensity marrow enhancement. Significant reduction in the size of bilateral psoas and left paraspinal abscesses. -UDS, UA ordered -Blood cultures pending ID consulted: Appreciate recommendations * Consulted to assist with appropriate continuation of antibiotics as an outpatient. Medications: * Decadron 4 mg 1 * Vancomycin 1.5mg q12 (continued from discharge medications at last visit) * Cefazolin 2 g q8 (continued from discharge medications at last visit) * Oramorph 30mg AM, 45mg HS. NOT TO BE INCREASED * Flexeril PRN * Gabapentin 600 mg BID (2) Illicit drug use Status: Chronic Plan: History of cocaine, crack, Xanax, heroin. Last reported use of IV drug use was 04/2015. Patient does admit to smoking crack and marijuana. (3) Depression Status: Acute Plan: Patient may benefit from an antidepressant however starting medication has been deferred at this time. Will need to review interaction of Flexeril and SSRIs/SNRI with attending and pharmacy. No suicidal ideation. (4) Physical deconditioning Status: Acute Plan: Physical therapy ordered. Will likely need rehabilitation at discharge. (5) Fluids, Electrolytes, and Nutrition Status: Acute Plan: Diet: Regular Fluids: None Electrolytes: Mild hypokalemia, replaced with KCl 30meq DVT prophylaxis: Lovenox GI prophylaxis: Protonix Physician Certification 2 Midnight Certification Type: Admission for Inpatient Services Order for Inpatient Services The services are ordered in accordance with Medicare regulations or non- Medicare payer requirements, as applicable. In the case of services not specified as inpatient-only, they are appropriately provided as inpatient services in accordance with the 2-midnight benchmark. Estimated LOS (days): 3 days is the estimated time the patient will need to remain in the hospital, assuming treatment plan goals are met and no additional complications. Post-Hospital Plan: Not yet determined Susana Wilson MD R2 Apr 07, 2016 10:50
[2016-04-07] MEDS ORDERED: POTASSIUM CHLORIDE 10 MEQ CONTROLLED RELEASE TAB PO ONE (11:00)
[2016-04-07] MEDS ORDERED: NALOXONE HCL 0.4 MG/ML AMP IV PRN (11:30)
[2016-04-07] MEDS ORDERED: SODIUM CHLORIDE 0.9% FLUSH 5 ML FLUSH FLUSH PRN (11:30)
[2016-04-07] MEDS ORDERED: LISINOPRIL 10 MG TAB PO SCH (12:00)
[2016-04-07] MEDS ORDERED: PANTOPRAZOLE SOD 40 MG DELAYED RELEASE TAB PO ONE (12:00)
[2016-04-07] MEDS ORDERED: SERTRALINE HCL 50 MG TAB PO SCH (12:15)
[2016-04-07] MEDS ORDERED: DEXAMETHASONE SOD PHOS 4 MG/ML VIAL IV PUSH ONE (12:15)
[2016-04-07] MEDS ORDERED: Vancomycin Consult Pharmacy 1 EA OTHER SCH (12:30)
[2016-04-07] MEDS ORDERED: MORPHINE SULFATE 15 MG CONTROLLED RELEASE TAB PO ONE (12:30)
--- NOTE | 2016-04-07 12:52 | HHI.FPPN ---
Subjective Remarks Patient seen, examined and discussed with Dr. Wale Arredondo. This is a 56-year-old male, known by Dr. Wale Arredondo from a previous hospitalization, who is here with decompensation due to his back pain from discitis, as well as deconditioning, pain with standing or sitting, inability to care for himself adequately at home. He was sent home from the hospital on IV vancomycin and was cared for by his son and brother initially. This worked out well for a period of time, but now he finds himself unable to prepare meals because he cannot stand long enough to do this. The son and brother work outside the home and are not as available to him as he had hoped. He gets around with a walker but is able to ambulate very far. He presented today because he feels his pain is no better, and he needs additional pain meds. He reports however that he has not followed up with his pain management doctor and the last pain medicines prescribed for him came from this hospital. He would like to go to a skilled rehabilitation facility. Please see history and physical examination for this admission for additional past, family and social history. This patient has a long history of substance abuse, including cocaine, heroin, marijuana, tobacco, but quit using alcohol in April 2015. Continues to smoke 2 packs a day and has smoked since the age of 15. Review of systems denies fevers but does have chills, no chest pain or shortness of breath, does have burning with urination but no problem with his bowels. He has weakness with ambulation. He cannot explain why his hands are covered with dirt. He does have pain in the lumbar region of his low back and also in the SI joint region with sitting or standing. All other systems negative except as reported. Objective Vitals Vital Signs Date Time Temp Pulse Resp B/P Pulse Ox O2 Delivery O2 Flow Rate FiO2 04/07/16 12:21 100 21 04/07/16 08:01 99.1 67 18 197/102 100 Room Air 04/07/16 08:01 65 18 04/07/16 07:48 99.1 74 18 192/122 99 Result Diagram: 04/07/16 0826 04/07/16 0826 Other Results Laboratory Tests Test 04/07/16 08:26 White Blood Count 5.3 TH/MM3 Red Blood Count 4.39 MIL/MM3 Hemoglobin 11.3 GM/DL Hematocrit 32.2 % Mean Corpuscular Volume 73.5 FL Mean Corpuscular Hemoglobin 25.8 PG Mean Corpuscular Hemoglobin 35.1 % Concent Red Cell Distribution Width 21.0 % Platelet Count 305 TH/MM3 Mean Platelet Volume 7.6 FL Neutrophils (%) (Auto) 69.6 % Lymphocytes (%) (Auto) 21.7 % Monocytes (%) (Auto) 6.0 % Eosinophils (%) (Auto) 2.3 % Basophils (%) (Auto) 0.4 % Neutrophils # (Auto) 3.7 TH/MM3 Lymphocytes # (Auto) 1.1 TH/MM3 Monocytes # (Auto) 0.3 TH/MM3 Eosinophils # (Auto) 0.1 TH/MM3 Basophils # (Auto) 0.0 TH/MM3 CBC Comment DIFF FINAL Differential Comment Sodium Level 140 MEQ/L Potassium Level 3.1 MEQ/L Chloride Level 108 MEQ/L Carbon Dioxide Level 25.5 MEQ/L Anion Gap 7 MEQ/L Blood Urea Nitrogen 15 MG/DL Creatinine 0.65 MG/DL Estimat Glomerular Filtration 127 ML/MIN Rate Random Glucose 107 MG/DL Calcium Level 8.7 MG/DL Imaging Last Impressions Lumbar Spine MRI 04/07/16 0000 Signed Impressions: Service Date/Time: March 09:31 - CONCLUSION: Progression of the findings at L3-4 discitis with persistent enhancement about the periphery of the residual disc and decreased intensity marrow enhancement in the L3 and L4 vertebral bodies. No evidence of spondylolisthesis. Significant reduction in size of bilateral psoas and left paraspinal abscess these. There is residual enhancing tissue in the anterior and right epidural space at L3-4 and extending in the right paraspinal region up to the mid right L2 level. Tomas Hallman MD Objective Remarks O. CONSTITUTIONAL/GEN: normally nourished, in NAD. Disheveled and with dirt encrusted hands and feet. EYES: conjunctiva normal, PERRLA, EOMI. ENT: Mouth and pharynx normal. NECK: thyroid midline, carotids symmetrical. No palpable lymphadenopathy LUNGS: clear A-P, respiratory effort is normal. CARDIOVASCULAR: RR without murmur or gallop. No significant edema. GI/ABD: soft without masses, without organomegaly. Nontender, active bowel sounds. NEURO: No focal deficits. SKIN: color normal, no rashes noted. HEME/LYMPH: no bruising, petechia or significant adenopathy MUSC: back is normal in appearance, but tenderness noted over the lumbar spine and in the paraspinous areas bilaterally. No skin change. Extremities are normal in appearance. PSYCH/MENTAL STATUS: Alert and oriented x 3. A/P Assessment and Plan 56-year-old male with a PMH significant for IV drug use, discitis/osteomyelitis who was admitted due to uncontrolled pain from his discitis Attending Attestation Patient seen and examined. Case reviewed and discussed with the resident team. Agree with plan of care as discussed with me and documented in the resident note. Problem List: (1) Lumbar discitis Status: Acute Plan: Recent admission on 02/12 for epidural abscess, discitis which was treated with Decadron, vancomycin, cefazolin. Was discharged with home health for continued treatment which he has received. Continues to have lower back pain. Worsening pain is likely not due to discitis but rather history of poorly controlled chronic pain which will need pain management as an outpatient. -Per ER discussion with neurosurgery, Dr. Walters suspects presentation is largely driven by chronic opiate dependence and does not believe that there is any neurosurgical intervention at this time. Additionally the findings of worsening discitis on imaging is not surprising as this often happens as of the disease process resolves. Suggested repeating blood cultures and giving Decadron -Lumbar MRI: Progression of the findings at L3/4 discitis with persistent enhancement about the periphery of the residual disc and decreased intensity marrow enhancement. Significant reduction in the size of bilateral psoas and left paraspinal abscesses. -UDS, UA ordered -Blood cultures pending ID consulted: Appreciate recommendations * Consulted to assist with appropriate continuation of antibiotics as an outpatient. Medications: * Decadron 4 mg 1 * Vancomycin 1.5mg q12 (continued from discharge medications at last visit) * Cefazolin 2 g q8 (continued from discharge medications at last visit) * Oramorph 30mg AM, 45mg HS. NOT TO BE INCREASED * Flexeril PRN * Gabapentin 600 mg BID (2) Illicit drug use Status: Chronic Plan: History of cocaine, crack, Xanax, heroin. Last reported use of IV drug use was 04/2015. Patient does admit to smoking crack and marijuana. (3) Depression Status: Acute Plan: Patient may benefit from an antidepressant however starting medication has been deferred at this time. Will need to review interaction of Flexeril and SSRIs/SNRI with attending and pharmacy. No suicidal ideation. (4) Physical deconditioning Status: Acute Plan: Physical therapy ordered. Will likely need rehabilitation at discharge. (5) Fluids, Electrolytes, and Nutrition Status: Acute Plan: Diet: Regular Fluids: None Electrolytes: Mild hypokalemia, replaced with KCl 30meq DVT prophylaxis: Lovenox GI prophylaxis: Protonix Carolina Cervantes MD Apr 07, 2016 12:52
[2016-04-07] MEDS: ENOXAPARIN SODIUM 40 MG/0.4 ML SYRINGE SQ SCH (13:27)
[2016-04-07] MEDS: clonazePAM 1 MG TAB PO SCH ×2 (13:28→18:37)
[2016-04-07] MEDS ORDERED: VANCOMYCIN INJ 1,500 MG in SODIUM CHLORID 0.9% 500 ML INJ 500 ML IV SCH (14:00)
[2016-04-07] MEDS: VANCOMYCIN INJ 1,500 MG in SODIUM CHLORID 0.9% 500 ML INJ 500 ML IV SCH ×2 (14:52→22:19)
[2016-04-07] MEDS: oxyCODONE/ACETAMINOPHEN 10 MG/325 MG TAB PO PRN ×2 (15:57→22:19)
[2016-04-07] MEDS ORDERED: ENALAPRILAT 1.25 MG/ML VIAL IV PRN (16:00)
[2016-04-07] MEDS ORDERED: hydrALAZINE HCL 10 MG TAB PO PRN (17:15)
[2016-04-07] MEDS: CYCLOBENZAPRINE HCL 10 MG TAB PO PRN (18:00)
[2016-04-07] MEDS: SODIUM CHLORIDE 0.9% FLUSH 5 ML FLUSH FLUSH SCH (20:01)
[2016-04-07] MEDS: MORPHINE SULFATE 15 MG CONTROLLED RELEASE TAB PO SCH (20:13)
[2016-04-07] MEDS: GABAPENTIN 300 MG CAP PO SCH (20:13)
[2016-04-07] MEDS: DOCUSATE SODIUM 50 MG/SENNA 8.6 MG TAB PO SCH (20:13)
[2016-04-07] MEDS: MORPHINE SULFATE 30 MG CONTROLLED RELEASE TAB PO SCH (20:13)
[2016-04-07] MEDS: DULoxetine HCl DR 20 MG CAP PO SCH (20:14)
[2016-04-07] MEDS ORDERED: PANTOPRAZOLE SOD 20 MG DELAYED RELEASE TAB PO SCH (21:00)
[2016-04-07] MEDS: RESP: ALBUTEROL 2.5 MG/IPRATROPIUM 0.5 MG NEB (SCH) INH (21:36)
[2016-04-08] VITALS (8 sets, daily range): BP systolic 146–180; BP diastolic 70–105; PULSE 66–80; RESP 18–20; TEMP 97.7–98.1; O2SAT 96–99
[2016-04-08] MEDS: oxyCODONE/ACETAMINOPHEN 10 MG/325 MG TAB PO PRN ×6 (03:19→23:21)
[2016-04-08] MEDS: CYCLOBENZAPRINE HCL 10 MG TAB PO PRN ×3 (03:19→19:09)
[2016-04-08] MEDS: RESP: ALBUTEROL 2.5 MG/IPRATROPIUM 0.5 MG NEB (SCH) INH ×4 (04:00→22:30)
[2016-04-08] MEDS: VANCOMYCIN INJ 1,500 MG in SODIUM CHLORID 0.9% 500 ML INJ 500 ML IV SCH (06:14)
[2016-04-08 07:05] LABS: AUTOMATED NEUTROPHIL # 6.7 TH/MM3 (1.8-7.7); BASOPHIL % 0.4 % (0.0-2.0); EOSINOPHIL % 0.5 % (0.0-4.0); HEMATOCRIT 30.6 % (39.0-51.0); HEMO FLAGS DIFF FINAL; LYMPH % 18.2 % (9.0-44.0); LYMPHOCYTE # 1.6 TH/MM3 (1.0-4.8); MEAN CELL VOLUME 74.5 FL (80.0-100.0); MEAN CORPUSCULAR HEMOGLOBIN 25.5 PG (27.0-34.0); MEAN CORPUSCULAR HGB CONC 34.2 % (32.0-36.0); MONO % 7.2 % (0.0-8.0); NEUT % 73.7 % (16.0-70.0); PLATELET COUNT 292 TH/MM3 (150-450); RED BLOOD COUNT 4.11 MIL/MM3 (4.50-5.90); RED CELL DISTRIBUTION WIDTH 20.3 % (11.6-17.2)
[2016-04-08 07:47] LABS: ALKALINE PHOSPHATASE 78 U/L (45-117); ALT (GPT) 9 U/L (12-78); ANION GAP 9 MEQ/L (5-15); AST (GOT) 7 U/L (15-37); BICARBONATE 23.8 MEQ/L (21.0-32.0); BLOOD UREA NITROGEN 18 MG/DL (7-18); CHLORIDE 105 MEQ/L (98-107); GLOMERULAR FILTRATION RATE 98 ML/MIN (>89); POTASSIUM 3.7 MEQ/L (3.5-5.1); SODIUM (NA) 138 MEQ/L (136-145); TOTAL BILIRUBIN ADULT 0.3 MG/DL (0.2-1.0)
[2016-04-08] MEDS: DULoxetine HCl DR 20 MG CAP PO SCH ×2 (08:45→20:34)
[2016-04-08] MEDS: MORPHINE SULFATE 30 MG CONTROLLED RELEASE TAB PO SCH ×2 (08:47→20:34)
[2016-04-08] MEDS: clonazePAM 1 MG TAB PO SCH ×3 (08:47→19:09)
[2016-04-08] MEDS: DOCUSATE SODIUM 50 MG/SENNA 8.6 MG TAB PO SCH ×2 (08:47→20:35)
[2016-04-08] MEDS: LISINOPRIL 20 MG TAB PO SCH (08:48)
[2016-04-08] MEDS: GABAPENTIN 300 MG CAP PO SCH ×2 (08:48→20:35)
[2016-04-08] MEDS: SODIUM CHLORIDE 0.9% FLUSH 5 ML FLUSH FLUSH SCH ×2 (09:00→20:34)
--- NOTE | 2016-04-08 12:17 | HHI.FPPN ---
Subjective Remarks Patient examined this morning by medical team. No acute events overnight. His blood pressure continues to be elevated overnight. He has been given all of his home blood pressure medications including 1 dose of hydralazine which he responded to appropriately. She continues to complain of lower back pain that radiates down bilateral lower extremities. Patient requests referral to orthopedic surgery for possible evaluation. Medical team thoroughly explained that his infection would need to be treated prior to any type of surgical intervention. We discussed his pain management and need for close follow up with pain management. He has no other new complaints and denies any chest pain, shortness breath, NVD, or calf tenderness. (Fan Carter MD R1) Objective Vitals Vital Signs Date Time Temp Pulse Resp B/P Pulse Ox O2 Delivery O2 Flow Rate FiO2 04/08/16 09:46 98 21 04/08/16 04:00 97.7 66 18 153/91 98 04/07/16 19:38 97.8 73 18 173/111 97 04/07/16 18:27 65 18 180/102 98 Room Air 04/07/16 17:15 18 04/07/16 17:14 73 18 172/100 99 Room Air 04/07/16 16:07 67 18 186/110 98 Room Air 04/07/16 12:21 100 21 I/O 04/07/16 04/07/16 04/07/16 04/08/16 04/08/16 04/08/16 07:00 15:00 23:00 07:00 15:00 23:00 Intake Total 480 ml Output Total 600 ml Balance -120 ml Intake Oral 480 ml Output Urine Total 600 ml # Bowel Movements 0 (Fan Carter MD R1) Result Diagram: 04/08/16 0640 04/08/16 0640 Objective Remarks GEN: Normally nourished, in NAD. EYES: Conjunctiva normal, PERRLA, EOMI. ENT: Mouth and pharynx normal. Poor dentition noted. NECK: Thyroid midline, carotids symmetrical. No palpable lymphadenopathy. LUNGS: Clear to auscultation bilaterally with no CRW. Occurs work of breathing. CARDIOVASCULAR: Coronary regular rate and rhythm with no MGR. GI/ABD: Soft without masses, without organomegaly. Nontender, active bowel sounds. NEURO: No focal deficits. SKIN: Color normal, no rashes noted. HEME/LYMPH: No bruising, petechia or significant adenopathy MUSC: Back is normal in appearance, but tenderness noted over the lumbar spine and in the paraspinous areas bilaterally. No skin change. Extremities are normal in appearance. PSYCH/MENTAL STATUS: Alert and oriented x 3. (Fan Carter MD R1) A/P Assessment and Plan 56-year-old male with a PMH significant for IV drug use, discitis/osteomyelitis who was admitted due to uncontrolled pain from his discitis Discharge Planning Pending appropriate approval for rehab placement, likely 2-3 more days. Discussed with Dr. Cervantes, Dr. Mack, and Dr. Arredondo (Fan Carter MD R1) Attending Attestation Patient seen and examined. Case reviewed and discussed with the resident team. Agree with plan of care as discussed with me and documented in the resident note. (Carolina Cervantes MD) Problem List: (1) Lumbar discitis Status: Acute Plan: Recent admission on 02/12 for epidural abscess, discitis which was treated with Decadron, vancomycin, cefazolin. Was discharged with home health for continued treatment which he has received. Continues to have lower back pain. Worsening pain is likely not due to discitis but rather history of poorly controlled chronic pain which will need pain management as an outpatient. -Per ER discussion with neurosurgery, Dr. Walters suspects presentation is largely driven by chronic opiate dependence and does not believe that there is any neurosurgical intervention at this time. Additionally the findings of worsening discitis on imaging is not surprising as this often happens as of the disease process resolves. Suggested repeating blood cultures and giving Decadron -Lumbar MRI: Progression of the findings at L3/4 discitis with persistent enhancement about the periphery of the residual disc and decreased intensity marrow enhancement. Significant reduction in the size of bilateral psoas and left paraspinal abscesses. -UDS, UA not obtained -Blood cultures: NTD (day 1) ID consulted: Appreciate recommendations * Consulted to assist with appropriate continuation of antibiotics as an outpatient. Medications: * Decadron 4 mg 1 * Vancomycin 1.5mg q12 (continued from discharge medications at last visit) * Cefazolin 2 g q8 (continued from discharge medications at last visit) * Oramorph 30mg AM, 45mg HS. NOT TO BE INCREASED * Flexeril PRN * Gabapentin 600 mg BID (2) Illicit drug use Status: Chronic Plan: History of cocaine, crack, Xanax, and heroin. Last reported use of IV drug use was 04/2015. (3) Depression Status: Acute Plan: Patient may benefit from an antidepressant however starting medication has been deferred at this time. No suicidal ideation. Discussed with patient benefit of antidepressant, however he refused stating that "he was not depressed. "Thoroughly explained benefits of antidepressant for chronic pain and all questions were answered. Continue home dose clonazepam 1 mg 3 times a day (4) Physical deconditioning Status: Acute Plan: Physical therapy ordered. Will likely need rehabilitation at discharge. Case management consult to assist with rehabilitation placement, appreciate assistance (5) HTN (hypertension) Status: Chronic Plan: Patient with history of hypertension Blood pressure: 153/92-197/102 over the last 24 hours Increased home dose lisinopril to 20 mg daily Hydralazine 10 mg every 8 hours when necessary for systolic blood pressure greater than 180 or diastolic blood pressure greater than 110 (6) Fluids, Electrolytes, and Nutrition Status: Acute Plan: Diet: Regular Fluids: None Electrolytes: Mild hypokalemia, replaced with KCl 30meq DVT prophylaxis: Lovenox GI prophylaxis: Protonix (Fan Carter MD R1) Fan Carter MD R1 Apr 08, 2016 12:17 Carolina Cervantes MD Apr 08, 2016 13:37
[2016-04-08] MEDS ORDERED: PHARMACY ORDERED LAB XX ONE (13:45)
[2016-04-08] MEDS: ENOXAPARIN SODIUM 40 MG/0.4 ML SYRINGE SQ SCH (13:46)
--- NOTE | 2016-04-08 16:45 | PD.ID.CON ---
History of Present Illness Service ID Consult Requested By Dr Wale Arredondo Reason for Consult epidural abscess Primary Care Physician Non-Staff Diagnoses: History of Present Illness Patient is a 56-year-old male known to me Pt is with a PMH significant for IV drug use, discitis/osteomyelitis L3-4 recurrent/unresolving previously MSSA , then coag negative staph sp CT guided drainage, clx P, and IV abx Patient reports that he presented this time due to worsening of lower back pain that radiates down bilateral legs down to his feet. He continues to be concerned about his right hand fingers which has extensor tendon rupture suspected to be due to inflammatory arthritis/osteomyelitis but treatment was deferred until after resolution of discitis. His MRI showed progression of the findings at L3-4 discitis with persistent enhancement about the periphery of the residual disc and decreased intensity marrow enhancement in the L3 and L4 vertebral bodies, significant reduction in size of bilateral psoas and left paraspinal abscess these and residual enhancing tissue in the anterior and right epidural space at L3-4 and extending in the right paraspinal region up to the mid right L2 level He grew out coag negative staph and is on vancomcyin and cefazoline as o/p, both were scheduled to be completed on Apr 06 pt reports worsening of LLE weakness Review of Systems Except as stated in HPI: all other systems reviewed are Neg Past Family Social History Allergies: Coded Allergies: *MDRO Multi-Drug Resistant Organism (Verified Adverse Reaction, Unknown, ) MRSA (buttock) - 2002 Past Medical History Anxiety Depression Hepatitis C HTN Tobacco abuse Illicit drug abuse COPD Recent bacteremia/osteomyelitis/discitis Past Surgical History Appendectomy IR drainage of abscess 02/13/16 Bilateral ACL repairs discectomy of lower back Active Ordered Medications Medications where reviewed in EMR Antibiotics Include: cefazoluin vancomycin Family History Mother: HTN Father: CAD, carotid disease, alcoholism, HTN Social History Lives with brother and son. Tobacco: 2ppd since 15yo Alcohol: quit 5yrs, denies any history of withdrawal or seizures Illicit: Smokes marijuana, 1 joint daily since 13yo. Reports last use of IV drugs was April 2015 which was heroin. Does smoke crack currently. Previous use of cocaine and Xanax. Physical Exam Vital Signs Vital Signs Date Time Temp Pulse Resp B/P Pulse Ox O2 Delivery O2 Flow Rate FiO2 04/08/16 09:46 98 21 04/08/16 04:00 97.7 66 18 153/91 98 04/07/16 19:38 97.8 73 18 173/111 97 04/07/16 18:27 65 18 180/102 98 Room Air 04/07/16 17:15 18 04/07/16 17:14 73 18 172/100 99 Room Air Physical Exam CONSTITUTIONAL/GENERAL: This is an adequately nourished patient, in no apparent distress. TUBES/LINES/DRAINS: SKIN: No jaundice, rashes, or lesions. Skin temperature appropriate. Not diaphoretic. HEAD: Atraumatic. Normocephalic. EYES: Pupils equal and round and reactive. Extraocular motions intact. No scleral icterus. No injection or drainage. Fundi not examined. ENT: Hearing grossly normal. Nose without bleeding or purulent drainage. Oral mucosae without visible erythema, exudates, masses, or lesions. NECK: Trachea midline. Supple, nontender. CARDIOVASCULAR: Regular rate and rhythm without murmurs, gallops, or rubs. No JVD. Peripheral pulses symmetric. RESPIRATORY/CHEST: Symmetric, unlabored respirations. Clear to auscultation. Breath sounds equal bilaterally. No wheezes, rales, or rhonchi. GASTROINTESTINAL: Abdomen soft, non-tender, nondistended. No hepato-splenomegaly , or palpable masses. No guarding. Bowel sounds present. GENITOURINARY: Without palpable bladder distension. MUSCULOSKELETAL: Extremities without clubbing, cyanosis, or edema. No joint tenderness or effusion noted. No calf tenderness. No mottling or clubbing. R forearm with mass like lesion on the ulnar distal aspect of forearm, contartures of digits 3-5 present no edema, no erythema, no fluctuancy BACK: no skin changes or tenderness to plpaation to the back LYMPHATICS: No palpable cervical or supraclavicular adenopathy. NEUROLOGICAL: Awake alert Motor in BLE decreased to 3/5. Follows commands. Speech normal . Moves all extremities. PSYCHIATRIC: No obvious anxiety/depression. no apparent hallucinations or other psychotic thought process. Laboratory Laboratory Tests Test 04/08/16 04/08/16 06:40 13:50 White Blood Count 9.0 Red Blood Count 4.11 Hemoglobin 10.5 Hematocrit 30.6 Mean Corpuscular Volume 74.5 Mean Corpuscular Hemoglobin 25.5 Mean Corpuscular Hemoglobin 34.2 Concent Red Cell Distribution Width 20.3 Platelet Count 292 Mean Platelet Volume 8.0 Neutrophils (%) (Auto) 73.7 Lymphocytes (%) (Auto) 18.2 Monocytes (%) (Auto) 7.2 Eosinophils (%) (Auto) 0.5 Basophils (%) (Auto) 0.4 Neutrophils # (Auto) 6.7 Lymphocytes # (Auto) 1.6 Monocytes # (Auto) 0.7 Eosinophils # (Auto) 0.0 Basophils # (Auto) 0.0 CBC Comment DIFF FINAL Differential Comment Sodium Level 138 Potassium Level 3.7 Chloride Level 105 Carbon Dioxide Level 23.8 Anion Gap 9 Blood Urea Nitrogen 18 Creatinine 0.81 Estimat Glomerular Filtration 98 Rate Random Glucose 116 Calcium Level 8.4 Total Bilirubin 0.3 Aspartate Amino Transf 7 (AST/SGOT) Alanine Aminotransferase 9 (ALT/SGPT) Alkaline Phosphatase 78 Total Protein 6.6 Albumin 3.1 Vancomycin Level Trough 33.1 Date/Time Procedure Status Source Growth 04/07/16 11:15 Aerobic Blood Culture - Preliminary Resulted Blood Peripheral NO GROWTH IN 1 DAY 04/07/16 11:15 Anaerobic Blood Culture - Preliminary Resulted Blood Peripheral NO GROWTH IN 1 DAY Result Diagram: 04/08/16 0640 04/08/16 0640 Imaging Last Impressions Lumbar Spine MRI 04/07/16 0000 Signed Impressions: Service Date/Time: March 09:31 - CONCLUSION: Progression of the findings at L3-4 discitis with persistent enhancement about the periphery of the residual disc and decreased intensity marrow enhancement in the L3 and L4 vertebral bodies. No evidence of spondylolisthesis. Significant reduction in size of bilateral psoas and left paraspinal abscess these. There is residual enhancing tissue in the anterior and right epidural space at L3-4 and extending in the right paraspinal region up to the mid right L2 level. Tomas Hallman MD Assessment and Plan Assessment and Plan L3-4 diskitis , osteo, recurrent/unresolving previously MSSA bacteremia and h/ o recent tx with cefazoline - growing coag negative staph x 2 morphologies ? significance - previouslky MSSA - case dw Dr Bansal: see saw pt 2 wks ago; she is back on service on Monday and can see him again - sp CT guided drainage, clx P, R distal radius/ulnar osteomyelitis initially suspected; evaluated by Dr Iniguez: inflammatory arthritis with subsequent bursa rupture, recommend delay of tx untill after diskitis t ccompleted T spine inflammatory or demyelinating process - neurosurgery ff - cont vanco - cont cefazoline - rechk ESR - will ask Dr Bansal to see pt on Monday - reconsult Dr Iniguez Discussed Condition With Mary Haile MD Apr 08, 2016 16:45
[2016-04-08] MEDS: ONDANSETRON HCL 4 MG/2 ML VIAL IVP PRN (19:14)
[2016-04-08] MEDS: MORPHINE SULFATE 15 MG CONTROLLED RELEASE TAB PO SCH (20:34)
[2016-04-09] MEDS: ONDANSETRON HCL 4 MG/2 ML VIAL IVP PRN (00:31)
[2016-04-09] MEDS: CYCLOBENZAPRINE HCL 10 MG TAB PO PRN ×3 (03:20→22:04)
[2016-04-09] MEDS: oxyCODONE/ACETAMINOPHEN 10 MG/325 MG TAB PO PRN ×5 (03:21→22:04)
[2016-04-09] MEDS: RESP: ALBUTEROL 2.5 MG/IPRATROPIUM 0.5 MG NEB (SCH) INH ×4 (04:41→21:57)
[2016-04-09 05:17] VITALS: BP 158/100; PULSE 72; RESP 18; TEMP 97.9; O2SAT 98
[2016-04-09 06:53] LABS: HEMATOCRIT 28.7 % (39.0-51.0); MEAN CORPUSCULAR HEMOGLOBIN 25.7 PG (27.0-34.0); MEAN CORPUSCULAR HGB CONC 33.8 % (32.0-36.0); PLATELET COUNT 230 TH/MM3 (150-450); RED BLOOD COUNT 3.77 MIL/MM3 (4.50-5.90); RED CELL DISTRIBUTION WIDTH 20.5 % (11.6-17.2); REVIEW FLAG FINAL; WHITE BLOOD COUNT 6.3 TH/MM3 (4.0-11.0)
[2016-04-09 07:02] LABS: BICARBONATE 25.6 MEQ/L (21.0-32.0); POTASSIUM 3.8 MEQ/L (3.5-5.1)
[2016-04-09 08:00] VITALS: BP 159/95; PULSE 75; RESP 20; TEMP 97.7; O2SAT 97
[2016-04-09 09:17] VITALS: O2SAT 97
[2016-04-09] MEDS: clonazePAM 1 MG TAB PO SCH ×3 (10:15→17:54)
[2016-04-09] MEDS: LISINOPRIL 20 MG TAB PO SCH (10:15)
[2016-04-09] MEDS: GABAPENTIN 300 MG CAP PO SCH ×2 (10:15→20:55)
[2016-04-09] MEDS: DOCUSATE SODIUM 50 MG/SENNA 8.6 MG TAB PO SCH ×2 (10:15→20:55)
[2016-04-09] MEDS: MORPHINE SULFATE 30 MG CONTROLLED RELEASE TAB PO SCH ×2 (10:16→20:56)
[2016-04-09] MEDS: SODIUM CHLORIDE 0.9% FLUSH 5 ML FLUSH FLUSH SCH ×2 (10:16→20:57)
[2016-04-09] MEDS: DULoxetine HCl DR 20 MG CAP PO SCH (10:16)
--- NOTE | 2016-04-09 11:20 | HHI.FPPN ---
Subjective Remarks No acute events overnight. Vital signs continue show elevated BP but has improved since admission. This morning reports that he is doing well but continues to have chronic pain. Refuses to take duloxetine. (Susana Wilson MD R2) Objective Vitals Vital Signs Date Time Temp Pulse Resp B/P Pulse Ox O2 Delivery O2 Flow Rate FiO2 04/09/16 09:17 97 21 04/09/16 08:00 97.7 75 20 159/95 97 04/09/16 05:17 97.9 72 18 158/100 98 04/08/16 23:56 98.1 80 18 146/70 96 04/08/16 20:22 97.7 78 20 176/90 97 04/08/16 20:00 77 04/08/16 16:00 97.8 73 20 171/101 96 04/08/16 12:00 97.7 77 20 159/99 97 I/O 04/08/16 04/08/16 04/08/16 04/09/16 04/09/16 04/09/16 07:00 15:00 23:00 07:00 15:00 23:00 Intake Total 480 ml 960 ml Output Total 600 ml 2000 ml 300 ml 700 ml Balance -120 ml -1040 ml -300 ml -700 ml Intake Oral 480 ml 960 ml Output Urine Total 600 ml 2000 ml 300 ml 700 ml Stool Total 0 ml # Bowel Movements 0 0 (Susana Wilson MD R2) Result Diagram: 04/09/16 0604 04/09/16 0604 Objective Remarks GEN: Well-developed, well-nourished patient. No acute distress. Resting comfortably in bed with his legs propped up. CV: Regular rate and rhythm without obvious murmurs LUNGS: Clear to auscultation bilaterally. Normal respiratory effort. No wheezes , rales, rhonchi. GI: Soft, nontender, nondistended. No palpable masses. EXT: No edema. No calf tenderness. NEURO/PSYCH: Awake, alert. Appropriate insight and judgment. Normal speech ( Susana Wilson MD R2) A/P Assessment and Plan 56-year-old male with a PMH significant for IV drug use, discitis/osteomyelitis who was admitted due to uncontrolled pain from his discitis Discharge Planning Unclear at this time, pending results of blood cultures. Discussed with Dr. Drake (Susana Wilson MD R2) Attending Attestation Patient seen and examined. Case reviewed and discussed with the resident team. Agree with plan of care as discussed with me and documented in the resident note. he has many chronic problems but reports recent exacerbation (Sherrell Drake MD) Problem List: (1) Lumbar discitis Status: Acute Plan: Recent admission on 02/12 for epidural abscess, discitis which was treated with Decadron, vancomycin, cefazolin. Was discharged with home health for continued treatment which he has received. Continues to have lower back pain. Worsening pain is likely not due to discitis but rather history of poorly controlled chronic pain which will need pain management as an outpatient. -Repeat ESR unremarkable -Reordered UA 04/09 -Blood cultures: Yeast and pleomorphic gram-positive rods -Draw repeat blood cultures 04/10 -Lumbar MRI: Progression of the findings at L3/4 discitis with persistent enhancement about the periphery of the residual disc and decreased intensity marrow enhancement. Significant reduction in the size of bilateral psoas and left paraspinal abscesses. ID consulted: Appreciate recommendations * Continue vancomycin and cefazolin * Will ask Dr. Bansal to see pt on Monday * reconsult Dr. Iniguez Medications: * Diflucan 200mg IV daily (04/09- * Vancomycin (04/08- * Cefazolin (04/08- * Oramorph 30mg AM, 45mg HS. NOT TO BE INCREASED * Flexeril PRN * Gabapentin 600 mg BID (2) Bacteremia Status: Acute Plan: See plan above (3) HTN (hypertension) Status: Chronic Plan: Patient with history of hypertension. Blood pressure continues to improve. -Increased lisinopril to 40 mg daily Hydralazine 10 mg every 8 hours when necessary for systolic blood pressure greater than 180 or diastolic blood pressure greater than 110 (4) Physical deconditioning Status: Acute Plan: Physical therapy ordered. Will need rehabilitation at discharge. Case management consult to assist with rehabilitation placement, appreciate assistance (5) Fluids, Electrolytes, and Nutrition Status: Acute Plan: Diet: Regular Fluids: None Electrolytes: Unremarkable, continue to monitor DVT prophylaxis: Lovenox GI prophylaxis: Protonix Chronic conditions: * Illicit drug use but reports last IV drug use was 04/2015 * Depression: Refuses to take antidepressant. Denies suicidal ideation (Susana Wilson MD R2) Problem Qualifiers (1) HTN (hypertension): Qualified Code: I10 - Essential hypertension Susana Wilson MD R2 Apr 09, 2016 11:20 Sherrell Drake MD Apr 10, 2016 14:04
[2016-04-09] MEDS ORDERED: LISINOPRIL 20 MG TAB PO ONE (11:30)
[2016-04-09 12:00] VITALS: BP 143/85; PULSE 84; RESP 20; TEMP 98; O2SAT 96
[2016-04-09] MEDS: ENOXAPARIN SODIUM 40 MG/0.4 ML SYRINGE SQ SCH (13:10)
[2016-04-09] MEDS: VANCOMYCIN INJ 1,250 MG in SODIUM CHLOR 0.9% 250 ML INJ 250 ML IV SCH ×2 (13:12→23:39)
[2016-04-09] MEDS: FLUCONAZOLE 200 MG PREMIX BAG 100 ML IV SCH (15:31)
[2016-04-09 16:00] VITALS: BP 140/83; PULSE 85; RESP 20; TEMP 97.5; O2SAT 95
[2016-04-09] MEDS: MICAFUNGIN INJ 150 MG in SODIUM CHLORIDE 0.9% INJ 100 ML IV SCH (17:53)
--- NOTE | 2016-04-09 17:56 | HHI.IDPN ---
Subjective Subjective Remarks pt co not feeling well Growing Yeast in 03/17 blood clx denies any problems with PICC Antibiotics cefazolin vancomycin Past Medical History IVDU Allergies: Coded Allergies: *MDRO Multi-Drug Resistant Organism (Verified Adverse Reaction, Unknown, ) MRSA (buttock) - 2002 Objective . Vital Signs Date Time Temp Pulse Resp B/P Pulse Ox O2 Delivery O2 Flow Rate FiO2 04/09/16 16:00 97.5 85 20 140/83 95 04/09/16 12:00 98.0 84 20 143/85 96 04/09/16 09:17 97 21 04/09/16 08:00 97.7 75 20 159/95 97 04/09/16 05:17 97.9 72 18 158/100 98 04/08/16 23:56 98.1 80 18 146/70 96 04/08/16 20:22 97.7 78 20 176/90 97 04/08/16 20:00 77 04/08/16 04/08/16 04/09/16 15:00 23:00 07:00 Intake Total 960 ml Output Total 2000 ml 300 ml 700 ml Balance -1040 ml -300 ml -700 ml Intake Oral 960 ml Output Urine Total 2000 ml 300 ml 700 ml Stool Total 0 ml # Bowel Movements 0 . Laboratory Tests Test 04/08/16 04/09/16 06:40 06:04 White Blood Count 9.0 TH/MM3 6.3 TH/MM3 Red Blood Count 4.11 MIL/MM3 3.77 MIL/MM3 Hemoglobin 10.5 GM/DL 9.7 GM/DL Hematocrit 30.6 % 28.7 % Mean Corpuscular Volume 74.5 FL 76.0 FL Mean Corpuscular Hemoglobin 25.5 PG 25.7 PG Mean Corpuscular Hemoglobin 34.2 % 33.8 % Concent Red Cell Distribution Width 20.3 % 20.5 % Platelet Count 292 TH/MM3 230 TH/MM3 Mean Platelet Volume 8.0 FL 8.2 FL Neutrophils (%) (Auto) 73.7 % Lymphocytes (%) (Auto) 18.2 % Monocytes (%) (Auto) 7.2 % Eosinophils (%) (Auto) 0.5 % Basophils (%) (Auto) 0.4 % Neutrophils # (Auto) 6.7 TH/MM3 Lymphocytes # (Auto) 1.6 TH/MM3 Monocytes # (Auto) 0.7 TH/MM3 Eosinophils # (Auto) 0.0 TH/MM3 Basophils # (Auto) 0.0 TH/MM3 CBC Comment DIFF FINAL Differential Comment Erythrocyte Sedimentation Rate 16 mm/hr Laboratory Tests Test 04/08/16 04/09/16 06:40 06:04 Sodium Level 138 MEQ/L 142 MEQ/L Potassium Level 3.7 MEQ/L 3.8 MEQ/L Chloride Level 105 MEQ/L 108 MEQ/L Carbon Dioxide Level 23.8 MEQ/L 25.6 MEQ/L Anion Gap 9 MEQ/L 8 MEQ/L Blood Urea Nitrogen 18 MG/DL 15 MG/DL Creatinine 0.81 MG/DL 0.93 MG/DL Estimat Glomerular Filtration 98 ML/MIN 84 ML/MIN Rate Random Glucose 116 MG/DL 103 MG/DL Calcium Level 8.4 MG/DL 8.2 MG/DL Total Bilirubin 0.3 MG/DL Aspartate Amino Transf 7 U/L (AST/SGOT) Alanine Aminotransferase 9 U/L (ALT/SGPT) Alkaline Phosphatase 78 U/L Total Protein 6.6 GM/DL Albumin 3.1 GM/DL Microbiology Date/Time Procedure Status Source Growth 04/07/16 11:10 Aerobic Blood Culture - Preliminary Resulted Blood Line Yeast-Id To Follow 04/07/16 11:10 Anaerobic Blood Culture - Preliminary Resulted Blood Line NO GROWTH IN 2 DAYS 04/07/16 11:15 Aerobic Blood Culture - Preliminary Resulted Blood Peripheral Yeast-Id To Follow Pleomorphic Gram Positive Rods 04/07/16 11:15 Anaerobic Blood Culture - Preliminary Resulted Blood Peripheral NO GROWTH IN 2 DAYS Imaging Last Impressions Lumbar Spine MRI 04/07/16 0000 Signed Impressions: Service Date/Time: March 09:31 - CONCLUSION: Progression of the findings at L3-4 discitis with persistent enhancement about the periphery of the residual disc and decreased intensity marrow enhancement in the L3 and L4 vertebral bodies. No evidence of spondylolisthesis. Significant reduction in size of bilateral psoas and left paraspinal abscess these. There is residual enhancing tissue in the anterior and right epidural space at L3-4 and extending in the right paraspinal region up to the mid right L2 level. Tomas Hallman MD Physical Exam CONSTITUTIONAL/GENERAL: This is an adequately nourished patient, in no apparent distress. TUBES/LINES/DRAINS: LUE PICC in place - site looks OK SKIN: No jaundice, rashes, or lesions. Skin temperature appropriate. Not diaphoretic. HEAD: Atraumatic. Normocephalic. EYES: Pupils equal and round and reactive. Extraocular motions intact. No scleral icterus. No injection or drainage. Fundi not examined. ENT: Hearing grossly normal. Nose without bleeding or purulent drainage. Oral mucosae without visible erythema, exudates, masses, or lesions. NECK: Trachea midline. Supple, nontender. CARDIOVASCULAR: Regular rate and rhythm without murmurs, gallops, or rubs. No JVD. Peripheral pulses symmetric. RESPIRATORY/CHEST: Symmetric, unlabored respirations. Clear to auscultation. Breath sounds equal bilaterally. No wheezes, rales, or rhonchi. GASTROINTESTINAL: Abdomen soft, non-tender, nondistended. No hepato-splenomegaly , or palpable masses. No guarding. Bowel sounds present. GENITOURINARY: Without palpable bladder distension. MUSCULOSKELETAL: Extremities without clubbing, cyanosis, or edema. No joint tenderness or effusion noted. No calf tenderness. No mottling or clubbing. R forearm with mass like lesion on the ulnar distal aspect of forearm, contartures of digits 3-5 present no edema, no erythema, no fluctuancy BACK: no skin changes or tenderness to plpaation to the back LYMPHATICS: No palpable cervical or supraclavicular adenopathy. NEUROLOGICAL: Awake alert Motor in BLE decreased to 3/5. Follows commands. Speech normal . Moves all extremities. PSYCHIATRIC: No obvious anxiety/depression. no apparent hallucinations or other psychotic thought process. Assessment & Plan Remarks L3-4 diskitis , osteo, recurrent/unresolving previously MSSA bacteremia and h/ o recent tx with cefazoline - growing coag negative staph x 2 morphologies ? significance - previouslky MSSA - case dw Dr Bansal: see saw pt 2 wks ago; she is back on service on Monday and can see him again - sp CT guided drainage, clx P, R distal radius/ulnar osteomyelitis initially suspected; evaluated by Dr Iniguez: inflammatory arthritis with subsequent bursa rupture, recommend delay of tx untill after diskitis t ccompleted T spine inflammatory or demyelinating process - neurosurgery ff New issue: fungemia - source ? PICC vs epidural abscess - cont vanco - cont cefazoline - startt micafungin - remove PICC line - repeat blood clx - chk 2 D echo - will need ophthalmology consult - CT guided aspiration if OK with neurosurgeon - rechk ESR - will ask Dr Bansal to see pt on Monday - reconsult Dr Hira pacheco RN @ b/s rec'd to obtain periferal access and then remove the picc Mary Michele MD Apr 09, 2016 17:56
[2016-04-09 20:00] VITALS: BP 160/95; PULSE 87; RESP 16; TEMP 98.3; O2SAT 97
[2016-04-09] MEDS: MORPHINE SULFATE 15 MG CONTROLLED RELEASE TAB PO SCH (20:56)
--- NOTE | 2016-04-09 21:07 | PD.ORT.PN ---
Subjective Subjective Remarks Please see consult note from 02/16/16. Nothing to do from a hand standpoint surgically until infection cleared. Objective Vitals Vital Signs Date Time Temp Pulse Resp B/P Pulse Ox O2 Delivery O2 Flow Rate FiO2 04/09/16 16:00 97.5 85 20 140/83 95 04/09/16 12:00 98.0 84 20 143/85 96 04/09/16 09:17 97 21 04/09/16 08:00 97.7 75 20 159/95 97 04/09/16 05:17 97.9 72 18 158/100 98 04/08/16 23:56 98.1 80 18 146/70 96 I/O 04/08/16 04/08/16 04/08/16 04/09/16 04/09/16 04/09/16 07:00 15:00 23:00 07:00 15:00 23:00 Intake Total 480 ml 960 ml 1000 ml 370 ml Output Total 600 ml 2000 ml 300 ml 700 ml 1200 ml Balance -120 ml -1040 ml -300 ml -700 ml -200 ml 370 ml Intake Oral 480 ml 960 ml 1000 ml IV Total 370 ml Output Urine Total 600 ml 2000 ml 300 ml 700 ml 1200 ml Stool Total 0 ml # Bowel Movements 0 0 Result Diagram: 04/09/16 0604 04/09/16 0604 Assessment & Plan Assessment and Plan Please see consult note from 02/16/16. Nothing to do from a hand standpoint surgically until back infection cleared. Patient may followup as outpatient. Ok to discharge from hand surgery standpoint. Alessandra Iniguez MD Apr 09, 2016 21:07
--- NOTE | 2016-04-09 22:02 | PD.CONS ---
[facility] Service neurosurgery Consult Requested By dr aj Reason for Consult discitis Primary Care Physician Non-Staff History of Present Illness This is a 56-year-old male with history of IV drug use, discitis/osteomyelitis who was admitted due to severe pain from his discitis. Patient was admitted on 02/12 and discharged on 02/26 for epidural abscess and discitis. IR drainage of abscess on 02/12. He received Decadron as well as vancomycin and cefazolin that was to be continued as an outpatient for prolonged antibiotic course which he has continued receiving. He has been evaluated by Dr Walters, from neurosurgery He presented today with worsening of lower back pain that radiates down bilateral legs down to his feet. He continues to be concerned about his right hand fingers which has extensor tendon rupture suspected to be due to inflammatory arthritis/osteomyelitis. He has been taking oral morphine 60mg BID. He reports chills which he says have been present for quite some time but denies any fevers, nausea/vomiting, abdominal pain, diarrhea. Reports chronic constipation from pain medications. He is also concerned about being taking care of at home. He lives with his brother and son which have not been very helpful. Has difficulty ambulating and reports frequent falls. Neurosurgery consultation was requested Physical Exam Vital Signs Vital Signs Date Time Temp Pulse Resp B/P Pulse Ox O2 Delivery O2 Flow Rate FiO2 04/07/16 08:01 99.1 67 18 197/102 100 Room Air 04/07/16 08:01 65 18 04/07/16 07:48 99.1 74 18 192/122 99 Physical Exam GENERAL: Laying in bed in no acute distress. Poor oral hygiene as hair is disheveled in hands are very dirty. SKIN: No rashes, ecchymoses or lesions. Cool and dry. EYES: Pupils equal round and reactive. Extraocular motions intact. No scleral icterus. No injection or drainage. ENT: Nose without bleeding, purulent drainage. Throat without erythema, tonsillar hypertrophy or exudate. Uvula midline. Airway patent. NECK: No JVD or lymphadenopathy. CARDIOVASCULAR: Regular rate and rhythm without murmurs, gallops, or rubs. RESPIRATORY: Clear to auscultation. Breath sounds equal bilaterally. No wheezes , rales, or rhonchi. GASTROINTESTINAL: Abdomen soft, non-tender, nondistended. No hepato-splenomegaly , or palpable masses. No guarding. MUSCULOSKELETAL: Extremities without clubbing, cyanosis, or edema. No calf tenderness. NEUROLOGICAL: Awake and alert. Normal speech. Moves all extremities except for fourth and fifth finger on right hand which stays in a flexed position passively. Can be passively extended without issues. Laboratory Laboratory Tests Test 04/07/16 08:26 White Blood Count 5.3 Red Blood Count 4.39 Hemoglobin 11.3 Hematocrit 32.2 Mean Corpuscular Volume 73.5 Mean Corpuscular Hemoglobin 25.8 Mean Corpuscular Hemoglobin 35.1 Concent Red Cell Distribution Width 21.0 Platelet Count 305 Mean Platelet Volume 7.6 Neutrophils (%) (Auto) 69.6 Lymphocytes (%) (Auto) 21.7 Monocytes (%) (Auto) 6.0 Eosinophils (%) (Auto) 2.3 Basophils (%) (Auto) 0.4 Neutrophils # (Auto) 3.7 Lymphocytes # (Auto) 1.1 Monocytes # (Auto) 0.3 Eosinophils # (Auto) 0.1 Basophils # (Auto) 0.0 CBC Comment DIFF FINAL Differential Comment Sodium Level 140 Potassium Level 3.1 Chloride Level 108 Carbon Dioxide Level 25.5 Anion Gap 7 Blood Urea Nitrogen 15 Creatinine 0.65 Estimat Glomerular Filtration 127 Rate Random Glucose 107 Calcium Level 8.7 Result Diagram: 04/07/16 0826 04/07/16 0826 Imaging Last Impressions Lumbar Spine MRI 04/07/16 0000 Signed Impressions: Service Date/Time: March 09:31 - CONCLUSION: Progression of the findings at L3-4 discitis with persistent enhancement about the periphery of the residual disc and decreased intensity marrow enhancement in the L3 and L4 vertebral bodies. No evidence of spondylolisthesis. Significant reduction in size of bilateral psoas and left paraspinal abscess these. There is residual enhancing tissue in the anterior and right epidural space at L3-4 and extending in the right paraspinal region up to the mid right L2 level. Tomas Hallman MD Assessment and Plan Assessment and Plan 56-year-old male with a PMH significant for IV drug use, discitis/osteomyelitis who was admitted due to uncontrolled pain from his discitis Code Status Full Discussed Condition With Dr. Cervantes and Dr. Carter Problem List: (1) Lumbar discitis Status: Acute Plan: Recent admission on 02/12 for epidural abscess, discitis which was treated with Decadron, vancomycin, cefazolin. Was discharged with home health for continued treatment which he has received. Continues to have lower back pain. Worsening pain is likely not due to discitis but rather history of poorly controlled chronic pain which will need pain management as an outpatient. -Per ER discussion with neurosurgery, Dr. Walters suspects presentation is largely driven by chronic opiate dependence and does not believe that there is any neurosurgical intervention at this time. Additionally the findings of worsening discitis on imaging is not surprising as this often happens as of the disease process resolves. Suggested repeating blood cultures and giving Decadron -Lumbar MRI: Progression of the findings at L3/4 discitis with persistent enhancement about the periphery of the residual disc and decreased intensity marrow enhancement. Significant reduction in the size of bilateral psoas and left paraspinal abscesses. -UDS, UA ordered -Blood cultures pending ID consulted: Appreciate recommendations * Consulted to assist with appropriate continuation of antibiotics as an outpatient. Medications: * Decadron 4 mg 1 * Vancomycin 1.5mg q12 (continued from discharge medications at last visit) * Cefazolin 2 g q8 (continued from discharge medications at last visit) * Oramorph 30mg AM, 45mg HS. NOT TO BE INCREASED * Flexeril PRN * Gabapentin 600 mg BID (2) Illicit drug use Status: Chronic Plan: History of cocaine, crack, Xanax, heroin. Last reported use of IV drug use was 04/2015. Patient does admit to smoking crack and marijuana. (3) Depression Status: Acute Plan: Patient may benefit from an antidepressant however starting medication has been deferred at this time. Will need to review interaction of Flexeril and SSRIs/SNRI with attending and pharmacy. No suicidal ideation. (4) Physical deconditioning Status: Acute Plan: Physical therapy ordered. Will likely need rehabilitation at discharge. (5) Fluids, Electrolytes, and Nutrition Status: Acute Plan: Diet: Regular Fluids: None Electrolytes: Mild hypokalemia, replaced with KCl 30meq DVT prophylaxis: Lovenox GI prophylaxis: Protonix Review of Systems Constitutional: COMPLAINS OF: Chills, Change in appetite, DENIES: Fever Eyes: DENIES: Eye pain Ears, nose, mouth, throat: DENIES: Throat pain, Running Nose Respiratory: COMPLAINS OF: Shortness of breath, DENIES: Cough Cardiovascular: COMPLAINS OF: Dyspnea on Exertion, DENIES: Chest pain Gastrointestinal: COMPLAINS OF: Constipation, DENIES: Abdominal pain, Diarrhea , Nausea, Vomiting Genitourinary: COMPLAINS OF: Dysuria Musculoskeletal: COMPLAINS OF: Joint pain, Back pain Integumentary: DENIES: Rash Neurologic: COMPLAINS OF: Localized weakness (bilateral leg weakness on prolonged walking) Psychiatric: COMPLAINS OF: Depression, DENIES: Suicidal Ideation, Homicidal Ideation Past Family Social History Allergies: Coded Allergies: *MDRO Multi-Drug Resistant Organism (Verified Adverse Reaction, Unknown, ) MRSA (buttock) - 2002 Past Medical History Anxiety Depression Hepatitis C HTN Tobacco abuse Illicit drug abuse COPD Recent bacteremia/osteomyelitis/discitis Past Surgical History Appendectomy IR drainage of abscess 02/13/16 Bilateral ACL repairs discectomy Reported Medications Gabapentin 600 Mg Tab 600 Mg PO BID Roller Walker (Misc. Devices) 1 Mis Mis 1 Ea .ROUTE NOW Morphine ER (Morphine Sulfate) 15 Mg Tab 15 Mg PO HS Add to the 30mg Morphine dose at night for a total of 45mg Morphine ER (Morphine Sulfate) 30 Mg Tab 30 Mg PO BID Flexeril (Cyclobenzaprine HCl) 10 Mg Tab 10 Mg PO Q8H PRN Percocet (Oxycodone-Acetaminophen) 10-325 mg Tab 1 Tab PO Q4H PRN Vancomycin Inj (Vancomycin HCl) 1,000 Mg Inj 1,500 Mg IV Q12HR Omeprazole 20 Mg Tab 20 Mg PO BID Lisinopril 10 Mg Tab 10 Mg PO DAILY Klonopin (Clonazepam) 1 Mg Tab 1 Mg PO TID Active Ordered Medications Current Medications Hydromorphone HCl (Dilaudid Pf Inj) 1 mg ONCE ONCE IV PUSH Last administered on 04/07/16 08:21; Start 04/07/16 at 08:00; Stop 04/07/16 at 08:01; Status DC Lorazepam (Ativan Inj) 1 mg ONCE ONCE IV PUSH Last administered on 04/07/16 09:20; Start 04/07/16 at 09:15; Stop 04/07/16 at 09:16; Status DC Lorazepam (Ativan Inj) 2 mg STK-MED ONCE .ROUTE ; Start 04/07/16 at 09:17; Stop 04/07/16 at 09:18; Status DC Gadodiamide (Omniscan Pf Inj) 16 ml STK-MED ONCE IV Last administered on 09:52; Start 04/07/16 at 09:52; Stop 04/07/16 at 09:53; Status DC Hydromorphone HCl (Dilaudid Pf Inj) 1 mg ONCE ONCE IV PUSH Last administered on 04/07/16 11:19; Start 04/07/16 at 10:30; Stop 04/07/16 at 10:31; Status DC Potassium Chloride (KCl) 30 meq ONCE ONCE PO Last administered on 04/07/16 11 :19; Start 04/07/16 at 11:00; Stop 04/07/16 at 11:01; Status DC Clonazepam (KlonoPIN) 1 mg TID PO Last administered on 04/09/16 17:54; Start 04/07/16 at 13:00 Gabapentin (Neurontin) 600 mg BID PO Last administered on 04/09/16 20:55; Start 04/07/16 at 21:00 Lisinopril (Prinivil) 10 mg DAILY PO Last administered on 04/07/16 13:28; Start 04/07/16 at 12:00; Stop 04/08/16 at 06:34; Status DC Pantoprazole Sodium (Protonix) 20 mg BID PO ; Start 04/07/16 at 21:00; Stop at 21:00; Status DC IV Flush (NS Flush) 2 ml UNSCH PRN FLUSH FLUSH AFTER USING IV ACCESS; Start at 11:30 IV Flush (NS Flush) 2 ml BID FLUSH Last administered on 04/09/16 20:57; Start 04/07/16 at 21:00 Ondansetron HCl (Zofran Inj) 4 mg Q6H PRN IVP NAUSEA OR VOMITING Last administered on 04/09/16 00:31; Start 04/07/16 at 11:30 Enoxaparin Sodium (Lovenox Inj) 40 mg Q24H SQ Last administered on 04/09/16 13 :10; Start 04/07/16 at 12:00 Naloxone HCl (Narcan Inj) 0.4 mg UNSCH PRN IV SEE LABEL COMMENTS; Start at 11:30 Pantoprazole Sodium (Protonix) 40 mg ONCE ONCE PO Last administered on 13:28; Start 04/07/16 at 12:00; Stop 04/07/16 at 12:01; Status DC Cyclobenzaprine HCl (Flexeril) 10 mg Q8H PRN PO SPASM Last administered on 04/09 13:10; Start 04/07/16 at 11:45 Morphine Sulfate (Oramorph Sr) 15 mg HS PO Last administered on 04/09/16 20:56 ; Start 04/07/16 at 21:00 Morphine Sulfate (Oramorph Sr) 30 mg BID PO Last administered on 04/09/16 20: 56; Start 04/07/16 at 21:00 Morphine Sulfate 15 mg 15 mg ONCE ONCE PO Last administered on 04/07/16 14:06 ; Start 04/07/16 at 12:30; Stop 04/07/16 at 12:31; Status DC Vancomycin HCl 1500 mg/Sodium Chloride 515 ml @ 257.5 mls/ hr Q12H IV ; Start 04/07/16 at 14:00; Stop 04/07/16 at 14:00; Status DC Cefazolin Sodium/ Sodium Chloride (Ancef Inj/NS Inj) 100 ml @ 200 mls/hr Q8H IV Last administered on 04/09/16 20:57; Start 04/07/16 at 13:00 Senna/Docusate Sodium (Dee-Colace) 1 tab BID PO Last administered on 20:55; Start 04/07/16 at 21:00 Dexamethasone Sodium Phosphate (Decadron Inj) 4 mg ONCE ONCE IV PUSH Last administered on 04/07/16 13:28; Start 04/07/16 at 12:15; Stop 04/07/16 at 12:26 ; Status DC Sertraline HCl 50 mg 50 mg DAILY PO ; Start 04/07/16 at 12:15; Stop 04/07/16 at 12:35; Status DC Pharmacy Profile Note (Vancomycin Consult Pharmacy) 0 ml @ 0 mls/hr UNSCH OTHER ; Start 04/07/16 at 12:30 Albuterol/ Ipratropium (Duoneb Neb) 1 ampule Q6HR NEB INH Last administered on 04/09/16 15:58; Start 04/07/16 at 16:00 Albuterol Sulfate 2.5 mg 2.5 mg Q2HR NEB PRN INH SHORTNESS OF BREATH; Start at 12:30 Vancomycin HCl/ Sodium Chloride (Vancomycin Inj/ NS 500 ml Inj) 515 ml @ 257.5 mls/ hr Q8H IV Last administered on 04/08/16 06:14; Start 04/07/16 at 14:00; Status Hold Miscellaneous Information SPECIFIC LAB TO BE DRAWN:VANCOMYCIN TROUGH DATE TO... ONCE ONCE XX Last administered on 04/08/16 13:46; Start 04/08/16 at 13:45; Stop 04/08/16 at 13:46; Status DC Enalaprilat (Vasotec Inj) 1.25 mg Q6H PRN IV SBP> OR = 180, DBP> OR = 100 Last administered on 04/07/16 15:57; Start 04/07/16 at 16:00; Stop 04/07/16 at 17:13; Status DC Oxycodone/ Acetaminophen (Percocet 10-325 Mg) 1 tab Q4H PRN PO BREAKTHROUGH PAIN Last administered on 04/09/16 17:54; Start 04/07/16 at 15:45 Duloxetine HCl (Cymbalta Dr) 20 mg BID PO ; Start 04/07/16 at 21:00; Stop at 11:02; Status DC Hydralazine HCl (Apresoline) 10 mg Q8HR PRN PO SBP>180, DBP>110 Last administered on 04/07/16 20:47; Start 04/07/16 at 17:15 Lisinopril 20 mg 20 mg DAILY PO Last administered on 04/09/16 10:15; Start at 09:00; Stop 04/09/16 at 11:19; Status DC Vancomycin HCl/ Sodium Chloride (Vancomycin Inj/ NS 250 ml Inj) 262.5 ml @ 250 mls/hr Q12H IV Last administered on 04/09/16 13:12; Start 04/09/16 at 11:00 Miscellaneous Information SPECIFIC LAB TO BE MASSIMO... ONCE ONCE XX ; Start at 22:45; Stop 04/10/16 at 22:46 Fluconazole/ Sodium Chloride (Diflucan 200 Mg Premix Bag) 100 ml @ 100 mls/hr Q24H IV Last administered on 04/09/16 15:31; Start 04/09/16 at 12:00 Lisinopril (Prinivil) 20 mg ONCE ONCE PO Last administered on 04/09/16 13:10 ; Start 04/09/16 at 11:30; Stop 04/09/16 at 11:32; Status DC Lisinopril 40 mg 40 mg DAILY PO ; Start 04/10/16 at 09:00 Micafungin Sodium/ Sodium Chloride (Mycamine Inj/NS Inj) 100 ml @ 100 mls/hr Q24H IV Last administered on 04/09/16 17:53; Start 04/09/16 at 17:00 Family History Mother: HTN Father: CAD, carotid disease, alcoholism, HTN Social History Lives with brother and son. Tobacco: 2ppd since 15yo Alcohol: quit 5yrs, denies any history of withdrawal or seizures Illicit: Smokes marijuana, 1 joint daily since 13yo. Reports last use of IV drugs was April 2015 which was heroin. Does smoke crack currently. Previous use of cocaine and Xanax. Physical Exam Vital Signs Vital Signs Date Time Temp Pulse Resp B/P Pulse Ox O2 Delivery O2 Flow Rate FiO2 04/09/16 16:00 97.5 85 20 140/83 95 04/09/16 12:00 98.0 84 20 143/85 96 04/09/16 09:17 97 21 04/09/16 08:00 97.7 75 20 159/95 97 04/09/16 05:17 97.9 72 18 158/100 98 04/08/16 23:56 98.1 80 18 146/70 96 Physical Exam The patient is alert, awake and oriented to time, place and person. Speech is fluent. Cranial nerve examination: pupils to be equal, round and reactive to light. Extra-ocular movements are intact. Facial motor and sensory function are normal and symmetrical. Gross hearing appears intact. Sternocleidomastoid and trapezius muscles are symmetrical. Other cranial nerves are intact. Neck is soft and supple with a good range of motion without pain. Muscle strength is normal in all muscle groups of both upper and moves strongly both lower extremities.with give away secondary to pain Sensory examination is intact to light touch and pin prick in both the upper and lower extremities. Deep tendon reflexes are symmetrical in both upper and lower extremities. There is a bilateral plantar flexion response. Cerebellar examination is unremarkable, without deficits. Laboratory Laboratory Tests Test 04/09/16 06:04 White Blood Count 6.3 Red Blood Count 3.77 Hemoglobin 9.7 Hematocrit 28.7 Mean Corpuscular Volume 76.0 Mean Corpuscular Hemoglobin 25.7 Mean Corpuscular Hemoglobin 33.8 Concent Red Cell Distribution Width 20.5 Platelet Count 230 Mean Platelet Volume 8.2 Erythrocyte Sedimentation Rate 16 Sodium Level 142 Potassium Level 3.8 Chloride Level 108 Carbon Dioxide Level 25.6 Anion Gap 8 Blood Urea Nitrogen 15 Creatinine 0.93 Estimat Glomerular Filtration 84 Rate Random Glucose 103 Calcium Level 8.2 Random Vancomycin Level 11.1 Date/Time Procedure Status Source Growth 04/07/16 11:15 Aerobic Blood Culture - Preliminary Resulted Blood Peripheral Yeast-Id To Follow Pleomorphic Gram Positive Rods 04/07/16 11:15 Anaerobic Blood Culture - Preliminary Resulted Blood Peripheral NO GROWTH IN 2 DAYS Result Diagram: 04/09/16 0604 04/09/16 0604 Imaging Last Impressions Lumbar Spine MRI 04/07/16 0000 Signed Impressions: Service Date/Time: March 09:31 - CONCLUSION: Progression of the findings at L3-4 discitis with persistent enhancement about the periphery of the residual disc and decreased intensity marrow enhancement in the L3 and L4 vertebral bodies. No evidence of spondylolisthesis. Significant reduction in size of bilateral psoas and left paraspinal abscess these. There is residual enhancing tissue in the anterior and right epidural space at L3-4 and extending in the right paraspinal region up to the mid right L2 level. Tomas Hallman MD Attending Statement Neuro. I have reviewed his clinical and radiological findings. Start neuro checks in a serial fashion. Sun is no significant epidural abscess. Recommend SED ratem CRP, blood cultures. CT biopsy of the disk. Will defer further care to his neurosurgeon Dr Hart Respiratory. pulmonary toilette, nasotracheal suction, and breathing treatments with nebulizers. PT and OT Nutrition. Oral diet Renal. monitor closely urine output, BUN and creatinine Substance abuse. Counseled Endocrine. Monitor serial Acu checks and SSI for tight control ID Continue IV ABX Protonix for stress ulcer prophylaxis Willard marquez and SCD's for DVT prophylaxis Will defer further care to Hari Ramírez MD Apr 09, 2016 22:02
[2016-04-10] VITALS (7 sets, daily range): BP systolic 153–175; BP diastolic 81–108; PULSE 81–87; RESP 14–20; TEMP 97.9–98.4; O2SAT 96–98
[2016-04-10 01:13] LABS: AMPHETAMINE, URINE NEG (NEG); BARBITURATES, URINE NEG (NEG); COCAINE, URINE NEG (NEG)
[2016-04-10] MEDS: oxyCODONE/ACETAMINOPHEN 10 MG/325 MG TAB PO PRN ×6 (02:01→23:38)
[2016-04-10 02:20] LABS: BACTERIA, URINE RARE /hpf; BLOOD, URINE NEG (NEG); COMMENT (UR) CULTURE INDICATED; CULTURE IF INDICATED CULTURE INDICATED; GLUCOSE,URINE NEG (NEG); HYALINE CAST, URINE 1 /lpf (RARE); KETONE, URINE NEG (NEG); MUCUS URINE FEW /lpf (OCC); NITRITE,URINE NEG (NEG); URINE COLOR LIGHT-YELLOW (YELLW/STRAW)
[2016-04-10] MEDS: RESP: ALBUTEROL 2.5 MG/IPRATROPIUM 0.5 MG NEB (SCH) INH ×4 (03:17→22:20)
[2016-04-10] MEDS: CYCLOBENZAPRINE HCL 10 MG TAB PO PRN ×3 (06:12→23:38)
[2016-04-10] MEDS: LISINOPRIL 20 MG TAB PO SCH (08:51)
[2016-04-10] MEDS: MORPHINE SULFATE 30 MG CONTROLLED RELEASE TAB PO SCH (08:51)
[2016-04-10] MEDS: GABAPENTIN 300 MG CAP PO SCH ×2 (08:51→22:14)
[2016-04-10] MEDS: DOCUSATE SODIUM 50 MG/SENNA 8.6 MG TAB PO SCH ×2 (08:51→22:15)
[2016-04-10] MEDS: SODIUM CHLORIDE 0.9% FLUSH 5 ML FLUSH FLUSH SCH ×2 (08:51→22:16)
[2016-04-10] MEDS: clonazePAM 1 MG TAB PO SCH ×3 (08:51→17:19)
[2016-04-10 09:55] LABS: AUTOMATED NEUTROPHIL # 4.8 TH/MM3 (1.8-7.7); BASOPHIL # 0.1 TH/MM3 (0-0.2); BASOPHIL % 1.4 % (0.0-2.0); EOSINOPHIL # 0.3 TH/MM3 (0-0.4); EOSINOPHIL % 4.3 % (0.0-4.0); HEMATOCRIT 32.3 % (39.0-51.0); HEMO FLAGS DIFF FINAL; LYMPH % 26.3 % (9.0-44.0); MEAN CELL VOLUME 76.6 FL (80.0-100.0); MEAN CORPUSCULAR HEMOGLOBIN 25.1 PG (27.0-34.0); MEAN CORPUSCULAR HGB CONC 32.8 % (32.0-36.0); MONO % 6.3 % (0.0-8.0); NEUT % 61.7 % (16.0-70.0); PLATELET COUNT 279 TH/MM3 (150-450); RED BLOOD COUNT 4.22 MIL/MM3 (4.50-5.90); RED CELL DISTRIBUTION WIDTH 20.7 % (11.6-17.2); WHITE BLOOD COUNT 7.7 TH/MM3 (4.0-11.0)
[2016-04-10 10:16] LABS: BICARBONATE 25.2 MEQ/L (21.0-32.0); POTASSIUM 4.1 MEQ/L (3.5-5.1)
[2016-04-10 10:49] LABS: WESTERGREN SEDIMENTATION RATE 22 mm/hr (0-20)
[2016-04-10] MEDS: VANCOMYCIN INJ 1,250 MG in SODIUM CHLOR 0.9% 250 ML INJ 250 ML IV SCH ×2 (11:28→23:38)
[2016-04-10] MEDS: ENOXAPARIN SODIUM 40 MG/0.4 ML SYRINGE SQ SCH (11:28)
[2016-04-10] MEDS: FLUCONAZOLE 200 MG PREMIX BAG 100 ML IV SCH (13:31)
--- NOTE | 2016-04-10 13:55 | HHI.FPPN ---
Subjective Remarks Mr Sher complains of continued pain in his back and is lying down on his back with both legs up on pillows as he reports this feels somewhat better than other positions. He requests a higher dose of pain meds as he states he took more as an outpt from pain management. He also questioned the etiology of his abscess. He was getting epidural injections and doesn't know if that may have aggravated or contributed. I explained I don't know the relative frequencies of different problems and that some people could get discitis from blood bourne sources vs an external source. He feels better overall since he came in and is being treated but still is very uncomfortable. He is also having some constipation and is planning on an enema later today. No breathing problems or chest pain. Objective Vitals Vital Signs Date Time Temp Pulse Resp B/P Pulse Ox O2 Delivery O2 Flow Rate FiO2 04/10/16 12:00 98.2 87 16 165/92 97 04/10/16 09:05 98 21 04/10/16 08:55 Room Air 04/10/16 08:00 97.9 84 20 175/108 96 04/10/16 04:00 98.0 83 18 155/81 98 04/10/16 00:00 98.4 87 18 153/90 96 04/10/16 00:00 Room Air 04/09/16 20:00 Room Air 04/09/16 20:00 98.3 87 16 160/95 97 04/09/16 16:00 97.5 85 20 140/83 95 I/O 04/09/16 04/09/16 04/09/16 04/10/16 04/10/16 04/10/16 07:00 15:00 23:00 07:00 15:00 23:00 Intake Total 1000 ml 677 ml 590 ml Output Total 700 ml 1200 ml 850 ml Balance -700 ml -200 ml 677 ml -260 ml Intake Oral 1000 ml 480 ml IV Total 677 ml 110 ml Output Urine Total 700 ml 1200 ml 850 ml # Bowel Movements 0 Result Diagram: 04/10/1694104/10/16941 Objective Remarks GEN: Well-developed, well-nourished patient. No some pain. Resting in bed with his legs propped up. Complains of more pain when he walks around CV: Regular rate and rhythm without obvious murmurs LUNGS: Clear to auscultation bilaterally. Normal respiratory effort. No wheezes , rales, rhonchi. GI: Soft, nontender, nondistended. No palpable masses. EXT: No edema. No calf tenderness. NEURO/PSYCH: Awake, alert. Appropriate insight and judgment. Normal speech Urinary Catheter: No Line: PICC A/P Assessment and Plan 56-year-old male with a PMH significant for IV drug use in the past, discitis/ osteomyelitis who was admitted due to uncontrolled pain from his discitis Discharge Planning Unclear at this time, pending results of determination of length and type of abx that will best help Problem List: (1) Lumbar discitis Status: Acute Plan: Recent admission on 02/12 for epidural abscess, discitis which was treated with Decadron, vancomycin, cefazolin. Was discharged with home health for continued treatment which he has received. Continues to have lower back pain. Worsening pain is likely not due to discitis but rather history of poorly controlled chronic pain which will need pain management as an outpatient. -Repeat ESR unremarkable -Reordered UA 04/09 -Blood cultures: Yeast and pleomorphic gram-positive rods -Draw repeat blood cultures 04/10 -Lumbar MRI: Progression of the findings at L3/4 discitis with persistent enhancement about the periphery of the residual disc and decreased intensity marrow enhancement. Significant reduction in the size of bilateral psoas and left paraspinal abscesses. ID consulted: Appreciate recommendations * Continue vancomycin and cefazolin * Will ask Dr. Bansal to see pt on Monday * reconsult Dr. Iniguez Medications: * Diflucan 200mg IV daily (04/09- * Vancomycin (04/08- * Cefazolin (04/08- * Oramorph 45mg AM, 45mg HS. NOT TO BE INCREASED * Flexeril PRN * Gabapentin 600 mg BID (2) Bacteremia Status: Acute Plan: See plan above (3) HTN (hypertension) Status: Chronic Plan: Patient with history of hypertension. Blood pressure continues to improve. -Increased lisinopril to 40 mg daily Hydralazine 10 mg every 8 hours when necessary for systolic blood pressure greater than 180 or diastolic blood pressure greater than 110 (4) Physical deconditioning Status: Acute Plan: Physical therapy ordered. Will need rehabilitation at discharge. Case management consult to assist with rehabilitation placement, appreciate assistance (5) Yeast infection Status: Acute Plan: awaiting final cultures and sensitivities. He is not febrile and is stable overall. will start antifungals per ID, appreciate their help getting rid of PICC line (6) Fluids, Electrolytes, and Nutrition Status: Acute Plan: Diet: Regular Fluids: None Electrolytes: Unremarkable, continue to monitor DVT prophylaxis: Lovenox GI prophylaxis: Protonix Chronic conditions: * Illicit drug use but reports last IV drug use was 04/2015 * Depression: Refuses to take antidepressant. Denies suicidal ideation. discussed starting low dose of trazadone to help him sleep and he agrees to this. Explained this has some antidepressant qualities but also works on sleep. Will check an EKG to be sure he does not have QT prolongation as he has not had a recent EKG that I can find.` Problem Qualifiers (1) HTN (hypertension): Qualified Code: I10 - Essential hypertension Sherrell Drake MD Apr 10, 2016 13:55
[2016-04-10] MEDS ORDERED: traMADol HCL 50 MG TAB PO PRN (14:00)
[2016-04-10] MEDS: MICAFUNGIN INJ 150 MG in SODIUM CHLORIDE 0.9% INJ 100 ML IV SCH (17:19)
[2016-04-10] MEDS ORDERED: BISACODYL 10 MG SUPP RECTAL ONE (20:45)
--- NOTE | 2016-04-10 20:49 | HHI.FPPN ---
Addendum to progress note ADDENDUM Reason for addendum: Additonal documentation Additional information Night Float Note Subjective: Night float received call at 8:30pm with patient complaint of constipation. No BM x3 days (04/07/16). Receiving Oromorph NESTOR. Patient actually requesting enema or other treatment for discomfort. Nurse has had good success in past with Dulcolax suppository. Objective: Chart reviewed. Pt receiving Oramorph 30mg BID NESTOR, Oramorph 15mg HS NESTOR, and Percocet 10-325mg q4-5 hours. Bowel regimen currently Dee-Colase 1 tab BID NESTOR. Assessment/Plan: 56 year-old male hospitalized for discitis presenting with constipation refractory to Dee-Colace. Likely opioid-induced constipation. -Ordered Dulcolax suppository x1, monitor for bowel movement -Onset of action 30-60minutes, half-life 8 hr, recommended once/daily dosing (Uptodate) -Will defer to day team to further titration of bowel regimen, as needed -Notify physician if fever, acutely worsening abdominal pain, or nausea/ vomiting for further evaluation DW: Dr. Ricardo WDW: Med A Day Team Diamond Tariq MD R1 Apr 10, 2016 20:49
[2016-04-10] MEDS: MORPHINE SULFATE 15 MG CONTROLLED RELEASE TAB PO SCH (22:15)
--- NOTE | 2016-04-10 22:27 | HHI.FPPN ---
Addendum to progress note ADDENDUM Reason for addendum: Additonal documentation Additional information Night Team Addendum Night team received call from pharmacy at 10:15pm. While reviewing vancomycin levels, pharmacy noted pt was on two similar antifungal medications, one started by family practice, one started by infectious disease, ordered closely together on 04/09/16. Chart reviewed, will discontinue fluconazole IV and continue micafungin, per ID recommendations. WDW: Day Team Diamond Tariq MD R1 Apr 10, 2016 22:27
[2016-04-10] MEDS ORDERED: PHARMACY ORDERED LAB XX ONE (22:45)
[2016-04-11] VITALS (8 sets, daily range): BP systolic 145–170; BP diastolic 86–99; PULSE 74–94; RESP 16–20; TEMP 97.8–98.9; O2SAT 95–98
[2016-04-11] MEDS: RESP: ALBUTEROL 2.5 MG/IPRATROPIUM 0.5 MG NEB (SCH) INH ×3 (03:43→15:45)
[2016-04-11] MEDS: oxyCODONE/ACETAMINOPHEN 10 MG/325 MG TAB PO PRN ×5 (04:05→23:14)
[2016-04-11] MEDS: LISINOPRIL 20 MG TAB PO SCH (07:49)
[2016-04-11] MEDS: GABAPENTIN 300 MG CAP PO SCH ×2 (07:50→20:35)
[2016-04-11] MEDS: MORPHINE SULFATE 15 MG CONTROLLED RELEASE TAB PO SCH ×2 (07:50→20:37)
[2016-04-11] MEDS: clonazePAM 1 MG TAB PO SCH ×3 (07:50→17:17)
[2016-04-11] MEDS: DOCUSATE SODIUM 50 MG/SENNA 8.6 MG TAB PO SCH ×2 (07:50→20:35)
[2016-04-11] MEDS: SODIUM CHLORIDE 0.9% FLUSH 5 ML FLUSH FLUSH SCH ×2 (07:51→20:42)
[2016-04-11 09:02] LABS: HEMATOCRIT 31.1 % (39.0-51.0); MEAN CELL VOLUME 76.2 FL (80.0-100.0); MEAN CORPUSCULAR HEMOGLOBIN 25.8 PG (27.0-34.0); MEAN CORPUSCULAR HGB CONC 33.9 % (32.0-36.0); PLATELET COUNT 270 TH/MM3 (150-450); RED BLOOD COUNT 4.09 MIL/MM3 (4.50-5.90); RED CELL DISTRIBUTION WIDTH 20.8 % (11.6-17.2); REVIEW FLAG FINAL; WHITE BLOOD COUNT 6.4 TH/MM3 (4.0-11.0)
--- NOTE | 2016-04-11 09:46 | HHI.FPPN ---
Subjective Remarks No acute events overnight. VS continue to show slightly elevated BP. This morning patient reports that he was constipated but suppository was helpful. Continues to have chronic pain otherwise has no new concerns. (Susana Wilson MD R2) Objective Vitals Vital Signs Date Time Temp Pulse Resp B/P Pulse Ox O2 Delivery O2 Flow Rate FiO2 04/11/16 08:00 97.8 79 16 146/99 98 04/11/16 04:00 98.3 77 18 160/88 97 04/11/16 00:00 97.8 74 16 158/91 97 04/10/16 22:15 Room Air 04/10/16 20:00 98.4 81 14 166/99 97 04/10/16 20:00 Room Air 04/10/16 16:00 98.1 86 16 169/104 98 04/10/16 12:00 98.2 87 16 165/92 97 I/O 04/10/16 04/10/16 04/10/16 04/11/16 04/11/16 04/11/16 07:00 15:00 23:00 07:00 15:00 23:00 Intake Total 590 ml 1200 ml 470 ml 620 ml Output Total 850 ml 1450 ml 1600 ml 2 ml Balance -260 ml -250 ml -1130 ml 618 ml Intake Oral 480 ml 1200 ml 620 ml IV Total 110 ml 470 ml Output Urine Total 850 ml 1450 ml 1600 ml 2 ml # Bowel Movements 0 0 0 1 (Susana Wilson MD R2) Result Diagram: 04/11/16 0807 04/11/16 08 Objective Remarks GEN: Well-developed, well-nourished patient. Resting in bed with his legs propped up. CV: Regular rate and rhythm without obvious murmurs LUNGS: Clear to auscultation bilaterally. Normal respiratory effort. No wheezes , rales, rhonchi. GI: Soft, nontender, nondistended. No palpable masses. EXT: No edema. No calf tenderness. NEURO/PSYCH: Awake, alert. Appropriate insight and judgment. Normal speech ( Susana Wilson MD R2) Line: PICC (Susana Wilson MD R2) A/P Assessment and Plan 56-year-old male with a PMH significant for IV drug use in the past, discitis/ osteomyelitis who was admitted due to uncontrolled pain from his discitis Discharge Planning Unclear at this time, pending results of determination of length and type of abx that will best help bacteremia dw Dr. Drake and Dr. Carter (Susana Wilson MD R2) Attending Attestation Patient seen and examined. Case reviewed and discussed with the resident team. Agree with plan of care as discussed with me and documented in the resident note. he is slowly improving overall. agree with only one antifungal med (Sherrell Drake MD) Problem List: (1) Lumbar discitis Status: Acute Plan: Recent admission on 02/12 for epidural abscess, discitis which was treated with Decadron, vancomycin, cefazolin. Was discharged with home health for continued treatment which he has received. Continues to have lower back pain. Worsening pain is likely not due to discitis but rather history of poorly controlled chronic pain which will need pain management as an outpatient. -ESR, CRP unremarkable -UA 04/09: mixed florencia -Blood cultures: Yeast and pleomorphic gram-positive rods -Draw repeat blood cultures 04/10: pending -Lumbar MRI: Progression of the findings at L3/4 discitis with persistent enhancement about the periphery of the residual disc and decreased intensity marrow enhancement. Significant reduction in the size of bilateral psoas and left paraspinal abscesses. ID consulted: Appreciate recommendations * Continue vancomycin and cefazolin * PICC line removed * Echo ordered * Will need ophthalmology consult * Consulted Dr. Iniguez: Nothing to do until infection has cleared Neurosurgery consulted: Appreciate recommendations * No significant epidural abscess * Recommend sedimentation rate, CRP, blood cultures, CT biopsy of the disc. * Deferred care to Dr. Bansal Medications: * Vancomycin (04/08- * Cefazolin (04/08- * Micafungin (04/09- * Diflucan 200mg IV daily (04/09-04/10) * Oramorph 45mg AM, 45mg HS. NOT TO BE INCREASED * Flexeril PRN * Gabapentin 600 mg BID (2) Bacteremia Status: Acute Plan: See plan above (3) HTN (hypertension) Status: Chronic Plan: Patient with history of hypertension. Blood pressure continues to improve. -Increased lisinopril to 40 mg daily -Will consider adding amlodipine 5mg Hydralazine 10 mg every 8 hours when necessary for systolic blood pressure greater than 180 or diastolic blood pressure greater than 110 (4) Physical deconditioning Status: Acute Plan: Physical therapy ordered. Will need rehabilitation at discharge. Case management consult to assist with rehabilitation placement, appreciate assistance (5) Fluids, Electrolytes, and Nutrition Status: Acute Plan: Diet: Regular Fluids: None Electrolytes: Unremarkable, continue to monitor DVT prophylaxis: Lovenox HELD for possible biopsy, SCDs ordered GI prophylaxis: Protonix Chronic conditions: * Illicit drug use but reports last IV drug use was 04/2015 * Depression: Refuses to take antidepressant. Denies suicidal ideation. discussed starting low dose of trazadone to help him sleep and he agrees to this. (Susana Wilson MD R2) Problem Qualifiers (1) HTN (hypertension): Qualified Code: I10 - Essential hypertension Susana Wilson MD R2 Apr 11, 2016 09:46 Sherrell Drake MD Apr 13, 2016 13:28
[2016-04-11] MEDS ORDERED: traZODone HCL 50 MG TAB PO PRN (10:00)
[2016-04-11] MEDS: NICOTINE 21 MG/24 HR PATCH TD SCH (10:17)
[2016-04-11] MEDS: VANCOMYCIN INJ 1,250 MG in SODIUM CHLOR 0.9% 250 ML INJ 250 ML IV SCH ×2 (10:17→23:14)
[2016-04-11] MEDS: CYCLOBENZAPRINE HCL 10 MG TAB PO PRN ×2 (10:17→18:26)
[2016-04-11] MEDS: PANTOPRAZOLE SOD 40 MG DELAYED RELEASE TAB PO SCH (10:17)
--- NOTE | 2016-04-11 12:35 | EKG ---
Date Performed: 04/10/2016 Time Performed: 11:57:15 PTAGE: 56 years EKG: Sinus rhythm NORMAL ECG NO PREVIOUS TRACING DOCTOR: Cordell Jacobo Interpretating Date/Time 04/11/2016 12:31:00
--- NOTE | 2016-04-11 12:51 | PD.CONS ---
HPI Service Neurosurgery Consult Requested By Dr Michele Reason for Consult discitis Primary Care Physician Dr Joyner History of Present Illness 56 yr old with hx of IVDA and discitis as well as previous laminectomy at L3/4 in 2006 is being followed by pain management in [place] and psychiatry at the [place]. I saw him on 02/12/17 when he was diagnosed with persistent infection in the psoas and disc at L3/4. Repeat MRI now shows improved psoas abscesses but severe inflammatory changes in the disc. He is growing a GNR and yeast from the blood on vancomycin and cefazolin treatment. Neurologically he has regained strength in the hip flexors and quads abut has difficulty standing straight because of the back pain which radiates to his hips. He still has bladder control. Review of Systems Constitutional: DENIES: Diaphoretic episodes, Fatigue, Fever, Weight gain, Weight loss, Chills, Dizziness, Change in appetite, Night Sweats Eyes: DENIES: Blurred vision, Diplopia, Eye inflammation, Eye pain, Vision loss , Photosensitivity, Double Vision Ears, nose, mouth, throat: DENIES: Tinnitus, Hearing loss, Vertigo, Nasal discharge, Oral lesions, Throat pain, Hoarseness, Ear Pain, Running Nose, Epistaxis, Sinus Pain, Toothache, Odynophagia Respiratory: DENIES: Apneas, Cough, Snoring, Wheezing, Hemoptysis, Sputum production, Shortness of breath Cardiovascular: DENIES: Chest pain, Palpitations, Syncope, Dyspnea on Exertion , PND, Lower Extremity Edema, Orthopnea, Claudication Gastrointestinal: DENIES: Abdominal pain, Black stools, Bloody stools, Constipation, Diarrhea, Nausea, Vomiting, Difficulty Swallowing, Anorexia Musculoskeletal: COMPLAINS OF: Muscle aches, Stiffness, Back pain Integumentary: DENIES: Abnormal pigmentation, Nail changes, Pruritus, Rash Hematologic/lymphatic: DENIES: Bruising, Lymphadenopathy Immunologic/allergic: DENIES: Eczema, Urticaria Neurologic: COMPLAINS OF: Localized weakness, Paresthesias Psychiatric: DENIES: Anxiety, Confusion, Mood changes, Depression, Hallucinations, Agitation, Suicidal Ideation, Homicidal Ideation, Delusions Past Family Social History Allergies: Coded Allergies: *MDRO Multi-Drug Resistant Organism (Verified Adverse Reaction, Unknown, ) MRSA (buttock) - 2002 Past Medical History Hepatitis C PTSD Past Surgical History Right knee surgery in the [employer] CT guided abcess aspiration last Feb 2016 L3/4 laminectomy 2006 Reported Medications Reported Meds & Active Scripts Active Gabapentin 600 Mg Tab 600 Mg PO BID Roller Walker (Misc. Devices) 1 Mis Mis 1 Ea .ROUTE NOW Morphine ER (Morphine Sulfate) 15 Mg Tab 15 Mg PO HS Add to the 30mg Morphine dose at night for a total of 45mg Morphine ER (Morphine Sulfate) 30 Mg Tab 30 Mg PO BID Flexeril (Cyclobenzaprine HCl) 10 Mg Tab 10 Mg PO Q8H PRN Reported Percocet (Oxycodone-Acetaminophen) 10-325 mg Tab 1 Tab PO Q4H PRN Vancomycin Inj (Vancomycin HCl) 1,000 Mg Inj 1,500 Mg IV Q12HR Omeprazole 20 Mg Tab 20 Mg PO BID Lisinopril 10 Mg Tab 10 Mg PO DAILY Klonopin (Clonazepam) 1 Mg Tab 1 Mg PO TID Family History [place] Social History Lives with his son, disabled Physical Exam Vital Signs Vital Signs Date Time Temp Pulse Resp B/P Pulse Ox O2 Delivery O2 Flow Rate FiO2 04/11/16 12:00 98.8 90 16 151/86 95 04/11/16 10:04 97 21 04/11/16 08:00 97.8 79 16 146/99 98 04/11/16 04:00 98.3 77 18 160/88 97 04/11/16 00:00 97.8 74 16 158/91 97 04/10/16 22:15 Room Air 04/10/16 20:00 98.4 81 14 166/99 97 04/10/16 20:00 Room Air 04/10/16 16:00 98.1 86 16 169/104 98 Physical Exam Alert and awake, sitting with knees bent Speech fluent, attention is good, mood stable Motor 4+/5 in the hip flexors, quads, hamstrings, 5.5 in the ant tib and gastroc Reflexes 1/4 in the patella and 1/4 in the ankles kelly. No sensory level, no rashes, no peripheral edema. Left arm picc site dressed and dry Laboratory Laboratory Tests Test 04/10/16 04/11/16 23:10 08:07 Vancomycin Level Trough 19.0 White Blood Count 6.4 Red Blood Count 4.09 Hemoglobin 10.5 Hematocrit 31.1 Mean Corpuscular Volume 76.2 Mean Corpuscular Hemoglobin 25.8 Mean Corpuscular Hemoglobin 33.9 Concent Red Cell Distribution Width 20.8 Platelet Count 270 Mean Platelet Volume 8.2 Creatinine 0.88 Estimat Glomerular Filtration 89 Rate Date/Time Procedure Status Source Growth 04/10/16 09:42 Aerobic Blood Culture - Preliminary Resulted Blood Peripheral NO GROWTH IN 1 DAY 04/10/16 09:42 Anaerobic Blood Culture - Preliminary Resulted Blood Peripheral NO GROWTH IN 1 DAY 04/10/16 00:55 Urine Culture - Preliminary Resulted Urine Clean Catch <10,000 CFU/ML MIXED GRAM POSITIVE FL... Result Diagram: 04/11/16 0807 04/11/16 0807 Imaging Microbiology Date/Time Procedure Status Source Growth 04/10/16 00:55 Urine Culture - Preliminary Resulted Urine Clean Catch <10,000 CFU/ML MIXED GRAM POSITIVE FL... 04/10/16 09:36 Aerobic Blood Culture - Preliminary Resulted Blood Peripheral NO GROWTH IN 1 DAY 04/10/16 09:36 Anaerobic Blood Culture - Preliminary Resulted Blood Peripheral NO GROWTH IN 1 DAY 04/10/16 09:42 Aerobic Blood Culture - Preliminary Resulted Blood Peripheral NO GROWTH IN 1 DAY 04/10/16 09:42 Anaerobic Blood Culture - Preliminary Resulted Blood Peripheral NO GROWTH IN 1 DAY Blood culture from admission shows new GNR and yeast Course Last Impressions Lumbar Spine MRI 04/07/16 0000 Signed Impressions: Service Date/Time: March 09:31 - CONCLUSION: Progression of the findings at L3-4 discitis with persistent enhancement about the periphery of the residual disc and decreased intensity marrow enhancement in the L3 and L4 vertebral bodies. No evidence of spondylolisthesis. Significant reduction in size of bilateral psoas and left paraspinal abscess these. There is residual enhancing tissue in the anterior and right epidural space at L3-4 and extending in the right paraspinal region up to the mid right L2 level. Tomas Hallman MD Assessment and Plan Diagnosis: (1) Bacteremia Plan: It is unclear if the discitis involves the new GNR and yeast from the new blood cx. Disc aspiration is requested with CT guidance. Neurologically he has regained much of his motor strength in the hip flexors and quads. ICD Code: R78.81 (2) Lumbar discitis Plan: Discitis at L3/4, severe with no subluxation, right greater than left. Steroids are on hold for now as long as the neurologic exam remains stable. ICD Code: M46.46 Barney Walters Apr 11, 2016 12:51
[2016-04-11] MEDS: MICAFUNGIN INJ 150 MG in SODIUM CHLORIDE 0.9% INJ 100 ML IV SCH (17:18)
[2016-04-11] MEDS: DICLOFENAC SODIUM 50 MG DELAYED RELEASE TAB PO SCH (18:42)
--- NOTE | 2016-04-11 20:01 | ECHLIM ---
Study Study Date:04/11/2016 STUDY CONCLUSIONS SUMMARY - Left ventricle: The cavity size was normal. Wall thickness was normal. Systolic function was normal. The estimated ejection fraction was 65%. Wall motion was normal; there were no regional wall motion abnormalities. - Impressions: No evidence of endocarditis. Impressions: No evidence of endocarditis. If LV function is below 40, please consider prescribing an ACEI or ARB or document rationale for non-use. PROCEDURE DATA STUDY STATUS: Elective. Procedure: Transthoracic echocardiography. Image quality was good. Scanning was performed from the parasternal, apical, and subcostal acoustic windows. Study completion: The patient tolerated the procedure well. Transthoracic echocardiography. M-mode, complete 2D, complete spectral Doppler, and color Doppler. Patient status: Inpatient. CARDIAC ANATOMY LEFT VENTRICLE: The cavity size was normal. Wall thickness was normal. Systolic function was normal. The estimated ejection fraction was 65%. Wall motion was normal; there were no regional wall motion abnormalities. AORTIC VALVE: Trileaflet; normal thickness leaflets. Doppler: Transvalvular velocity was within the normal range. There was no stenosis. No regurgitation. AORTA: Aortic root: The aortic root was normal in size. MITRAL VALVE: Structurally normal valve. Doppler: Transvalvular velocity was within the normal range. There was no evidence for stenosis. Trace regurgitation. LEFT ATRIUM: The atrium was normal in size. RIGHT VENTRICLE: The cavity size was normal. Wall thickness was normal. PULMONIC VALVE: Doppler: Transvalvular velocity was within the normal range. There was no evidence for stenosis. No regurgitation. TRICUSPID VALVE: Structurally normal valve. Doppler: Transvalvular velocity was within the normal range. Trace regurgitation. PULMONARY ARTERY: The main pulmonary artery was normal-sized. Systolic pressure was within the normal range. RIGHT ATRIUM: The atrium was normal in size. PERICARDIUM: There was no pericardial effusion. SYSTEMIC VEINS: Inferior vena cava: The vessel was normal in size. Prepared and signed by Tamie Espinal [id number]
[2016-04-11] MEDS: REMOVE OLD NICODERM (NICOTINE) PATCH TD SCH (20:45)
[2016-04-12] VITALS (13 sets, daily range): BP systolic 127–177; BP diastolic 74–115; PULSE 74–93; RESP 12–20; TEMP 96.6–98.5; O2SAT 90–98
[2016-04-12] MEDS: CYCLOBENZAPRINE HCL 10 MG TAB PO PRN ×3 (02:26→18:46)
[2016-04-12] MEDS: oxyCODONE/ACETAMINOPHEN 10 MG/325 MG TAB PO PRN ×4 (03:35→17:43)
[2016-04-12] MEDS: NICOTINE 21 MG/24 HR PATCH TD SCH (07:44)
[2016-04-12] MEDS: PANTOPRAZOLE SOD 40 MG DELAYED RELEASE TAB PO SCH (07:44)
[2016-04-12] MEDS: MORPHINE SULFATE 15 MG CONTROLLED RELEASE TAB PO SCH ×2 (07:44→22:09)
[2016-04-12] MEDS: GABAPENTIN 300 MG CAP PO SCH ×2 (07:45→22:07)
[2016-04-12] MEDS: LISINOPRIL 20 MG TAB PO SCH (07:45)
[2016-04-12] MEDS: clonazePAM 1 MG TAB PO SCH ×3 (07:45→18:22)
[2016-04-12] MEDS: DOCUSATE SODIUM 50 MG/SENNA 8.6 MG TAB PO SCH ×2 (07:45→22:09)
[2016-04-12] MEDS: SODIUM CHLORIDE 0.9% FLUSH 5 ML FLUSH FLUSH SCH ×2 (07:46→21:00)
[2016-04-12] MEDS: DICLOFENAC SODIUM 50 MG DELAYED RELEASE TAB PO SCH ×2 (07:52→18:23)
[2016-04-12] MEDS: RESP: ALBUTEROL 2.5 MG/3 ML NEB (PRN) INH (08:39)
[2016-04-12 10:26] LABS: APTT (PATIENT) 30.2 SEC (24.3-30.1); INTERNATIONAL NORMALIZED RATIO 0.9 RATIO; PROTHROMBIN TIME - PATIENT 10.2 SEC (9.8-11.6)
[2016-04-12] MEDS ORDERED: PHARMACY ORDERED LAB XX ONE (10:45)
--- NOTE | 2016-04-12 11:36 | HHI.FPPN ---
Subjective Remarks No acute events overnight. Afebrile, vital signs stable. Patient seen and examined this morning; complains of being extremely hungry as he is nothing by mouth for his procedure. States his pain is 8/10 and he received by mouth breakthrough pain medication 1 hour ago. (Perla Mack MD R3) Objective Vitals Vital Signs Date Time Temp Pulse Resp B/P Pulse Ox O2 Delivery O2 Flow Rate FiO2 04/12/16 08:08 Room Air 04/12/16 08:00 97.7 74 12 137/82 97 04/12/16 07:23 96 21 04/12/16 04:00 98.0 79 20 151/86 94 04/12/16 00:00 98.1 93 20 159/93 95 04/11/16 20:01 95 21 04/11/16 20:00 Room Air 04/11/16 20:00 98.1 94 20 170/95 95 04/11/16 16:00 98.9 94 16 145/90 97 04/11/16 14:38 Room Air 04/11/16 12:00 98.8 90 16 151/86 95 I/O 04/11/16 04/11/16 04/11/16 04/12/16 04/12/16 04/12/16 07:00 15:00 23:00 07:00 15:00 23:00 Intake Total 620 ml 1440 ml 942 ml 240 ml Output Total 2 ml 1325 ml 900 ml 800 ml Balance 618 ml 115 ml 42 ml -560 ml Intake Oral 620 ml 1440 ml 720 ml 240 ml IV Total 222 ml Output Urine Total 2 ml 1325 ml 900 ml 800 ml # Bowel Movements 1 1 0 0 (Perla Mack MD R3) Result Diagram: 04/11/16 0807 04/12/16 0933 Objective Remarks GEN: Well-developed, well-nourished patient. Resting in bed with his legs propped up. CV: Regular rate and rhythm without obvious murmurs LUNGS: Clear to auscultation bilaterally. Normal respiratory effort. No wheezes , rales, rhonchi. GI: Soft, nontender, nondistended. No palpable masses. EXT: No edema. No calf tenderness. NEURO/PSYCH: Awake, alert. Appropriate insight and judgment. Normal speech ( Perla Mack MD R3) Line: PICC (Perla Mack MD R3) A/P Assessment and Plan 56-year-old male with a PMH significant for IV drug use in the past, discitis/ osteomyelitis who was admitted due to uncontrolled pain from his discitis Discharge Planning Unclear at this time, pending results of determination of length and type of abx that will best help bacteremia (Perla Mack MD R3) Attending Attestation Patient seen and examined. Case reviewed and discussed with the resident team. Agree with plan of care as discussed with me and documented in the resident note. explained he needs to ask for his trazodone as it will help him sleep (Sherrell Drake MD) Problem List: (1) Lumbar discitis Status: Acute Plan: Recent admission on 02/12 for epidural abscess, discitis which was treated with Decadron, vancomycin, cefazolin. Was discharged with home health for continued treatment which he has received. Continues to have lower back pain. Worsening pain is likely not due to discitis but rather history of poorly controlled chronic pain which will need pain management as an outpatient. -ESR, CRP unremarkable -UA 04/09: mixed florencia -Blood cultures: Yeast and pleomorphic gram-positive rods -Draw repeat blood cultures 04/10: No growth 2 days -Lumbar MRI: Progression of the findings at L3/4 discitis with persistent enhancement about the periphery of the residual disc and decreased intensity marrow enhancement. Significant reduction in the size of bilateral psoas and left paraspinal abscesses. ID consulted: Appreciate recommendations * Continue vancomycin, cefazolin and micafungin * PICC line removed * Echo ordered - no evidence of endocarditis and an EF of 65% * Will need ophthalmology consult * Consulted Dr. Iniguez: Nothing to do until infection has cleared Neurosurgery consulted: Appreciate recommendations * No significant epidural abscess * Recommend sedimentation rate, CRP, blood cultures, CT biopsy of the disc. * Deferred care to Dr. Bansal Medications: * Vancomycin (04/08- * Cefazolin (04/08- * Micafungin (04/09- * Diflucan 200mg IV daily (04/09-04/10) * Oramorph 45mg AM, 45mg HS. NOT TO BE INCREASED * Flexeril PRN * Gabapentin 600 mg BID (2) Bacteremia Status: Acute Plan: See plan above (3) HTN (hypertension) Status: Chronic Plan: Patient with history of hypertension. Blood pressure continues to improve. -Continue lisinopril to 40 mg daily -Will consider adding amlodipine 5mg Hydralazine 10 mg every 8 hours when necessary for systolic blood pressure greater than 180 or diastolic blood pressure greater than 110 (4) Physical deconditioning Status: Acute Plan: Physical therapy ordered. Will need rehabilitation at discharge. Case management consult to assist with rehabilitation placement, appreciate assistance (5) Fluids, Electrolytes, and Nutrition Status: Acute Plan: Diet: Regular Fluids: None Electrolytes: Unremarkable, continue to monitor DVT prophylaxis: Lovenox HELD for biopsy, SCDs ordered GI prophylaxis: Protonix Chronic conditions: * Illicit drug use but reports last IV drug use was 04/2015 * Depression: Refuses to take antidepressant. Denies suicidal ideation. discussed starting low dose of trazadone to help him sleep and he agrees to this. (Perla Mack MD R3) Problem Qualifiers (1) HTN (hypertension): Qualified Code: I10 - Essential hypertension Perla Mack MD R3 Apr 12, 2016 11:36 Sherrell Drake MD Apr 13, 2016 13:29
[2016-04-12] MEDS: VANCOMYCIN INJ 1,250 MG in SODIUM CHLOR 0.9% 250 ML INJ 250 ML IV SCH (13:45)
[2016-04-12] MEDS ORDERED: MIDAZOLAM HCL 5 MG/5 ML VIAL ONE (14:07)
[2016-04-12] MEDS ORDERED: fentaNYL CITRATE 250 MCG/5 ML AMP ONE (14:08)
--- NOTE | 2016-04-12 15:24 | PD.RAD ---
Post Procedure Progress Note Pre Procedure Diagnosis: (1) Spinal epidural abscess Post Procedure Diagnosis: (1) Spinal epidural abscess Procedure Date: Apr 12, 2016 Supervising Radiologist: Cordell Jade Proceduralist/Assist: Grace Gates, RT(R)(), Michelle Tapia RT(R)() Anesthesia: Conscious Sedation Plan of Activity Patient to Unit: Nursing Unit Patient Condition: Good See PACS Report for procedural detail/treatment Spinal Procedure Disc Aspiration L3-L4 Fluid Removal (CCs): 2 Fluid Description: Bloody Cordell Jade MD Apr 12, 2016 15:24
--- NOTE | 2016-04-12 17:41 | RADRPT ---
EXAM DATE/TIME: 04/12/2016 14:20 [facility] COMPARISON: No previous studies available for comparison. INDICATIONS : Patient with a history of discitis, lower back pain. MEDICAL HISTORY : Anxiety Depression Hepatitis C HTN Tobacco use Illicit drug abuse COPD Recent bacteremia/osteomyelitis/discitis SURGICAL HISTORY : Appendectomy IR drainage of abscess Bilateral ACL repairs Discectomy of lower back ENCOUNTER: Initial ACUITY: 2 months PAIN SCORE: 8/10 LOCATION: lower back FLUORO TIME: 3.5 minutes SEDATION TIME: 30 minutes MEDICATION(S): 1.) 2.5 mg midazolam (Versed) IV 2.) 125 mcg fentanyl (Sublimaze) IV DEVICE(S): 1.) 22 gauge needle PROCEDURE : 1. Fluoroscopically guided needle aspiration of L3-L4 disc 2. Conscious sedation with continuous EKG and Oximetry monitoring. The risks, benefits and alternatives to the procedure were explained and verbal and written consent w as obtained. The site was prepped in sterile fashion. Full sterile technique was used, including cap, mask, steri le gloves and gown and a large sterile sheet. Hand hygiene and 2% chlorhexidine and/or betadine/alco hol prep was utilized per protocol for cutaneous antisepsis. The skin and subcutaneous tissues were infiltrated with local anesthetic solution. With fluoroscopic guidance the L3-L4 disc was punctured and 2 cc of lity fluid was removed and sent t o the lab for evaluation. Conscious sedation was performed with the prescribed dosages and duration as above in the presence of an independent trained radiology nurse to assist in the monitoring of the patient. EKG and oximetry remained stable throughout the procedure. CONCLUSION: Uncomplicated aspiration of the L3-L4 disc as above. Cordell Jade MD on April 12, 2016 at 17:39 Board Certified Radiologist. This report was verified electronically.
[2016-04-12] MEDS: MICAFUNGIN INJ 150 MG in SODIUM CHLORIDE 0.9% INJ 100 ML IV SCH (18:24)
[2016-04-12] MEDS: REMOVE OLD NICODERM (NICOTINE) PATCH TD SCH (21:00)
[2016-04-13] VITALS: BP 168/98; PULSE 89; RESP 20; TEMP 97.6; O2SAT 96
[2016-04-13] MEDS: CYCLOBENZAPRINE HCL 10 MG TAB PO PRN ×3 (03:59→20:00)
[2016-04-13] MEDS: oxyCODONE/ACETAMINOPHEN 10 MG/325 MG TAB PO PRN ×6 (04:00→22:54)
[2016-04-13 07:28] LABS: AUTOMATED NEUTROPHIL # 4.6 TH/MM3 (1.8-7.7); BASOPHIL # 0.1 TH/MM3 (0-0.2); BASOPHIL % 0.8 % (0.0-2.0); EOSINOPHIL # 0.4 TH/MM3 (0-0.4); EOSINOPHIL % 4.8 % (0.0-4.0); HEMATOCRIT 30.7 % (39.0-51.0); HEMO FLAGS DIFF FINAL; LYMPH % 22.9 % (9.0-44.0); LYMPHOCYTE # 1.7 TH/MM3 (1.0-4.8); MEAN CELL VOLUME 77.2 FL (80.0-100.0); MEAN CORPUSCULAR HEMOGLOBIN 25.6 PG (27.0-34.0); MEAN CORPUSCULAR HGB CONC 33.2 % (32.0-36.0); MONO % 8.1 % (0.0-8.0); NEUT % 63.4 % (16.0-70.0); PLATELET COUNT 266 TH/MM3 (150-450); RED BLOOD COUNT 3.98 MIL/MM3 (4.50-5.90); RED CELL DISTRIBUTION WIDTH 20.9 % (11.6-17.2); WHITE BLOOD COUNT 7.3 TH/MM3 (4.0-11.0)
[2016-04-13 07:59] LABS: BICARBONATE 28.7 MEQ/L (21.0-32.0); POTASSIUM 4.7 MEQ/L (3.5-5.1)
[2016-04-13 08:00] VITALS: BP 167/107; PULSE 82; RESP 22; TEMP 97.5; O2SAT 97
[2016-04-13] MEDS: PANTOPRAZOLE SOD 40 MG DELAYED RELEASE TAB PO SCH (08:25)
[2016-04-13] MEDS: GABAPENTIN 300 MG CAP PO SCH ×2 (08:25→20:00)
[2016-04-13] MEDS: clonazePAM 1 MG TAB PO SCH ×3 (08:25→17:02)
[2016-04-13] MEDS: LISINOPRIL 20 MG TAB PO SCH (08:26)
[2016-04-13] MEDS: MORPHINE SULFATE 15 MG CONTROLLED RELEASE TAB PO SCH ×2 (08:26→21:04)
[2016-04-13] MEDS: DICLOFENAC SODIUM 50 MG DELAYED RELEASE TAB PO SCH ×2 (08:26→17:34)
[2016-04-13] MEDS: DOCUSATE SODIUM 50 MG/SENNA 8.6 MG TAB PO SCH ×2 (08:27→20:00)
[2016-04-13] MEDS: VANCOMYCIN INJ 1,250 MG in SODIUM CHLOR 0.9% 250 ML INJ 250 ML IV SCH (08:30)
[2016-04-13] MEDS: SODIUM CHLORIDE 0.9% FLUSH 5 ML FLUSH FLUSH SCH ×2 (08:31→20:03)
[2016-04-13] MEDS: NICOTINE 21 MG/24 HR PATCH TD SCH (08:31)
--- NOTE | 2016-04-13 09:58 | HHI.FPPN ---
Subjective Remarks Patient seen and examined. Hypertensive overnight without symptoms. Patient reports that IR disc aspiration while yesterday and has no pain at aspiration site. He states his pain control is much improved since changing his medication to every 3 hours. He has no complaints this morning and denies any fevers, chills, shortness of breath, chest pain, NVD, or calf tenderness. (Fan Carter MD R1) Objective Vitals Vital Signs Date Time Temp Pulse Resp B/P Pulse Ox O2 Delivery O2 Flow Rate FiO2 04/13/16 08:00 97.5 82 22 167/107 97 04/13/16 00:00 97.6 89 20 168/98 96 04/12/16 20:00 96.6 88 19 140/96 96 04/12/16 20:00 Room Air 04/12/16 18:00 160/90 04/12/16 16:20 97.3 87 16 177/115 98 04/12/16 15:45 84 16 139/92 93 04/12/16 15:40 82 16 136/89 93 04/12/16 15:15 81 16 143/91 90 04/12/16 15:00 98.5 84 16 127/101 90 04/12/16 12:00 97.8 91 20 164/92 93 I/O 04/12/16 04/12/16 04/12/16 04/13/16 04/13/16 04/13/16 07:00 15:00 23:00 07:00 15:00 23:00 Intake Total 240 ml 200 ml 800 ml Output Total 800 ml 600 ml Balance -560 ml 200 ml 200 ml Intake Oral 240 ml 600 ml IV Total 200 ml 200 ml Output Urine Total 800 ml 600 ml # Bowel Movements 0 0 (Fan Carter MD R1) Result Diagram: 04/13/16 0650 04/13/16 0650 Objective Remarks GEN: Well-developed, well-nourished patient. Resting in bed with his legs propped up. CV: Regular rate and rhythm without obvious MGR. LUNGS: Clear to auscultation bilaterally. Normal respiratory effort. No wheezes , rales, rhonchi. GI: Soft, nontender, nondistended with positive bowel sounds. No palpable masses. EXT: No edema. No calf tenderness. Bandage in place at aspiration site, CDI without tenderness. NEURO/PSYCH: Awake, alert. Appropriate insight and judgment. Normal speech. ( Fan Carter MD R1) Line: PICC (Fan Carter MD R1) A/P Assessment and Plan 56-year-old male with a PMH significant for IV drug use in the past, discitis/ osteomyelitis who was admitted due to uncontrolled pain from his discitis Discharge Planning Unclear at this time, pending results of determination of length and type of abx that will best help bacteremia (Fan Carter MD R1) Attending Attestation Patient seen and examined. Case reviewed and discussed with the resident team. Agree with plan of care as discussed with me and documented in the resident note. (Sherrell Drake MD) Problem List: (1) Lumbar discitis Status: Acute Plan: Recent admission on 02/12 for epidural abscess, discitis which was treated with Decadron, vancomycin, cefazolin. Was discharged with home health for continued treatment which he has received. Continues to have lower back pain. Worsening pain is likely not due to discitis but rather history of poorly controlled chronic pain which will need pain management as an outpatient. -ESR, CRP unremarkable -UA 04/09: Mixed gram positive florencia -Blood cultures: Trichosporon beigelii, Corynebacterium sp -Draw repeat blood cultures 04/10: No growth 2 days -Lumbar MRI: Progression of the findings at L3/4 discitis with persistent enhancement about the periphery of the residual disc and decreased intensity marrow enhancement. Significant reduction in the size of bilateral psoas and left paraspinal abscesses. ID consulted: Appreciate recommendations * Continue vancomycin, cefazolin and fluconazole * PICC line removed * Echo ordered - no evidence of endocarditis and an EF of 65% * L3-L4 Disc Aspiration: 2 CC bloody fluid; Cultures NTD * Will need ophthalmology consult * Consulted Dr. Iniguez: Nothing to do until infection has cleared Neurosurgery consulted: Appreciate recommendations * No significant epidural abscess * Deferred care to Dr. Bansal Medications: * Vancomycin (04/08- * Cefazolin (04/08- * Micafungin (04/09-04/13) * Diflucan 200mg IV daily (04/09-04/10) * Fluconazol (04/13- ) * Oramorph 45mg AM, 45mg HS. NOT TO BE INCREASED * Flexeril PRN * Gabapentin 600 mg BID (2) Bacteremia Status: Resolved Plan: See plan above (3) HTN (hypertension) Status: Chronic Plan: Patient with history of hypertension. Blood pressure continues to improve. -Continue lisinopril to 40 mg daily -Start Amlodipine 5mg Hydralazine 10 mg every 8 hours when necessary for systolic blood pressure greater than 180 or diastolic blood pressure greater than 110 (4) Physical deconditioning Status: Acute Plan: Physical therapy ordered. Will need rehabilitation at discharge. Case management consult to assist with rehabilitation placement, appreciate assistance (5) Fluids, Electrolytes, and Nutrition Status: Acute Plan: Diet: Regular Fluids: None Electrolytes: Unremarkable, continue to monitor DVT prophylaxis: Lovenox resumed 3/ post-procedure GI prophylaxis: Protonix Chronic conditions: * Illicit drug use but reports last IV drug use was 04/2015 * Depression: Refuses to take antidepressant. Denies suicidal ideation. discussed starting low dose of trazadone to help him sleep and he agrees to this. (Fan Carter MD R1) Problem Qualifiers (1) HTN (hypertension): Qualified Code: I10 - Essential hypertension Fan Carter MD R1 Apr 13, 2016 09:58 Sherrell Drake MD Apr 20, 2016 12:19
[2016-04-13] MEDS: RESP: ALBUTEROL 2.5 MG/3 ML NEB (PRN) INH (11:01)
[2016-04-13 11:02] VITALS: O2SAT 98
[2016-04-13 12:00] VITALS: BP 157/90; PULSE 87; RESP 20; TEMP 96.1; O2SAT 95
[2016-04-13] MEDS: FLUCONAZOLE 400 MG PREMIX BAG 200 ML IV SCH (15:10)
--- NOTE | 2016-04-13 15:18 | HHI.IDPN ---
Subjective Subjective Remarks afebrile co LUE pain tender cord denies visual complaints 2 D echo negative sp CT guided aspiration - negative Antibiotics cefazolin vancomycin micafungin Past Medical History IVDU Allergies: Coded Allergies: *MDRO Multi-Drug Resistant Organism (Verified Adverse Reaction, Unknown, ) MRSA (buttock) - 2002 Objective . Vital Signs Date Time Temp Pulse Resp B/P Pulse Ox O2 Delivery O2 Flow Rate FiO2 04/13/16 12:00 96.1 87 20 157/90 95 04/13/16 11:02 98 21 04/13/16 08:00 96 Room Air 21 04/13/16 08:00 97.5 82 22 167/107 97 04/13/16 00:00 97.6 89 20 168/98 96 04/12/16 20:00 96.6 88 19 140/96 96 04/12/16 20:00 Room Air 04/12/16 18:00 160/90 04/12/16 16:20 97.3 87 16 177/115 98 04/12/16 15:45 84 16 139/92 93 04/12/16 15:40 82 16 136/89 93 04/12/16 15:15 81 16 143/91 90 04/12/16 04/12/16 04/13/16 15:00 23:00 07:00 Intake Total 200 ml 800 ml Output Total 600 ml Balance 200 ml 200 ml Intake Oral 600 ml IV Total 200 ml 200 ml Output Urine Total 600 ml # Bowel Movements 0 . Laboratory Tests Test 04/13/16 06:50 White Blood Count 7.3 TH/MM3 Red Blood Count 3.98 MIL/MM3 Hemoglobin 10.2 GM/DL Hematocrit 30.7 % Mean Corpuscular Volume 77.2 FL Mean Corpuscular Hemoglobin 25.6 PG Mean Corpuscular Hemoglobin 33.2 % Concent Red Cell Distribution Width 20.9 % Platelet Count 266 TH/MM3 Mean Platelet Volume 8.0 FL Neutrophils (%) (Auto) 63.4 % Lymphocytes (%) (Auto) 22.9 % Monocytes (%) (Auto) 8.1 % Eosinophils (%) (Auto) 4.8 % Basophils (%) (Auto) 0.8 % Neutrophils # (Auto) 4.6 TH/MM3 Lymphocytes # (Auto) 1.7 TH/MM3 Monocytes # (Auto) 0.6 TH/MM3 Eosinophils # (Auto) 0.4 TH/MM3 Basophils # (Auto) 0.1 TH/MM3 CBC Comment DIFF FINAL Differential Comment Laboratory Tests Test 04/12/16 04/13/16 09:33 06:50 Creatinine 0.88 MG/DL 1.01 MG/DL Estimat Glomerular Filtration 89 ML/MIN 76 ML/MIN Rate Sodium Level 134 MEQ/L Potassium Level 4.7 MEQ/L Chloride Level 98 MEQ/L Carbon Dioxide Level 28.7 MEQ/L Anion Gap 7 MEQ/L Blood Urea Nitrogen 22 MG/DL Random Glucose 100 MG/DL Calcium Level 8.4 MG/DL Microbiology Date/Time Procedure Status Source Growth 04/12/16 14:47 Gram Stain - Final Resulted Wound Other 04/12/16 14:47 Wound Culture - Preliminary Resulted Wound Other NO GROWTH IN 24 HOURS. 04/12/16 14:47 Acid Fast Stain Received Wound Other Pending 04/12/16 14:47 Mycobacterial Culture Received Wound Other Pending 04/12/16 14:47 Fungal Smear - Final Resulted Wound Other NO FUNGAL ELEMENTS SEEN. 04/12/16 14:47 Fungal Culture Resulted Wound Other Pending Imaging Last Impressions Needle Biopsy/Aspiration X-Ray 04/12/16 0000 Signed Impressions: Service Date/Time: Tuesday, April 12, 2016 14:20 - CONCLUSION: Uncomplicated aspiration of the L3-L4 disc as above. Cordell Jade MD Lumbar Spine MRI 04/07/16 0000 Signed Impressions: Service Date/Time: March 09:31 - CONCLUSION: Progression of the findings at L3-4 discitis with persistent enhancement about the periphery of the residual disc and decreased intensity marrow enhancement in the L3 and L4 vertebral bodies. No evidence of spondylolisthesis. Significant reduction in size of bilateral psoas and left paraspinal abscess these. There is residual enhancing tissue in the anterior and right epidural space at L3-4 and extending in the right paraspinal region up to the mid right L2 level. Tomas Hallman MD Physical Exam CONSTITUTIONAL/GENERAL: This is an adequately nourished patient, in no apparent distress. TUBES/LINES/DRAINS: LUE PICC site with tender palpable cord, no fluctuance + redness SKIN: No jaundice, rashes, or lesions. Skin temperature appropriate. Not diaphoretic. HEAD: Atraumatic. Normocephalic. EYES: Pupils equal and round and reactive. Extraocular motions intact. No scleral icterus. No injection or drainage. Fundi not examined. ENT: Hearing grossly normal. Nose without bleeding or purulent drainage. Oral mucosae without visible erythema, exudates, masses, or lesions. NECK: Trachea midline. Supple, nontender. CARDIOVASCULAR: Regular rate and rhythm without murmurs, gallops, or rubs. No JVD. Peripheral pulses symmetric. RESPIRATORY/CHEST: Symmetric, unlabored respirations. Clear to auscultation. Breath sounds equal bilaterally. No wheezes, rales, or rhonchi. GASTROINTESTINAL: Abdomen soft, non-tender, nondistended. No hepato-splenomegaly , or palpable masses. No guarding. Bowel sounds present. GENITOURINARY: Without palpable bladder distension. MUSCULOSKELETAL: Extremities without clubbing, cyanosis, or edema. No joint tenderness or effusion noted. No calf tenderness. No mottling or clubbing. R forearm with mass like lesion on the ulnar distal aspect of forearm, contartures of digits 3-5 present no edema, no erythema, no fluctuancy BACK: no skin changes or tenderness to plpaation to the back LYMPHATICS: No palpable cervical or supraclavicular adenopathy. NEUROLOGICAL: Awake alert Motor in BLE decreased to 3/5. Follows commands. Speech normal . Moves all extremities. PSYCHIATRIC: No obvious anxiety/depression. no apparent hallucinations or other psychotic thought process. Assessment & Plan Remarks L3-4 diskitis , osteo, recurrent/unresolving previously MSSA bacteremia and h/ o recent tx with cefazoline - growing coag negative staph x 2 morphologies ? significance - previouslky MSSA - case dw Dr Bansal: see saw pt 2 wks ago; she is back on service on Monday and can see him again - sp CT guided drainage, clx P, R distal radius/ulnar osteomyelitis initially suspected; evaluated by Dr Iniguez: inflammatory arthritis with subsequent bursa rupture, recommend delay of tx untill after diskitis t ccompleted T spine inflammatory or demyelinating process - neurosurgery ff Trichosporon fungemia - source favouring PICC vs epidural abscess - cont vanco - cont cefazoline - dc micafungin - start fluconazl IV, later can change to po - ophalmology consult with dilated funduscopic exam (can be done as o/p unless develops visual changes) - fu repeat blood clx - chk 2 D echo - fu CT guided aspirationclx - rechk ESR Appreciate Mary Georges MD Apr 13, 2016 15:18
[2016-04-13 16:00] VITALS: BP 146/98; PULSE 91; RESP 20; TEMP 97.7; O2SAT 97
--- NOTE | 2016-04-13 16:44 | RADRPT ---
EXAM DATE/TIME: 04/13/2016 14:36 [facility] COMPARISON: No previous studies available for comparison. INDICATIONS : Left arm pain. MEDICAL HISTORY: Hypertension. Chronic obstructive pulmonary disease. Hepatitis C. Dysuria. SURGICAL HISTORY: Appendectomy. ACL repair. ENCOUNTER: Initial ACUITY: 1 day PAIN SCORE: 8/10 LOCATION: Left arm. FINDINGS: There is superficial thrombosis of the cephalic vein. The deep venous system of the arm is patent th rough the axillary vein. CONCLUSION: Cephalic vein thrombosis. Garrison Mckenzie MD FACR on April 13, 2016 at 16:23 Board Certified Radiologist. This report was verified electronically.
[2016-04-13] MEDS: ONDANSETRON HCL 4 MG/2 ML VIAL IVP PRN (17:47)
[2016-04-13] MEDS: amLODIPine BESYLATE 5 MG TAB PO SCH (18:49)
[2016-04-13 20:19] VITALS: BP 167/100; PULSE 95; RESP 16; TEMP 98.1; O2SAT 97
[2016-04-13] MEDS: REMOVE OLD NICODERM (NICOTINE) PATCH TD SCH (21:00)
[2016-04-14] VITALS (7 sets, daily range): BP systolic 115–165; BP diastolic 85–99; PULSE 73–106; RESP 16–19; TEMP 97.5–98.2; O2SAT 93–97
[2016-04-14] MEDS: VANCOMYCIN INJ 1,250 MG in SODIUM CHLOR 0.9% 250 ML INJ 250 ML IV SCH ×2 (02:00→20:17)
[2016-04-14] MEDS: amLODIPine BESYLATE 5 MG TAB PO SCH (07:55)
[2016-04-14] MEDS: DICLOFENAC SODIUM 50 MG DELAYED RELEASE TAB PO SCH ×2 (07:56→18:00)
[2016-04-14] MEDS: CYCLOBENZAPRINE HCL 10 MG TAB PO PRN ×2 (07:56→19:52)
[2016-04-14] MEDS: GABAPENTIN 300 MG CAP PO SCH ×2 (07:56→21:26)
[2016-04-14] MEDS: oxyCODONE/ACETAMINOPHEN 10 MG/325 MG TAB PO PRN ×3 (07:56→19:53)
[2016-04-14] MEDS: LISINOPRIL 20 MG TAB PO SCH (07:56)
[2016-04-14] MEDS: clonazePAM 1 MG TAB PO SCH ×3 (07:56→17:44)
[2016-04-14] MEDS: PANTOPRAZOLE SOD 40 MG DELAYED RELEASE TAB PO SCH (07:56)
[2016-04-14] MEDS: DOCUSATE SODIUM 50 MG/SENNA 8.6 MG TAB PO SCH ×2 (07:56→21:26)
[2016-04-14] MEDS: NICOTINE 21 MG/24 HR PATCH TD SCH (07:57)
[2016-04-14] MEDS: SODIUM CHLORIDE 0.9% FLUSH 5 ML FLUSH FLUSH SCH ×2 (08:02→20:17)
[2016-04-14] MEDS ORDERED: BISACODYL 10 MG SUPP RECTAL PRN (08:45)
--- NOTE | 2016-04-14 08:50 | HHI.FPPN ---
Subjective Remarks No acute events overnight. VS continue to show intermittently elevated BP but overall, there has been improvement. This morning he states that he feels well and had a good night sleep. Pain control seems to have been improved. (Susana Gardiner MD R2) Objective Vitals Vital Signs Date Time Temp Pulse Resp B/P Pulse Ox O2 Delivery O2 Flow Rate FiO2 04/14/16 08:00 97.7 104 19 143/92 97 04/14/16 04:56 97.6 73 16 115/94 95 04/14/16 00:23 98.2 93 16 163/97 96 04/13/16 20:19 98.1 95 16 167/100 97 04/13/16 20:08 Room Air 04/13/16 16:00 97.7 91 20 146/98 97 04/13/16 12:00 96.1 87 20 157/90 95 04/13/16 11:02 98 21 I/O 04/13/16 04/13/16 04/13/16 04/14/16 04/14/16 04/14/16 07:00 15:00 23:00 07:00 15:00 23:00 Intake Total 800 ml 1320 ml 450 ml 150 ml Output Total 600 ml 2100 ml 1350 ml 200 ml Balance 200 ml -780 ml -900 ml -50 ml Intake Oral 600 ml 1320 ml 450 ml 150 ml IV Total 200 ml Output Urine Total 600 ml 2100 ml 1350 ml 200 ml # Bowel Movements 0 0 0 (Susana Wilson MD R2) Result Diagram: 04/13/16 0650 04/13/16 0650 Objective Remarks GEN: Well-developed, well-nourished patient. Sitting up in bed. CV: Regular rate and rhythm without obvious MGR. LUNGS: Clear to auscultation bilaterally. Normal respiratory effort. No wheezes , rales, rhonchi. GI: Soft, nontender, nondistended. No palpable masses. EXT: No edema. No calf tenderness. NEURO/PSYCH: Awake, alert. Appropriate insight and judgment. Normal speech. ( Susana Wilson MD R2) Line: PICC (Susana Wilson MD R2) A/P Assessment and Plan 56-year-old male with a PMH significant for IV drug use in the past, discitis/ osteomyelitis who was admitted due to uncontrolled pain from his discitis. Also found to have yeast bacteremia. Discharge Planning 1-3 days pending clearance and recommendations from ID for outpatient ABX for discitis and yeast bacteremia wdw Dr. Drake and Dr. Carter (WaleSusana Arredondo MD R2) Attending Attestation Patient seen and examined. Case reviewed and discussed with the resident team. Agree with plan of care as discussed with me and documented in the resident note. (Sherrell Drake MD) Problem List: (1) Lumbar discitis Status: Acute Plan: Recent admission on 02/12 for epidural abscess, discitis which was treated with Decadron, vancomycin, cefazolin. Was discharged with home health for continued treatment which he has received. Presented due to worsening lower back pain. -ESR, CRP unremarkable -UA 04/09: Mixed gram positive florencia -Blood cultures: Trichosporon beigelii, Corynebacterium sp -Draw repeat blood cultures 04/10: No growth 3 days -Lumbar MRI: Progression of the findings at L3/4 discitis with persistent enhancement about the periphery of the residual disc and decreased intensity marrow enhancement. Significant reduction in the size of bilateral psoas and left paraspinal abscesses. ID consulted: Appreciate recommendations * Continue vancomycin, cefazolin and fluconazole * PICC line removed * Echo ordered - no evidence of endocarditis and an EF of 65% * L3-L4 Disc Aspiration: 2 CC bloody fluid; Cultures NTD * Will need ophthalmology consult as outpatient * Consulted Dr. Iniguez: Nothing to do until infection has cleared * upper extremity US: superficial thrombosis Neurosurgery consulted: Appreciate recommendations * No significant epidural abscess * Regained strength neurologically Medications: * Fluconazol (04/13- ) * Vancomycin (04/08- * Cefazolin (04/08- * Micafungin (04/09-04/13) * Diflucan 200mg IV daily (04/09-04/10) * Oramorph 45mg AM, 45mg HS. NOT TO BE INCREASED * Flexeril PRN * Gabapentin 600 mg BID (2) Bacteremia Status: Resolved Plan: See plan above (3) HTN (hypertension) Status: Chronic Plan: Patient with history of hypertension. Blood pressure continues to improve. -Continue lisinopril to 40 mg daily -Started Amlodipine 5mg Hydralazine 10 mg every 8 hours when necessary for systolic blood pressure greater than 180 or diastolic blood pressure greater than 110 (4) Physical deconditioning Status: Acute Plan: Physical therapy ordered. Will need rehabilitation at discharge. Case management consult to assist with rehabilitation placement, appreciate assistance (5) Fluids, Electrolytes, and Nutrition Status: Acute Plan: Diet: Regular Fluids: None Electrolytes: Unremarkable, continue to monitor DVT prophylaxis: Lovenox resumed 3 post-procedure GI prophylaxis: Protonix Chronic conditions: * Illicit drug use but reports last IV drug use was 04/2015 * Depression: Refuses to take antidepressant. Denies suicidal ideation. discussed starting low dose of trazadone to help him sleep and he agrees to this. (Susana Wilson MD R2) Problem Qualifiers (1) HTN (hypertension): Qualified Code: I10 - Essential hypertension Susana Wilson MD R2 Apr 14, 2016 08:49 Sherrell Drake MD Apr 20, 2016 12:19
[2016-04-14] MEDS: MORPHINE SULFATE 15 MG CONTROLLED RELEASE TAB PO SCH ×2 (09:00→21:26)
[2016-04-14] MEDS: ENOXAPARIN SODIUM 40 MG/0.4 ML SYRINGE SQ SCH (13:24)
[2016-04-14] MEDS: FLUCONAZOLE 400 MG PREMIX BAG 200 ML IV SCH (14:15)
[2016-04-14] MEDS ORDERED: PHARMACY ORDERED LAB XX ONE (19:45)
[2016-04-14] MEDS: REMOVE OLD NICODERM (NICOTINE) PATCH TD SCH (21:00)
[2016-04-15] VITALS (7 sets, daily range): BP systolic 142–176; BP diastolic 93–99; PULSE 55–95; RESP 14–20; TEMP 97–98; O2SAT 94–99
[2016-04-15] MEDS: oxyCODONE/ACETAMINOPHEN 10 MG/325 MG TAB PO PRN ×6 (01:31→21:16)
[2016-04-15] MEDS: CYCLOBENZAPRINE HCL 10 MG TAB PO PRN ×3 (05:27→21:16)
--- NOTE | 2016-04-15 07:40 | HHI.FPPN ---
Subjective Remarks No acute events overnight. This morning patient states that he feels well enough to go home. No new concerns. Reports that he has had an improvement in his strength especially when walking with the walker. (Susana Wilson MD R2) Objective Vitals Vital Signs Date Time Temp Pulse Resp B/P Pulse Ox O2 Delivery O2 Flow Rate FiO2 04/15/16 04:00 97.1 81 20 154/99 97 04/15/16 00:00 97.5 82 14 142/95 94 04/14/16 20:24 Room Air 04/14/16 20:00 97.5 87 16 165/99 97 04/14/16 16:00 97.6 81 19 137/85 93 04/14/16 12:36 97 04/14/16 12:00 98.0 106 18 123/89 93 04/14/16 08:00 97.7 104 19 143/92 97 04/14/16 08:00 96 Room Air 21 I/O 04/14/16 04/14/16 04/14/16 04/15/16 04/15/16 04/15/16 07:00 15:00 23:00 07:00 15:00 23:00 Intake Total 150 ml 600 ml 480 ml 480 ml Output Total 200 ml Balance -50 ml 600 ml 480 ml 480 ml Intake Oral 150 ml 600 ml 480 ml 480 ml Output Urine Total 200 ml # Voids 4 2 # Bowel Movements 0 1 0 (Susana Wilson MD R2) Result Diagram: 04/13/16 0650 04/13/16 0650 Objective Remarks GEN: Well-developed, well-nourished patient. Laying comfortably in bed with legs up on pillow. CV: Regular rate and rhythm without obvious MGR. LUNGS: Clear to auscultation bilaterally. Normal respiratory effort. No wheezes , rales, rhonchi. GI: Soft, nontender, nondistended. No palpable masses. EXT: No edema. No calf tenderness. NEURO/PSYCH: Awake, alert. Appropriate insight and judgment. Normal speech. ( Susana Wilson MD R2) Line: PICC (Susana Wilson MD R2) A/P Assessment and Plan 56-year-old male with a PMH significant for IV drug use in the past, discitis/ osteomyelitis who was admitted due to uncontrolled pain from his discitis. Also found to have yeast bacteremia. Discharge Planning 1-2 days pending clearance and recommendations from ID for outpatient ABX for discitis and yeast bacteremia wdw Dr. Drake and Dr. Carter ([facility]) Attending Attestation Patient seen and examined. Case reviewed and discussed with the resident team. Agree with plan of care as discussed with me and documented in the resident note. (Sherrell Drake MD) Problem List: (1) Lumbar discitis Status: Acute Plan: Recent admission on 02/12 for epidural abscess, discitis which was treated with Decadron, vancomycin, cefazolin. Was discharged with home health for continued treatment which he has received. Presented due to worsening lower back pain. -ESR, CRP unremarkable -UA 04/09: Mixed gram positive florencia -Blood cultures: Trichosporon beigelii, Corynebacterium sp -Draw repeat blood cultures 04/10: No growth 4 days -L3/4 disc aspiration: no growth to date -Lumbar MRI: Progression of the findings at L3/4 discitis with persistent enhancement about the periphery of the residual disc and decreased intensity marrow enhancement. Significant reduction in the size of bilateral psoas and left paraspinal abscesses. ID consulted: Appreciate recommendations * Continue vancomycin, cefazolin and fluconazole * PICC line removed * Echo ordered - no evidence of endocarditis and an EF of 65% * L3-L4 Disc Aspiration: 2 CC bloody fluid; Cultures NTD * Will need ophthalmology consult as outpatient * Consulted Dr. Iniguez: Nothing to do until infection has cleared * upper extremity US: superficial thrombosis Neurosurgery consulted: Appreciate recommendations * No significant epidural abscess * Regained strength neurologically Medications: * Fluconazol (04/13- ) * Vancomycin (04/08- * Cefazolin (04/08- * Micafungin (04/09-04/13) * Diflucan 200mg IV daily (04/09-04/10) * Oramorph 45mg AM, 45mg HS. NOT TO BE INCREASED * Flexeril PRN * Gabapentin 600 mg BID (2) Bacteremia Status: Resolved Plan: See plan above (3) HTN (hypertension) Status: Chronic Plan: Patient with history of hypertension. Blood pressure continues to improve. -Continue lisinopril to 40 mg daily -Amlodipine 5mg Hydralazine 10 mg every 8 hours when necessary for systolic blood pressure greater than 180 or diastolic blood pressure greater than 110 (4) Physical deconditioning Status: Acute Plan: Physical therapy ordered. Pt requesting home health with PT -Reconsulted PT for evaluation on home health PT (5) Fluids, Electrolytes, and Nutrition Status: Acute Plan: Diet: Regular Fluids: None Electrolytes: Unremarkable, continue to monitor DVT prophylaxis: Lovenox resumed 3/ post-procedure GI prophylaxis: Protonix Chronic conditions: * Illicit drug use but reports last IV drug use was 04/2015 * Depression: Refuses to take antidepressant. Denies suicidal ideation. discussed starting low dose of trazadone to help him sleep and he agrees to this. (Susana Wilson MD R2) Problem Qualifiers (1) HTN (hypertension): Qualified Code: I10 - Essential hypertension Susana Wilson MD R2 Apr 15, 2016 07:40 Sherrell Drake MD Apr 20, 2016 12:20
[2016-04-15 08:19] LABS: HEMATOCRIT 31.8 % (39.0-51.0); MEAN CELL VOLUME 78.1 FL (80.0-100.0); MEAN CORPUSCULAR HEMOGLOBIN 25.8 PG (27.0-34.0); MEAN CORPUSCULAR HGB CONC 33.1 % (32.0-36.0); PLATELET COUNT 265 TH/MM3 (150-450); RED BLOOD COUNT 4.07 MIL/MM3 (4.50-5.90); RED CELL DISTRIBUTION WIDTH 20.3 % (11.6-17.2); REVIEW FLAG FINAL; WHITE BLOOD COUNT 8.2 TH/MM3 (4.0-11.0)
[2016-04-15] MEDS: PANTOPRAZOLE SOD 40 MG DELAYED RELEASE TAB PO SCH (08:39)
[2016-04-15] MEDS: GABAPENTIN 300 MG CAP PO SCH ×2 (08:39→20:15)
[2016-04-15] MEDS: DICLOFENAC SODIUM 50 MG DELAYED RELEASE TAB PO SCH ×2 (08:40→17:15)
[2016-04-15] MEDS: DOCUSATE SODIUM 50 MG/SENNA 8.6 MG TAB PO SCH ×2 (08:41→20:14)
[2016-04-15] MEDS: LISINOPRIL 20 MG TAB PO SCH (08:41)
[2016-04-15] MEDS: NICOTINE 21 MG/24 HR PATCH TD SCH (08:42)
[2016-04-15] MEDS: SODIUM CHLORIDE 0.9% FLUSH 5 ML FLUSH FLUSH SCH ×2 (08:43→20:17)
[2016-04-15] MEDS: MORPHINE SULFATE 15 MG CONTROLLED RELEASE TAB PO SCH ×2 (08:43→20:15)
[2016-04-15 08:44] LABS: BICARBONATE 27.8 MEQ/L (21.0-32.0); POTASSIUM 4.9 MEQ/L (3.5-5.1)
[2016-04-15] MEDS: ENOXAPARIN SODIUM 40 MG/0.4 ML SYRINGE SQ SCH (11:32)
[2016-04-15] MEDS: FLUCONAZOLE 400 MG PREMIX BAG 200 ML IV SCH (11:33)
--- NOTE | 2016-04-15 11:51 | HHI.DCPOC ---
Discharge Care Plan Diagnosis: (1) Yeast infection (2) Bacteremia (3) Lumbar discitis (4) Wrist joint infection Goals to Promote Your Health * To prevent worsening of your condition and complications * To maintain your health at the optimal level Directions to Meet Your Goals Take your medications as prescribed Follow your dietary instruction Follow activity as directed Keep your appointments as scheduled Take your immunizations and boosters as scheduled If your symptoms worsen call your PCP, if no PCP go to Urgent Care Center or Emergency Room Smoking is Dangerous to Your Health. Avoid second hand smoke Call the 24-hour hour crisis hotline for domestic abuse at Susana Wilson MD R2 Apr 15, 2016 11:51
[2016-04-15] MEDS: VANCOMYCIN INJ 1,250 MG in SODIUM CHLOR 0.9% 250 ML INJ 250 ML IV SCH (13:50)
[2016-04-15] MEDS: RESP: ALBUTEROL 2.5 MG/3 ML NEB (PRN) INH (14:08)
--- NOTE | 2016-04-15 14:24 | HHI.PR ---
Addendum to Inpatient Note Additional Information clx is negative @ 72 hrs repeat BC negative - final cont IV abx x 8 wks cont fluconazole 400 mg po daily x 4 weeks from 1st neg BC ophthaklmological dilated exam - can b done as o/pp OK to dc from id standpoint Mary Michele MD Apr 15, 2016 14:24
--- NOTE | 2016-04-15 14:29 | HHI.FF ---
Infusion Therapy Location of Infusion Therapy: Home Health Care IV Infusion Order Patient Information Patient Weight 71.6 kg Diagnosis: Diagnosis diskitis fungemia Coded Allergies: *MDRO Multi-Drug Resistant Organism (Verified Adverse Reaction, Unknown, ) MRSA (buttock) - 2002 Administer Medication Vancomycin 1 gram IV q 12 hours Start Treatment: Apr 15, 2016 Stop Treatment: May 19, 2016 Administer Medication Cefazolin 2 grams IV q 8 hours Start Treatment: Apr 15, 2016 Stop Treatment: May 19, 2016 Additional Information Venous access: PICC Line Additional Instructions [x] Peripheral flush and dressing changes per protocol [x] 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 [] May leave port accessed during therapy. [] May leave peripheral site accessed for duration of therapy. [x] If patient has SOB or respiratory distress, check oxygen saturation. If less than 90% or clinical signs of respiratory distress, administer oxygen at 2 L/min. via nasal cannula and notify physician. [x] Anaphylaxis/Reaction orders: * Stop infusion. * Keep IV line open with saline flush. * Notify physician. * Monitor vital signs every 15 minutes until symptoms resolve. * Check Oxygen saturation; Oxygen at 2 L/min. via nasal cannula if less than 90% or clinical signs of respiratory distress. * Administer diphenhydramine (Benadryl) 25 mg IV STAT, (unless patient has received as pre-med). May repeat once, if necessary. * Solu-Cortef 250 mg IVP over 30-60 seconds, use 100 mg vials for each dissolution. * Epinephrine (1mg/1 ml) 0.3 mg subcutaneously or IVP now with any signs of respiratory distress. * Check with physician for new additional pre-med orders if patient is re- challenged or re-treated. [x] May remove PICC line when treatment complete, after confirming with Physician. [x] If the patient is admitted to the hospital, the ED, or transferred via [facility] , complete transfer form including medication reconciliation order sheet. Laboratory Tests Weekly Labs: CBC w/diff, Creatinine, LFT's (Hepatic function test), SED Rate, Vancomycin Trough Mary Michele MD Apr 15, 2016 14:29
[2016-04-15] MEDS: REMOVE OLD NICODERM (NICOTINE) PATCH TD SCH (20:20)
[2016-04-15] MEDS: clonazePAM 1 MG TAB PO PRN (22:58)
[2016-04-16] VITALS: BP 149/87; PULSE 89; RESP 20; TEMP 97.7; O2SAT 96
[2016-04-16] MEDS: oxyCODONE/ACETAMINOPHEN 10 MG/325 MG TAB PO PRN ×5 (00:45→18:19)
[2016-04-16] MEDS: VANCOMYCIN 1,000 MG/NS 250 ML IV SCH ×4 (01:57→14:00)
[2016-04-16 04:00] VITALS: BP 145/94; PULSE 70; RESP 20; TEMP 97.8; O2SAT 94
[2016-04-16] MEDS: CYCLOBENZAPRINE HCL 10 MG TAB PO PRN ×2 (04:52→14:00)
[2016-04-16 08:00] VITALS: BP 172/76; PULSE 100; RESP 18; TEMP 97.8; O2SAT 97
[2016-04-16] MEDS: GABAPENTIN 300 MG CAP PO SCH (08:31)
[2016-04-16] MEDS: LISINOPRIL 20 MG TAB PO SCH (08:31)
[2016-04-16] MEDS: clonazePAM 1 MG TAB PO PRN ×2 (08:31→18:20)
[2016-04-16] MEDS: PANTOPRAZOLE SOD 40 MG DELAYED RELEASE TAB PO SCH (08:32)
[2016-04-16] MEDS: DOCUSATE SODIUM 50 MG/SENNA 8.6 MG TAB PO SCH (08:32)
[2016-04-16] MEDS: MORPHINE SULFATE 15 MG CONTROLLED RELEASE TAB PO SCH (08:32)
[2016-04-16] MEDS: SODIUM CHLORIDE 0.9% FLUSH 5 ML FLUSH FLUSH SCH (08:33)
[2016-04-16] MEDS: NICOTINE 21 MG/24 HR PATCH TD SCH (08:33)
[2016-04-16] MEDS: DICLOFENAC SODIUM 50 MG DELAYED RELEASE TAB PO SCH ×2 (08:34→16:53)
[2016-04-16] MEDS: FLUCONAZOLE 400 MG PREMIX BAG 200 ML IV SCH (11:45)
[2016-04-16] MEDS: ENOXAPARIN SODIUM 40 MG/0.4 ML SYRINGE SQ SCH (11:46)
[2016-04-16 12:00] VITALS: BP 139/85; PULSE 90; RESP 18; TEMP 98.2; O2SAT 95
--- NOTE | 2016-04-16 12:19 | HHI.FPPN ---
Subjective Remarks No acute events overnight. Afebrile. Hypertensive to 172/76. Patient continues to complain of pain in his back, knees and right wrist. Has been approved for d/ c once PICC is placed. (Perla Mack MD R3) Objective Vitals Vital Signs Date Time Temp Pulse Resp B/P Pulse Ox O2 Delivery O2 Flow Rate FiO2 04/16/16 08:00 97.8 100 18 172/76 97 04/16/16 08:00 94 Room Air 04/16/16 04:00 97.8 70 20 145/94 94 04/16/16 00:00 97.7 89 20 149/87 96 04/15/16 20:48 Room Air 04/15/16 20:00 98.0 89 20 153/93 99 04/15/16 16:00 97.0 95 18 176/93 95 I/O 04/15/16 04/15/16 04/15/16 04/16/16 04/16/16 04/16/16 07:00 15:00 23:00 07:00 15:00 23:00 Intake Total 480 ml 1250 ml 480 ml 480 ml Balance 480 ml 1250 ml 480 ml 480 ml Intake Oral 480 ml 960 ml 480 ml 480 ml IV Total 290 ml # Voids 2 4 1 2 # Bowel Movements 0 2 (Perla Mack MD R3) Result Diagram: 04/15/16 0750 04/15/16 0750 Objective Remarks GEN: Well-developed, well-nourished patient. Laying comfortably in bed with legs up on pillow. CV: Regular rate and rhythm without obvious MGR. LUNGS: Clear to auscultation bilaterally. Normal respiratory effort. No wheezes , rales, rhonchi. GI: Soft, nontender, nondistended. No palpable masses. EXT: No edema. No calf tenderness. NEURO/PSYCH: Awake, alert. Appropriate insight and judgment. Normal speech. ( Perla Mack MD R3) Line: PICC (Perla Mack MD R3) A/P Assessment and Plan 56-year-old male with a PMH significant for IV drug use in the past, discitis/ osteomyelitis who was admitted due to uncontrolled pain from his discitis. Also found to have yeast bacteremia. Discharge Planning Once PICC placed and home antibiotics set up. (Perla Mack MD R3) Attending Attestation Patient seen and examined. Case reviewed and discussed with the resident team. Agree with plan of care as discussed with me and documented in the resident note. continuing to improve daily (Sherrell Drake MD) Problem List: (1) Lumbar discitis Status: Acute Plan: Recent admission on 02/12 for epidural abscess, discitis which was treated with Decadron, vancomycin, cefazolin. Was discharged with home health for continued treatment which he has received. Presented due to worsening lower back pain. -ESR, CRP unremarkable -UA 04/09: Mixed gram positive florencia -Blood cultures: Trichosporon beigelii, Corynebacterium sp -Draw repeat blood cultures 04/10: No growth 4 days -L3/4 disc aspiration: no growth to date -Lumbar MRI: Progression of the findings at L3/4 discitis with persistent enhancement about the periphery of the residual disc and decreased intensity marrow enhancement. Significant reduction in the size of bilateral psoas and left paraspinal abscesses. ID consulted: Appreciate recommendations * Continue vancomycin, cefazolin and fluconazole * PICC line removed * Echo ordered - no evidence of endocarditis and an EF of 65% * L3-L4 Disc Aspiration: 2 CC bloody fluid; Cultures NTD * Will need ophthalmology consult as outpatient * Consulted Dr. Iniguez: Nothing to do until infection has cleared * upper extremity US: superficial thrombosis Neurosurgery consulted: Appreciate recommendations * No significant epidural abscess * Regained strength neurologically Medications: * Fluconazol (04/13- ) * Vancomycin (04/08- * Cefazolin (04/08- * Micafungin (04/09-04/13) * Diflucan 200mg IV daily (04/09-04/10) * Oramorph 45mg AM, 45mg HS. NOT TO BE INCREASED * Flexeril PRN * Gabapentin 600 mg BID (2) Bacteremia Status: Resolved Plan: See plan above (3) HTN (hypertension) Status: Chronic Plan: Patient with history of hypertension. -Continue lisinopril to 40 mg daily -Amlodipine 5mg Hydralazine 10 mg every 8 hours when necessary for systolic blood pressure greater than 180 or diastolic blood pressure greater than 110 (4) Physical deconditioning Status: Acute Plan: Physical therapy ordered. Pt requesting home health with PT -Reconsulted PT for evaluation on home health PT; home with no PT recommended. (5) Fluids, Electrolytes, and Nutrition Status: Acute Plan: Diet: Regular Fluids: None Electrolytes: Unremarkable, continue to monitor DVT prophylaxis: Lovenox resumed 3/ post-procedure GI prophylaxis: Protonix Chronic conditions: * Illicit drug use but reports last IV drug use was 04/2015 * Depression: Refuses to take antidepressant. Denies suicidal ideation. discussed starting low dose of trazadone to help him sleep and he agrees to this. (Perla Mack MD R3) Problem Qualifiers (1) HTN (hypertension): Qualified Code: I10 - Essential hypertension Perla Mack MD R3 Apr 16, 2016 12:19 Sherrell Drake MD Apr 20, 2016 12:20
--- NOTE | 2016-04-16 15:42 | RADRPT ---
EXAM DATE/TIME: 04/16/2016 15:09 [facility] COMPARISON: CHEST SINGLE AP, February 23, 2016, 17:23. INDICATIONS : PICC line placement. MEDICAL HISTORY : None. SURGICAL HISTORY : None. ENCOUNTER: Initial ACUITY: 1 day PAIN SCORE: 4/10 LOCATION: Bilateral chest FINDINGS: A right-sided PICC line is noted and the tip overlies expected location of the SVC/right atrial junct ion. There is bandlike atelectasis at the left lung base. CONCLUSION: Left basilar atelectasis. PICC line as above. Hugo Cohn MD on April 16, 2016 at 15:39 Board Certified Radiologist. This report was verified electronically.
[2016-04-16 16:00] VITALS: BP 163/92; PULSE 94; RESP 18; TEMP 97.8; O2SAT 97
--- NOTE | 2016-04-16 16:12 | HHI.FF ---
Face to Face Verification Diagnosis: (1) Lumbar discitis (2) Bacteremia Home Health Nursing Order: Medical education Signs/symptoms of disease process Medication education-adverse effect Wound care and dressing changes Nursing assessment with vital signs IV medication administration I have seen patient Brayden Sher on 04/16/16. My clinical findings support the need for the requested home health care services because: Med compliance is questionable Limited ability to care for self High risk of falls Infection w/ risk of complications Injectable med education/admin I certify that my clinical findings support that this patient is homebound because: Unsteady gait/balance Unsafe to leave home unassisted Fan Carter MD R1 Apr 16, 2016 16:12
[2016-04-16] MEDS ORDERED: MORP1TAB24 PO (16:48)
[2016-04-16] MEDS ORDERED: DICL50TA3 PO (16:48)
[2016-04-16] MEDS ORDERED: AMLO10 PO (16:48)
[2016-04-16] MEDS ORDERED: OXYC1TAB36 PO (16:48)
[2016-04-16] MEDS ORDERED: SENN1TAB PO (16:48)
[2016-04-16] MEDS ORDERED: FLUC200T2 PO (16:50)
[2016-04-17] MEDS ORDERED: PHARMACY ORDERED LAB XX ONE (19:45)
--- NOTE | 2016-05-26 18:44 | HHI.DS ---
Discharge Summary Admission Date Apr 07, 2016 at 10:42 Discharge Date: Apr 16, 2016 Admitting Diagnosis discitis (1) Lumbar discitis Diagnosis: Principal Plan: Recent admission on 02/12 for epidural abscess, discitis which was treated with Decadron, vancomycin, cefazolin. Was discharged with home health for continued treatment which he has received. Presented due to worsening lower back pain. -ESR, CRP unremarkable -UA 04/09: Mixed gram positive florencia -Blood cultures: Trichosporon beigelii, Corynebacterium sp -Draw repeat blood cultures 04/10: No growth 4 days -L3/4 disc aspiration: no growth to date -Lumbar MRI: Progression of the findings at L3/4 discitis with persistent enhancement about the periphery of the residual disc and decreased intensity marrow enhancement. Significant reduction in the size of bilateral psoas and left paraspinal abscesses. ID consulted: Appreciate recommendations * Continue vancomycin, cefazolin and fluconazole * PICC line removed * Echo ordered - no evidence of endocarditis and an EF of 65% * L3-L4 Disc Aspiration: 2 CC bloody fluid; Cultures NTD * Will need ophthalmology consult as outpatient * Consulted Dr. Iniguez: Nothing to do until infection has cleared * upper extremity US: superficial thrombosis Neurosurgery consulted: Appreciate recommendations * No significant epidural abscess * Regained strength neurologically Medications: * Fluconazol (04/13- ) * Vancomycin (04/08- * Cefazolin (04/08- * Micafungin (04/09-04/13) * Diflucan 200mg IV daily (04/09-04/10) * Oramorph 45mg AM, 45mg HS. NOT TO BE INCREASED * Flexeril PRN * Gabapentin 600 mg BID (2) Bacteremia Diagnosis: Principal Plan: See plan above (3) HTN (hypertension) Diagnosis: Secondary Plan: Patient with history of hypertension. -Continue lisinopril to 40 mg daily -Amlodipine 5mg Hydralazine 10 mg every 8 hours when necessary for systolic blood pressure greater than 180 or diastolic blood pressure greater than 110 (4) Physical deconditioning Diagnosis: Principal Plan: Physical therapy ordered. Pt requesting home health with PT -Reconsulted PT for evaluation on home health PT; home with no PT recommended. (5) Fluids, Electrolytes, and Nutrition Diagnosis: Principal Plan: Diet: Regular Fluids: None Electrolytes: Unremarkable, continue to monitor DVT prophylaxis: Lovenox resumed 3/ post-procedure GI prophylaxis: Protonix Chronic conditions: * Illicit drug use but reports last IV drug use was 04/2015 * Depression: Refuses to take antidepressant. Denies suicidal ideation. discussed starting low dose of trazadone to help him sleep and he agrees to this. Brief History Patient is a 56-year-old male with a PMH significant for IV drug use, discitis/ osteomyelitis who was admitted due to uncontrolled pain from his discitis. Patient was admitted on 02/12 and discharged on 02/26 for epidural abscess and discitis. IR drainage of abscess on 02/12. He had received Decadron as well as vancomycin and cefazolin that was to be continued as an outpatient for prolonged antibiotic course which he has continued receiving. Per ED discussion with neurosurgery, neurosurgery does not think this readmission is due to worsening of discitis/return of abscess but may benefit from repeat blood cultures and a dose of Decadron. Patient reports that he presented today due to worsening of lower back pain that radiates down bilateral legs down to his feet. He continues to be concerned about his right hand fingers which has extensor tendon rupture suspected to be due to inflammatory arthritis/osteomyelitis but treatment was deferred until after resolution of discitis. Reports his back pain reminded him of his pain at the beginning of this treatment process. He reports taking oral morphine 60mg BID but is unable to give me a physician's name of who has been prescribing his pain medications. Endorses chills which he says have been present for quite some time but denies any fevers, nausea/vomiting, abdominal pain, diarrhea. Endorses chronic constipation from pain medication and dysuria that has also been present ever since his discharge. Patient is also concerned about being taking care of at home. Lives with his brother and son which have not been very helpful. Has difficulty ambulating distances around the house and endorses frequent falls from his legs becoming weak. PE at Discharge GEN: Well-developed, well-nourished patient. Laying comfortably in bed with legs up on pillow. CV: Regular rate and rhythm without obvious MGR. LUNGS: Clear to auscultation bilaterally. Normal respiratory effort. No wheezes , rales, rhonchi. GI: Soft, nontender, nondistended. No palpable masses. EXT: No edema. No calf tenderness. NEURO/PSYCH: Awake, alert. Appropriate insight and judgment. Normal speech. Hospital Course Patient was admitted to medical team and infectious disease as well as neurosurgery consulted. L3-L4 disc aspiration was completed with cultures negative. MRI showed L3/L4 discitis with persistent enhancement about the periphery of the residual sac and decreased intensity marrow enhancement. Significant reduction in the size of the bilateral psoas and left paraspinal abscesses. Admission blood cultures positive for Trichosporon beigelii and Corynebacterium sp. Patient was then started on vancomycin and cefazolin as well as micafungin. The micafungin was then transitioned to Diflucan and transitioned again to fluconazole. His pain was controlled on Oramorph, Flexeril , and gabapentin. The patient regained strength neurologically at the time of discharge. He was discharged home with home health as well as a PICC line to continue IV antibiotic therapy per infectious disease. He was advised to follow- up with hand surgery, ophthalmology, and his PCP within 2 weeks. Pt Condition on Discharge: Stable Discharge Disposition: Disch w/ Home Health Serv Discharge Instructions DIET: Follow Instructions for: As Tolerated, No Restrictions Activities you can perform: Regular-No Restrictions Follow up Referrals: Appointment for Follow Up - 1 Week Hand Surgery - 1 Month with Alessandra Iniguez MD Ophthalmology - 1 Week SNF[facility]/ with [facility] New Medications: Fluconazole (Fluconazole) 200 Mg Tab 400 MG PO DAILY Infection #22 Ref 0 TAB Amlodipine (Norvasc) 10 Mg Tab 10 MG PO DAILY #[address] (Diclofenac Sodium DR) 50 Mg Tabdr 50 MG PO BIDPC #60 TAB Morphine ER (Morphine ER) 15 Mg Tab 45 MG PO Q12HR #30 TAB Oxycodone-Acetaminophen (Oxycodone-Acetaminophen) 10-325 mg Tab 1 TAB PO Q8HR PRN BREAKTHROUGH PAIN #20 TAB Sennosides-Docusate Sodium (Senna Plus 8.6-50 mg) 1 Tab Tab 1 TAB PO BID #60 TAB Continued Medications: Clonazepam (Klonopin) 1 Mg Tab 1 MG PO TID #0 Ref 0 TAB Cyclobenzaprine (Flexeril) 10 Mg Tab 10 MG PO Q8H PRN SPASM #90 Ref 0 TAB Gabapentin (Gabapentin) 600 Mg Tab 600 MG PO BID nerve pain #60 Ref 5 TAB Lisinopril (Lisinopril) 10 Mg Tab 10 MG PO DAILY #0 Ref 0 TAB Misc. Devices (Roller Walker) 1 Mis Mis 1 EA .ROUTE NOW #1 Ref 0 EA Omeprazole (Omeprazole) 20 Mg Tab 20 MG PO BID #0 Ref 0 TAB Oxycodone-Acetaminophen (Percocet) 10-325 mg Tab 1 TAB PO Q4H PRN PAIN Ref 0 TAB Vancomycin Inj (Vancomycin Inj) 1,000 Mg Inj 1500 MG IV Q12HR Infection Ref 0 BAG Discontinued Medications: Morphine ER (Morphine ER) 30 Mg Tab 30 MG PO BID #60 Ref 0 TAB Morphine ER (Morphine ER) 15 Mg Tab 15 MG PO HS Add to the 30mg Morphine dose at night for a total of 45mg Pain Management #30 TAB Fan Carter MD R1 May 26, 2016 18:44
== END 2016-04-16 20:23 | disposition home health service (06) | DRG 552 ==
LOC: NEPC 07:44 → NEDA 10:42 → N04A 19:38
PROVIDERS: ADMIT Family Medicine; ATTEND Family Medicine
PROC: 0S923ZX Drainage of Lumbar Vertebral Disc, Percutaneous Approach, Diagnostic (ICD-10-PCS; principal; 2016-04-12)
PROC: 02HV33Z Insertion of Infusion Device into Superior Vena Cava, Percutaneous Approach (ICD-10-PCS; 2016-04-16)
PROC: B548ZZA Ultrasonography of Superior Vena Cava, Guidance (ICD-10-PCS; 2016-04-16)
DX: M46.46 Discitis, unspecified, lumbar region (principal); B49 Unspecified mycosis; F11.20 Opioid dependence, uncomplicated; I82.612 Acute embolism and thrombosis of superficial veins of left upper extremity; I10 Essential (primary) hypertension; G89.29 Other chronic pain; F32.9 Major depressive disorder, single episode, unspecified; F12.90 Cannabis use, unspecified, uncomplicated; F14.90 Cocaine use, unspecified, uncomplicated; E87.6 Hypokalemia; K59.09 Other constipation; K59.03 Drug induced constipation; B19.20 Unspecified viral hepatitis C without hepatic coma; J44.9 Chronic obstructive pulmonary disease, unspecified; F17.210 Nicotine dependence, cigarettes, uncomplicated; B95.61 Methicillin susceptible Staphylococcus aureus infection as the cause of diseases classified elsewhere
CPT/HCPCS: 36569; 62267; 71010; 72158; 76937; 77002; 80048; 80053; 80202; 80307; 81001; 82565; 85025; 85027; 85610; 85652; 85730; 86140; 87015; 87040; 87070; 87077; 87086; 87102; 87116; 87186; 87205; 87206; 93005; 93308; 93971; 94150; 94640; 94664; 96374; 96375; 99152; 99153; A9579; J0690; J1100; J1170; J1450; J1650; J2060; J2248; J2250; J2405; J3010; J3370; J7040; J7050; J7613